=== PATIENT | female | born 1955 | race Caucasian/White ===

== ENCOUNTER 2017-07-30 15:37 | Emergency (ER) | payer MEDICARE, OTHER, SELFPAY ==
[2017-07-30 16:01] VITALS: BP 134/84; PULSE 84; RESP 14; TEMP 36.1; O2SAT 98
--- NOTE | 2017-07-30 16:26 | DI.RAD.S_ITS ---
PROCEDURE: XR CHEST 2V INDICATIONS: cough for last 2 weeks TECHNIQUE: 2 views of the chest were acquired. COMPARISON: [facility], , CHEST 2 VIEW, 04/17/2016, 13:00. FINDINGS: Surgical changes and devices: None. Lungs and pleura: No pleural effusions or pneumothorax. Lungs are clear. Mediastinum: Mediastinal contours are normal. Heart size is normal. Bones and chest wall: No suspicious bony abnormalities. Soft tissues appear unremarkable. IMPRESSION: No acute process. Dictated by: Margarita Jacobo M.D. on 07/30/2017 at 17:19 Approved by: Margarita Jacobo M.D. on 07/30/2017 at 17:19
[2017-07-30] MEDS: ALBUTEROL/IPRATROPIUM 3 ML AMPUL INH (16:32)
[2017-07-30 16:51] VITALS: O2SAT 97
--- NOTE | 2017-07-30 17:20 | ED_ITS ---
HPI - URI/Sore Throat <LORENZA Pacheco - Last Filed: 07/30/17 22:13> General Chief Complaint: Upper Respiratory Symptoms Stated Complaint: BAD COUGH,BREATHING ISSUES Time Seen by Provider: 07/30/17 17:00 History of Present Illness HPI Narrative: 62-year-old female here for complaint of having cough over the past 2 weeks. She reports that she has had productive cough along with nasal congestion over this timeframe. She has been using her asthma medications to help with her cough which has been helping somewhat however has relieved her symptoms. She denies any fevers. Positive p.o. intake. No nausea or vomiting. She is able to speak full sentences. No acute distress. She also reports that she has had some wheezing MD Complaint: cough and nasal congestion Related Data Home Medications Medication Instructions Recorded Confirmed Fluticasone Propionate (FLONASE) 1 spray INTRANASAL QDAY #0 02/24/12 amitriptyline 25 mg PO QDAY #0 02/24/12 bupropion HCl [Wellbutrin SR] 450 mg PO QDAY #0 02/24/12 cetirizine 10 mg PO Q DAY #0 02/24/12 conjugated estrogens [Premarin] 1.25 mg PO QDAY #0 02/24/12 esomeprazole magnesium [Nexium] 40 mg PO QDAY #0 02/24/12 montelukast [Singulair] 10 mg PO QDAY PRN #0 02/24/12 acetaminophen 650 mg PO Q8HP PRN #0 04/17/16 lorazepam [Ativan] 1 mg PO BIDP PRN #0 04/17/16 telmisartan-hydrochlorothiazid 1 tab PO QDAY #0 04/17/16 [Micardis HCT] Previous Rx's Medication Instructions Recorded dextromethorphan polistirex 30 mg PO Q12H 10 Days #0 ml 04/17/16 [Delsym 12 hour] Allergies Allergy/AdvReac Type Severity Reaction Status Date / Time iodine [IODINE] Allergy Mild Unverified 06/22/17 13:11 Sulfa (Sulfonamide Allergy Mild Unverified 06/22/17 13:11 Antibiotics) [SULFA (SULFONAMIDE ANTIBIOTICS)] Iodinated Contrast- Oral and Allergy Unknown Unverified 06/22/17 13:11 IV Dye [IODINATED CONTRAST MEDIA - IV DYE] lisinopril [LISINOPRIL] Allergy Unknown Unverified 06/22/17 13:11 Review of Systems <LORENZA Pacheco - Last Filed: 07/30/17 22:13> Constitutional Denies chills, Denies fever(s), Denies lethargy and Denies weakness Eyes Denies change in vision, Denies eye discharge, Denies irritation and Denies loss of vision ENT Ears, Nose, Mouth, and Throat: Reports nasal congestion Cardiovascular Denies chest pain, Denies irregular heart rhythm, Denies lightheadedness, Denies palpitations and Denies orthopnea Respiratory Reports cough and Reports wheezing Gastrointestinal Gastrointestinal: Denies abdominal pain, Denies change in bowel habits, Denies diarrhea, Denies nausea and Denies vomiting Integumentary/Breasts Denies pruritus, Denies erythema, Denies rash and Denies wounds Neurologic Denies loss of vision and Denies weakness Endocrine Denies palpitations Allergic/Immunologic Reports wheezing Exam <LORENZA Pacheco - Last Filed: 07/30/17 22:13> Initial Vital Signs Initial Vital Signs: Vital Signs Temperature 96.9 F L 07/30/17 16:01 Pulse Rate 84 07/30/17 16:01 Respiratory Rate 14 07/30/17 16:01 Blood Pressure 134/84 H 07/30/17 16:01 Pulse Oximetry 98 07/30/17 16:01 Const General: cooperative and well developed Nutritional Appearance: well nourished Orientation: alert, awake, oriented x3 and not confused [facility] Mouth: oral mucosae normal, oropharynx normal and moist mucous membranes Eyes General: appearance normal, both eyes and all related structures Eyelids: eyelids normal Conjunctivae: conjunctivae normal Sclera: sclerae normal Pupils: PERRL EOM: EOM intact bilaterally Neck Neck: normal visual inspection, trachea midline, No lymphadenopathy, No midline deformity and No JVD Lymphatic: No lymphedema Resp Effort & Inspection: normal respiratory effort, able to speak in complete sentences, no respiratory distress and no use of accessory muscles Auscultation: no rales, no rhonchi and wheezes Cardio Rate: regular rate Rhythm: regular rhythm Heart Sounds: no click, no gallops, no murmurs and no rubs Skin General: no rashes or lesions noted, No jaundice and No petechiae <Eric Venegas DO - Last Filed: 08/18/17 07:41> Initial Vital Signs Initial Vital Signs: Vital Signs Temperature 96.9 F L 07/30/17 16:01 Pulse Rate 84 07/30/17 16:01 Respiratory Rate 14 07/30/17 16:01 Blood Pressure 134/84 H 07/30/17 16:01 Pulse Oximetry 98 07/30/17 16:01 Course <LORENZA Pacheco - Last Filed: 07/30/17 22:13> Orders Ordered: Discontinued Medications Albuterol/Ipratropium (Duoneb) 3 ml INH NOW ONE Stop: 07/30/17 16:25 Last Admin: 07/30/17 16:32 Dose: 3 ml Prednisone (Deltasone) 40 mg PO NOW ONE Stop: 07/30/17 17:58 Last Admin: 07/30/17 18:01 Dose: 40 mg Vital Signs - 8 hr 07/30/17 16:01 07/30/17 16:51 Temperature 96.9 F L Pulse Rate 84 Respiratory Rate 14 Blood Pressure 134/84 H Pulse Oximetry 98 97 <Eric Venegas DO - Last Filed: 08/18/17 07:41> Orders Ordered: Discontinued Medications Albuterol/Ipratropium (Duoneb) 3 ml INH NOW ONE Stop: 07/30/17 16:25 Last Admin: 07/30/17 16:32 Dose: 3 ml Prednisone (Deltasone) 40 mg PO NOW ONE Stop: 07/30/17 17:58 Last Admin: 07/30/17 18:01 Dose: 40 mg Vital Signs - 8 hr 07/30/17 16:01 07/30/17 16:51 Temperature 96.9 F L Pulse Rate 84 Respiratory Rate 14 Blood Pressure 134/84 H Pulse Oximetry 98 97 MDM - URI/Sore Throat <LORENZA Pacheco - Last Filed: 07/30/17 22:13> Imaging Data Chest x-ray: Radiologist's impression: PROCEDURE: XR CHEST 2V INDICATIONS: cough for last 2 weeks TECHNIQUE: 2 views of the chest were acquired. COMPARISON: [facility], , CHEST 2 VIEW, 04/17/2016, 13:00. FINDINGS: Surgical changes and devices: None. Lungs and pleura: No pleural effusions or pneumothorax. Lungs are clear. Mediastinum: Mediastinal contours are normal. Heart size is normal. Bones and chest wall: No suspicious bony abnormalities. Soft tissues appear unremarkable. IMPRESSION: No acute process. MDM Narrative Medical decision making narrative: Patient was given a DuoNeb treatment emergency room which helped her symptoms. Chest x-ray was obtained and was negative for any acute findings. Signs and symptoms presents as asthma exacerbation a either from a viral trigger or from a seasonal allergies. She is placed on a short course of prednisone. Continue taking prescribed allergy medications and asthma medications as prescribed. Follow up with primary care provider in the next couple of days. For any worsening symptoms return to the emergency room. Discharge Plan Departure Patient Disposition: Home, Self-Care Clinical Impression: Asthma exacerbation Discharge Date/Time: 07/30/17 18:07 Interventions: ED Discharge Assessment Last Done: 07/30/17 18:07 Instructions: Asthma -- Adult Activity Restrictions/Additional Instructions: Chest x-ray was obtained was negative for any acute findings. Signs and symptoms presents as asthma exacerbation other caused by a viral illness or due to allergies. You have been placed on a short course of prednisone to help with inflammation use as directed. Continue using see no allergy and asthma medication as prescribed. Follow up with her primary care provider in the next few days for re-evaluation. For any worsening symptoms return to the emergency room. Prescriptions: No Action esomeprazole magnesium [Nexium] 40 MG capsule,delayed release(DR/EC) 40 mg PO QDAY Qty: 0 RF: 0 conjugated estrogens [Premarin] 1.25 MG tablet 1.25 mg PO QDAY Qty: 0 RF: 0 amitriptyline 25 MG tablet 25 mg PO QDAY Qty: 0 RF: 0 cetirizine 10 MG tablet 10 mg PO Q DAY Qty: 0 RF: 0 Fluticasone Propionate (FLONASE) 1 spray Intranasal QDAY Qty: 0 RF: 0 montelukast [Singulair] 10 MG tablet 10 mg PO QDAY PRNQty: 0 RF: 0 bupropion HCl [Wellbutrin SR] 150 MG tablet extended release 12 hr 450 mg PO QDAY Qty: 0 RF: 0 lorazepam [Ativan] 1 MG tablet 1 mg PO BIDP PRNQty: 0 RF: 0 telmisartan-hydrochlorothiazid [Micardis HCT] 40 MG/12.5 MG tablet 1 tab PO QDAY Qty: 0 RF: 0 acetaminophen 650 MG tablet extended release 650 mg PO Q8HP PRNQty: 0 RF: 0 dextromethorphan polistirex [Delsym 12 hour] 30 MG/5 ML suspension,extended rel 12 hr 30 mg PO Q12H 10 Days Qty: 0 RF: 0 Referrals: [facility] [Provider Group]
[2017-07-30] MEDS: predniSONE 20 MG TABLET 40 MG PO (18:01)
== END 2017-07-30 18:07 | disposition home or self-care (01) ==
PROVIDERS: Emergency Provider Nurse Practitioner Family
DX: J45.901 Unspecified asthma with (acute) exacerbation (principal)
CPT/HCPCS: 71046; 94640; 99282; 99283

== ENCOUNTER 2018-01-02 11:45 | Outpatient (RCR) | payer MEDICARE, OTHER, SELFPAY ==
--- NOTE | 2017-08-24 15:27 | PT.OIE ---
Current Diagnoses Pain in unspecified hip (08/24/17) Stiffness of right hip, not elsewhere classified (08/24/17) Stiffness of left hip, not elsewhere classified (08/24/17) Stiffness of right knee, not elsewhere classified (08/24/17) Stiffness of left knee, not elsewhere classified (08/24/17) Unspecified abnormalities of gait and mobility (08/24/17) Weakness (08/24/17) Provider Visit Care Team Role Provider Type Aydee Mitchell Attending Provider Non-Staff Specialty: Medical Address: [address] [place] [address], [id number] Fax: Email: Physical Therapy Initial Evaluation PT-OP-A Visit Information Start: 08/24/17 14:54 Freq: Status: Active Protocol: Document 08/24/17 11:15 DCW (Rec: 08/24/17 15:24 DCW [id number]) Out-Patient Physical Therapy Visit Information Visit Information Visit Type Initial Evaluation Visit Note Initial evaluation for aquatic therapy Visit Start Time 11:15 Visit Stop Time 11:50 Total Visit Minutes 35 Visit Number 1 Number of R DEVELOPER Visits 0 Evaluation Information Evaluation Date 08/24/17 PT-OP-B Current Condition Start: 08/24/17 14:54 Freq: Status: Active Protocol: Document 08/24/17 11:15 DCW (Rec: 08/24/17 15:24 DCW [id number]) Current Condition History of Current Condition Onset Date Multi-year history Current Complaints Severe hip/knee pain History of Current Condition Pt is a 62 year old female presenting to her physical therapy evaluation with a long -standing history of bilateral hip and knee pain. Pt reports her pain is normally an 8/10, and has been worsening for the past six months. Pt reports that approximately one year ago, she participated in aquatic therapy, and it helped some, but I didn't improve enough at the time to keep going. Pt reports she is motivated to try again, and is hopeful that exercising will be easier in the pool. Pt has difficulty with ambulating, using bilateral SPC for stability, and reports fairly constant pain with all of her ADLs. Prior Treatments and Tests Previous aquatic therapy Treatment Goals Patient/Caregiver Goals Participate in aquatic therapy to decrease LE pain. Prior Functional Status Baseline Function- ADL's Modified Independent Baseline Function- Mobility Modified Independent Baseline Function- Gait Ambulation /c bilateral canes Current Functional Impairments (Reported) Functional Limitations- ADL's Pain with ambulation, unable to roll onto her left side with bed mobility secondary to pain, knee and hip pain with sit->stand Personal Factors Other Personal Factors That May Effect HTN, Acute renal impairment, Therapy/Recovery Anxiety disorder, Asthma, CKD III, Depression, Sleep disorder, Obesity, Peripheral nerve disease PT-OP-C Subjective Start: 08/24/17 14:54 Freq: Status: Active Protocol: Document 08/24/17 11:15 DCW (Rec: 08/24/17 15:24 DCW [id number]) Patient Questionnaires Lower Extremity Functional Scale LEFS Score 80 = 13.75% LEFS Impairment 80 to 99% Impaired (Score 1-16 ) OP-PT Pain Assessment Pain Assessment Grid Paper Pain Assessment Grid Completed Yes Location Bilateral Hip Intensity 8 Scale Used Numeric (1 - 10) Description Aching Chronic Sharp Frequency Constant Home Pain Medication Use Pain Medications Used Yes Pain Behaviors Pain Behaviors Crying Facial Grimacing Guarding [place] PT-OP-E Functional Tests Start: 08/24/17 14:54 Freq: Status: Active Protocol: Document 08/24/17 11:15 DCW (Rec: 08/24/17 15:24 DCW [id number]) Functional Tests 2 Minute Walk Test Comments Asked pt to perform, pt in too much pain Five Times Sit to Stand Test Score 31 seconds PT-OP-F Manual Assessment Start: 08/24/17 14:54 Freq: Status: Active Protocol: Document 08/24/17 11:15 DCW (Rec: 08/24/17 15:24 DCW [id number]) Manual Assessments Joint Mobility Assessment Joint Mobility Assessment In supine position, PROM of hip was performed. L hip unable to tolerate >86? flexion, 16? abduction. Pt began to tear up with and further movement. R hip WNL. PT-OP-G Mobility & Gait Start: 08/24/17 14:54 Freq: Status: Active Protocol: Document 08/24/17 11:15 DCW (Rec: 08/24/17 15:24 DCW [id number]) OP Mobility Evaluation Bed Mobility Rolling Unable to roll into left side due to severe pain. OP Gait Assessment Gait Gait Assistance Required: Contact Guard Assist Distance (Feet) (feet) 50 Able to Maintain Weight Bearing Status Yes During Gait Assistive Devices Assistive Device Straight Cane Gait Deviations General Gait Pattern Antalgic Decreased Stride Length Decreased Feet Clearance Flexed Trunk Step-to Gait Factors Limiting Gait Function Factors Limiting Gait Function Decreased Strength Limited Range of Motion Pain PT-OP-M Strength Start: 08/24/17 14:54 Freq: Status: Active Protocol: Document 08/24/17 11:15 DCW (Rec: 08/24/17 15:24 DCW [id number]) Hip Strength Hip Manual Muscle Testing Right Flexion (L2) 4- Good- Abduction 3 Fair Adduction 3- Fair- External Rotation 4 Good Internal Rotation 4 Good Left Flexion (L2) 3- Fair- Abduction 3 Fair Adduction 3- Fair- External Rotation 2+ Poor+ Internal Rotation 4 Good Knee Strength Knee Manual Muscle Testing Right Flexion (S2) 4 Good Extension (L3) 4+ Good+ Left Flexion (S2) 3 Fair Extension (L3) 3- Fair- PT-OP-T Assessment and Plan Start: 08/24/17 14:54 Freq: Status: Active Protocol: Document 08/24/17 11:15 DCW (Rec: 08/24/17 15:24 DCW [id number]) Physical Therapy Assessment Rehab Potential Rehabilitation Potential Fair Evaluation Complexity Number of Personal Factors/Comorbidities 3 or More Number of Body Systems Impaired 4 or More Clinical Presentation at Evaluation Unstable Impairments Impairments Activity Tolerance Balance Functional Activities Functional Mobility Gait Pain Posture ROM Soft Tissue Mobility Strength Goals Six Impairment Strength [place] Lab[employer] Goal (LTG) Pt Left LE MMT to 3+/5 Pt Right LE MMT to 4/5 Five Impairment ROM [place] [employer] Goal (LTG) Passive hip ROM to 100? flexion and 30? abduction LTG Duration 10/05/17 Four Impairment 2 Minute Walk Test Short Term Goal (STG) Pt to complete 2 MWT STG Duration 09/14/17 [place] Laborer Goal (LTG) Pt to ambulate 150' during 2 MWT LTG Duration 10/05/17 Three Impairment Five Time [place] Laborer Goal (LTG) Pt to perform FTSTS in 23 seconds LTG Duration 10/05/17 Two Impairment Activity Participation Short Term Goal (STG) Pt to participate in aquatic therapy for full session with no reports of increased pain STG Duration 09/14/17 One Impairment Pain Short Term Goal (STG) Pt to report pain at worst 6/ 10 STG Duration 09/14/17 Snf Goal (LTG) Pt to report pain at worst 4/ 10 LTG Duration 10/05/17 Assessment Summary Assessment Pt severely debilitated by bilateral hip and knee pain, unable to tolerate much testing during her eval before reporting 10/10 pain and beginning to tear up. Hip ROM limited L>R, and left hip is also significantly weaker at this time. Pt will likely benefit most from aquatic therapy in order to strengthening and improve flexibility while decreasing pain in joints from weight bearing Physical Therapy Plan Frequency and Duration Frequency of Treatment 2x/Week Duration of Treatment 12 weeks Plan of Care Start Date 08/24/17 Plan of Care End Date 11/16/17 Therapeutic Interventions Therapeutic Interventions Aquatic Therapy Balance Training Gait Training Home Exercise Program Manual Therapy Patient/Caregiver Education Self-Care/Home Management Soft Tissue Mobilization Therapeutic Activities Therapeutic Exercises Modalities Cold Pack/Ice Massage Electric Stimulation Hot Packs Ultrasound Next Visit Focus/Plan Next Note Type Treatment Note Next Visit Plan Begin aquatic therapy program Please Sign and Return: I have reviewed this Plan of Care and certify that the skilled therapy services above are required to meet the patient?s needs. Physician Signature Date Printed Name and Credentials Clinical Instructor Signature Printed Name and Credentials
--- NOTE | 2017-09-16 15:43 | PT.OTN ---
Current Diagnoses Pain in unspecified hip (09/16/17) Physical Therapy Treatment Note PT-OP-A Visit Information Start: 08/24/17 14:54 Freq: Status: Active Protocol: Document 09/16/17 15:29 TMS (Rec: 09/16/17 15:40 TMS [id number]) Out-Patient Physical Therapy Visit Information Visit Information Visit Type Treatment Note Visit Start Time 11:00 Visit Stop Time 11:45 Total Visit Minutes 45 Visit Number 2 Number of VAULT KEEPER Visits 1 PT-OP-B Current Condition Start: 08/24/17 14:54 Freq: Status: Active Protocol: Document 08/24/17 11:15 DCW (Rec: 08/24/17 15:24 DCW [id number]) Current Condition History of Current Condition Onset Date Multi-year history Current Complaints Severe hip/knee pain History of Current Condition Pt is a 62 year old female presenting to her physical therapy evaluation with a long -standing history of bilateral hip and knee pain. Pt reports her pain is normally an 8/10, and has been worsening for the past six months. Pt reports that approximately one year ago, she participated in aquatic therapy, and it helped some, but I didn't improve enough at the time to keep going. Pt reports she is motivated to try again, and is hopeful that exercising will be easier in the pool. Pt has difficulty with ambulating, using bilateral SPC for stability, and reports fairly constant pain with all of her ADLs. Prior Treatments and Tests Previous aquatic therapy Treatment Goals Patient/Caregiver Goals Participate in aquatic therapy to decrease LE pain. Prior Functional Status Baseline Function- ADL's Modified Independent Baseline Function- Mobility Modified Independent Baseline Function- Gait Ambulation /c bilateral canes Current Functional Impairments (Reported) Functional Limitations- ADL's Pain with ambulation, unable to roll onto her left side with bed mobility secondary to pain, knee and hip pain with sit->stand Personal Factors Other Personal Factors That May Effect HTN, Acute renal impairment, Therapy/Recovery Anxiety disorder, Asthma, CKD III, Depression, Sleep disorder, Obesity, Peripheral nerve disease PT-OP-C Subjective Start: 08/24/17 14:54 Freq: Status: Active Protocol: Document 09/16/17 15:29 TMS (Rec: 09/16/17 15:40 TMS [id number]) OP-PT Subjective Patient Comments Patient Comments Pt. happy to be in water, I have to give it another try. Pt. reports pain at 8/10, left hip greather then right. PT-OP-E Functional Tests Start: 08/24/17 14:54 Freq: Status: Active Protocol: Document 08/24/17 11:15 DCW (Rec: 08/24/17 15:24 DCW [id number]) Functional Tests 2 Minute Walk Test Comments Asked pt to perform, pt in too much pain Five Times Sit to Stand Test Score 31 seconds PT-OP-F Manual Assessment Start: 08/24/17 14:54 Freq: Status: Active Protocol: Document 08/24/17 11:15 DCW (Rec: 08/24/17 15:24 DCW [id number]) Manual Assessments Joint Mobility Assessment Joint Mobility Assessment In supine position, PROM of hip was performed. L hip unable to tolerate >86? flexion, 16? abduction. Pt began to tear up with and further movement. R hip WNL. PT-OP-G Mobility & Gait Start: 08/24/17 14:54 Freq: Status: Active Protocol: Document 08/24/17 11:15 DCW (Rec: 08/24/17 15:24 DCW [id number]) OP Mobility Evaluation Bed Mobility Rolling Unable to roll into left side due to severe pain. OP Gait Assessment Gait Gait Assistance Required: Contact Guard Assist Distance (Feet) (feet) 50 Able to Maintain Weight Bearing Status Yes During Gait Assistive Devices Assistive Device Straight Cane Gait Deviations General Gait Pattern Antalgic Decreased Stride Length Decreased Feet Clearance Flexed Trunk Step-to Gait Factors Limiting Gait Function Factors Limiting Gait Function Decreased Strength Limited Range of Motion Pain PT-OP-M Strength Start: 08/24/17 14:54 Freq: Status: Active Protocol: Document 08/24/17 11:15 DCW (Rec: 08/24/17 15:24 DCW [id number]) Hip Strength Hip Manual Muscle Testing Right Flexion (L2) 4- Good- Abduction 3 Fair Adduction 3- Fair- External Rotation 4 Good Internal Rotation 4 Good Left Flexion (L2) 3- Fair- Abduction 3 Fair Adduction 3- Fair- External Rotation 2+ Poor+ Internal Rotation 4 Good Knee Strength Knee Manual Muscle Testing Right Flexion (S2) 4 Good Extension (L3) 4+ Good+ Left Flexion (S2) 3 Fair Extension (L3) 3- Fair- PT-OP-S Aquatic Treatment Start: 08/24/17 14:54 Freq: Status: Active Protocol: Document 09/16/17 15:29 TMS (Rec: 09/16/17 15:40 TMS [id number]) Aquatics Treatment Pool Entry/Exit Pool Entry/Exit Method Lift Water Walking Backwards Water Level Chest Level Sideways Water Level Chest Level Forwards Water Level Chest Level Lower Extremity Exercises 3 Details Knee flexion/extension Body Position Standing Water Level Chest Level Equipment x10 reps. 2 Details Hip AB/AD Body Position Standing Water Level Chest Level Reps/Duration x 10 reps. Comments Small motions 1 Details Hip flexion/extension Body Position Standing Water Level Chest Level Reps/Duration x 10 reps. [place] Activities [place] Activities Bicycle [place] Equipment White noodle Duration 10 minutes Comments Occasional min-A for balance PT-OP-T Assessment and Plan Start: 08/24/17 14:54 Freq: Status: Active Protocol: Document 09/16/17 15:29 TMS (Rec: 09/16/17 15:40 TMS [email or web address]) Physical Therapy Assessment Assessment Summary Assessment Pt. tolerated aquatic therapy better then land therapy. Encouraged to keep ROM within tolerable range with exercises and deep water walking. Was more comfortable walking backwards then forwards in chest level water. Physical Therapy Plan Frequency and Duration Frequency of Treatment 2x/Week Duration of Treatment 12 weeks Plan of Care Start Date 08/24/17 Plan of Care End Date 11/16/17 Next Visit Focus/Plan Next Visit Plan Continue to progress aquatics as tolerable.
--- NOTE | 2017-09-23 11:45 | PT.OTN ---
Current Diagnoses Pain in unspecified hip (09/23/17) Physical Therapy Treatment Note PT-OP-A Visit Information Start: 08/24/17 14:54 Freq: Status: Active Protocol: Document 09/23/17 11:45 TMS (Rec: 09/23/17 16:00 TMS [email or web address]) Out-Patient Physical Therapy Visit Information Visit Information Visit Type Treatment Note Visit Start Time 11:05 Visit Stop Time 11:45 Total Visit Minutes 40 Visit Number 3 Number of COMMUNITY NUTRITION EDUCATOR Visits 2 PT-OP-B Current Condition Start: 08/24/17 14:54 Freq: Status: Active Protocol: Document 08/24/17 11:15 DCW (Rec: 08/24/17 15:24 DCW [id number]) Current Condition History of Current Condition Onset Date Multi-year history Current Complaints Severe hip/knee pain History of Current Condition Pt is a 62 year old female presenting to her physical therapy evaluation with a long -standing history of bilateral hip and knee pain. Pt reports her pain is normally an 8/10, and has been worsening for the past six months. Pt reports that approximately one year ago, she participated in aquatic therapy, and it helped some, but I didn't improve enough at the time to keep going. Pt reports she is motivated to try again, and is hopeful that exercising will be easier in the pool. Pt has difficulty with ambulating, using bilateral SPC for stability, and reports fairly constant pain with all of her ADLs. Prior Treatments and Tests Previous aquatic therapy Treatment Goals Patient/Caregiver Goals Participate in aquatic therapy to decrease LE pain. Prior Functional Status Baseline Function- ADL's Modified Independent Baseline Function- Mobility Modified Independent Baseline Function- Gait Ambulation /c bilateral canes Current Functional Impairments (Reported) Functional Limitations- ADL's Pain with ambulation, unable to roll onto her left side with bed mobility secondary to pain, knee and hip pain with sit->stand Personal Factors Other Personal Factors That May Effect HTN, Acute renal impairment, Therapy/Recovery Anxiety disorder, Asthma, CKD III, Depression, Sleep disorder, Obesity, Peripheral nerve disease PT-OP-C Subjective Start: 08/24/17 14:54 Freq: Status: Active Protocol: Document 09/23/17 11:45 TMS (Rec: 09/23/17 16:00 TMS [email or web address]) OP-PT Subjective Patient Comments Patient Comments Pt. states there might have been slightly less pain after last aquatic treatment. States left hip has been bad today, pain is 8/10. PT-OP-E Functional Tests Start: 08/24/17 14:54 Freq: Status: Active Protocol: Document 08/24/17 11:15 DCW (Rec: 08/24/17 15:24 DCW [id number]) Functional Tests 2 Minute Walk Test Comments Asked pt to perform, pt in too much pain Five Times Sit to Stand Test Score 31 seconds PT-OP-F Manual Assessment Start: 08/24/17 14:54 Freq: Status: Active Protocol: Document 08/24/17 11:15 DCW (Rec: 08/24/17 15:24 DCW [id number]) Manual Assessments Joint Mobility Assessment Joint Mobility Assessment In supine position, PROM of hip was performed. L hip unable to tolerate >86? flexion, 16? abduction. Pt began to tear up with and further movement. R hip WNL. PT-OP-G Mobility & Gait Start: 08/24/17 14:54 Freq: Status: Active Protocol: Document 08/24/17 11:15 DCW (Rec: 08/24/17 15:24 DCW [id number]) OP Mobility Evaluation Bed Mobility Rolling Unable to roll into left side due to severe pain. OP Gait Assessment Gait Gait Assistance Required: Contact Guard Assist Distance (Feet) (feet) 50 Able to Maintain Weight Bearing Status Yes During Gait Assistive Devices Assistive Device Straight Cane Gait Deviations General Gait Pattern Antalgic Decreased Stride Length Decreased Feet Clearance Flexed Trunk Step-to Gait Factors Limiting Gait Function Factors Limiting Gait Function Decreased Strength Limited Range of Motion Pain PT-OP-M Strength Start: 08/24/17 14:54 Freq: Status: Active Protocol: Document 08/24/17 11:15 DCW (Rec: 08/24/17 15:24 DCW [id number]) Hip Strength Hip Manual Muscle Testing Right Flexion (L2) 4- Good- Abduction 3 Fair Adduction 3- Fair- External Rotation 4 Good Internal Rotation 4 Good Left Flexion (L2) 3- Fair- Abduction 3 Fair Adduction 3- Fair- External Rotation 2+ Poor+ Internal Rotation 4 Good Knee Strength Knee Manual Muscle Testing Right Flexion (S2) 4 Good Extension (L3) 4+ Good+ Left Flexion (S2) 3 Fair Extension (L3) 3- Fair- PT-OP-S Aquatic Treatment Start: 08/24/17 14:54 Freq: Status: Active Protocol: Document 09/23/17 11:45 TMS (Rec: 09/23/17 16:00 TMS [email or web address]) Aquatics Treatment Water Walking [place] Water Level Chest Level Level of Assistance Standby Assistance Sideways Water Level Chest Level Level of Assistance Standby Assistance Comments Pt. able to side step to right , not to left. Forwards Water Level Chest Level Level of Assistance Standby Assistance Lower Extremity Exercises 3 Details Knee flexion/extension Body Position Standing Water Level Chest Level Equipment x10 reps. 2 Details Hip AB/AD Body Position Standing Water Level Chest Level Reps/Duration x 10 reps. Comments Small motions, right L.E. only 1 Details Hip flexion/extension Body Position Standing Water Level Chest Level Reps/Duration x 10 reps. Comments Right L.E. only [place] Activities [place] Activities Bicycle [place] Equipment White noodle Duration 10 minutes Comments Occasional min-A for balance PT-OP-T Assessment and Plan Start: 08/24/17 14:54 Freq: Status: Active Protocol: Document 09/23/17 11:45 TMS (Rec: 09/23/17 16:00 TMS [email or web address]) Physical Therapy Assessment Assessment Summary Assessment Pt. unable to tolerate left hip exercises today, even with very little ROM. Physical Therapy Plan Next Visit Focus/Plan Next Note Type Treatment Note Next Visit Plan Continue to progress aquatics as tolerable.
--- NOTE | 2017-10-05 13:00 | PT.OTN ---
Current Diagnoses Pain in unspecified hip (10/05/17) Physical Therapy Treatment Note PT-OP-A Visit Information Start: 08/24/17 14:54 Freq: Status: Active Protocol: Document 10/05/17 13:00 TMS (Rec: 10/05/17 15:17 TMS [email or web address]) Out-Patient Physical Therapy Visit Information Visit Information Visit Type Treatment Note Visit Start Time 12:15 Visit Stop Time 13:00 Total Visit Minutes 45 Visit Number 4 Number of FORGER HELPER Visits 3 PT-OP-B Current Condition Start: 08/24/17 14:54 Freq: Status: Active Protocol: Document 08/24/17 11:15 DCW (Rec: 08/24/17 15:24 DCW [id number]) Current Condition History of Current Condition Onset Date Multi-year history Current Complaints Severe hip/knee pain History of Current Condition Pt is a 62 year old female presenting to her physical therapy evaluation with a long -standing history of bilateral hip and knee pain. Pt reports her pain is normally an 8/10, and has been worsening for the past six months. Pt reports that approximately one year ago, she participated in aquatic therapy, and it helped some, but I didn't improve enough at the time to keep going. Pt reports she is motivated to try again, and is hopeful that exercising will be easier in the pool. Pt has difficulty with ambulating, using bilateral SPC for stability, and reports fairly constant pain with all of her ADLs. Prior Treatments and Tests Previous aquatic therapy Treatment Goals Patient/Caregiver Goals Participate in aquatic therapy to decrease LE pain. Prior Functional Status Baseline Function- ADL's Modified Independent Baseline Function- Mobility Modified Independent Baseline Function- Gait Ambulation /c bilateral canes Current Functional Impairments (Reported) Functional Limitations- ADL's Pain with ambulation, unable to roll onto her left side with bed mobility secondary to pain, knee and hip pain with sit->stand Personal Factors Other Personal Factors That May Effect HTN, Acute renal impairment, Therapy/Recovery Anxiety disorder, Asthma, CKD III, Depression, Sleep disorder, Obesity, Peripheral nerve disease PT-OP-C Subjective Start: 08/24/17 14:54 Freq: Status: Active Protocol: Document 10/05/17 13:00 TMS (Rec: 10/05/17 15:17 TMS [email or web address]) OP-PT Subjective Patient Comments Patient Comments Pt. reports her usual pain is 5-6/10, rated 5/10 before getting in pool. PT-OP-E Functional Tests Start: 08/24/17 14:54 Freq: Status: Active Protocol: Document 08/24/17 11:15 DCW (Rec: 08/24/17 15:24 DCW [id number]) Functional Tests 2 Minute Walk Test Comments Asked pt to perform, pt in too much pain Five Times Sit to Stand Test Score 31 seconds PT-OP-F Manual Assessment Start: 08/24/17 14:54 Freq: Status: Active Protocol: Document 08/24/17 11:15 DCW (Rec: 08/24/17 15:24 DCW [id number]) Manual Assessments Joint Mobility Assessment Joint Mobility Assessment In supine position, PROM of hip was performed. L hip unable to tolerate >86? flexion, 16? abduction. Pt began to tear up with and further movement. R hip WNL. PT-OP-G Mobility & Gait Start: 08/24/17 14:54 Freq: Status: Active Protocol: Document 08/24/17 11:15 DCW (Rec: 08/24/17 15:24 DCW [id number]) OP Mobility Evaluation Bed Mobility Rolling Unable to roll into left side due to severe pain. OP Gait Assessment Gait Gait Assistance Required: Contact Guard Assist Distance (Feet) (feet) 50 Able to Maintain Weight Bearing Status Yes During Gait Assistive Devices Assistive Device Straight Cane Gait Deviations General Gait Pattern Antalgic Decreased Stride Length Decreased Feet Clearance Flexed Trunk Step-to Gait Factors Limiting Gait Function Factors Limiting Gait Function Decreased Strength Limited Range of Motion Pain PT-OP-M Strength Start: 08/24/17 14:54 Freq: Status: Active Protocol: Document 08/24/17 11:15 DCW (Rec: 08/24/17 15:24 DCW [id number]) Hip Strength Hip Manual Muscle Testing Right Flexion (L2) 4- Good- Abduction 3 Fair Adduction 3- Fair- External Rotation 4 Good Internal Rotation 4 Good Left Flexion (L2) 3- Fair- Abduction 3 Fair Adduction 3- Fair- External Rotation 2+ Poor+ Internal Rotation 4 Good Knee Strength Knee Manual Muscle Testing Right Flexion (S2) 4 Good Extension (L3) 4+ Good+ Left Flexion (S2) 3 Fair Extension (L3) 3- Fair- PT-OP-S Aquatic Treatment Start: 08/24/17 14:54 Freq: Status: Active Protocol: Document 10/05/17 13:00 TMS (Rec: 10/05/17 15:17 TMS [email or web address]) Aquatics Treatment Pool Entry/Exit Pool Entry/Exit Method Lift Water Walking Backwards Water Level Chest Level Level of Assistance Standby Assistance Sideways Water Level Chest Level Level of Assistance Standby Assistance Comments To right only, had increased pain to left. Forwards Water Level Chest Level Level of Assistance Standby Assistance Lower Extremity Exercises 3 Details Knee flexion/extension Body Position Standing Water Level Chest Level Equipment x12 reps 2 Details Hip AB/AD Body Position Standing Water Level Chest Level Reps/Duration x 12 reps Comments small motions 1 Details Hip flexion/extension Body Position Standing Water Level Chest Level Reps/Duration x 10 reps. [place] Activities [place] Activities Bicycle Cross [place] Equipment White noodle Duration 15 minutes PT-OP-T Assessment and Plan Start: 08/24/17 14:54 Freq: Status: Active Protocol: Document 10/05/17 13:00 TMS (Rec: 10/05/17 15:17 TMS [email or web address]) Physical Therapy Assessment Assessment Summary Assessment Pt. tolerated ROM with left L. E. better today, needs cues to stay within tolerance. Didn't tolerate left side stepping so omitted. Physical Therapy Plan Frequency and Duration Frequency of Treatment 2x/Week Duration of Treatment 12 weeks Plan of Care Start Date 08/24/17 Plan of Care End Date 11/16/17 Next Visit Focus/Plan Next Visit Plan Continue to progress aquatics as tolerable.
--- NOTE | 2017-10-17 16:41 | PT.OTN ---
Current Diagnoses Pain in unspecified hip (10/14/17) Physical Therapy Treatment Note PT-OP-A Visit Information Start: 08/24/17 14:54 Freq: Status: Active Protocol: Document 10/14/17 12:30 SAK (Rec: 10/17/17 16:41 [facility] [id number]) Out-Patient Physical Therapy Visit Information Visit Information Visit Type Treatment Note Visit Start Time 12:30 Visit Stop Time 13:15 Total Visit Minutes 45 Visit Number 5 Number of WHEEL TUNER Visits 0 PT-OP-B Current Condition Start: 08/24/17 14:54 Freq: Status: Active Protocol: Document 08/24/17 11:15 DCW (Rec: 08/24/17 15:24 DCW [id number]) Current Condition History of Current Condition Onset Date Multi-year history Current Complaints Severe hip/knee pain History of Current Condition Pt is a 62 year old female presenting to her physical therapy evaluation with a long -standing history of bilateral hip and knee pain. Pt reports her pain is normally an 8/10, and has been worsening for the past six months. Pt reports that approximately one year ago, she participated in aquatic therapy, and it helped some, but I didn't improve enough at the time to keep going. Pt reports she is motivated to try again, and is hopeful that exercising will be easier in the pool. Pt has difficulty with ambulating, using bilateral SPC for stability, and reports fairly constant pain with all of her ADLs. Prior Treatments and Tests Previous aquatic therapy Treatment Goals Patient/Caregiver Goals Participate in aquatic therapy to decrease LE pain. Prior Functional Status Baseline Function- ADL's Modified Independent Baseline Function- Mobility Modified Independent Baseline Function- Gait Ambulation /c bilateral canes Current Functional Impairments (Reported) Functional Limitations- ADL's Pain with ambulation, unable to roll onto her left side with bed mobility secondary to pain, knee and hip pain with sit->stand Personal Factors Other Personal Factors That May Effect HTN, Acute renal impairment, Therapy/Recovery Anxiety disorder, Asthma, CKD III, Depression, Sleep disorder, Obesity, Peripheral nerve disease PT-OP-C Subjective Start: 08/24/17 14:54 Freq: Status: Active Protocol: Document 10/14/17 12:30 SAK (Rec: 10/17/17 16:41 SAK [id number]) OP-PT Subjective Patient Comments Patient Comments No new c/o. PT-OP-E Functional Tests Start: 08/24/17 14:54 Freq: Status: Active Protocol: Document 08/24/17 11:15 DCW (Rec: 08/24/17 15:24 DCW [id number]) Functional Tests 2 Minute Walk Test Comments Asked pt to perform, pt in too much pain Five Times Sit to Stand Test Score 31 seconds PT-OP-F Manual Assessment Start: 08/24/17 14:54 Freq: Status: Active Protocol: Document 08/24/17 11:15 DCW (Rec: 08/24/17 15:24 DCW [id number]) Manual Assessments Joint Mobility Assessment Joint Mobility Assessment In supine position, PROM of hip was performed. L hip unable to tolerate >86? flexion, 16? abduction. Pt began to tear up with and further movement. R hip WNL. PT-OP-G Mobility & Gait Start: 08/24/17 14:54 Freq: Status: Active Protocol: Document 08/24/17 11:15 DCW (Rec: 08/24/17 15:24 DCW [id number]) OP Mobility Evaluation Bed Mobility Rolling Unable to roll into left side due to severe pain. OP Gait Assessment Gait Gait Assistance Required: Contact Guard Assist Distance (Feet) (feet) 50 Able to Maintain Weight Bearing Status Yes During Gait Assistive Devices Assistive Device Straight Cane Gait Deviations General Gait Pattern Antalgic Decreased Stride Length Decreased Feet Clearance Flexed Trunk Step-to Gait Factors Limiting Gait Function Factors Limiting Gait Function Decreased Strength Limited Range of Motion Pain PT-OP-M Strength Start: 08/24/17 14:54 Freq: Status: Active Protocol: Document 08/24/17 11:15 DCW (Rec: 08/24/17 15:24 DCW [id number]) Hip Strength Hip Manual Muscle Testing Right Flexion (L2) 4- Good- Abduction 3 Fair Adduction 3- Fair- External Rotation 4 Good Internal Rotation 4 Good Left Flexion (L2) 3- Fair- Abduction 3 Fair Adduction 3- Fair- External Rotation 2+ Poor+ Internal Rotation 4 Good Knee Strength Knee Manual Muscle Testing Right Flexion (S2) 4 Good Extension (L3) 4+ Good+ Left Flexion (S2) 3 Fair Extension (L3) 3- Fair- PT-OP-S Aquatic Treatment Start: 08/24/17 14:54 Freq: Status: Active Protocol: Document 10/14/17 12:30 [facility] (Rec: 10/17/17 16:41 [facility] [id number]) Aquatics Treatment Pool Entry/Exit Pool Entry/Exit Method Lift Water Walking [place] Water Level Chest Level Walking Equipment Resistance Fins Level of Assistance Standby Assistance Backwards Water Level Chest Level Walking Equipment Resistance Fins Level of Assistance Standby Assistance Sideways Water Level Chest Level Walking Equipment Resistance Fins Level of Assistance Standby Assistance Comments To right only, had increased pain to left. Forwards Water Level Chest Level Walking Equipment Resistance Fins Level of Assistance Standby Assistance Lower Extremity Exercises 4 Details squats Body Position Standing Reps/Duration 10x 3 Details Knee flexion/extension Body Position Standing Water Level Chest Level Equipment x12 reps Comments small resistance fins 2 Details Hip AB/AD Body Position Standing Water Level Chest Level Equipment small resistance fins Reps/Duration x 12 reps Comments small motions 1 Details Hip flexion/extension Body Position Standing Water Level Chest Level Equipment small resistance fins Reps/Duration x 10 reps. Lower Extremity Stretches 3 Details hamstring, quad Comments start next session 1 Details SKTC, DKTC Body Position Standing Reps/Duration 2x 2 Details wall hip sway Water Level [place] Reps/Duration 3x [place] Activities [place] Activities Bicycle Cross [place] Equipment White noodle, small resistance fins Duration 15 minutes PT-OP-T Assessment and Plan Start: 08/24/17 14:54 Freq: Status: Active Protocol: Document 10/14/17 12:30 [facility] (Rec: 10/17/17 16:41 [facility] [id number]) Physical Therapy Assessment Rehab Potential Rehabilitation Potential Fair Evaluation Complexity Number of Personal Factors/Comorbidities 3 or More Number of Body Systems Impaired 4 or More Clinical Presentation at Evaluation Unstable Impairments Impairments Activity Tolerance Balance Functional Activities Functional Mobility Gait Pain Posture ROM Soft Tissue Mobility Strength Goals Six Impairment Strength Electroencephalograph Technologist Goal (LTG) Pt Left LE MMT to 3+/5 Pt Right LE MMT to 4/5 Five Impairment ROM Mcfp Goal (LTG) Passive hip ROM to 100? flexion and 30? abduction LTG Duration 10/05/17 Four Impairment 2 Minute Walk Test Short Term Goal (STG) Pt to complete 2 MWT STG Duration 09/14/17 Electroencephalograph Technologist Goal (LTG) Pt to ambulate 150' during 2 MWT LTG Duration 10/05/17 Three Impairment Five Time [id number] Mcfp Goal (LTG) Pt to perform FTSTS in 23 seconds LTG Duration 10/05/17 Two Impairment Activity Participation Short Term Goal (STG) Pt to participate in aquatic therapy for full session with no reports of increased pain STG Duration 09/14/17 One Impairment Pain Short Term Goal (STG) Pt to report pain at worst 6/ 10 STG Duration 09/14/17 Electroencephalograph Technologist Goal (LTG) Pt to report pain at worst 4/ 10 LTG Duration 10/05/17 Assessment Summary Assessment Good tolerance for progression of LE exercises in aquatic therapy Physical Therapy Plan Frequency and Duration Frequency of Treatment 2x/Week Duration of Treatment 12 weeks Plan of Care Start Date 08/24/17 Plan of Care End Date 11/16/17 Therapeutic Interventions Therapeutic Interventions Aquatic Therapy Balance Training Gait Training Home Exercise Program Manual Therapy Patient/Caregiver Education Self-Care/Home Management Soft Tissue Mobilization Therapeutic Activities Therapeutic Exercises Modalities Cold Pack/Ice Massage Electric Stimulation Hot Packs Ultrasound Next Visit Focus/Plan Next Note Type Treatment Note Next Visit Plan Progression of aquatic therapy as tolerated, add hamstring and quadricep stretching, try intervals in deep water
--- NOTE | 2017-11-18 14:58 | PT.OTN ---
Current Diagnoses Pain in unspecified hip (11/18/17) Physical Therapy Treatment Note PT-OP-A Visit Information Start: 08/24/17 14:54 Freq: Status: Active Protocol: Document 11/18/17 11:45 LJ (Rec: 11/18/17 14:58 LJ [email or web address]) Out-Patient Physical Therapy Visit Information Visit Information Visit Type Treatment Note Visit Start Time 11:45 Visit Stop Time 12:33 Total Visit Minutes 48 Visit Number 6 Number of SECURITY SITE SUPERVISOR Visits 1 PT-OP-B Current Condition Start: 08/24/17 14:54 Freq: Status: Active Protocol: Document 08/24/17 11:15 DCW (Rec: 08/24/17 15:24 DCW [id number]) Current Condition History of Current Condition Onset Date Multi-year history Current Complaints Severe hip/knee pain History of Current Condition Pt is a 62 year old female presenting to her physical therapy evaluation with a long -standing history of bilateral hip and knee pain. Pt reports her pain is normally an 8/10, and has been worsening for the past six months. Pt reports that approximately one year ago, she participated in aquatic therapy, and it helped some, but I didn't improve enough at the time to keep going. Pt reports she is motivated to try again, and is hopeful that exercising will be easier in the pool. Pt has difficulty with ambulating, using bilateral SPC for stability, and reports fairly constant pain with all of her ADLs. Prior Treatments and Tests Previous aquatic therapy Treatment Goals Patient/Caregiver Goals Participate in aquatic therapy to decrease LE pain. Prior Functional Status Baseline Function- ADL's Modified Independent Baseline Function- Mobility Modified Independent Baseline Function- Gait Ambulation /c bilateral canes Current Functional Impairments (Reported) Functional Limitations- ADL's Pain with ambulation, unable to roll onto her left side with bed mobility secondary to pain, knee and hip pain with sit->stand Personal Factors Other Personal Factors That May Effect HTN, Acute renal impairment, Therapy/Recovery Anxiety disorder, Asthma, CKD III, Depression, Sleep disorder, Obesity, Peripheral nerve disease PT-OP-C Subjective Start: 08/24/17 14:54 Freq: Status: Active Protocol: Document 11/18/17 11:45 LJ (Rec: 11/18/17 14:58 LJ [email or web address]) OP-PT Subjective Patient Comments Patient Comments Pt reported being gone for a month and unable to do any aquatic exercise PT-OP-E Functional Tests Start: 08/24/17 14:54 Freq: Status: Active Protocol: Document 08/24/17 11:15 DCW (Rec: 08/24/17 15:24 DCW [id number]) Functional Tests 2 Minute Walk Test Comments Asked pt to perform, pt in too much pain Five Times Sit to Stand Test Score 31 seconds PT-OP-F Manual Assessment Start: 08/24/17 14:54 Freq: Status: Active Protocol: Document 08/24/17 11:15 DCW (Rec: 08/24/17 15:24 DCW [id number]) Manual Assessments Joint Mobility Assessment Joint Mobility Assessment In supine position, PROM of hip was performed. L hip unable to tolerate >86? flexion, 16? abduction. Pt began to tear up with and further movement. R hip WNL. PT-OP-G Mobility & Gait Start: 08/24/17 14:54 Freq: Status: Active Protocol: Document 08/24/17 11:15 DCW (Rec: 08/24/17 15:24 DCW [id number]) OP Mobility Evaluation Bed Mobility Rolling Unable to roll into left side due to severe pain. OP Gait Assessment Gait Gait Assistance Required: Contact Guard Assist Distance (Feet) (feet) 50 Able to Maintain Weight Bearing Status Yes During Gait Assistive Devices Assistive Device Straight Cane Gait Deviations General Gait Pattern Antalgic Decreased Stride Length Decreased Feet Clearance Flexed Trunk Step-to Gait Factors Limiting Gait Function Factors Limiting Gait Function Decreased Strength Limited Range of Motion Pain PT-OP-M Strength Start: 08/24/17 14:54 Freq: Status: Active Protocol: Document 08/24/17 11:15 DCW (Rec: 08/24/17 15:24 DCW [id number]) Hip Strength Hip Manual Muscle Testing Right Flexion (L2) 4- Good- Abduction 3 Fair Adduction 3- Fair- External Rotation 4 Good Internal Rotation 4 Good Left Flexion (L2) 3- Fair- Abduction 3 Fair Adduction 3- Fair- External Rotation 2+ Poor+ Internal Rotation 4 Good Knee Strength Knee Manual Muscle Testing Right Flexion (S2) 4 Good Extension (L3) 4+ Good+ Left Flexion (S2) 3 Fair Extension (L3) 3- Fair- PT-OP-S Aquatic Treatment Start: 08/24/17 14:54 Freq: Status: Active Protocol: Document 11/18/17 11:45 ZENAIDA (Rec: 11/18/17 14:58 LJ [email or web address]) Aquatics Treatment Water Walking Marching Water Level Chest Level Walking Equipment Resistance Fins Level of Assistance Standby Assistance Backwards Water Level Chest Level Walking Equipment Resistance Fins Level of Assistance Standby Assistance Sideways Water Level Chest Level Walking Equipment Resistance Fins Level of Assistance Standby Assistance Comments To right only, had increased pain to left. Forwards Water Level Chest Level Walking Equipment Resistance Fins Level of Assistance Standby Assistance Lower Extremity Exercises 4 Details squats Body Position Standing Reps/Duration 10x 2 Details Hip AB/AD Body Position Standing Water Level Chest Level Equipment small resistance fins Reps/Duration x 12 reps Comments small motions 1 Details Hip flexion/extension Body Position Standing Water Level Chest Level Equipment small resistance fins Reps/Duration x 10 reps. Lower Extremity Stretches 3 Details hamstring, quad Comments caused increase in pain 1 Details SKTC, DKTC Body Position Standing Reps/Duration 2x [place] Activities [place] Activities Bicycle Cross Country Equipment White noodle, small resistance fins Duration 25 min Comments spent increased time in deep water to reintroduce exercise PT-OP-T Assessment and Plan Start: 08/24/17 14:54 Freq: Status: Active Protocol: Document 11/18/17 11:45 ZENAIDA (Rec: 11/18/17 14:58 [email or web address]) Physical Therapy Assessment Rehab Potential Rehabilitation Potential Fair Evaluation Complexity Number of Personal Factors/Comorbidities 3 or More Number of Body Systems Impaired 4 or More Clinical Presentation at Evaluation Unstable Impairments Impairments Activity Tolerance Balance Functional Activities Functional Mobility Gait Pain Posture ROM Soft Tissue Mobility Strength Goals Six Impairment Strength Long-Term Goal (LTG) Pt Left LE MMT to 3+/5 Pt Right LE MMT to 4/5 Five Impairment ROM Long-Term Goal (LTG) Passive hip ROM to 100? flexion and 30? abduction LTG Duration 10/05/17 Four Impairment 2 Minute Walk Test Short Term Goal (STG) Pt to complete 2 MWT STG Duration 09/14/17 Pipe Maker Goal (LTG) Pt to ambulate 150' during 2 MWT LTG Duration 10/05/17 Three Impairment Five Time [id number] Pipe Maker Goal (LTG) Pt to perform FTSTS in 23 seconds LTG Duration 10/05/17 Two Impairment Activity Participation Short Term Goal (STG) Pt to participate in aquatic therapy for full session with no reports of increased pain STG Duration 09/14/17 One Impairment Pain Short Term Goal (STG) Pt to report pain at worst 6/ 10 STG Duration 09/14/17 Long-Term Goal (LTG) Pt to report pain at worst 4/ 10 LTG Duration 10/05/17 Assessment Summary Assessment Pt demonstrated good tolerance for fins. C/O pain increase in ROM with exercises but self limited well. Physical Therapy Plan Frequency and Duration Frequency of Treatment 2x/Week Duration of Treatment 12 weeks Plan of Care Start Date 08/24/17 Plan of Care End Date 11/16/17 Therapeutic Interventions Therapeutic Interventions Aquatic Therapy Balance Training Gait Training Home Exercise Program Manual Therapy Patient/Caregiver Education Self-Care/Home Management Soft Tissue Mobilization Therapeutic Activities Therapeutic Exercises Modalities Cold Pack/Ice Massage Electric Stimulation Hot Packs Ultrasound Next Visit Focus/Plan Next Note Type Treatment Note Next Visit Plan Progression of aquatic therapy as tolerated, add hamstring and quadricep stretching, try intervals in deep water
--- NOTE | 2017-11-25 15:14 | PT.OTN ---
Current Diagnoses Pain in unspecified hip (11/25/17) Physical Therapy Treatment Note PT-OP-A Visit Information Start: 08/24/17 14:54 Freq: Status: Active Protocol: Document 11/25/17 11:45 LJ (Rec: 11/25/17 15:13 LJ [email or web address]) Out-Patient Physical Therapy Visit Information Visit Information Visit Start Time 11:45 Visit Stop Time 12:35 Total Visit Minutes 50 Visit Number 7 Number of PLANER OFFBEARER Visits 2 PT-OP-B Current Condition Start: 08/24/17 14:54 Freq: Status: Active Protocol: Document 08/24/17 11:15 DCW (Rec: 08/24/17 15:24 DCW [id number]) Current Condition History of Current Condition Onset Date Multi-year history Current Complaints Severe hip/knee pain History of Current Condition Pt is a 62 year old female presenting to her physical therapy evaluation with a long -standing history of bilateral hip and knee pain. Pt reports her pain is normally an 8/10, and has been worsening for the past six months. Pt reports that approximately one year ago, she participated in aquatic therapy, and it helped some, but I didn't improve enough at the time to keep going. Pt reports she is motivated to try again, and is hopeful that exercising will be easier in the pool. Pt has difficulty with ambulating, using bilateral SPC for stability, and reports fairly constant pain with all of her ADLs. Prior Treatments and Tests Previous aquatic therapy Treatment Goals Patient/Caregiver Goals Participate in aquatic therapy to decrease LE pain. Prior Functional Status Baseline Function- ADL's Modified Independent Baseline Function- Mobility Modified Independent Baseline Function- Gait Ambulation /c bilateral canes Current Functional Impairments (Reported) Functional Limitations- ADL's Pain with ambulation, unable to roll onto her left side with bed mobility secondary to pain, knee and hip pain with sit->stand Personal Factors Other Personal Factors That May Effect HTN, Acute renal impairment, Therapy/Recovery Anxiety disorder, Asthma, CKD III, Depression, Sleep disorder, Obesity, Peripheral nerve disease PT-OP-C Subjective Start: 08/24/17 14:54 Freq: Status: Active Protocol: Document 11/25/17 15:13 LJ (Rec: 11/25/17 15:14 LJ [email or web address]) OP-PT Subjective Patient Comments Patient Comments Pt reported being sore for a while last treatment but wants to get better so is willing to do what it takes PT-OP-E Functional Tests Start: 08/24/17 14:54 Freq: Status: Active Protocol: Document 08/24/17 11:15 DCW (Rec: 08/24/17 15:24 DCW [id number]) Functional Tests 2 Minute Walk Test Comments Asked pt to perform, pt in too much pain Five Times Sit to Stand Test Score 31 seconds PT-OP-F Manual Assessment Start: 08/24/17 14:54 Freq: Status: Active Protocol: Document 08/24/17 11:15 DCW (Rec: 08/24/17 15:24 DCW [id number]) Manual Assessments Joint Mobility Assessment Joint Mobility Assessment In supine position, PROM of hip was performed. L hip unable to tolerate >86? flexion, 16? abduction. Pt began to tear up with and further movement. R hip WNL. PT-OP-G Mobility & Gait Start: 08/24/17 14:54 Freq: Status: Active Protocol: Document 08/24/17 11:15 DCW (Rec: 08/24/17 15:24 DCW [id number]) OP Mobility Evaluation Bed Mobility Rolling Unable to roll into left side due to severe pain. OP Gait Assessment Gait Gait Assistance Required: Contact Guard Assist Distance (Feet) 50 Able to Maintain Weight Bearing Status Yes During Gait Assistive Devices Assistive Device Straight Cane Gait Deviations General Gait Pattern Antalgic Decreased Stride Length Decreased Feet Clearance Flexed Trunk Step-to Gait Factors Limiting Gait Function Factors Limiting Gait Function Decreased Strength Limited Range of Motion Pain PT-OP-M Strength Start: 08/24/17 14:54 Freq: Status: Active Protocol: Document 08/24/17 11:15 DCW (Rec: 08/24/17 15:24 DCW [id number]) Hip Strength Hip Manual Muscle Testing Right Flexion (L2) 4- Good- Abduction 3 Fair Adduction 3- Fair- External Rotation 4 Good Internal Rotation 4 Good Left Flexion (L2) 3- Fair- Abduction 3 Fair Adduction 3- Fair- External Rotation 2+ Poor+ Internal Rotation 4 Good Knee Strength Knee Manual Muscle Testing Right Flexion (S2) 4 Good Extension (L3) 4+ Good+ Left Flexion (S2) 3 Fair Extension (L3) 3- Fair- PT-OP-S Aquatic Treatment Start: 08/24/17 14:54 Freq: Status: Active Protocol: Document 11/25/17 11:45 LJ (Rec: 11/25/17 15:13 LJ [email or web address]) Aquatics Treatment Pool Entry/Exit Pool Entry/Exit Method Lift Water Walking Monster Walk Water Level Chest Level Walking Equipment Resistance Fins Level of Assistance Standby Assistance Marching Water Level Chest Level Walking Equipment Resistance Fins Level of Assistance Standby Assistance Comments blue fins Backwards Water Level Chest Level Walking Equipment Resistance Fins Level of Assistance Standby Assistance Comments blue fins Sideways Water Level Chest Level Walking Equipment Resistance Fins Level of Assistance Standby Assistance Comments tolerated both directions Forwards Water Level Chest Level Walking Equipment Resistance Fins Level of Assistance Standby Assistance Lower Extremity Exercises 3 Details Knee flexion/extension Body Position Standing Water Level Chest Level Equipment x12 reps Comments med resistance fins 2 Details Hip AB/AD Body Position Standing Water Level Chest Level Equipment med resistance fins Reps/Duration x 12 reps Comments small motions 1 Details Hip flexion/extension Body Position Standing Water Level Chest Level Equipment small resistance fins Reps/Duration x 10 reps. Lower Extremity Stretches 4 Details figure 4 bilat Body Position Standing 3 Details hamstring, quad Comments caused increase in pain 1 Details SKTC, DKTC Body Position Standing Reps/Duration 2x Spinal Exercises 1 Details pendulum Comments deep, barbells [place] Activities [place] Activities Bicycle Cross Country Equipment White noodle Duration 15 min PT-OP-T Assessment and Plan Start: 08/24/17 14:54 Freq: Status: Active Protocol: Document 11/25/17 11:45 [email or web address] (Rec: 11/25/17 15:13 [email or web address]) Physical Therapy Assessment Rehab Potential Rehabilitation Potential Fair Goals Six Impairment Strength [facility] Goal (LTG) Pt Left LE MMT to 3+/5 Pt Right LE MMT to 4/5 Five Impairment ROM Bellhop Captain Goal (LTG) Passive hip ROM to 100? flexion and 30? abduction LTG Duration 10/05/17 Four Impairment 2 Minute Walk Test Short Term Goal (STG) Pt to complete 2 MWT STG Duration 09/14/17 Fci Goal (LTG) Pt to ambulate 150' during 2 MWT LTG Duration 10/05/17 Three Impairment Five Time [id number] Bellhop Captain Goal (LTG) Pt to perform FTSTS in 23 seconds LTG Duration 10/05/17 Two Impairment Activity Participation Short Term Goal (STG) Pt to participate in aquatic therapy for full session with no reports of increased pain STG Duration 09/14/17 One Impairment Pain Short Term Goal (STG) Pt to report pain at worst 6/ 10 STG Duration 09/14/17 Bellhop Captain Goal (LTG) Pt to report pain at worst 4/ 10 LTG Duration 10/05/17 Assessment Summary Assessment Shows good tolerance for exercise progression with increase in fin size Physical Therapy Plan Frequency and Duration Frequency of Treatment 2x/Week Duration of Treatment 12 weeks Plan of Care Start Date 08/24/17 Plan of Care End Date 11/16/17 Therapeutic Interventions Therapeutic Interventions Aquatic Therapy Balance Training Gait Training Home Exercise Program Manual Therapy Patient/Caregiver Education Self-Care/Home Management Soft Tissue Mobilization Therapeutic Activities Therapeutic Exercises Modalities Cold Pack/Ice Massage Electric Stimulation Hot Packs Ultrasound Next Visit Focus/Plan Next Note Type Treatment Note Next Visit Plan Progression of aquatic therapy as tolerated, add hamstring and quadricep stretching, try intervals in deep water
--- NOTE | 2017-12-01 13:22 | PT.OPPOC ---
Current Diagnoses Pain in unspecified hip (11/25/17) Provider Visit Care Team Role Provider Type Aydee Mitchell Attending Provider Non-Staff Specialty: Medical Address: [address] [place] [address], [phone] Fax: Email: Plan Of Care PT-OP-T Assessment and Plan Start: 08/24/17 14:54 Freq: Status: Active Protocol: Document 11/25/17 11:45 SAK (Rec: 12/01/17 10:30 SAK [id number]) Physical Therapy Assessment Impairments Impairments Activity Tolerance Balance Functional Activities Functional Mobility Gait Pain Posture ROM Soft Tissue Mobility Strength Goals Six Impairment Strength Jail Goal (LTG) Pt Left LE MMT to 3+/5 Pt Right LE MMT to 4/5 (goal progress) LTG Duration 2 months Five Impairment ROM Bad Work Gatherer Goal (LTG) Passive hip ROM to 100? flexion and 30? abduction ( goal progress) LTG Duration 2 months Four Impairment 2 Minute Walk Test Short Term Goal (STG) Pt to complete 2 MWT Bad Work Gatherer Goal (LTG) Pt to ambulate 150' during 2 MWT (good goal progress) LTG Duration 2 months Three Impairment Five Time [id number] Bad Work Gatherer Goal (LTG) Pt to perform FTSTS in 23 seconds (goal progress) LTG Duration 2 months Two Impairment Activity Participation Short Term Goal (STG) Pt to participate in aquatic therapy for full session with no reports of increased pain ( goal progress LTG Duration 2 months One Impairment Pain Bad Work Gatherer Goal (LTG) Pt to report pain at worst 4/ 10 (min goal progress) LTG Duration 2 months Assessment Summary Assessment Would benefit from further PT to address all goal areas; best benefit from aquatic PT. Physical Therapy Plan Frequency and Duration Frequency of Treatment 2x/Week Duration of Treatment 8 wks Plan of Care Start Date 08/25/17 Plan of Care End Date 01/25/18 Therapeutic Interventions Therapeutic Interventions Aquatic Therapy Balance Training Gait Training Home Exercise Program Manual Therapy Patient/Caregiver Education Self-Care/Home Management Soft Tissue Mobilization Therapeutic Activities Therapeutic Exercises Modalities Cold Pack/Ice Massage Electric Stimulation Hot Packs Ultrasound Next Visit Focus/Plan Next Note Type Treatment Note Next Visit Plan Continue aquatic PT for pain management, strengthening, ROM , functional mobility. Plan of Care Dates Plan of Care Start Date 08/25/17 Plan of Care End Date 01/25/18 Please Sign and Return: I have reviewed this Plan of Care and certify that the skilled therapy services above are required to meet the patient?s needs. Physician Signature Date Printed Name and Credentials Clinical Instructor Signature Printed Name and Credentials
--- NOTE | 2017-12-09 14:48 | PT.OTN ---
Current Diagnoses Pain in unspecified hip (12/09/17) Physical Therapy Treatment Note PT-OP-A Visit Information Start: 08/24/17 14:54 Freq: Status: Active Protocol: Document 12/09/17 11:45 LJ (Rec: 12/09/17 14:48 LJ [id number]) Out-Patient Physical Therapy Visit Information Visit Information Visit Start Time 11:45 Visit Stop Time 12:30 Total Visit Minutes 45 Visit Number 8 Number of APPARATUS OPERATOR Visits 3 PT-OP-B Current Condition Start: 08/24/17 14:54 Freq: Status: Active Protocol: Document 11/25/17 11:45 SAK (Rec: 12/01/17 10:30 SAK [id number]) Current Condition History of Current Condition Onset Date Multi-year history Current Complaints Severe hip/knee pain History of Current Condition Pt is a 62 year old female presenting to her physical therapy evaluation with a long -standing history of bilateral hip and knee pain. Pt reports her pain is normally an 8/10, and has been worsening for the past six months. Pt reports that approximately one year ago, she participated in aquatic therapy, and it helped some, but I didn't improve enough at the time to keep going. Pt reports she is motivated to try again, and is hopeful that exercising will be easier in the pool. Pt has difficulty with ambulating, using bilateral SPC for stability, and reports fairly constant pain with all of her ADLs. Prior Treatments and Tests Previous aquatic therapy PT-OP-C Subjective Start: 08/24/17 14:54 Freq: Status: Active Protocol: Document 12/09/17 11:45 ZENAIDA (Rec: 12/09/17 14:48 [email or web address]) OP-PT Subjective Patient Comments Patient Comments Pt reported being sore after last treatment but wants to get better so is willing to do what it takes PT-OP-E Functional Tests Start: 08/24/17 14:54 Freq: Status: Active Protocol: Document 08/24/17 11:15 DCW (Rec: 08/24/17 15:24 DCW [id number]) Functional Tests 2 Minute Walk Test Comments Asked pt to perform, pt in too much pain Five Times Sit to Stand Test Score 31 seconds PT-OP-F Manual Assessment Start: 08/24/17 14:54 Freq: Status: Active Protocol: Document 08/24/17 11:15 DCW (Rec: 08/24/17 15:24 DCW [id number]) Manual Assessments Joint Mobility Assessment Joint Mobility Assessment In supine position, PROM of hip was performed. L hip unable to tolerate >86? flexion, 16? abduction. Pt began to tear up with and further movement. R hip WNL. PT-OP-G Mobility & Gait Start: 08/24/17 14:54 Freq: Status: Active Protocol: Document 08/24/17 11:15 DCW (Rec: 08/24/17 15:24 DCW [id number]) OP Mobility Evaluation Bed Mobility Rolling Unable to roll into left side due to severe pain. OP Gait Assessment Gait Gait Assistance Required: Contact Guard Assist Distance (Feet) 50 Able to Maintain Weight Bearing Status Yes During Gait Assistive Devices Assistive Device Straight Cane Gait Deviations General Gait Pattern Antalgic Decreased Stride Length Decreased Feet Clearance Flexed Trunk Step-to Gait Factors Limiting Gait Function Factors Limiting Gait Function Decreased Strength Limited Range of Motion Pain PT-OP-M Strength Start: 08/24/17 14:54 Freq: Status: Active Protocol: Document 11/25/17 11:45 SAK (Rec: 12/01/17 10:30 SAK [id number]) Hip Strength Hip Manual Muscle Testing Right Flexion (L2) 4 Good Abduction 3+ Fair+ Adduction 3- Fair- External Rotation 4 Good Internal Rotation 4+ Good+ Left Flexion (L2) 3+ Fair+ Abduction 3+ Fair+ Adduction 3+ Fair+ External Rotation 3 Fair Internal Rotation 4 Good PT-OP-S Aquatic Treatment Start: 08/24/17 14:54 Freq: Status: Active Protocol: Document 12/09/17 11:45 ZENAIDA (Rec: 12/09/17 14:48 LJ [email or web address]) Aquatics Treatment Pool Entry/Exit Pool Entry/Exit Method Lift Water Walking [place] Water Level Chest Level Walking Equipment Resistance Fins Level of Assistance Standby Assistance Monster Walk Water Level Chest Level Walking Equipment Resistance Fins Level of Assistance Standby Assistance Marching Water Level Chest Level Walking Equipment Resistance Fins Level of Assistance Standby Assistance Comments tino scott [place] March Water Level Chest Level Walking Equipment Resistance Fins Level of Assistance Standby Assistance Backwards Water Level Chest Level Walking Equipment Resistance Fins Level of Assistance Standby Assistance Comments tino scott Sideways Water Level Chest Level Walking Equipment Resistance Fins Level of Assistance Standby Assistance Comments tolerated both directions Forwards Water Level Chest Level Walking Equipment Resistance Fins Level of Assistance Standby Assistance Lower Extremity Exercises 4 Details squats Body Position Standing Reps/Duration 10x 3 Details Knee flexion/extension Body Position Sitting Water Level Neck Level Equipment x12 reps 2 Details Hip AB/AD Body Position Standing Water Level Chest Level Equipment med resistance fins Reps/Duration x 12 reps Comments small motions 1 Details Hip flexion/extension Body Position Standing Water Level Chest Level Equipment small resistance fins Reps/Duration x 10 reps. Lower Extremity Stretches 4 Details figure 4 bilat Body Position Standing 3 Details hamstring, quad 1 Details SKTC, DKTC Body Position Standing Reps/Duration 2x Comments assist w/noodle [place] Activities [place] Activities Bicycle [place] Other Activities crunches w/ noodle behind back x 15, corner bilat leg raises x 10 Equipment White noodle Duration 15 min PT-OP-T Assessment and Plan Start: 08/24/17 14:54 Freq: Status: Active Protocol: Document 12/09/17 11:45 ZENAIDA (Rec: 12/09/17 14:48 ZENAIDA [email or web address]) Physical Therapy Assessment Rehab Potential Rehabilitation Potential Fair Evaluation Complexity Number of Personal Factors/Comorbidities 3 or More Number of Body Systems Impaired 4 or More Clinical Presentation at Evaluation Unstable Impairments Impairments Activity Tolerance Balance Functional Activities Functional Mobility Gait Pain Posture ROM Soft Tissue Mobility Strength Goals Six Impairment Strength Food Truck Caterer Goal (LTG) Pt Left LE MMT to 3+/5 Pt Right LE MMT to 4/5 (goal progress) LTG Duration 2 months Five Impairment ROM Food Truck Caterer Goal (LTG) Passive hip ROM to 100? flexion and 30? abduction ( goal progress) LTG Duration 2 months Four Impairment 2 Minute Walk Test Short Term Goal (STG) Pt to complete 2 MWT Food Truck Caterer Goal (LTG) Pt to ambulate 150' during 2 MWT (good goal progress) LTG Duration 2 months Three Impairment Five Time Mty-[facility] Goal (LTG) Pt to perform FTSTS in 23 seconds (goal progress) LTG Duration 2 months Two Short Term Goal (STG) Pt to participate in aquatic therapy for full session with no reports of increased pain ( goal progress LTG Duration 2 months One Impairment Pain Jail Goal (LTG) Pt to report pain at worst 4/ 10 (min goal progress) LTG Duration 2 months Assessment Summary Assessment Pt demonstrated good tolerance for progression of exercises and new core strengthening exercises. Physical Therapy Plan Frequency and Duration Frequency of Treatment 2x/Week Duration of Treatment 8 wks Plan of Care Start Date 08/25/17 Plan of Care End Date 01/25/18 Therapeutic Interventions Therapeutic Interventions Aquatic Therapy Balance Training Gait Training Home Exercise Program Manual Therapy Patient/Caregiver Education Self-Care/Home Management Soft Tissue Mobilization Therapeutic Activities Therapeutic Exercises Modalities Cold Pack/Ice Massage Electric Stimulation Hot Packs Ultrasound Next Visit Focus/Plan Next Note Type Treatment Note Next Visit Plan continue progression of core strengthening. Begin light cardio in deep
--- NOTE | 2018-01-02 15:05 | PT.OTN ---
Current Diagnoses Pain in unspecified hip (01/02/18) Physical Therapy Treatment Note PT-OP-A Visit Information Start: 08/24/17 14:54 Freq: Status: Active Protocol: Document 01/02/18 11:45 CLB (Rec: 01/02/18 15:05 CLB [email or web address]) Out-Patient Physical Therapy Visit Information Visit Information Visit Start Time 11:45 Visit Stop Time 12:30 Total Visit Minutes 45 Visit Number 9 Number of MANUFACTURER'S SERVICE REPRESENTATIVE Visits 4 PT-OP-B Current Condition Start: 08/24/17 14:54 Freq: Status: Active Protocol: Document 11/25/17 11:45 SAK (Rec: 12/01/17 10:30 SAK [id number]) Current Condition History of Current Condition Onset Date Multi-year history Current Complaints Severe hip/knee pain History of Current Condition Pt is a 62 year old female presenting to her physical therapy evaluation with a long -standing history of bilateral hip and knee pain. Pt reports her pain is normally an 8/10, and has been worsening for the past six months. Pt reports that approximately one year ago, she participated in aquatic therapy, and it helped some, but I didn't improve enough at the time to keep going. Pt reports she is motivated to try again, and is hopeful that exercising will be easier in the pool. Pt has difficulty with ambulating, using bilateral SPC for stability, and reports fairly constant pain with all of her ADLs. Prior Treatments and Tests Previous aquatic therapy PT-OP-C Subjective Start: 08/24/17 14:54 Freq: Status: Active Protocol: Document 01/02/18 11:45 CLB (Rec: 01/02/18 15:05 CLB [email or web address]) OP-PT Subjective Patient Comments Patient Comments Pt reports back pain that started the day before, pt thought maybe she slept wrong on it. PT-OP-E Functional Tests Start: 08/24/17 14:54 Freq: Status: Active Protocol: Document 08/24/17 11:15 DCW (Rec: 08/24/17 15:24 DCW [id number]) Functional Tests 2 Minute Walk Test Comments Asked pt to perform, pt in too much pain Five Times Sit to Stand Test Score 31 seconds PT-OP-F Manual Assessment Start: 08/24/17 14:54 Freq: Status: Active Protocol: Document 08/24/17 11:15 DCW (Rec: 08/24/17 15:24 DCW [id number]) Manual Assessments Joint Mobility Assessment Joint Mobility Assessment In supine position, PROM of hip was performed. L hip unable to tolerate >86? flexion, 16? abduction. Pt began to tear up with and further movement. R hip WNL. PT-OP-G Mobility & Gait Start: 08/24/17 14:54 Freq: Status: Active Protocol: Document 08/24/17 11:15 DCW (Rec: 08/24/17 15:24 DCW [id number]) OP Mobility Evaluation Bed Mobility Rolling Unable to roll into left side due to severe pain. OP Gait Assessment Gait Gait Assistance Required: Contact Guard Assist Distance (Feet) 50 Able to Maintain Weight Bearing Status Yes During Gait Assistive Devices Assistive Device Straight Cane Gait Deviations General Gait Pattern Antalgic Decreased Stride Length Decreased Feet Clearance Flexed Trunk Step-to Gait Factors Limiting Gait Function Factors Limiting Gait Function Decreased Strength Limited Range of Motion Pain PT-OP-M Strength Start: 08/24/17 14:54 Freq: Status: Active Protocol: Document 11/25/17 11:45 SAK (Rec: 12/01/17 10:30 SAK [id number]) Hip Strength Hip Manual Muscle Testing Right Flexion (L2) 4 Good Abduction 3+ Fair+ Adduction 3- Fair- External Rotation 4 Good Internal Rotation 4+ Good+ Left Flexion (L2) 3+ Fair+ Abduction 3+ Fair+ Adduction 3+ Fair+ External Rotation 3 Fair Internal Rotation 4 Good PT-OP-S Aquatic Treatment Start: 08/24/17 14:54 Freq: Status: Active Protocol: Document 01/02/18 11:45 CLB (Rec: 01/02/18 15:05 CLB [email or web address]) Aquatics Treatment Pool Entry/Exit Pool Entry/Exit Method Lift Water Walking [place] Water Level Chest Level Walking Equipment Resistance Fins Level of Assistance Standby Assistance Monster Walk Water Level Chest Level Walking Equipment Resistance Fins Level of Assistance Standby Assistance Marching Water Level Chest Level Walking Equipment Resistance Fins Level of Assistance Standby Assistance Comments blue [place] March Water Level Chest Level Walking Equipment Resistance Fins Level of Assistance Standby Assistance Backwards Water Level Chest Level Walking Equipment Resistance Fins Level of Assistance Standby Assistance Comments blue dianas Sideways Water Level Chest Level Walking Equipment Resistance Fins Level of Assistance Standby Assistance Comments tolerated both directions Forwards Water Level Chest Level Walking Equipment Resistance Fins Level of Assistance Standby Assistance Lower Extremity Exercises 4 Details squats Body Position Standing Reps/Duration 10x 3 Details Knee flexion/extension Body Position Sitting Water Level Neck Level Equipment x12 reps 2 Details Hip AB/AD Body Position Standing Water Level Chest Level Equipment med resistance fins Reps/Duration x 12 reps Comments small motions 1 Details Hip flexion/extension Body Position Standing Water Level Chest Level Equipment small resistance fins Reps/Duration x 10 reps. Lower Extremity Stretches 1 Details SKTC, DKTC Body Position Standing Reps/Duration 2x Comments assist w/noodle [place] Activities [place] Activities Bicycle [place] Other Activities crunches w/ noodle behind back x 15, corner bilat leg raises x 10 Equipment White noodle, 1.5# wt Duration 20 minutes PT-OP-T Assessment and Plan Start: 08/24/17 14:54 Freq: Status: Active Protocol: Document 01/02/18 11:45 CLB (Rec: 01/02/18 15:05 CLB [email or web address]) Physical Therapy Assessment Goals Six Impairment Strength Online Content Coordinator Goal (LTG) Pt Left LE MMT to 3+/5 Pt Right LE MMT to 4/5 (goal progress) LTG Duration 2 months Five Impairment ROM Senior Living Goal (LTG) Passive hip ROM to 100? flexion and 30? abduction ( goal progress) LTG Duration 2 months Four Impairment 2 Minute Walk Test Short Term Goal (STG) Pt to complete 2 MWT Online Content Coordinator Goal (LTG) Pt to ambulate 150' during 2 MWT (good goal progress) LTG Duration 2 months Three Impairment Five Time Hpy-bn-Cbx[facility] Senior Living Goal (LTG) Pt to perform FTSTS in 23 seconds (goal progress) LTG Duration 2 months Two Short Term Goal (STG) Pt to participate in aquatic therapy for full session with no reports of increased pain ( goal progress LTG Duration 2 months One Impairment Pain [facility] Living Goal (LTG) Pt to report pain at worst 4/ 10 (min goal progress) LTG Duration 2 months Assessment Summary Assessment Pt tolerated aquatic tx well today. Pt would benefit from consistant therapy sessions. Physical Therapy Plan Frequency and Duration Frequency of Treatment 2x/Week Duration of Treatment 8 wks Plan of Care Start Date 08/25/17 Plan of Care End Date 01/25/18 Next Visit Focus/Plan Next Visit Plan continue progression of core strengthening. Begin light cardio in deep
--- NOTE | 2018-02-24 09:52 | PT.OPDS ---
Current Diagnoses Pain in unspecified hip (01/02/18) Provider Visit Care Team Role Provider Type Aydee Mitchell Attending Provider Non-Staff Specialty: Medical Address: [address] [place] [address], [id number] Fax: Email: Visit Number Visit Number 9 Discharge Summary PT-OP-B Current Condition Start: 08/24/17 14:54 Freq: Status: Active Protocol: Document 11/25/17 11:45 SAK (Rec: 12/01/17 10:30 SAK [id number]) Current Condition History of Current Condition Onset Date Multi-year history Current Complaints Severe hip/knee pain History of Current Condition Pt is a 62 year old female presenting to her physical therapy evaluation with a long -standing history of bilateral hip and knee pain. Pt reports her pain is normally an 8/10, and has been worsening for the past six months. Pt reports that approximately one year ago, she participated in aquatic therapy, and it helped some, but I didn't improve enough at the time to keep going. Pt reports she is motivated to try again, and is hopeful that exercising will be easier in the pool. Pt has difficulty with ambulating, using bilateral SPC for stability, and reports fairly constant pain with all of her ADLs. Prior Treatments and Tests Previous aquatic therapy PT-OP-C Subjective Start: 08/24/17 14:54 Freq: Status: Active Protocol: Document 01/02/18 11:45 CLB (Rec: 01/02/18 15:05 CLB [email or web address]) OP-PT Subjective Patient Comments Patient Comments Pt reports back pain that started the day before, pt thought maybe she slept wrong on it. PT-OP-E Functional Tests Start: 08/24/17 14:54 Freq: Status: Active Protocol: Document 08/24/17 11:15 DCW (Rec: 08/24/17 15:24 DCW [id number]) Functional Tests 2 Minute Walk Test Comments Asked pt to perform, pt in too much pain Five Times Sit to Stand Test Score 31 seconds PT-OP-F Manual Assessment Start: 08/24/17 14:54 Freq: Status: Active Protocol: Document 08/24/17 11:15 DCW (Rec: 08/24/17 15:24 DCW [id number]) Manual Assessments Joint Mobility Assessment Joint Mobility Assessment In supine position, PROM of hip was performed. L hip unable to tolerate >86? flexion, 16? abduction. Pt began to tear up with and further movement. R hip WNL. PT-OP-G Mobility & Gait Start: 08/24/17 14:54 Freq: Status: Active Protocol: Document 08/24/17 11:15 DCW (Rec: 08/24/17 15:24 DCW [id number]) OP Mobility Evaluation Bed Mobility Rolling Unable to roll into left side due to severe pain. OP Gait Assessment Gait Gait Assistance Required: Contact Guard Assist Distance (Feet) 50 Able to Maintain Weight Bearing Status Yes During Gait Assistive Devices Assistive Device Straight Cane Gait Deviations General Gait Pattern Antalgic Decreased Stride Length Decreased Feet Clearance Flexed Trunk Step-to Gait Factors Limiting Gait Function Factors Limiting Gait Function Decreased Strength Limited Range of Motion Pain PT-OP-M Strength Start: 08/24/17 14:54 Freq: Status: Active Protocol: Document 11/25/17 11:45 SAK (Rec: 12/01/17 10:30 [facility] [id number]) Hip Strength Hip Manual Muscle Testing Right Flexion (L2) 4 Good Abduction 3+ Fair+ Adduction 3- Fair- External Rotation 4 Good Internal Rotation 4+ Good+ Left Flexion (L2) 3+ Fair+ Abduction 3+ Fair+ Adduction 3+ Fair+ External Rotation 3 Fair Internal Rotation 4 Good PT-OP-T Assessment and Plan Start: 08/24/17 14:54 Freq: Status: Active Protocol: Document 02/24/18 09:50 SAK (Rec: 02/24/18 09:52 SAK [id number]) Physical Therapy Plan Discharge Physical Therapy Discharge Reasons No Longer Attending PT Discharge Comments Unable to perform discharge assessment due to lack of response from patient. May benefit from further PT in the future.
== END 2018-05-31 08:46 ==
LOC: PHYS 11:45
PROVIDERS: Visit Provider Physician Assistant Medical
DX: M25.559 Pain in unspecified hip (principal)
CPT/HCPCS: 97113; 97163

== ENCOUNTER 2018-05-28 12:57 | Emergency (ER) | payer MEDICARE, OTHER, SELFPAY ==
[2018-05-28 13:04] VITALS: BP 126/77; PULSE 90; RESP 22; TEMP 36.3; O2SAT 100; BMI 39.1
--- NOTE | 2018-05-28 13:09 | DI.RAD.S_ITS ---
PROCEDURE: XR CHEST 2V INDICATIONS: cough/sob TECHNIQUE: 2 views of the chest were acquired. COMPARISON: None. FINDINGS: Surgical changes and devices: None. Lungs and pleura: Lungs are clear. No pleural effusions or pneumothorax. Mediastinum: Mediastinal contours are normal. Heart size is normal. Bones and chest wall: No suspicious bony abnormalities. Soft tissues appear unremarkable. IMPRESSION: No acute process. Dictated by: Margarita Jacobo M.D. on 05/28/2018 at 13:42 Approved by: Margarita Jacobo M.D. on 05/28/2018 at 13:43
--- NOTE | 2018-05-28 15:06 | PC.NURSE ---
patient checked in lobby. 98% on RA HR 89. Updated patient on wait. Working on a room for patient.
[2018-05-28 15:07] VITALS: PULSE 89; RESP 18; O2SAT 98
--- NOTE | 2018-05-28 15:36 | ED.FEVER ---
HPI - Fever <Braeden LORENZA Vidales - Last Filed: 05/28/18 22:46> General Chief Complaint: Fever Stated Complaint: difficulty breathing, high HR, low oxygen Time Seen by Provider: 05/28/18 14:34 Source: patient Mode of arrival: ambulatory Limitations: no limitations History of Present Illness HPI Narrative: 63-year-old female with history asthma is a former smoker here for complaint of having cough nasal congestion for the past 4 days. She has had some chills. No known fever. She also reports having headache and generalized malaise. she reports that her garden daughter has had similar symptoms. She is tolerating p.o. intake well. No nausea or vomiting. She denies any stressors relievers of her symptoms. MD complaint: fever Related Data Home Medications Medication Instructions Recorded Confirmed Fluticasone Propionate (FLONASE) 1 spray INTRANASAL QDAY #0 02/24/12 05/10/18 amitriptyline 25 mg PO QDAY #0 02/24/12 05/10/18 bupropion HCl [Wellbutrin SR] 450 mg PO QDAY #0 02/24/12 05/10/18 cetirizine 10 mg PO Q DAY #0 02/24/12 05/10/18 conjugated estrogens [Premarin] 1.25 mg PO QDAY #0 02/24/12 05/10/18 esomeprazole magnesium [Nexium] 40 mg PO QDAY #0 02/24/12 05/10/18 montelukast [Singulair] 10 mg PO QDAY PRN #0 02/24/12 05/10/18 acetaminophen 650 mg PO Q8HP PRN #0 04/17/16 05/10/18 lorazepam [Ativan] 1 mg PO BIDP PRN #0 04/17/16 05/10/18 telmisartan-hydrochlorothiazid 1 tab PO QDAY #0 04/17/16 05/10/18 [Micardis HCT] conjugated estrogens 0.625 mg/gram 1 applictn VAG DAILY gram 12/12/17 05/10/18 vaginal cream duloxetine 60 mg capsule,delayed 60 mg PO DAILY 12/12/17 05/10/18 release fluticasone 500 mcg-salmeterol 50 1 inhalation INHALATION BID 12/12/17 05/10/18 mcg/dose blistr powdr for inhalation simvastatin 20 mg tablet 20 mg PO BEDTIME 12/12/17 05/10/18 ResMed AirSense 10 CPAP #1 ea 05/10/18 05/10/18 Previous Rx's Medication Instructions Recorded dextromethorphan polistirex 30 mg PO Q12H 10 Days #0 ml 04/17/16 [Delsym 12 hour] Allergies Allergy/AdvReac Type Severity Reaction Status Date / Time iodine [IODINE] Allergy Mild Unverified 05/28/18 13:07 Sulfa (Sulfonamide Allergy Mild Unverified 05/28/18 13:07 Antibiotics) [SULFA (SULFONAMIDE ANTIBIOTICS)] Iodinated Contrast- Oral and Allergy Unknown Unverified 05/28/18 13:07 IV Dye [IODINATED CONTRAST MEDIA - IV DYE] lisinopril [LISINOPRIL] Allergy Unknown Unverified 05/28/18 13:07 Review of Systems <LORENZA Pacheco - Last Filed: 05/28/18 22:46> Constitutional Reports chills and Reports malaise Eyes Denies change in vision, Denies eye discharge, Denies irritation and Denies loss of vision ENT Ears, Nose, Mouth, and Throat: Reports sore throat and Denies throat swelling Cardiovascular Denies chest pain, Denies irregular heart rhythm, Denies lightheadedness, Denies palpitations and Denies orthopnea Respiratory Reports cough and Denies wheezing Gastrointestinal Gastrointestinal: Denies abdominal pain, Denies change in bowel habits, Denies diarrhea, Denies nausea and Denies vomiting Genitourinary Denies hematuria, Denies flank pain, Denies urinary incontinence and Denies urinary urgency Musculoskeletal Denies back pain, Denies muscle weakness, Denies numbness and Denies tingling Integumentary/Breasts Denies pruritus, Denies erythema, Denies rash and Denies wounds Neurologic Denies confusion, Denies loss of vision, Denies numbness and Denies tingling Psychiatric Denies anxiety, Denies confusion, Denies depression, Denies homicidal ideation and Denies suicidal ideation Endocrine Denies palpitations Allergic/Immunologic Denies urticaria, Denies throat swelling and Denies wheezing PFSH <LORENZA Pacheco - Last Filed: 05/28/18 22:46> Medical History Obstructive sleep apnea of adult (Chronic) Morbid obesity with BMI of 40.0-44.9, adult (Chronic) Obstructive sleep apnea syndrome (Chronic) Obesity (BMI 30-39.9) (Acute) Anxiety (Chronic) 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 Social History marital status: details: bobby Maria, lives in [place] household members: spouse lives independently: Yes caregiver/support person: No housing: house occupational status: disabled Smoking Status: Former smoker quit status: quit date established alcohol intake: former substance use type: does not use Social History marital status: details: bobby Maria lives in [place] household members: spouse lives independently: Yes caregiver/support person: No housing: house occupational status: disabled Smoking Status: Former smoker quit status: quit date established alcohol intake: former substance use type: does not use Exam <LORENZA Pacheco - Last Filed: 05/28/18 22:46> Initial Vital Signs Initial Vital Signs: Vital Signs Temperature 97.3 F L 05/28/18 13:04 Pulse Rate 90 05/28/18 13:04 Respiratory Rate 22 05/28/18 13:04 Blood Pressure 126/77 05/28/18 13:04 Pulse Oximetry 100 05/28/18 13:04 Const General: cooperative and well developed Nutritional Appearance: well nourished Orientation: alert, awake, oriented x3 and not confused [facility] Mouth: oral mucosae normal and moist mucous membranes Throat: posterior oropharynx normal Eyes Conjunctivae: conjunctivae normal Sclera: sclerae normal Pupils: PERRL EOM: EOM intact bilaterally Resp Effort & Inspection: normal respiratory effort, able to speak in complete sentences, no respiratory distress and no use of accessory muscles Auscultation: clear to auscultation bilaterally, no rales, rhonchi and no wheezes Cardio Rate: regular rate Rhythm: regular rhythm Heart Sounds: no click, no gallops, no murmurs and no rubs Pulses: normal peripheral pulses Skin General: no rashes or lesions noted, No jaundice and No petechiae Neuro General: alert, oriented x3, gait normal and no focal motor deficits Speech: speech normal <Marilu Cisneros MD - Last Filed: 06/01/18 18:11> Initial Vital Signs Initial Vital Signs: Vital Signs Temperature 97.3 F L 05/28/18 13:04 Pulse Rate 90 05/28/18 13:04 Respiratory Rate 22 05/28/18 13:04 Blood Pressure 126/77 05/28/18 13:04 Pulse Oximetry 100 05/28/18 13:04 Course <LORENZA Pacheco - Last Filed: 05/28/18 22:46> Orders Ordered: ED Orders 05/28/18 13:00 Influenza A and B by PCR Rapid Stat 05/28/18 13:08 EKG-12 Lead Stat 05/28/18 13:09 Chest [XR chest 2V] Stat Vital Signs - 8 hr 05/28/18 15:07 05/28/18 15:58 Pulse Rate 89 94 H Respiratory Rate 18 16 Blood Pressure [Left Arm] 147/64 H Pulse Oximetry 98 97 <Marilu Cisneros MD - Last Filed: 06/01/18 18:11> Orders Ordered: ED Orders 05/28/18 13:00 Influenza A and B by PCR Rapid Stat 05/28/18 13:08 EKG-12 Lead Stat 05/28/18 13:09 Chest [XR chest 2V] Stat Vital Signs - 8 hr 05/28/18 15:07 05/28/18 15:58 Pulse Rate 89 94 H Respiratory Rate 18 16 Blood Pressure [Left Arm] 147/64 H Pulse Oximetry 98 97 MDM - Fever <LORENZA Pacheco - Last Filed: 05/28/18 22:46> Lab Data Lab Results 05/28/18 Range/Units 13:00 Influenza A & B (PCR) Positive, type a A (Negative) Imaging Data Chest x-ray: Radiologist's impression: [address] [address] XRay Report Signed Patient: Michelle Dick [facility]#: [id number] : [id number]:[id number] Age/Sex: 63 / FDate of Service: 05/28/18 Loc: ED Accession Number: [id number] Procedure: XR chest 2V Ordering Provider: Marilu Cisneros MD PROCEDURE: XR CHEST 2V INDICATIONS: cough/sob TECHNIQUE: 2 views of the chest were acquired. COMPARISON: None. FINDINGS: Surgical changes and devices: None. Lungs and pleura: Lungs are clear. No pleural effusions or pneumothorax. Mediastinum: Mediastinal contours are normal. Heart size is normal. Bones and chest wall: No suspicious bony abnormalities. Soft tissues appear unremarkable. IMPRESSION: No acute process. Dictated by: Margarita Jacobo M.D. on 05/28/2018 at 13:42 Approved by: Margarita Jacobo M.D. on 05/28/2018 at 13:43 MDM Narrative Medical decision making narrative: Chest x-ray was obtained was unremarkable. Influenza swab was obtained and was positive. Plenty of fluids and rest. Follow up with primary care provider next week. [id number] Tylenol or Motrin as needed for any discomfort Or fever. Hot showers to help with any congestion. Use currently prescribed asthma medications as needed. return emergency room for any worsening symptoms <Marilu Cisneros MD - Last Filed: 06/01/18 18:11> Lab Data Lab Results 05/28/18 Range/Units 13:00 Influenza A & B (PCR) Positive, type a A (Negative) Discharge Plan Departure Patient Disposition: Home Clinical Impression: Influenza A Discharge Date/Time: 05/28/18 16:04 Interventions: ED Discharge Assessment Last Done: 05/28/18 16:03 Instructions: DI for Influenza -- Adult Activity Restrictions/Additional Instructions: Chest x-ray was obtained was unremarkable. Influenza swab was obtained and was positive. Plenty of fluids and rest. Follow up with primary care provider next week. Wveu-[id number] Tylenol or Motrin as needed for any discomfort Or fever. Hot showers to help with any congestion. Use currently prescribed asthma medications as needed. return emergency room for any worsening symptoms Prescriptions: No Action esomeprazole magnesium [Nexium] 40 MG capsule,delayed release(DR/EC) 40 mg PO QDAY Qty: 0 RF: 0 conjugated estrogens [Premarin] 1.25 MG tablet 1.25 mg PO QDAY Qty: 0 RF: 0 amitriptyline 25 MG tablet 25 mg PO QDAY Qty: 0 RF: 0 cetirizine 10 MG tablet 10 mg PO Q DAY Qty: 0 RF: 0 Fluticasone Propionate (FLONASE) 1 spray Intranasal QDAY Qty: 0 RF: 0 montelukast [Singulair] 10 MG tablet 10 mg PO QDAY PRNQty: 0 RF: 0 bupropion HCl [Wellbutrin SR] 150 MG tablet extended release 12 hr 450 mg PO QDAY Qty: 0 RF: 0 lorazepam [Ativan] 1 MG tablet 1 mg PO BIDP PRNQty: 0 RF: 0 telmisartan-hydrochlorothiazid [Micardis HCT] 40 MG/12.5 MG tablet 1 tab PO QDAY Qty: 0 RF: 0 acetaminophen 650 MG tablet extended release 650 mg PO Q8HP PRNQty: 0 RF: 0 dextromethorphan polistirex [Delsym 12 hour] 30 MG/5 ML suspension,extended rel 12 hr 30 mg PO Q12H 10 Days Qty: 0 RF: 0 simvastatin 20 mg tablet 20 mg PO BEDTIME RF: 0 duloxetine [Cymbalta] 60 mg capsule,delayed release(DR/EC) 60 mg PO DAILY RF: 0 conjugated estrogens [Premarin] 0.625 mg/gram cream 1 applictn VAG DAILY RF: 0 fluticasone propion-salmeterol [Advair Diskus] 500-50 mcg/dose blister with device 1 inhalation INHALATION BID RF: 0 ResMed AirSense 10 CPAP Qty: 1 RF: 0 Referrals: [facility] [Provider Group]
--- NOTE | 2018-05-28 15:39 | RT ---
\EVALUATION FOR FLU A. PT. USED NEBULIZER/ALBUTEROL AT HOME THIS MORNING WITHOUT IMPROVEMENT. RR 14 B/MIN. HR 95. SPO2 98% ROOM AIR. PT. STATES SHE HAS MILD ASTHMA. CXR CLEAR. NO WOB. COUGHING INTERMITTENLY COARSE AND NON-PRODUCTIVE. C/O NASAL DRIP. TYPICAL FLU A SYMPTOMS. BS COARSE AND LOW PITCHED ON EXHALATION WITH GOOD AIR ENTRY ON INSPIRATION. OFFERED NEBULIZER TX. PT. STATES SHE HAS THAT AT HOME. ENCOURAGED WARM FLUIDS FOR GOOD HYDRATION, REST AND BID AND PRN NEBS AT HOME IF HELPFUL. REPORTED TO LORENZA FISHER.
--- NOTE | 2018-05-28 15:43 | ED_ITS ---
HPI - Fever <Braeden LORENZA Vidales - Last Filed: 05/28/18 22:46> General Chief Complaint: Fever Stated Complaint: difficulty breathing, high HR, low oxygen Time Seen by Provider: 05/28/18 14:34 Source: patient Mode of arrival: ambulatory Limitations: no limitations History of Present Illness HPI Narrative: 63-year-old female with history asthma is a former smoker here for complaint of having cough nasal congestion for the past 4 days. She has had some chills. No known fever. She also reports having headache and generalized malaise. she reports that her garden daughter has had similar symptoms. She is tolerating p.o. intake well. No nausea or vomiting. She denies any stressors relievers of her symptoms. MD complaint: fever Related Data Home Medications Medication Instructions Recorded Confirmed Fluticasone Propionate (FLONASE) 1 spray INTRANASAL QDAY #0 02/24/12 05/10/18 amitriptyline 25 mg PO QDAY #0 02/24/12 05/10/18 bupropion HCl [Wellbutrin SR] 450 mg PO QDAY #0 02/24/12 05/10/18 cetirizine 10 mg PO Q DAY #0 02/24/12 05/10/18 conjugated estrogens [Premarin] 1.25 mg PO QDAY #0 02/24/12 05/10/18 esomeprazole magnesium [Nexium] 40 mg PO QDAY #0 02/24/12 05/10/18 montelukast [Singulair] 10 mg PO QDAY PRN #0 02/24/12 05/10/18 acetaminophen 650 mg PO Q8HP PRN #0 04/17/16 05/10/18 lorazepam [Ativan] 1 mg PO BIDP PRN #0 04/17/16 05/10/18 telmisartan-hydrochlorothiazid 1 tab PO QDAY #0 04/17/16 05/10/18 [Micardis HCT] conjugated estrogens 0.625 mg/gram 1 applictn VAG DAILY gram 12/12/17 05/10/18 vaginal cream duloxetine 60 mg capsule,delayed 60 mg PO DAILY 12/12/17 05/10/18 release fluticasone 500 mcg-salmeterol 50 1 inhalation INHALATION BID 12/12/17 05/10/18 mcg/dose blistr powdr for inhalation simvastatin 20 mg tablet 20 mg PO BEDTIME 12/12/17 05/10/18 ResMed AirSense 10 CPAP #1 ea 05/10/18 05/10/18 Previous Rx's Medication Instructions Recorded dextromethorphan polistirex 30 mg PO Q12H 10 Days #0 ml 04/17/16 [Delsym 12 hour] Allergies Allergy/AdvReac Type Severity Reaction Status Date / Time iodine [IODINE] Allergy Mild Unverified 05/28/18 13:07 Sulfa (Sulfonamide Allergy Mild Unverified 05/28/18 13:07 Antibiotics) [SULFA (SULFONAMIDE ANTIBIOTICS)] Iodinated Contrast- Oral and Allergy Unknown Unverified 05/28/18 13:07 IV Dye [IODINATED CONTRAST MEDIA - IV DYE] lisinopril [LISINOPRIL] Allergy Unknown Unverified 05/28/18 13:07 Review of Systems <LORENZA Pacheco - Last Filed: 05/28/18 22:46> Constitutional Reports chills and Reports malaise Eyes Denies change in vision, Denies eye discharge, Denies irritation and Denies loss of vision ENT Ears, Nose, Mouth, and Throat: Reports sore throat and Denies throat swelling Cardiovascular Denies chest pain, Denies irregular heart rhythm, Denies lightheadedness, Denies palpitations and Denies orthopnea Respiratory Reports cough and Denies wheezing Gastrointestinal Gastrointestinal: Denies abdominal pain, Denies change in bowel habits, Denies diarrhea, Denies nausea and Denies vomiting Genitourinary Denies hematuria, Denies flank pain, Denies urinary incontinence and Denies urin [place] urgency Musculoskeletal Denies back pain, Denies muscle weakness, Denies numbness and Denies tingling Integumentary/Breasts Denies pruritus, Denies erythema, Denies rash and Denies wounds Neurologic Denies confusion, Denies loss of vision, Denies numbness and Denies tingling Psychiatric Denies anxiety, Denies confusion, Denies depression, Denies homicidal ideation and Denies suicidal ideation Endocrine Denies palpitations Allergic/Immunologic Denies urticaria, Denies throat swelling and Denies wheezing PFSH <LORENZA Pacheco - Last Filed: 05/28/18 22:46> Medical History Obstructive sleep apnea of adult (Chronic) Morbid obesity with BMI of 40.0-44.9, adult (Chronic) Obstructive sleep apnea syndrome (Chronic) Obesity (BMI 30-39.9) (Acute) Anxiety (Chronic) 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 Social History marital status: details: bobby Maria lives in [place] household members: spouse lives independently: Yes caregiver/support person: No housing: house occupational status: disabled Smoking Status: Former smoker quit status: quit date established alcohol intake: former substance use type: does not use Social History marital status: details: bobby Maria lives in [place] household members: spouse lives independently: Yes caregiver/support person: No housing: house occupational status: disabled Smoking Status: Former smoker quit status: quit date established alcohol intake: former substance use type: does not use Exam <LORENZA Pacheco - Last Filed: 05/28/18 22:46> Initial Vital Signs Initial Vital Signs: Vital Signs Temperature 97.3 F L 05/28/18 13:04 Pulse Rate 90 05/28/18 13:04 Respiratory Rate 22 05/28/18 13:04 Blood Pressure 126/77 05/28/18 13:04 Pulse Oximetry 100 05/28/18 13:04 Const General: cooperative and well developed Nutritional Appearance: well nourished Orientation: alert, awake, oriented x3 and not confused [facility] Mouth: oral mucosae normal and moist mucous membranes Throat: posterior oropharynx normal Eyes Conjunctivae: conjunctivae normal Sclera: sclerae normal Pupils: PERRL EOM: EOM intact bilaterally Resp Effort & Inspection: normal respiratory effort, able to speak in complete sentences, no respiratory distress and no use of accessory muscles Auscultation: clear to auscultation bilaterally, no rales, rhonchi and no wheezes Cardio Rate: regular rate Rhythm: regular rhythm Heart Sounds: no click, no gallops, no murmurs and no rubs Pulses: normal peripheral pulses Skin General: no rashes or lesions noted, No jaundice and No petechiae Neuro General: alert, oriented x3, gait normal and no focal motor deficits Speech: speech normal <Marilu Cisneros MD - Last Filed: 06/01/18 18:11> Initial Vital Signs Initial Vital Signs: Vital Signs Temperature 97.3 F L 05/28/18 13:04 Pulse Rate 90 05/28/18 13:04 Respiratory Rate 22 05/28/18 13:04 Blood Pressure 126/77 05/28/18 13:04 Pulse Oximetry 100 05/28/18 13:04 Course <LORENZA Pacheco - Last Filed: 05/28/18 22:46> Orders Ordered: ED Orders 05/28/18 13:00 Influenza A and B by PCR Rapid Stat 05/28/18 13:08 EKG-12 Lead Stat 05/28/18 13:09 Chest [XR chest 2V] Stat Vital Signs - 8 hr 05/28/18 15:07 05/28/18 15:58 Pulse Rate 89 94 H Respiratory Rate 18 16 Blood Pressure [Left Arm] 147/64 H Pulse Oximetry 98 97 <Marilu Cisneros MD - Last Filed: 06/01/18 18:11> Orders Ordered: ED Orders 05/28/18 13:00 Influenza A and B by PCR Rapid Stat 05/28/18 13:08 EKG-12 Lead Stat 05/28/18 13:09 Chest [XR chest 2V] Stat Vital Signs - 8 hr 05/28/18 15:07 05/28/18 15:58 Pulse Rate 89 94 H Respiratory Rate 18 16 Blood Pressure [Left Arm] 147/64 H Pulse Oximetry 98 97 MDM - Fever <LORENZA Pacheco - Last Filed: 05/28/18 22:46> Lab Data Lab Results 05/28/18 Range/Units 13:00 Influenza A & B (PCR) Positive, type a A (Negative) Imaging Data Chest x-ray: Radiologist's impression: [address] [address] XRay Report Signed Patient: Michelle Dick [facility]#: [id number] : 1955cct:[id number] Age/Sex: 63 / FDate of Service: 05/28/18 Loc: ED Accession Number: [id number] Procedure: XR chest 2V Ordering Provider: Marilu Cisneros MD PROCEDURE: XR CHEST 2V INDICATIONS: cough/sob TECHNIQUE: 2 views of the chest were acquired. COMPARISON: None. FINDINGS: Surgical changes and devices: None. Lungs and pleura: Lungs are clear. No pleural effusions or pneumothorax. Mediastinum: Mediastinal contours are normal. Heart size is normal. Bones and chest wall: No suspicious bony abnormalities. Soft tissues appear unremarkable. IMPRESSION: No acute process. Dictated by: Margarita Jacobo M.D. on 05/28/2018 at 13:42 Approved by: Margarita Jacobo M.D. on 05/28/2018 at 13:43 MDM Narrative Medical decision making narrative: Chest x-ray was obtained was unremarkable. Influenza swab was obtained and was positive. Plenty of fluids and rest. Follo w up with primary care provider next week. Mzuv-icn-vyjdsnm Tylenol or Motrin as needed for any discomfort Or fever. Hot showers to help with any congestion. Use currently prescribed asthma medications as needed. return emergency room for any worsening symptoms <Marilu Cisneros MD - Last Filed: 06/01/18 18:11> Lab Data Lab Results 05/28/18 Range/Units 13:00 Influenza A & B (PCR) Positive, type a A (Negative) Discharge Plan Departure Patient Disposition: Home Clinical Impression: Influenza A Discharge Date/Time: 05/28/18 16:04 Interventions: ED Discharge Assessment Last Done: 05/28/18 16:03 Instructions: DI for Influenza -- Adult Activity Restrictions/Additional Instructions: Chest x-ray was obtained was unremarkable. Influenza swab was obtained and was positive. Plenty of fluids and rest. Follow up with primary care provider next week. Srya-blz-muozjpm Tylenol or Motrin as needed for any discomfort Or fever. Hot showers to help with any congestion. Use currently prescribed asthma medications as needed. return emergency room for any worsening symptoms Prescriptions: No Action esomeprazole magnesium [Nexium] 40 MG capsule,delayed release(DR/EC) 40 mg PO QDAY Qty: 0 RF: 0 conjugated estrogens [Premarin] 1.25 MG tablet 1.25 mg PO QDAY Qty: 0 RF: 0 amitriptyline 25 MG tablet 25 mg PO QDAY Qty: 0 RF: 0 cetirizine 10 MG tablet 10 mg PO Q DAY Qty: 0 RF: 0 Fluticasone Propionate (FLONASE) 1 spray Intranasal QDAY Qty: 0 RF: 0 montelukast [Singulair] 10 MG tablet 10 mg PO QDAY PRNQty: 0 RF: 0 bupropion HCl [Wellbutrin SR] 150 MG tablet extended release 12 hr 450 mg PO QDAY Qty: 0 RF: 0 lorazepam [Ativan] 1 MG tablet 1 mg PO BIDP PRNQty: 0 RF: 0 telmisartan-hydrochlorothiazid [Micardis HCT] 40 MG/12.5 MG tablet 1 tab PO QDAY Qty: 0 RF: 0 acetaminophen 650 MG tablet extended release 650 mg PO Q8HP PRNQty: 0 RF: 0 dextromethorphan polistirex [Delsym 12 hour] 30 MG/5 ML suspension,extended rel 12 hr 30 mg PO Q12H 10 Days Qty: 0 RF: 0 simvastatin 20 mg tablet 20 mg PO BEDTIME RF: 0 duloxetine [Cymbalta] 60 mg capsule,delayed release(DR/EC) 60 mg PO DAILY RF: 0 conjugated estrogens [Premarin] 0.625 mg/gram cream 1 applictn VAG DAILY RF: 0 fluticasone propion-salmeterol [Advair Diskus] 500-50 mcg/dose blister with device 1 inhalation INHALATION BID RF: 0 ResMed AirSense 10 CPAP Qty: 1 RF: 0 Referrals: [facility] [Provider Group]
[2018-05-28 15:58] VITALS: BP 147/64; PULSE 94; RESP 16; O2SAT 97
== END 2018-05-28 16:04 | disposition home or self-care (01) ==
PROVIDERS: Emergency Medicine; Emergency Provider Nurse Practitioner Family
DX: J10.1 Influenza due to other identified influenza virus with other respiratory manifestations (principal)
CPT/HCPCS: 71046; 87400; 93005; 99282; 99284

== ENCOUNTER 2018-06-04 11:58 | Emergency (ER) | payer MEDICARE, OTHER, SELFPAY ==
[2018-06-04] VITALS (7 sets, daily range): BP systolic 132–139; BP diastolic 62–74; PULSE 81–103; RESP 19–28; O2SAT 94–98; BMI 38.0
--- NOTE | 2018-06-04 12:08 | DI.RAD.S_ITS ---
PROCEDURE: XR CHEST 2V INDICATIONS: sob/cough TECHNIQUE: 2 views of the chest were acquired. COMPARISON: [facility], CR, XR CHEST 2 VIEWS, 02/15/2018, 14:33. [facility], CR, XR CHEST 2V, 05/28/2018, 13:19. FINDINGS: Surgical changes and devices: None. Lungs and pleura: Possible slight increase in hazy retrocardiac opacity seen only on the lateral view.. No pleural effusions or pneumothorax. Mediastinum: Mediastinal contours are normal. Heart size is normal. Bones and chest wall: No suspicious bony abnormalities. Soft tissues appear unremarkable. IMPRESSION: Subtle increase in alveolar opacity in the lower lung seen on the lateral view only, correlate with auscultated findings. No pleural effusion. Dictated by: Rubi Denson M.D. on 06/04/2018 at 13:59 Approved by: Rubi Denson M.D. on 06/04/2018 at 14:01
--- NOTE | 2018-06-04 12:54 | ED.SOB ---
HPI - SOB/Dyspnea General Chief Complaint: Shortness of Breath/Dyspnea Stated Complaint: PERSISTENT COUGH/TROUBLE BREATHING Time Seen by Provider: 06/04/18 12:45 Source: patient Mode of arrival: ambulatory Limitations: no limitations History of Present Illness Patient is a 63-year-old female with history of asthma presenting with cough ongoing for last 2 weeks. She has been using her nebulizer and albuterol inhaler multiple times it is not helping. She thinks that she has had fever off and on. She has lost her voice. She really just cannot stop coughing. She has not had any abdominal issues nausea or vomiting. It sometimes hurts her chest. MD Complaint: cough Severity: moderate Consistency/Duration: constant Related Data Home Medications Medication Instructions Recorded Confirmed Fluticasone Propionate (FLONASE) 1 spray INTRANASAL QDAY #0 02/24/12 05/10/18 amitriptyline 25 mg PO QDAY #0 02/24/12 05/10/18 bupropion HCl [Wellbutrin SR] 450 mg PO QDAY #0 02/24/12 05/10/18 cetirizine 10 mg PO Q DAY #0 02/24/12 05/10/18 conjugated estrogens [Premarin] 1.25 mg PO QDAY #0 02/24/12 05/10/18 esomeprazole magnesium [Nexium] 40 mg PO QDAY #0 02/24/12 05/10/18 montelukast [Singulair] 10 mg PO QDAY PRN #0 02/24/12 05/10/18 acetaminophen 650 mg PO Q8HP PRN #0 04/17/16 05/10/18 lorazepam [Ativan] 1 mg PO BIDP PRN #0 04/17/16 05/10/18 telmisartan-hydrochlorothiazid 1 tab PO QDAY #0 04/17/16 05/10/18 [Micardis HCT] conjugated estrogens 0.625 mg/gram 1 applictn VAG DAILY gram 12/12/17 05/10/18 vaginal cream duloxetine 60 mg capsule,delayed 60 mg PO DAILY 12/12/17 05/10/18 release fluticasone 500 mcg-salmeterol 50 1 inhalation INHALATION BID 12/12/17 05/10/18 mcg/dose blistr powdr for inhalation simvastatin 20 mg tablet 20 mg PO BEDTIME 12/12/17 05/10/18 ResMed AirSense 10 CPAP #1 ea 05/10/18 05/10/18 Previous Rx's Medication Instructions Recorded dextromethorphan polistirex 30 mg PO Q12H 10 Days #0 ml 04/17/16 [Delsym 12 hour] codeine-guaifenesin [Guaifenesin 5 ml PO Q6H PRN #120 ml 06/04/18 AC] prednisone 10 mg PO DAILY #30 tab 06/04/18 Allergies Allergy/AdvReac Type Severity Reaction Status Date / Time iodine [IODINE] Allergy Mild Verified 06/04/18 12:09 Sulfa (Sulfonamide Allergy Mild Verified 06/04/18 12:09 Antibiotics) [SULFA (SULFONAMIDE ANTIBIOTICS)] Iodinated Contrast- Oral and Allergy Unknown Verified 06/04/18 12:09 IV Dye [IODINATED CONTRAST MEDIA - IV DYE] lisinopril [LISINOPRIL] Allergy Unknown Verified 06/04/18 12:09 Review of Systems Review of Systems GENERAL: Denies chills, fatigue, malaise, fever, sweats, travel HEENT: Denies sinus pain, ear pain, sore throat, difficulty swallowing, neck pain RESPIRATORY: See HPI CARDIOVASCULAR: Denies chest pain, palpitations, orthopnea, edema GASTROINTESTINAL: Denies nausea, vomiting, abdominal pain, diarrhea, constipation, melena. : Denies dysuria, frequency, incontinence, hematuria, urinary retention, flank pain. MUSCULOSKELETAL: Denies weakness, joint pain, or bony pain SKIN: No rash, no erythema, no pruritus NEUROLOGIC: Denies weakness, dizziness, headache, numbness, change in speech, confusion PSYCHIATRIC: No concerning psychosocial issues. 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 Social History marital status: details: to [place], lives in [place] household members: spouse lives independently: Yes caregiver/support person: No housing: house occupational status: disabled Smoking Status: Former smoker quit status: quit date established alcohol intake: former substance use type: does not use Family History Brother Fragile X syndrome in male Mother No problems noted. Social History marital status: details: to [place], lives in [place] household members: spouse lives independently: Yes caregiver/support person: No housing: house occupational status: disabled Smoking Status: Former smoker quit status: quit date established alcohol intake: former substance use type: does not use Exam Initial Vital Signs Initial Vital Signs: Vital Signs Pulse Rate 103 H 06/04/18 12:09 Respiratory Rate 22 06/04/18 12:09 Pulse Oximetry 98 06/04/18 12:09 GENERAL: Awake alert elderly female appears to not feel well but in no acute distress HEENT: Head atraumatic,EOMI, pupils reactive, face symmetric hoarse voice neck is supple CARDIOVASCULAR: Regular rate and rhythm without murmurs, rubs or gallops. RESPIRATORY: Dry nonproductive cough with out respiratory distress slight decreased breath sounds bilaterally no wheeze ABDOMEN: Soft, nontender. Normoactive bowel sounds all 4 quadrants. No guarding or rebound. EXTREMITIES: Normal range of motion, no clubbing or edema. Neurovascularly intact NEUROLOGICAL: Alert and oriented x4.Normal gait and speech. Cranial nerves II through XII grossly intact. SKIN: Warm, dry, no laceration, no petechiae, no rashes or lesions. Scores HEART Score Heart Score history: Slightly Suspicious Heart Score EKG: Normal Heart Score Age: 45-64 years old Heart Score risk factors: 1-2 risk factors Heart Score troponin: < or = to normal limit Heart Score Total: 2 Course Orders Ordered: ED Orders 06/04/18 12:08 Consult to Respiratory Therapy Evaluate & Treat XR chest 2V Stat EKG-12 Lead Stat 06/04/18 12:13 EKG-12 Lead Routine 06/04/18 12:45 B Type Natriuretic Peptide Stat Basic Metabolic Panel Stat Complete Blood Count AUTO DIFF Stat Lactate (Lactic Acid) Stat Magnesium Stat Procalcitonin Stat Troponin & CK Cardiac Panel Stat 06/04/18 15:50 Troponin I Stat Discontinued Medications Albuterol/Ipratropium (Duoneb) 3 ml INH NOW ONE Stop: 06/04/18 12:54 Last Admin: 06/04/18 13:04 Dose: 3 ml Albuterol/Ipratropium (Duoneb) 3 ml INH NOW ONE Stop: 06/04/18 16:52 Last Admin: 06/04/18 16:54 Dose: 3 ml Methylprednisolone (Solu-Medrol 125 Mg Vial) 125 mg IV NOW ONE Stop: 06/04/18 12:54 Last Admin: 06/04/18 13:04 Dose: 125 mg Vital Signs - 8 hr 06/04/18 12:09 06/04/18 13:10 06/04/18 13:26 Pulse Rate 103 H 88 86 Respiratory Rate 22 20 19 Blood Pressure [Left Arm] 132/73 Pulse Oximetry 98 98 97 06/04/18 16:00 06/04/18 16:48 06/04/18 16:54 Pulse Rate 81 83 102 H Respiratory Rate 28 H 21 22 Blood Pressure [Left Arm] 139/74 138/62 Pulse Oximetry 96 94 98 06/04/18 17:08 Pulse Rate Respiratory Rate Blood Pressure [Left Arm] Pulse Oximetry 98 MDM - SOB/Dyspnea Lab Data Attestation: I reviewed the patient's lab results. Result diagrams: 06/04/18 12:45 06/04/18 12:45 Lab Results 06/04/18 06/04/18 06/04/18 Range/Units 12:45 12:45 12:45 WBC 10.1 (4.5-11.0) X10^3/uL RBC 4.52 (4.0-5.2) X10^6/uL Hgb 12.6 (12.0-16.0) g/dL Hct 38.4 (36-46) % MCV 85.0 (80-100) fL MCH 27.9 (26-34) PG MCHC 32.8 (30-36) % RDW 15.3 H (11.6-14.8) % Plt Count 350 (150-400) X10^3/uL Neut % (Auto) 70.8 (50-75) % Lymph % (Auto) 21.2 L (25-40) % Bradley % (Auto) 5.7 (3-14) % Eos % (Auto) 1.3 L (2-4) % Baso % (Auto) 1.0 (0-2) % Neut # (Auto) 7100 H (3991-4581) /uL Lymph # (Auto) 2100 (2861-7508) /uL Bradley # (Auto) 600 (0-900) /uL Eos # (Auto) 100 (0-450) /uL Baso # (Auto) 100 (0-100) /uL Sodium 138 (137-145) mmol/L Potassium 4.0 (3.4-5.1) mmol/L Chloride 104 (98-107) mmol/L Carbon Dioxide 23 (22-32) mmol/L BUN 15 (7-17) mg/dL Creatinine 1.20 H (0.52-1.04) mg/dL Estimated GFR 45.2 L (>60) mL/min BUN/Creatinine Ratio 12.5 (6-22) Glucose 97 (80-110) mg/dL Lactate (0.7-2.1) mmol/L Calcium 9.4 (8.4-10.2) mg/dL Magnesium 1.9 (1.6-2.3) mg/dL Total Creatine Kinase 42 (30-135) U/L CK-MB (CK-2) TNP CK-MB (CK-2) Rel Index TNP Troponin I 0.082 H (0.01-0.034) ng/mL B-Natriuretic Peptide < 100 (<100) Procalcitonin < 0.05 (<0.5) ng/mL 06/04/18 06/04/18 Range/Units 12:45 15:50 WBC (4.5-11.0) X10^3/uL RBC (4.0-5.2) X10^6/uL Hgb (12.0-16.0) g/dL Hct (36-46) % MCV (80-100) fL MCH (26-34) PG MCHC (30-36) % RDW (11.6-14.8) % Plt Count (150-400) X10^3/uL Neut % (Auto) (50-75) % Lymph % (Auto) (25-40) % Bradley % (Auto) (3-14) % Eos % (Auto) (2-4) % Baso % (Auto) (0-2) % Neut # (Auto) (9739-5746) /uL Lymph # (Auto) (0919-4299) /uL Bradley # (Auto) (0-900) /uL Eos # (Auto) (0-450) /uL Baso # (Auto) (0-100) /uL Sodium (137-145) mmol/L Potassium (3.4-5.1) mmol/L Chloride (98-107) mmol/L Carbon Dioxide (22-32) mmol/L BUN (7-17) mg/dL Creatinine (0.52-1.04) mg/dL Estimated GFR (>60) mL/min BUN/Creatinine Ratio (6-22) Glucose (80-110) mg/dL Lactate 1.3 (0.7-2.1) mmol/L Calcium (8.4-10.2) mg/dL Magnesium (1.6-2.3) mg/dL Total Creatine Kinase (30-135) U/L CK-MB (CK-2) CK-MB (CK-2) Rel Index Troponin I 0.065 H (0.01-0.034) ng/mL B-Natriuretic Peptide (<100) Procalcitonin (<0.5) ng/mL Imaging Data Chest x-ray: Radiologist's impression: PROCEDURE: XR CHEST 2V INDICATIONS: sob/cough TECHNIQUE: 2 views of the chest were acquired. COMPARISON: [facility], CR, XR CHEST 2 VIEWS, 02/15/2018, 14:33. [facility], CR, XR CHEST 2V, 05/28/2018, 13:19. FINDINGS: Surgical changes and devices: None. Lungs and pleura: Possible slight increase in hazy retrocardiac opacity seen only on the lateral view.. No pleural effusions or pneumothorax. Mediastinum: Mediastinal contours are normal. Heart size is normal. Bones and chest wall: No suspicious bony abnormalities. Soft tissues appear unremarkable. IMPRESSION: Subtle increase in alveolar opacity in the lower lung seen on the lateral view only, correlate with auscultated findings. No pleural effusion. Dictated by: Rubi Denson M.D. on 06/04/2018 at 13:59 ECG Data Attestation: I personally reviewed and interpreted this ECG as follows: Prior ECG tracings: available for review Interpretation: Normal sinus rhythm with PVC rate [address] changes or T-wave inversions MDM Narrative Medical decision making narrative: Patient has indeterminate troponin which are actually trending down. I think they were slightly elevated due to her significant work of breathing. She improved his with Solu-Medrol and bronchodilators. Overall feeling much better. She will get a long taper of prednisone and cough syrup. No sign of pneumonia. She really has no chest pain. This seems to be more respiratory issue rather than cardiac. Nonetheless I discussed with her that she may still require further cardiac evaluation but this can be done with her primary care physician Discharge Plan Departure Patient Disposition: Home Clinical Impression: Asthma with exacerbation Qualifiers: Asthma severity: moderate Asthma persistence: unspecified Qualified Code(s): J45.901 - Unspecified asthma with (acute) exacerbation Discharge Date/Time: 06/04/18 17:13 Interventions: ED Discharge Assessment Last Done: 06/04/18 17:13 Instructions: DI for Asthma -- Adult Activity Restrictions/Additional Instructions: *You have been diagnosed with asthma exacerbation *What to do: Increase fluid intake. You're troponin which is a measure of your heart with mildly elevated however at decreasing. If you are having any worsening chest pain please return to the ED. You may also require outpatient cardiac stress test. *Continue to take medications as directed Albuterol every 4 hr if needed for coughing spell Prednisone taper follow directions *Follow up with your primary care provider in 2-3 days *Return to ER if you should have increasing shortness of breath, fever not controlled any new, worsening or concerning symptoms Prescriptions: New prednisone 10 mg tablet 10 mg PO DAILY Qty: 30 RF: 0 codeine-guaifenesin [Guaifenesin AC] 10-100 mg/5 mL liquid 5 ml PO Q6H PRN (Reason: cough) Qty: 120 RF: 0 No Action esomeprazole magnesium [Nexium] 40 MG capsule,delayed release(DR/EC) 40 mg PO QDAY Qty: 0 RF: 0 conjugated estrogens [Premarin] 1.25 MG tablet 1.25 mg PO QDAY Qty: 0 RF: 0 amitriptyline 25 MG tablet 25 mg PO QDAY Qty: 0 RF: 0 cetirizine 10 MG tablet 10 mg PO Q DAY Qty: 0 RF: 0 Fluticasone Propionate (FLONASE) 1 spray Intranasal QDAY Qty: 0 RF: 0 montelukast [Singulair] 10 MG tablet 10 mg PO QDAY PRNQty: 0 RF: 0 bupropion HCl [Wellbutrin SR] 150 MG tablet extended release 12 hr 450 mg PO QDAY Qty: 0 RF: 0 lorazepam [Ativan] 1 MG tablet 1 mg PO BIDP PRNQty: 0 RF: 0 telmisartan-hydrochlorothiazid [Micardis HCT] 40 MG/12.5 MG tablet 1 tab PO QDAY Qty: 0 RF: 0 acetaminophen 650 MG tablet extended release 650 mg PO Q8HP PRNQty: 0 RF: 0 dextromethorphan polistirex [Delsym 12 hour] 30 MG/5 ML suspension,extended rel 12 hr 30 mg PO Q12H 10 Days Qty: 0 RF: 0 simvastatin 20 mg tablet 20 mg PO BEDTIME RF: 0 duloxetine [Cymbalta] 60 mg capsule,delayed release(DR/EC) 60 mg PO DAILY RF: 0 conjugated estrogens [Premarin] 0.625 mg/gram cream 1 applictn VAG DAILY RF: 0 fluticasone propion-salmeterol [Advair Diskus] 500-50 mcg/dose blister with device 1 inhalation INHALATION BID RF: 0 ResMed AirSense 10 CPAP Qty: 1 RF: 0
[2018-06-04 12:57] LABS: Add Manual Diff / Slide Review NO; B Type Natriuretic Peptide < 100 (<100); Basophils Absolute Auto 100 /uL (0-100); Eosinophils Absolute Auto 100 /uL (0-450); Eosinophils Percent Auto 1.3 % (2-4); Hematocrit 38.4 % (36-46); Hemoglobin 12.6 g/dL (12.0-16.0); Lymphocytes Absolute Auto 2100 /uL (1100-4500); Lymphocytes Percent Auto 21.2 % (25-40); Mean Corpuscular HGB Conc 32.8 % (30-36); Mean Corpuscular Hemoglobin 27.9 PG (26-34); Monocytes Absolute Auto 600 /uL (0-900); Monocytes Percent Auto 5.7 % (3-14); Neutrophils Absolute Auto 7100 /uL (1500-7000); Neutrophils Percent Auto 70.8 % (50-75); Platelet Count 350 X10^3/uL (150-400); Red Blood Cell Count 4.52 X10^6/uL (4.0-5.2); Red Cell Distribution Width 15.3 % (11.6-14.8); White Blood Cell Count 10.1 X10^3/uL (4.5-11.0)
--- NOTE | 2018-06-04 12:57 | ED_ITS ---
HPI - SOB/Dyspnea General Chief Complaint: Shortness of Breath/Dyspnea Stated Complaint: PERSISTENT COUGH/TROUBLE BREATHING Time Seen by Provider: 06/04/18 12:45 Source: patient Mode of arrival: ambulatory Limitations: no limitations History of Present Illness Patient is a 63-year-old female with history of asthma presenting with cough yousuf oing for last 2 weeks. She has been using her nebulizer and albuterol inhaler multiple times it is not helping. She thinks that she has had fever off and on. She has lost her voice. She really just cannot stop coughing. She has not had any abdominal issues nausea or vomiting. It sometimes hurts her chest. MD Complaint: cough Severity: moderate Consistency/Duration: constant Related Data Home Medications Medication Instructions Recorded Confirmed Fluticasone Propionate (FLONASE) 1 spray INTRANASAL QDAY #0 02/24/12 05/10/18 amitriptyline 25 mg PO QDAY #0 02/24/12 05/10/18 bupropion HCl [Wellbutrin SR] 450 mg PO QDAY #0 02/24/12 05/10/18 cetirizine 10 mg PO Q DAY #0 02/24/12 05/10/18 conjugated estrogens [Premarin] 1.25 mg PO QDAY #0 02/24/12 05/10/18 esomeprazole magnesium [Nexium] 40 mg PO QDAY #0 02/24/12 05/10/18 montelukast [Singulair] 10 mg PO QDAY PRN #0 02/24/12 05/10/18 acetaminophen 650 mg PO Q8HP PRN #0 04/17/16 05/10/18 lorazepam [Ativan] 1 mg PO BIDP PRN #0 04/17/16 05/10/18 telmisartan-hydrochlorothiazid 1 tab PO QDAY #0 04/17/16 05/10/18 [Micardis HCT] conjugated estrogens 0.625 mg/gram 1 applictn VAG DAILY gram 12/12/17 05/10/18 vaginal cream duloxetine 60 mg capsule,delayed 60 mg PO DAILY 12/12/17 05/10/18 release fluticasone 500 mcg-salmeterol 50 1 inhalation INHALATION BID 12/12/17 05/10/18 mcg/dose blistr powdr for inhalation simvastatin 20 mg tablet 20 mg PO BEDTIME 12/12/17 05/10/18 ResMed AirSense 10 CPAP #1 ea 05/10/18 05/10/18 Previous Rx's Medication Instructions Recorded dextromethorphan polistirex 30 mg PO Q12H 10 Days #0 ml 04/17/16 [Delsym 12 hour] codeine-guaifenesin [Guaifenesin 5 ml PO Q6H PRN #120 ml 06/04/18 AC] prednisone 10 mg PO DAILY #30 tab 06/04/18 Allergies Allergy/AdvReac Type Severity Reaction Status Date / Time iodine [IODINE] Allergy Mild Verified 06/04/18 12:09 Sulfa (Sulfonamide Allergy Mild Verified 06/04/18 12:09 Antibiotics) [SULFA (SULFONAMIDE ANTIBIOTICS)] Iodinated Contrast- Oral and Allergy Unknown Verified 06/04/18 12:09 IV Dye [IODINATED CONTRAST MEDIA - IV DYE] lisinopril [LISINOPRIL] Allergy Unknown Verified 06/04/18 12:09 Review of Systems Review of Systems GENERAL: Denies chills, fatigue, malaise, fever, sweats, travel HEENT: Denies sinus pain, ear pain, sore throat, difficulty swallowing, neck pain RESPIRATORY: See HPI CARDIOVASCULAR: Denies chest pain, palpitations, orthopnea, edema GASTROINTESTINAL: Denies nausea, vomiting, abdominal pain, diarrhea, constipation, melena. : Denies dysuria, frequency, incontinence, hematuria, urinary retention, flank pain. MUSCULOSKELETAL: Denies weakness, joint pain, or bony pain SKIN: No rash, no erythema, no pruritus NEUROLOGIC: Denies weakness, dizziness, headache, numbness, change in speech, confusion PSYCHIATRIC: No concerning psychosocial issues. 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 Social History marital status: details: bobby Maria, lives in [place] household members: spouse lives independently: Yes caregiver/support person: No housing: house occupational status: disabled Smoking Status: Former smoker quit status: quit date established alcohol intake: former substance use type: does not use Family History Brother Fragile X syndrome in male Mother No problems noted. Social History marital status: details: bobby Maria, lives in [place] household members: spouse lives independently: Yes caregiver/support person: No housing: house occupational status: disabled Smoking Status: Former smoker quit status: quit date established alcohol intake: former substance use type: does not use Exam Initial Vital Signs Initial Vital Signs: Vital Signs Pulse Rate 103 H 06/04/18 12:09 Respiratory Rate 22 06/04/18 12:09 Pulse Oximetry 98 06/04/18 12:09 GENERAL: Awake alert elderly female appears to not feel well but in no acute distress HEENT: Head atraumatic,EOMI, pupils reactive, face symmetric hoarse voice neck is supple CARDIOVASCULAR: Regular rate and rhythm without murmurs, rubs or gallops. RESPIRATORY: Dry nonproductive cough with out respiratory distress slight decreased breath sounds bilaterally no wheeze ABDOMEN: Soft, nontender. Normoactive bowel sounds all 4 quadrants. No guarding or rebound. EXTREMITIES: Normal range of motion, no clubbing or edema. Neurovascularly intact NEUROLOGICAL: Alert and oriented x4.Normal gait and speech. Cranial nerves II through XII grossly intact. SKIN: Warm, dry, no laceration, no petechiae, no rashes or lesions. Scores HEART Score Heart Score history: Slightly Suspicious Heart Score EKG: Normal Heart Score Age: 45-64 years old Heart Score risk factors: 1-2 risk factors Heart Score troponin: < or = to normal limit Heart Score Total: 2 Course Orders Ordered: ED Orders 06/04/18 12:08 Consult to Respiratory Therapy Evaluate & Treat XR chest 2V Stat EKG-12 Lead Stat 06/04/18 12:13 EKG-12 Lead Routine 06/04/18 12:45 B Type Natriuretic Peptide Stat Basic Metabolic Panel Stat Complete Blood Count AUTO DIFF Stat Lactate (Lactic Acid) Stat Magnesium Stat Procalcitonin Stat Troponin & CK Cardiac Panel Stat 06/04/18 15:50 Troponin I Stat Discontinued Medications Albuterol/Ipratropium (Duoneb) 3 ml INH NOW ONE Stop: 06/04/18 12:54 Last Admin: 06/04/18 13:04 Dose: 3 ml Albuterol/Ipratropium (Duoneb) 3 ml INH NOW ONE Stop: 06/04/18 16:52 Last Admin: 06/04/18 16:54 Dose: 3 ml Methylprednisolone (Solu-Medrol 125 Mg Vial) 125 mg IV NOW ONE Stop: 06/04/18 12:54 Last Admin: 06/04/18 13:04 Dose: 125 mg Vital Signs - 8 hr 06/04/18 12:09 06/04/18 13:10 06/04/18 13:26 Pulse Rate 103 H 88 86 Respiratory Rate 22 20 19 Blood Pressure [Left Arm] 132/73 Pulse Oximetry 98 98 97 06/04/18 16:00 06/04/18 16:48 06/04/18 16:54 Pulse Rate 81 83 102 H Respiratory Rate 28 H 21 22 Blood Pressure [Left Arm] 139/74 138/62 Pulse Oximetry 96 94 98 06/04/18 17:08 Pulse Rate Respiratory Rate Blood Pressure [Left Arm] Pulse Oximetry 98 MDM - SOB/Dyspnea Lab Data Attestation: I reviewed the patient's lab results. Result diagrams: 06/04/18 12:45 06/04/18 12:45 Lab Results 06/04/18 06/04/18 06/04/18 Range/Units 12:45 12:45 12:45 WBC 10.1 (4.5-11.0) X10^3/uL RBC 4.52 (4.0-5.2) X10^6/uL Hgb 12.6 (12.0-16.0) g/dL Hct 38.4 (36-46) % MCV 85.0 (80-100) fL MCH 27.9 (26-34) PG MCHC 32.8 (30-36) % RDW 15.3 H (11.6-14.8) % Plt Count 350 (150-400) X10^3/uL Neut % (Auto) 70.8 (50-75) % Lymph % (Auto) 21.2 L (25-40) % [place] % (Auto) 5.7 (3-14) % Eos % (Auto) 1.3 L (2-4) % Baso % (Auto) 1.0 (0-2) % Neut # (Auto) 7100 H (1086-8269) /uL Lymph # (Auto) 2100 (8853-6792) /uL [place] # (Auto) 600 (0-900) /uL Eos # (Auto) 100 (0-450) /uL Baso # (Auto) 100 (0-100) /uL Sodium 138 (137-145) mmol/L Potassium 4.0 (3.4-5.1) mmol/L Chloride 104 (98-107) mmol/L Carbon Dioxide 23 (22-32) mmol/L BUN 15 (7-17) mg/dL Creatinine 1.20 H (0.52-1.04) mg/dL Estimated GFR 45.2 L (>60) mL/min BUN/Creatinine Ratio 12.5 (6-22) Glucose 97 (80-110) mg/dL Lactate (0.7-2.1) mmol/L Calcium 9.4 (8.4-10.2) mg/dL Magnesium 1.9 (1.6-2.3) mg/dL Total Creatine Kinase 42 (30-135) U/L CK-MB (CK-2) TNP CK-MB (CK-2) Rel Index TNP Troponin I 0.082 H (0.01-0.034) ng/mL B-Natriuretic Peptide < 100 (<100) Procalcitonin < 0.05 (<0.5) ng/mL 06/04/18 06/04/18 Range/Units 12:45 15:50 WBC (4.5-11.0) X10^3/uL RBC (4.0-5.2) X10^6/uL Hgb (12.0-16.0) g/dL Hct (36-46) % MCV (80-100) fL MCH (26-34) PG MCHC (30-36) % RDW (11.6-14.8) % Plt Count (150-400) X10^3/uL Neut % (Auto) (50-75) % Lymph % (Auto) (25-40) % [place] % (Auto) (3-14) % Eos % (Auto) (2-4) % Baso % (Auto) (0-2) % Neut # (Auto) (5747-7338) /uL Lymph # (Auto) (2765-2280) /uL [place] # (Auto) (0-900) /uL Eos # (Auto) (0-450) /uL Baso # (Auto) (0-100) /uL Sodium (137-145) mmol/L Potassium (3.4-5.1) mmol/L Chloride (98-107) mmol/L Carbon Dioxide (22-32) mmol/L BUN (7-17) mg/dL Creatinine (0.52-1.04) mg/dL Estimated GFR (>60) mL/min BUN/Creatinine Ratio (6-22) Glucose (80-110) mg/dL Lactate 1.3 (0.7-2.1) mmol/L Calcium (8.4-10.2) mg/dL Magnesium (1.6-2.3) mg/dL Total Creatine Kinase (30-135) U/L CK-MB (CK-2) CK-MB (CK-2) Rel Index Troponin I 0.065 H (0.01-0.034) ng/mL B-Natriuretic Peptide (<100) Procalcitonin (<0.5) ng/mL Imaging Data Chest x-ray: Radiologist's impression: PROCEDURE: XR CHEST 2V INDICATIONS: sob/cough TECHNIQUE: 2 views of the chest were acquired. COMPARISON: [facility], CR, XR CHEST 2 VIEWS, 02/15/2018, 14:33. [facility], CR, XR CHEST 2V, 05/28/2018, 13:19. FINDINGS: Surgical changes and devices: None. Lungs and pleura: Possible slight increase in hazy retrocardiac opacity seen only on the lateral view.. No pleural effusions or pneumothorax. Mediastinum: Mediastinal contours are normal. Heart size is normal. Bones and chest wall: No suspicious bony abnormalities. Soft tissues appear unremarkable. IMPRESSION: Subtle increase in alveolar opacity in the lower lung seen on the lateral view only, correlate with auscultated findings. No pleural effusion. Dictated by: Rubi Denson M.D. on 06/04/2018 at 13:59 ECG Data Attestation: I personally reviewed and interpreted this ECG as follows: Prior ECG tracings: available for review Interpretation: Normal sinus rhythm with PVC rate [address] changes or T-wave inversions MDM Narrative Medical decision making narrative: Patient has indeterminate troponin which are actually trending down. I think they were slightly elevated due to her significant work of breathing. She improved his with Solu-Medrol and bronchodilators. Overall feeling much better. She will get a long taper of prednisone and cough syrup. No sign of pneumonia. She really has no chest pain. This seems to be more respiratory issue rather than cardiac. Nonetheless I discussed with her that she may still require further cardiac evaluation but this can be done with her primary care physician Discharge Plan Departure Patient Disposition: Home Clinical Impression: Asthma with exacerbation Qualifiers: Asthma severity: moderate Asthma persistence: unspecified Qualified Code(s): J45.901 - Unspecified asthma with (acute) exacerbation Discharge Date/Time: 06/04/18 17:13 Interventions: ED Discharge Assessment Last Done: 06/04/18 17:13 Instructions: DI for Asthma -- Adult Activity Restrictions/Additional Instructions: *You have been diagnosed with asthma exacerbation *What to do: Increase fluid intake. You're troponin which is a measure of your heart with mildly elevated however at decreasing. If you are having any worsening chest pain please return to the ED. You may also require outpatient cardiac stress test. *Continue to take medications as directed Albuterol every 4 hr if needed for coughing spell Prednisone taper follow directions *Follow up with your primary care provider in 2-3 days *Return to ER if you should have increasing shortness of breath, fever not controlled any new, worsening or concerning symptoms Prescriptions: New prednisone 10 mg tablet 10 mg PO DAILY Qty: 30 RF: 0 codeine-guaifenesin [Guaifenesin AC] 10-100 mg/5 mL liquid 5 ml PO Q6H PRN (Reason: cough) Qty: 120 RF: 0 No Action esomeprazole magnesium [Nexium] 40 MG capsule,delayed release(DR/EC) 40 mg PO QDAY Qty: 0 RF: 0 conjugated estrogens [Premarin] 1.25 MG tablet 1.25 mg PO QDAY Qty: 0 RF: 0 amitriptyline 25 MG tablet 25 mg PO QDAY Qty: 0 RF: 0 cetirizine 10 MG tablet 10 mg PO Q DAY Qty: 0 RF: 0 Fluticasone Propionate (FLONASE) 1 spray Intranasal QDAY Qty: 0 RF: 0 montelukast [Singulair] 10 MG tablet 10 mg PO QDAY PRNQty: 0 RF: 0 bupropion HCl [Wellbutrin SR] 150 MG tablet extended release 12 hr 450 mg PO QDAY Qty: 0 RF: 0 lorazepam [Ativan] 1 MG tablet 1 mg PO BIDP PRNQty: 0 RF: 0 telmisartan-hydrochlorothiazid [Micardis HCT] 40 MG/12.5 MG tablet 1 tab PO QDAY Qty: 0 RF: 0 acetaminophen 650 MG tablet extended release 650 mg PO Q8HP PRNQty: 0 RF: 0 dextromethorphan polistirex [Delsym 12 hour] 30 MG/5 ML suspension,extended rel 12 hr 30 mg PO Q12H 10 Days Qty: 0 RF: 0 simvastatin 20 mg tablet 20 mg PO BEDTIME RF: 0 duloxetine [Cymbalta] 60 mg capsule,delayed release(DR/EC) 60 mg PO DAILY RF: 0 conjugated estrogens [Premarin] 0.625 mg/gram cream 1 applictn VAG DAILY RF: 0 fluticasone propion-salmeterol [Advair Diskus] 500-50 mcg/dose blister with device 1 inhalation INHALATION BID RF: 0 ResMed AirSense 10 CPAP Qty: 1 RF: 0
[2018-06-04] MEDS: ALBUTEROL/IPRATROPIUM 3 ML AMPUL INH ×2 (13:04→16:54)
[2018-06-04] MEDS: methylPREDNISolone 125 MG/2 ML VIAL IV (13:04)
[2018-06-04 13:08] LABS: BUN Creatinine Ratio 12.5 (6-22); Blood Urea Nitrogen 15 mg/dL (7-17); Calcium 9.4 mg/dL (8.4-10.2); Carbon Dioxide 23 mmol/L (22-32); Chloride 104 mmol/L (98-107); Creatine Kinase 42 U/L (30-135); Estimated Glomerular Filt Rate 45.2 mL/min (>60); Glucose 97 mg/dL (80-110); HEMOLYSIS < 15 (0-50); Magnesium 1.9 mg/dL (1.6-2.3); Sodium 138 mmol/L (137-145)
[2018-06-04 13:09] LABS: Lactate (Lactic Acid) 1.3 mmol/L (0.7-2.1)
[2018-06-04 13:15] LABS: Procalcitonin < 0.05 ng/mL (<0.5)
[2018-06-04 13:20] LABS: Troponin I 0.082 ng/mL (0.01-0.034)
[2018-06-04 16:27] LABS: Troponin I 0.065 ng/mL (0.01-0.034)
== END 2018-06-04 17:13 | disposition home or self-care (01) ==
PROVIDERS: Emergency Provider Emergency Medicine
DX: J45.901 Unspecified asthma with (acute) exacerbation (principal)
CPT/HCPCS: 36415; 36591; 71046; 80048; 82550; 83605; 83735; 83880; 84145; 84484; 85025; 93005; 94150; 94640; 94667; 96374; 99283; 99285; J2930

== ENCOUNTER 2018-07-08 13:40 | Emergency (ER) | payer MEDICARE, OTHER, SELFPAY ==
[2018-07-08] VITALS (13 sets, daily range): BP systolic 143–162; BP diastolic 66–91; PULSE 52–78; RESP 16–24; TEMP 36.5; O2SAT 97–100; BMI 39.1
--- NOTE | 2018-07-08 13:51 | DI.RAD.S_ITS ---
PROCEDURE: XR CHEST 1V INDICATIONS: chest pain TECHNIQUE: One view of the chest was acquired. COMPARISON: [facility], CR, XR CHEST 2V, 06/04/2018, 12:32. FINDINGS: Surgical changes and devices: None. Lungs and pleura: Lungs are clear. No pleural effusions or pneumothorax. Mediastinum: Mediastinal contours appear normal. Heart size is normal. Bones and chest wall: No suspicious bony lesions. Overlying soft tissues appear unremarkable. IMPRESSION: 1. No acute cardiopulmonary disease. Dictated by: Daniel Kirk M.D. on 07/08/2018 at 14:31 Approved by: Daniel Kirk M.D. on 07/08/2018 at 14:31
--- NOTE | 2018-07-08 14:05 | ED.CHESTPAIN ---
HPI - Chest Pain General Chief Complaint: Chest Pain Stated Complaint: Pain in the middle of chest Time Seen by Provider: 07/08/18 13:54 Source: patient Mode of arrival: ambulatory Limitations: no limitations History of Present Illness HPI narrative: Patient is a 63-year-old female who presents with chest pressure and pain ongoing for about a week and a. It comes and goes multiple times a day can't say that it is with exertion or at rest. It does radiate to her left shoulder she feels short of breath when she walks. She was actually seen evaluated here by myself 06/04/2018 for an asthma exacerbation, however she had 2 indeterminate troponins which were trending down words at a time. She says she never really got better after words, in fact she says this week it has gotten worse and today it is much worse. The cough and asthma symptoms however improved and got better. Related Data Home Medications Medication Instructions Recorded Confirmed Fluticasone Propionate (FLONASE) 1 spray INTRANASAL QDAY #0 02/24/12 05/10/18 amitriptyline 25 mg PO QDAY #0 02/24/12 05/10/18 bupropion HCl [Wellbutrin SR] 450 mg PO QDAY #0 02/24/12 05/10/18 cetirizine 10 mg PO Q DAY #0 02/24/12 05/10/18 conjugated estrogens [Premarin] 1.25 mg PO QDAY #0 02/24/12 05/10/18 esomeprazole magnesium [Nexium] 40 mg PO QDAY #0 02/24/12 05/10/18 montelukast [Singulair] 10 mg PO QDAY PRN #0 02/24/12 05/10/18 acetaminophen 650 mg PO Q8HP PRN #0 04/17/16 05/10/18 lorazepam [Ativan] 1 mg PO BIDP PRN #0 04/17/16 05/10/18 telmisartan-hydrochlorothiazid 1 tab PO QDAY #0 04/17/16 05/10/18 [Micardis HCT] conjugated estrogens 0.625 mg/gram 1 applictn VAG DAILY gram 12/12/17 05/10/18 vaginal cream duloxetine 60 mg capsule,delayed 60 mg PO DAILY 12/12/17 05/10/18 release fluticasone 500 mcg-salmeterol 50 1 inhalation INHALATION BID 12/12/17 05/10/18 mcg/dose blistr powdr for inhalation simvastatin 20 mg tablet 20 mg PO BEDTIME 12/12/17 05/10/18 ResMed AirSense 10 CPAP #1 ea 05/10/18 05/10/18 Previous Rx's Medication Instructions Recorded dextromethorphan polistirex 30 mg PO Q12H 10 Days #0 ml 04/17/16 [Delsym 12 hour] codeine-guaifenesin [Guaifenesin 5 ml PO Q6H PRN #120 ml 06/04/18 AC] prednisone 10 mg PO DAILY #30 tab 06/04/18 Allergies Allergy/AdvReac Type Severity Reaction Status Date / Time iodine [IODINE] Allergy Mild Verified 06/04/18 12:09 Sulfa (Sulfonamide Allergy Mild Verified 06/04/18 12:09 Antibiotics) [SULFA (SULFONAMIDE ANTIBIOTICS)] Iodinated Contrast- Oral and Allergy Unknown Verified 06/04/18 12:09 IV Dye [IODINATED CONTRAST MEDIA - IV DYE] lisinopril [LISINOPRIL] Allergy Unknown Verified 06/04/18 12:09 Review of Systems Review of Systems ROS Unobtainable: All systems reviewed & are unremarkable except as noted in HPI and below Cardiovascular Reports as per HPI, Reports chest pain, Denies dyspnea and Reports dyspnea on exertion Respiratory Denies cough, Denies dyspnea, Reports dyspnea on exertion and Denies wheezing Gastrointestinal Gastrointestinal: Denies abdominal pain, Denies change in bowel habits, Denies diarrhea, Denies nausea and Denies vomiting Genitourinary Denies hematuria, Denies flank pain, Denies urinary incontinence and Denies urinary urgency Musculoskeletal Denies back pain, Denies muscle weakness, Denies numbness and Denies tingling Integumentary/Breasts Denies pruritus, Denies erythema, Denies rash and Denies wounds Neurologic Denies numbness and Denies tingling Allergic/Immunologic Denies wheezing [facility] Social History marital status: details: bobby Maria, lives in [place] household members: spouse lives independently: Yes caregiver/support person: No housing: house occupational status: disabled Smoking Status: Former smoker quit status: quit date established alcohol intake: former substance use type: does not use Exam Initial Vital Signs Initial Vital Signs: Vital Signs Temperature 97.7 F 07/08/18 13:46 Pulse Rate 68 07/08/18 13:46 Respiratory Rate 18 07/08/18 13:46 Blood Pressure 157/82 H 07/08/18 13:46 Pulse Oximetry 100 07/08/18 13:46 GENERAL: Alert well-appearing middle-aged female appears in some pain HEENT: Head atraumatic,EOMI, pupils reactive, face symmetric, CARDIOVASCULAR: Regular rate and rhythm without murmurs, rubs or gallops. RESPIRATORY: Breath sounds equal bilaterally, no wheezes rales or rhonchi. ABDOMEN: Soft, nontender. Normoactive bowel sounds all 4 quadrants. No guarding or rebound. EXTREMITIES: Normal range of motion, no clubbing or edema. Neurovascularly intact NEUROLOGICAL: Alert and oriented x4.Normal gait and speech. Cranial nerves II through XII grossly intact. SKIN: Warm, dry, no laceration, no petechiae, no rashes or lesions. Course Orders Ordered: ED Orders 07/08/18 13:51 XR chest 1V Stat EKG-12 Lead Stat 07/08/18 14:35 Complete Blood Count AUTO DIFF Stat Comprehensive Metabolic Panel Stat Lipase Stat Partial Thromboplastin Time Stat Prothrombin Time INR Stat Troponin & CK Cardiac Panel Stat 07/08/18 15:41 EKG-12 Lead Stat 07/08/18 15:50 D Dimer Stat Troponin I Stat 07/08/18 16:58 CT angio chest PE protocol Stat Discontinued Medications Aspirin (Aspirin) 325 mg PO NOW ONE Stop: 07/08/18 14:13 Last Admin: 07/08/18 14:41 Dose: 325 mg Diphenhydramine HCl (Benadryl) 25 mg IV NOW ONE Stop: 07/08/18 17:05 Last Admin: 07/08/18 17:20 Dose: 25 mg Methylprednisolone (Solu-Medrol 125 Mg Vial) 125 mg IV NOW ONE Stop: 07/08/18 17:05 Last Admin: 07/08/18 17:20 Dose: 125 mg Nitroglycerin (Nitrostat) 0.4 mg SL NOW ONE Stop: 07/08/18 14:13 Last Admin: 07/08/18 14:40 Dose: 0.4 mg Nitroglycerin (Nitrostat) 0.4 mg SL NOW ONE Stop: 07/08/18 15:01 Last Admin: 07/08/18 15:01 Dose: 0.4 mg Nitroglycerin (Nitrostat) 0.4 mg SL NOW ONE Stop: 07/08/18 15:16 Last Admin: 07/08/18 15:17 Dose: 0.4 mg Pantoprazole Sodium (Protonix) 40 mg IV NOW ONE Stop: 07/08/18 15:15 Last Admin: 07/08/18 15:24 Dose: 40 mg Consultations Consultation #1: Dr. Briseno- no stress test available on weekend. Time: 13:15 Consultation #2: Eros, agrees with need for stress test and transfer to [facility]. Get echo in am, will do stress in am. Time: 16:08 Vital Signs - 8 hr 07/08/18 13:46 07/08/18 14:10 07/08/18 14:37 Temperature 97.7 F Pulse Rate 68 76 72 Respiratory Rate 18 24 18 Blood Pressure 157/82 H Blood Pressure [Right Arm] 152/66 H 145/67 H Pulse Oximetry 100 99 97 07/08/18 14:40 07/08/18 14:57 07/08/18 15:01 Temperature Pulse Rate 67 68 67 Respiratory Rate 16 Blood Pressure 145/67 H 145/69 H 146/67 H Blood Pressure [Right Arm] 145/69 H Pulse Oximetry 98 07/08/18 15:11 07/08/18 15:12 07/08/18 15:17 Temperature Pulse Rate 74 74 74 Respiratory Rate 16 Blood Pressure 162/91 H 162/91 H Blood Pressure [Right Arm] 162/91 H Pulse Oximetry 97 07/08/18 15:27 07/08/18 15:28 07/08/18 16:10 Temperature Pulse Rate 78 78 52 L Respiratory Rate 16 21 Blood Pressure 149/66 H Blood Pressure [Right Arm] 149/66 H 143/66 H Pulse Oximetry 98 98 07/08/18 17:43 Temperature Pulse Rate 68 Respiratory Rate 18 Blood Pressure Blood Pressure [Right Arm] 159/82 H Pulse Oximetry 100 MDM - Chest Pain Lab Data Attestation: I reviewed the patient's lab results. Result diagrams: 07/08/18 14:35 07/08/18 14:35 Lab Results 07/08/18 07/08/18 07/08/18 Range/Units 14:35 14:35 14:35 WBC 6.7 (4.5-11.0) X10^3/uL RBC 4.46 (4.0-5.2) X10^6/uL Hgb 12.8 (12.0-16.0) g/dL Hct 38.4 (36-46) % MCV 86.3 (80-100) fL MCH 28.7 (26-34) PG MCHC 33.3 (30-36) % RDW 15.4 H (11.6-14.8) % Plt Count 337 (150-400) X10^3/uL Neut % (Auto) 64.7 (50-75) % Lymph % (Auto) 26.8 (25-40) % [place] % (Auto) 7.1 (3-14) % Eos % (Auto) 1.2 L (2-4) % Baso % (Auto) 0.2 (0-2) % Neut # (Auto) 4300 (1155-1211) /uL Lymph # (Auto) 1800 (5470-3822) /uL [place] # (Auto) 500 (0-900) /uL Eos # (Auto) 100 (0-450) /uL Baso # (Auto) 0 (0-100) /uL PT 10.9 (10.1-12.7) SECONDS INR 1.0 (0.9-1.3) APTT 22 L (26.4-36.2) SECONDS D-Dimer (<230) ng/mL Sodium 136 L (137-145) mmol/L Potassium 4.1 (3.4-5.1) mmol/L Chloride 102 (98-107) mmol/L Carbon Dioxide 27 (22-32) mmol/L BUN 20 H (7-17) mg/dL Creatinine 1.30 H (0.52-1.04) mg/dL Estimated GFR 41.2 L (>60) mL/min BUN/Creatinine Ratio 15.4 (6-22) Glucose 94 (80-110) mg/dL Calcium 9.5 (8.4-10.2) mg/dL Total Bilirubin 0.4 (0.2-1.3) mg/dL AST 13 L (14-36) IU/L ALT 11 (9-52) IU/L Alkaline Phosphatase 118 (38-126) U/L Total Creatine Kinase 31 (30-135) U/L CK-MB (CK-2) TNP CK-MB (CK-2) Rel Index TNP Troponin I < 0.012 (0.01-0.034) ng/mL Total Protein 7.0 (6.3-8.2) g/dL Albumin 3.9 (3.5-5.0) g/dL Globulin 3.1 (1.7-4.1) g/dL Albumin/Globulin Ratio 1.3 (1.0-2.8) Lipase 77 (23-300) U/L 07/08/18 07/08/18 Range/Units 15:50 15:50 WBC (4.5-11.0) X10^3/uL RBC (4.0-5.2) X10^6/uL Hgb (12.0-16.0) g/dL Hct (36-46) % MCV (80-100) fL MCH (26-34) PG MCHC (30-36) % RDW (11.6-14.8) % Plt Count (150-400) X10^3/uL Neut % (Auto) (50-75) % Lymph % (Auto) (25-40) % [place] % (Auto) (3-14) % Eos % (Auto) (2-4) % Baso % (Auto) (0-2) % Neut # (Auto) (0298-2705) /uL Lymph # (Auto) (9706-2199) /uL [place] # (Auto) (0-900) /uL Eos # (Auto) (0-450) /uL Baso # (Auto) (0-100) /uL PT (10.1-12.7) SECONDS INR (0.9-1.3) APTT (26.4-36.2) SECONDS D-Dimer 522 H (<230) ng/mL Sodium (137-145) mmol/L Potassium (3.4-5.1) mmol/L Chloride (98-107) mmol/L Carbon Dioxide (22-32) mmol/L BUN (7-17) mg/dL Creatinine (0.52-1.04) mg/dL Estimated GFR (>60) mL/min BUN/Creatinine Ratio (6-22) Glucose (80-110) mg/dL Calcium (8.4-10.2) mg/dL Total Bilirubin (0.2-1.3) mg/dL AST (14-36) IU/L ALT (9-52) IU/L Alkaline Phosphatase (38-126) U/L Total Creatine Kinase (30-135) U/L CK-MB (CK-2) CK-MB (CK-2) Rel Index Troponin I < 0.012 (0.01-0.034) ng/mL Total Protein (6.3-8.2) g/dL Albumin (3.5-5.0) g/dL Globulin (1.7-4.1) g/dL Albumin/Globulin Ratio (1.0-2.8) Lipase (23-300) U/L Imaging Data Chest x-ray: Radiologist's impression: PROCEDURE: XR CHEST 1V INDICATIONS: chest pain TECHNIQUE: One view of the chest was acquired. COMPARISON: [facility], , XR CHEST 2V, 06/04/2018, 12:32. FINDINGS: Surgical changes and devices: None. Lungs and pleura: Lungs are clear. No pleural effusions or pneumothorax. Mediastinum: Mediastinal contours appear normal. Heart size is normal. Bones and chest wall: No suspicious bony lesions. Overlying soft tissues appear unremarkable. IMPRESSION: 1. No acute cardiopulmonary disease. Dictated by: Daniel Kirk M.D. on 07/08/2018 at 14:31 Approved by: Daniel Kirk M.D. on 07/08/2018 at 14:31 CT scan - chest: Radiologist's impression: Dr. Kirk called me with personal report: No PE possible cholecystitis PROCEDURE: CT ANGIO CHEST PE PROTOCOL INDICATIONS: short of breath with exertion TECHNIQUE: After the administration of intravenous contrast, 2 mm thick sections acquired from the pulmonary apices to the posterior costophrenic angles. 3-dimensional maximum intensity projection (MIP) coronal and sagittal reformats were then acquired through the thorax. For radiation dose reduction, the following was used: automated exposure control, adjustment of mA and/or kV according to patient size. COMPARISON: None. FINDINGS: Image quality: Excellent. Pulmonary arteries: Pulmonary arteries demonstrate no intraluminal filling defects to suggest central pulmonary embolism. There is enlargement of the pulmonary arteries suggestive of pulmonary arterial hypertension. Lungs and pleura: There is mild dependent atelectasis bilaterally. No pleural effusions or pneumothorax. Central and peripheral airways are patent. Mediastinum: Heart size is normal, without pericardial effusion. No mediastinal or hilar adenopathy. Thoracic aorta is normal in caliber and enhancement. Esophagus is normal in caliber, without hiatal hernia. Bones and chest wall: No suspicious bony lesions. Ribs and thoracic spine appear intact throughout. Thyroid gland demonstrates no discrete nodules. No axillary or supraclavicular adenopathy. Abdomen: Visualized upper abdomen demonstrates mild gallbladder wall thickening with pericholecystic fat stranding the within the visualized gallbladder. No calcified gallstones identified. IMPRESSION: 1. No evidence of pulmonary embolism. There is enlargement of the pulmonary arteries suggestive of pulmonary arterial hypertension. 2. Mild gallbladder wall thickening and pericholecystic fat stranding within the visualized upper abdomen. Recommend clinical correlation for possible cholecystitis and further evaluation with ultrasound if indicated. Findings discussed with Dr. Berman on 07/08/97 at 5:55 PM. Dictated by: Daniel Kirk M.D. on 07/08/2018 at 17:52 ECG Data Attestation: I personally reviewed and interpreted this ECG as follows: Prior ECG tracings: available for review Interpretation: Normal sinus rhythm ER entrance rate [address] changes no T-wave inversions PVCs noted EKG 2. Sinus rhythm rate [address] changes MDM Narrative Medical decision making narrative: The patient has been having ongoing symptoms worsening over last month. Relieved with 3 nitroglycerin. Initially spoke with hospitalist here at [facility] who states that we do not have capability for stress test over the weekend and unlikely to have an on as well. recommend outpatient follow-up. Patient actually has no PCP I feel the patient's symptoms are concerning and have been ongoing and did have an episode of indeterminate troponins a month ago. She would benefit at least from a stress test. I discussed with cardiology who agrees for stress test recommends transferring to [facility] Dr. Irving, hospitalist at [facility] happily accepts patient. Patient states that her mother had clotting disorder. Will get CT, her D-dimer is more than 500. I spoke with Radiology transfer team actually here now radiology Dr. Kirk called and said no PE possible cholecystitis. Patient re-examined by myself very minimal right upper quadrant pain normal bilirubin and normal liver enzymes. This time will continue with transferring to [facility] Discharge Plan Departure Patient Disposition: [facility] Clinical Impression: Chest pain Qualifiers: Chest pain type: unspecified Qualified Code(s): R07.9 - Chest pain, unspecified Discharge Date/Time: 07/08/18 17:58 Interventions: ED Discharge Assessment Last Done: 07/08/18 17:58 Prescriptions: No Action esomeprazole magnesium [Nexium] 40 MG capsule,delayed release(DR/EC) 40 mg PO QDAY Qty: 0 RF: 0 conjugated estrogens [Premarin] 1.25 MG tablet 1.25 mg PO QDAY Qty: 0 RF: 0 amitriptyline 25 MG tablet 25 mg PO QDAY Qty: 0 RF: 0 cetirizine 10 MG tablet 10 mg PO Q DAY Qty: 0 RF: 0 Fluticasone Propionate (FLONASE) 1 spray Intranasal QDAY Qty: 0 RF: 0 montelukast [Singulair] 10 MG tablet 10 mg PO QDAY PRNQty: 0 RF: 0 bupropion HCl [Wellbutrin SR] 150 MG tablet extended release 12 hr 450 mg PO QDAY Qty: 0 RF: 0 lorazepam [Ativan] 1 MG tablet 1 mg PO BIDP PRNQty: 0 RF: 0 telmisartan-hydrochlorothiazid [Micardis HCT] 40 MG/12.5 MG tablet 1 tab PO QDAY Qty: 0 RF: 0 acetaminophen 650 MG tablet extended release 650 mg PO Q8HP PRNQty: 0 RF: 0 dextromethorphan polistirex [Delsym 12 hour] 30 MG/5 ML suspension,extended rel 12 hr 30 mg PO Q12H 10 Days Qty: 0 RF: 0 prednisone 10 mg tablet 10 mg PO DAILY Qty: 30 RF: 0 codeine-guaifenesin [Guaifenesin AC] 10-100 mg/5 mL liquid 5 ml PO Q6H PRN (Reason: cough) Qty: 120 RF: 0 simvastatin 20 mg tablet 20 mg PO BEDTIME RF: 0 duloxetine [Cymbalta] 60 mg capsule,delayed release(DR/EC) 60 mg PO DAILY RF: 0 conjugated estrogens [Premarin] 0.625 mg/gram cream 1 applictn VAG DAILY RF: 0 fluticasone propion-salmeterol [Advair Diskus] 500-50 mcg/dose blister with device 1 inhalation INHALATION BID RF: 0 ResMed AirSense 10 CPAP Qty: 1 RF: 0
[2018-07-08] MEDS: NITROGLYCERIN 0.4 MG SL TAB SL ×3 (14:40→15:17)
[2018-07-08] MEDS: ASPIRIN 325 MG TABLET PO (14:41)
[2018-07-08 14:43] LABS: Add Manual Diff / Slide Review NO; Basophils Absolute Auto 0 /uL (0-100); Basophils Percent Auto 0.2 % (0-2); Eosinophils Absolute Auto 100 /uL (0-450); Eosinophils Percent Auto 1.2 % (2-4); Hematocrit 38.4 % (36-46); Hemoglobin 12.8 g/dL (12.0-16.0); Lymphocytes Absolute Auto 1800 /uL (1100-4500); Lymphocytes Percent Auto 26.8 % (25-40); Mean Corpuscular HGB Conc 33.3 % (30-36); Mean Corpuscular Hemoglobin 28.7 PG (26-34); Mean Corpuscular Volume 86.3 fL (80-100); Monocytes Absolute Auto 500 /uL (0-900); Monocytes Percent Auto 7.1 % (3-14); Neutrophils Absolute Auto 4300 /uL (1500-7000); Neutrophils Percent Auto 64.7 % (50-75); Platelet Count 337 X10^3/uL (150-400); Red Blood Cell Count 4.46 X10^6/uL (4.0-5.2); Red Cell Distribution Width 15.4 % (11.6-14.8); White Blood Cell Count 6.7 X10^3/uL (4.5-11.0)
[2018-07-08 14:51] LABS: Prothrombin Time 10.9 SECONDS (10.1-12.7)
[2018-07-08 14:54] LABS: PTT Partial Thromboplastin Tim 22 SECONDS (26.4-36.2)
[2018-07-08 14:56] LABS: Alanine Aminotransferase 11 IU/L (9-52); Albumin 3.9 g/dL (3.5-5.0); Albumin Globulin Ratio 1.3 (1.0-2.8); Alkaline Phosphatase 118 U/L (38-126); Aspartate Aminotransferase 13 IU/L (14-36); BUN Creatinine Ratio 15.4 (6-22); Bilirubin Total 0.4 mg/dL (0.2-1.3); Blood Urea Nitrogen 20 mg/dL (7-17); Calcium 9.5 mg/dL (8.4-10.2); Carbon Dioxide 27 mmol/L (22-32); Chloride 102 mmol/L (98-107); Creatine Kinase 31 U/L (30-135); Estimated Glomerular Filt Rate 41.2 mL/min (>60); Globulin 3.1 g/dL (1.7-4.1); Glucose 94 mg/dL (80-110); HEMOLYSIS < 15 (0-50); Lipase 77 U/L (23-300); Potassium 4.1 mmol/L (3.4-5.1); Sodium 136 mmol/L (137-145)
[2018-07-08 15:08] LABS: Troponin I < 0.012 ng/mL (0.01-0.034)
[2018-07-08] MEDS: PANTOPRAZOLE 40 MG VIAL IV (15:24)
[2018-07-08 16:48] LABS: D Dimer 522 ng/mL (<230)
--- NOTE | 2018-07-08 16:58 | DI.CT.S_ITS ---
PROCEDURE: CT ANGIO CHEST PE PROTOCOL INDICATIONS: short of breath with exertion TECHNIQUE: After the administration of intravenous contrast, 2 mm thick sections acquired from the pulmonary apices to the posterior costophrenic angles. 3-dimensional maximum intensity projection (MIP) coronal and sagittal reformats were then acquired through the thorax. For radiation dose reduction, the following was used: automated exposure control, adjustment of mA and/or kV according to patient size. COMPARISON: None. FINDINGS: Image quality: Excellent. Pulmonary arteries: Pulmonary arteries demonstrate no intraluminal filling defects to suggest central pulmonary embolism. There is enlargement of the pulmonary arteries suggestive of pulmonary arterial hypertension. Lungs and pleura: There is mild dependent atelectasis bilaterally. No pleural effusions or pneumothorax. Central and peripheral airways are patent. Mediastinum: Heart size is normal, without pericardial effusion. No mediastinal or hilar adenopathy. Thoracic aorta is normal in caliber and enhancement. Esophagus is normal in caliber, without hiatal hernia. Bones and chest wall: No suspicious bony lesions. Ribs and thoracic spine appear intact throughout. Thyroid gland demonstrates no discrete nodules. No axillary or supraclavicular adenopathy. Abdomen: Visualized upper abdomen demonstrates mild gallbladder wall thickening with pericholecystic fat stranding the within the visualized gallbladder. No calcified gallstones identified. IMPRESSION: 1. No evidence of pulmonary embolism. There is enlargement of the pulmonary arteries suggestive of pulmonary arterial hypertension. 2. Mild gallbladder wall thickening and pericholecystic fat stranding within the visualized upper abdomen. Recommend clinical correlation for possible cholecystitis and further evaluation with ultrasound if indicated. Findings discussed with Dr. Berman on 07/08/97 at 5:55 PM. Dictated by: Daniel Kirk M.D. on 07/08/2018 at 17:52 Approved by: Daniel Kirk M.D. on 07/08/2018 at 17:56
[2018-07-08 17:00] LABS: Troponin I < 0.012 ng/mL (0.01-0.034)
[2018-07-08] MEDS: diphenhydrAMINE 50 MG/ML VIAL 25 MG IV (17:20)
[2018-07-08] MEDS: methylPREDNISolone 125 MG/2 ML VIAL IV (17:20)
--- NOTE | 2018-07-08 17:57 | PC.NURSE ---
Phone report called to CE Veliz at [facility] and [facility] transfer RN for continuation of care and all questions answered. Pt in NAD at this time and pt reports as 1-04/23 at this time.
== END 2018-07-08 17:58 | disposition short-term general hospital (02) ==
PROVIDERS: Emergency Provider Emergency Medicine
DX: R07.9 Chest pain, unspecified (principal); M79.602 Pain in left arm; R06.02 Shortness of breath
CPT/HCPCS: 36415; 36591; 71045; 71275; 80053; 82550; 83690; 84484; 85025; 85379; 85610; 85730; 93005; 96374; 96375; 99283; 99285; C9113; J1200; J2930; Q9967

== ENCOUNTER → 2018-08-31 14:30 | Outpatient (CLI) | payer MEDICARE, OTHER, SELFPAY ==
[2018-08-31 16:18] LABS: Ferritin 6.9 ng/mL (11.1-264)
== END ==
PROVIDERS: Visit Provider Nurse Practitioner Family
DX: G25.81 Restless legs syndrome (principal); G47.33 Obstructive sleep apnea (adult) (pediatric); G47.34 Idiopathic sleep related nonobstructive alveolar hypoventilation
CPT/HCPCS: 36415; 82728

== ENCOUNTER 2019-04-17 14:01 | Emergency (ER) | payer MEDICARE, OTHER, SELFPAY ==
[2019-04-17 14:20] VITALS: BP 147/76; PULSE 67; RESP 16; TEMP 36.5; O2SAT 96
[2019-04-17 15:05] LABS: Influenza A - CEPHEID Flu A NEGATIVE (NEGATIVE); Influenza B - CEPHEID Flu B NEGATIVE (NEGATIVE)
--- NOTE | 2019-04-17 22:05 | ED.URI ---
HPI - URI/Sore Throat <THELMA LeachP - Last Filed: 04/17/19 22:30> General Chief Complaint: Upper Respiratory Symptoms Stated Complaint: grandkids diagnosed with strep woke up 'horrible' Time Seen by Provider: 04/17/19 15:20 Source: patient Mode of arrival: Ambulatory Limitations: no limitations History of Present Illness HPI Narrative: This is a 64-year-old female, former smoker, who presents to ED with significant other with chief complain of coughing, headache, mild sore throat, body aches since when she woke up this morning. Patient and spouse a concerned for strep throat since patient has several grand kids were diagnosed with strep throat last few days. Patient denies swelling to her throat, dysphagia, fever, dyspnea, chest pain. Patient reports when she woke up this morning she had yellowish brown mucus with cough which has cleared throughout the day. Patient has history of asthma and takes several inhalers including inhaled steroids and albuterol. Patient denies prior history of intubation or hospitalization from asthma. Related Data Home Medications Medication Instructions Recorded Confirmed amitriptyline 25 mg PO QDAY #0 02/24/12 08/31/18 bupropion HCl [Wellbutrin SR] 450 mg PO QDAY #0 02/24/12 08/31/18 cetirizine 10 mg PO Q DAY #0 02/24/12 08/31/18 conjugated estrogens [Premarin] 1.25 mg PO QDAY #0 02/24/12 08/31/18 esomeprazole magnesium [Nexium] 40 mg PO QDAY #0 02/24/12 08/31/18 fluticasone propionate 1 spray INTRANASAL BID #0 02/24/12 04/17/19 montelukast [Singulair] 10 mg PO DAILY #0 02/24/12 04/17/19 acetaminophen 650 mg PO Q8HP PRN #0 04/17/16 08/31/18 lorazepam [Ativan] 1 mg PO BIDP PRN #0 04/17/16 08/31/18 telmisartan-hydrochlorothiazid 1 tab PO QDAY #0 04/17/16 08/31/18 [Micardis HCT] conjugated estrogens 0.625 mg/gram 1 applictn VAG DAILY gram 12/12/17 08/31/18 vaginal cream duloxetine 60 mg capsule,delayed 60 mg PO DAILY 12/12/17 04/17/19 release fluticasone 500 mcg-salmeterol 50 1 inhalation INHALATION BID 12/12/17 08/31/18 mcg/dose blistr powdr for inhalation simvastatin 20 mg tablet 20 mg PO BEDTIME 12/12/17 04/17/19 ResMed AirSense 10 CPAP #1 ea 05/10/18 08/31/18 metoprolol succinate [Toprol XL] 75 mg PO DAILY 04/17/19 04/17/19 omeprazole 40 mg PO BID 04/17/19 04/17/19 quetiapine 200 mg PO DAILY 04/17/19 04/17/19 Previous Rx's Medication Instructions Recorded dextromethorphan polistirex 30 mg PO Q12H 10 Days #0 ml 04/17/16 [Delsym 12 hour] codeine-guaifenesin [Guaifenesin 5 ml PO Q6H PRN #120 ml 06/04/18 AC] prednisone 10 mg PO DAILY #30 tab 06/04/18 prednisone 20 mg PO BID 5 Days #10 tab 04/17/19 Allergies Allergy/AdvReac Type Severity Reaction Status Date / Time iodine [IODINE] Allergy Mild Verified 04/17/19 14:24 Sulfa (Sulfonamide Allergy Mild Verified 04/17/19 14:24 Antibiotics) [SULFA (SULFONAMIDE ANTIBIOTICS)] Iodinated Contrast Media Allergy Unknown Verified 04/17/19 14:24 [IODINATED CONTRAST MEDIA - IV DYE] lisinopril [LISINOPRIL] Allergy Unknown Verified 04/17/19 14:24 Review of Systems <LORENZA Leach - Last Filed: 04/17/19 22:30> Review of Systems Narrative: General: Denies fever, chills, fatigue, malaise, sweats. HEENT: Denies sinus pain, ear pain, (+) sore throat, difficulty swallowing, dizziness. Respiratory: Denies dyspnea, (+) cough, wheezing, hemoptysis, sputum. Cardiovascular: Denies chest pain, palpitations, orthopnea, edema. Gastrointestinal: Denies nausea, vomiting, abdominal pain, diarrhea, constipation, melena. : Denies dysuria, frequency, incontinence, hematuria, urinary retention. Musculoskeletal: Denies weakness, joint pain or bony pain, (+) bodyaches Skin: Denies rash, skin lesions, or other. Neurologic: Denies weakness, (+) headache, numbness, change in speech, confusion, seizures, incoordination. Psychiatric: No concerning psychosocial issues. 12-point review of systems is negative except for those stated above. 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 Social History marital status: details: bobby Maria, lives in [place] household members: spouse lives independently: Yes caregiver/support person: No housing: house occupational status: disabled Smoking Status: Former smoker quit status: quit date established alcohol intake: former substance use type: does not use Smoking Status: Former smoker alcohol intake frequency: 0-2 drinks per day Substance Use Type: does not use Exam <LORENZA Leach - Last Filed: 04/17/19 22:30> Narrative Exam Narrative: GEN: Alert, oriented x 3, well appearing and nourished, and in no acute distress. Head: Normal cephalic, atraumatic. No scalp or temporal tenderness, palpable mass or rash. EYES: Pupils are equal, round, and reactive to light and accommodation. Extraocular muscles are intact bilaterally. There is no subconjunctival hemorrhage, exudate and sclera non-icteric. ENT: Bilateral auditory canals and tympanic membranes clear. Hearing grossly intact. Nose without bleeding, purulent discharge or deviation. Facial sinuses nontender to palpate. Mucous membrane moist, no mucosal lesion. Throat without erythema, tonsillar hypertrophy or exudate. Uvula in midline, airway patent. Neck: Trachea in midline. No JVD, non-tender without lymphadenopathy. No masses or thyroid megaly. Supple, non-tender and no meningeal signs. CARDIAC: Normal regular rate and rhythm without murmurs, gallops, or rubs. No chest wall tenderness. No peripheral edema, cyanosis or pallor. Capillary refill is less than 2 seconds. RESPIRATORY: Lungs are clear to auscultate bilaterally. No cough, wheezes, rales, or rhonchi. No stridor, respiratory distress, increase work of breathing, or accessary muscle used. ABD: Abdomen soft, nontender and non-distended. No guarding or rebound tenderness to palpate. Bowel sounds are normal in all 4 quadrants. There is no palpable masses or organomegaly. EXT: Full ROM of all extremities with no loss of sensation, strength, effusion or edema. SKIN: Warm, dry, normal color for patient. No erythema, lesions or rash over visible areas. BACK: Nontender without deformity or crepitance. No flank tenderness. NEUROLOGICAL: Alert and oriented to place, time and person. Sensation and motor function intact bilaterally. No facial droops, dysphasia. PSYCHIATRIC: Good judgement and reason, without hallucinations, abnormal affect or abnormal behaviors during the examination. Initial Vital Signs Initial Vital Signs: Vital Signs Temperature 97.7 F 04/17/19 14:20 Pulse Rate 67 04/17/19 14:20 Respiratory Rate 16 04/17/19 14:20 Blood Pressure 147/76 H 04/17/19 14:20 Pulse Oximetry 96 04/17/19 14:20 <Kenna Berman DO - Last Filed: 04/19/19 07:32> Initial Vital Signs Initial Vital Signs: Vital Signs Temperature 97.7 F 04/17/19 14:20 Pulse Rate 67 04/17/19 14:20 Respiratory Rate 16 04/17/19 14:20 Blood Pressure 147/76 H 04/17/19 14:20 Pulse Oximetry 96 04/17/19 14:20 Scores <[facility] - Last Filed: 04/17/19 22:30> GCS [place] coma scale eye opening: Spontaneous Phuc coma scale verbal response: Orientated [place] coma scale motor response: Obey commands [place] coma scale total score: 15 Course <Faisal KempLORENZA - Last Filed: 04/17/19 22:30> Orders Ordered: ED Orders 04/17/19 14:29 Flu test [Influenza A & B (PCR)] Stat Vital Signs Vital signs: Vital Signs - 8 hr 04/17/19 14:20 Temperature 97.7 F Pulse Rate 67 Respiratory Rate 16 Blood Pressure 147/76 H Pulse Oximetry 96 <Kenna Berman DO - Last Filed: 04/19/19 07:32> Orders Ordered: ED Orders 04/17/19 14:29 Flu test [Influenza A & B (PCR)] Stat Vital Signs Vital signs: Vital Signs - 8 hr 04/17/19 14:20 Temperature 97.7 F Pulse Rate 67 Respiratory Rate 16 Blood Pressure 147/76 H Pulse Oximetry 96 MDM - URI/Sore Throat <Faisal KempTHELMAP - Last Filed: 04/17/19 22:30> Differential Diagnosis Differential diagnosis: Likely upper respiratory infection, viral infection, bronchitis, pharyngitis and other (Pneumonia) Medical Records Attestation: I reviewed the patient's medical records. Lab Data Attestation: I reviewed the patient's lab results. Labs: Lab Results 04/17/19 Range/Units 14:29 Influenza A (RT-PCR) Flu a negative (NEGATIVE) Influenza B (RT-PCR) Flu b negative (NEGATIVE) Point of Care Testing Rapid Strep A Negative [facility] Narrative Medical decision making narrative: Flu and strep tests were NEGative. Lung sounds are clear to auscultate without increased work of breathing or wheezing. Patient is afebrile with stable vital signs with O2 sat of 96% in room air. Given patient's history of asthma and currently using albuterol and inhaled steroids and singular, will treat patient with short course of oral prednisone. No physical evidence of pneumonia at this time. Patient advised to use supportive care with rest and push fluids. Advised to take [id number] Tylenol for discomfort and possible fever and returned precautions were discussed with the patient. Patient advised to follow up with PCP in next 2-3 days for re-evaluation. Patient and spouse verbalized understanding and agrees with the treatment plan. <Kenna Breman DO - Last Filed: 04/19/19 07:32> Lab Data Labs: Lab Results 04/17/19 Range/Units 14:29 Influenza A (RT-PCR) Flu a negative (NEGATIVE) Influenza B (RT-PCR) Flu b negative (NEGATIVE) Point of Care Testing Rapid Strep A Negative Discharge Plan Departure Patient Disposition: Home Clinical Impression: Viral URI with cough Discharge Date/Time: 04/17/19 17:07 Instructions: DI for Viral Upper Respiratory Infection -- Adult Activity Restrictions/Additional Instructions: You have been diagnosed with [upper respiratory infection. Today's test for flu and strep throat were negative. Due to your history of asthma, will treat with low-dose of prednisone for your cough. Your lung sounds are clear and physical exam was benign for pneumonia]. What to do: *Take your medications as directed. Please take prednisone daily for next 5 days. This has been transmitted to [facility] in [place] Please continue to use your inhaler and Tylenol for pain and fever if you have. *Follow up with your primary care provider in 2-3 days, call for an appointment. Let them know you were seen in the ED and that we asked you to be seen in follow up. *Return to ED if you have any new, worsening, or concerning symptoms, such as [chest pain, breathing difficulty, unable to tolerate fluids, high fever, or any acute concerns]. Prescriptions: New prednisone 20 mg tablet 20 mg PO BID 5 Days Qty: 10 RF: 0 No Action esomeprazole magnesium [Nexium] 40 MG capsule,delayed release(DR/EC) 40 mg PO QDAY Qty: 0 RF: 0 conjugated estrogens [Premarin] 1.25 MG tablet 1.25 mg PO QDAY Qty: 0 RF: 0 amitriptyline 25 MG tablet 25 mg PO QDAY Qty: 0 RF: 0 cetirizine 10 MG tablet 10 mg PO Q DAY Qty: 0 RF: 0 fluticasone propionate 50 mcg/actuation [place],Suspension 1 spray INTRANASAL BID Qty: 0 RF: 0 montelukast [Singulair] 10 MG tablet 10 mg PO DAILY Qty: 0 RF: 0 bupropion HCl [Wellbutrin SR] 150 MG tablet extended release 12 hr 450 mg PO QDAY Qty: 0 RF: 0 lorazepam [Ativan] 1 MG tablet 1 mg PO BIDP PRNQty: 0 RF: 0 telmisartan-hydrochlorothiazid [Micardis HCT] 40 MG/12.5 MG tablet 1 tab PO QDAY Qty: 0 RF: 0 acetaminophen 650 MG tablet extended release 650 mg PO Q8HP PRNQty: 0 RF: 0 dextromethorphan polistirex [Delsym 12 hour] 30 MG/5 ML suspension,extended rel 12 hr 30 mg PO Q12H 10 Days Qty: 0 RF: 0 prednisone 10 mg tablet 10 mg PO DAILY Qty: 30 RF: 0 codeine-guaifenesin [Guaifenesin AC] 10-100 mg/5 mL liquid 5 ml PO Q6H PRN (Reason: cough) Qty: 120 RF: 0 quetiapine 200 mg tablet 200 mg PO DAILY RF: 0 omeprazole 20 mg capsule,delayed release(DR/EC) 40 mg PO BID RF: 0 metoprolol succinate [Toprol XL] 25 mg tablet extended release 24 hr 75 mg PO DAILY RF: 0 simvastatin 20 mg tablet 20 mg PO BEDTIME RF: 0 duloxetine [Cymbalta] 60 mg capsule,delayed release(DR/EC) 60 mg PO DAILY RF: 0 conjugated estrogens [Premarin] 0.625 mg/gram cream 1 applictn VAG DAILY RF: 0 fluticasone propion-salmeterol [Advair Diskus] 500-50 mcg/dose blister with device 1 inhalation INHALATION BID RF: 0 (DME) ResMed AirSense 10 CPAP Qty: 1 RF: 0 Referrals: Dennis Melgar [Primary Care Provider] -
== END 2019-04-17 17:07 | disposition home or self-care (01) ==
PROVIDERS: Emergency Medicine; Emergency Provider Nurse Practitioner Family; PCP Student in an Organized Health Care Education/Training Program
DX: J06.9 Acute upper respiratory infection, unspecified (principal); Z87.891 Personal history of nicotine dependence
CPT/HCPCS: 87502; 87880; 99281; 99282

== ENCOUNTER 2019-04-30 11:00 | Outpatient (RCR) | payer MEDICARE, OTHER, SELFPAY ==
--- NOTE | 2019-02-22 14:35 | PT.OIE ---
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) Depression (Chronic) GERD (gastroesophageal reflux disease) (Chronic) Hyperlipidemia (Chronic) Hypertension (Chronic) Morbid obesity with BMI of 40.0-44.9, adult (Resolved) Nocturnal hypoxemia (Acute) Obesity (BMI 30-39.9) (Chronic) Obstructive sleep apnea of adult (Chronic) Obstructive sleep apnea syndrome (Chronic) Visit Care Team Role Provider Type Abby Obrien PA-C Attending Provider Non-Staff Specialty: Medical Address: [address] [place] [address], [phone] Email: Physical Therapy Initial Evaluation PT-OP-A Visit Information Start: 02/22/19 12:25 Freq: Status: Active Protocol: Document 02/22/19 14:35 SAK (Rec: 02/22/19 15:19 SAK [id number]) Out-Patient Physical Therapy Visit Information Visit Information Visit Type Initial Evaluation Visit Start Time 14:30 Visit Stop Time 15:25 Total Visit Minutes 55 Visit Number 1 Evaluation Information Evaluation Date 02/22/19 PT-OP-B Current Condition Start: 02/22/19 12:25 Freq: Status: Active Protocol: Document 02/22/19 14:35 SAK (Rec: 02/22/19 15:19 SAK [id number]) Current Condition History of Current Condition Onset Date 1 year Current Complaints worsening function-limiting hip and back pain History of Current Condition Now using FWW, having difficulty with dizziness. Has had cortisone shots john paul knees, left knee better, right knee not. Bilateral injections in hips as well with decrease in pain. Right knee tends to collapse, has fallen, last on day before Thanksgiving with bruises to right LE, swelling since fell. Reports dizziness causing her head to go fuzzy, falls. Low activity level, primarily sitting in chair. Previously benefited from aquatic therapy for LBP. Uses heat and ice, no brace. Being seen for depression, no current counselor, is looking for one. Has been increaseing anti- depressant Future Testing and Treatments Planned Sees Dr. Talbot next week. Treatment Goals Patient/Caregiver Goals Decrease pain to allow her to get on floor and play with kids, take grandaughter for walk in stroller. alternating pattern on stairs Prior Functional Status Baseline Function- ADL's Independent Baseline Function- Mobility Independent PT-OP-C Subjective Start: 02/22/19 12:25 Freq: Status: Active Protocol: Document 02/22/19 14:35 [facility] (Rec: 02/26/19 18:07 [facility] [id number]) Patient Questionnaires Lower Extremity Functional Scale LEFS Score 16% LEFS Impairment 1 to 19% Impaired (Score 63-79 ) OP-PT Pain Assessment Pain Assessment Grid Paper Pain Assessment Grid Completed Yes Location bilateral knees Pain Location Details 3/10 sitting, up to 10 with activity Intensity 9 Pain Behaviors Pain Behaviors Facial Grimacing,Guarding, Wincing PT-OP-D Balance Start: 02/22/19 12:25 Freq: Status: Active Protocol: Document 02/22/19 14:35 [facility] (Rec: 02/26/19 18:07 [facility] [id number]) OP-PT Balance Assessment Sitting Balance Static Sitting Balance Ability Normal Dynamic Sitting Balance Ability Normal Tinetti Balance Assessment Sitting Balance Sitting Balance Steady, safe Arising from Chair Ability to Arise Able, uses arms to help Attempts to Arise Able, requires >1 attempt Standing Balance Immediate Standing Balance Steady with support Standing Balance Steady, wide stance Nudged Response Begins to fall Standing with Eyes Closed Unsteady Turning Step Pattern Turning 360 Degrees Discontinuous steps Stability Turning 360 Degrees Unsteady, grabs/staggers Sitting Down Sitting Down Uses arms or unsteady Gait and Step Initiation of Gait Hesitancy, mult. attempts Right Foot Step Length Does not pass stance ft. Right Foot Step Height Does not clear floor Left Foot Step Length Does not pass stance foot Left Foot Step Height Does not clear floor Step Description Step Symmetry Step length appears equal Step Continuity Steps appear continuous Gait Description Path Description Mild/moderate deviation Trunk Description Marked sway or uses aide Walking Stance Heels apart Scoring and Interpretation Tinetti Composite Score (points) 9 Cordon Fall Scale Copyright Permission PT-OP-G Mobility & Gait Start: 02/22/19 12:25 Freq: Status: Active Protocol: Document 02/22/19 14:35 [facility] (Rec: 02/26/19 18:07 [facility] [id number]) OP Mobility Evaluation Bed Mobility Supine to and from Sit independent but labored Transfers Sit to Stand requires use of hands Bed to Chair Transfers uses hands and FWW OP Gait Assessment Gait Gait Assistance Required: Independent Assistive Devices Assistive Device 4 Wheeled Walker Gait Deviations General Gait Pattern Decreased Stride Length, Decreased Feet Clearance, Flexed Trunk Factors Limiting Gait Function Factors Limiting Gait Function Decreased Strength,Pain Stair Climbing Evaluation Comments Stair Climbing Comments deferred due to patient c/o pain with stair amabulation PT-OP-J Posture/Palpation/Skin Start: 02/22/19 12:25 Freq: Status: Active Protocol: Document 02/22/19 14:35 [facility] (Rec: 02/26/19 18:07 [facility] [id number]) Palpation Assessment Location bilateral knees; joint line Palpation Findings Tenderness greater trochanters Palpation Findings Tenderness PT-OP-K Range of Motion Start: 02/22/19 12:25 Freq: Status: Active Protocol: Document 02/22/19 14:35 [facility] (Rec: 02/26/19 18:07 [facility] [id number]) Hip Goniometric Range of Motion Hip right Hip ROM WFL Yes left Hip ROM WFL Yes Knee Goniometric Range of Motion Knee john paul Knee ROM WFL Yes Patient Position Sitting Knee ROM Limitations Comments painful john paul especially at end- range Ankle and Foot Goniometric Range of Motion Ankle and Foot john paul Ankle/Foot ROM WFL No Dorsiflexion with Knee Flexed 5 Dorsiflexion with Knee Extended 0 Ankle and Foot ROM Limitations ROM Limitations Soft Tissue Tightness PT-OP-L Special Tests Start: 02/22/19 12:25 Freq: Status: Active Protocol: Document 02/22/19 14:35 [facility] (Rec: 02/26/19 18:07 [facility] [id number]) Special Tests Hip Special Tests Trendelenberg Test Results positive for weakness john paul Scour Test Test Results positive john paul; pain PT-OP-M Strength Start: 02/22/19 12:25 Freq: Status: Active Protocol: Document 02/22/19 14:35 [facility] (Rec: 02/26/19 18:07 [facility] [id number]) Hip Strength Hip Manual Muscle Testing john paul Flexion (L2) 2+ Poor+ Extension (S1) 2+ Poor+ Abduction 3- Fair- External Rotation 3- Fair- Internal Rotation 3 Fair Comments painful all motions Knee Strength Knee Manual Muscle Testing john paul Flexion (S2) 4 Good Extension (L3) 4 Good Comments painful with resistance Ankle/Foot Strength Ankle and Foot Manual Muscle Testing john paul Dorsiflexion (L4) 4- Good- Plantarflexion (S1) 4- Good- PT-OP-Q Treatments Start: 02/22/19 12:25 Freq: Status: Active Protocol: Document 02/22/19 14:35 [facility] (Rec: 02/26/19 18:07 [facility] [id number]) Self-Care/Home Management Treatment Education Patient Education Home Exercise Program Other Education written instructions provided. PT-OP-R Modalities Start: 02/22/19 12:25 Freq: Status: Active Protocol: Document 02/22/19 14:35 [facility] (Rec: 02/26/19 18:10 [facility] [id number]) Hot Pack/Cold Pack Treatment Cold Pack Location bilateral knees Patient Position Hooklying PT-OP-T Assessment and Plan Start: 02/22/19 12:25 Freq: Status: Active Protocol: Document 02/22/19 14:35 [facility] (Rec: 02/26/19 18:07 [facility] [id number]) Physical Therapy Assessment Rehab Potential Rehabilitation Potential Fair Evaluation Complexity Number of Personal Factors/Comorbidities 1-2 Number of Body Systems Impaired 3 Clinical Presentation at Evaluation Evolving Impairments Impairments Balance,Functional Activities, Gait,Strength Goals Three Impairment weakness john paul LE's Short Term Goal (STG) Instruct in HEP and initiate aquatic therapy for LE strengthening STG Duration 2 wks Fdc Goal (LTG) Patient to demonstrate hip strength of at least 3+/5, knees 4+/5, ankles 4+/5 to improve functional mobility LTG Duration 3 months Two Impairment Gait and balance dysfunction: Tinetti gait and balance score 9/28 Short Term Goal (STG) Improve Tinetti gait and balance score to at least 15/ 28 STG Duration 6 wks Fdc Goal (LTG) Improve Tinetti gait and balance score to at least 20/ 28 to improve functional mobility and safety LTG Duration 3 months One Impairment Pain Short Term Goal (STG) Pt to report pain at worst 6/ 10 STG Duration [address] Light Cleaner Goal (LTG) Pt to report pain at worst 4/ 10 LTG Duration 3 months Assessment Summary Assessment Patient presents with function -limiting pain bilateral knees , 9/10 at worst. She has had recent hip pain but this has been helped by injections, though patient states she is starting to feel like the injections are wearing off. Signs and symptoms consistent with arthritic changes. Patient presents with signficiant weakness throughout LE's and core and a very low tolerance for activity. Complicating this is depression which patient is being treated for. 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 Physical Therapy Plan Frequency and Duration Frequency of Treatment 2x/Week Duration of Treatment 3 months Plan of Care Start Date 02/22/19 Plan of Care End Date 05/24/19 Therapeutic Interventions Therapeutic Interventions Aquatic Therapy,Balance Training,Gait Training,Home Exercise Program,Neuromuscular Re-education,Self-Care/Home Management,Therapeutic Activities,Therapeutic Exercises Modalities Cold Pack/Ice Massage,Electric Stimulation,Ultrasound Next Visit Focus/Plan Next Note Type Treatment Note Next Visit Plan Initiate aquatic therapy
--- NOTE | 2019-02-26 11:45 | PT.OTN ---
Current Diagnoses Bilateral primary osteoarthritis of hip (02/26/19) Bilateral primary osteoarthritis of knee (02/26/19) Weakness (02/26/19) Strain of muscle, fascia and tendon of unspecified hip, initial encounter (02/26/19) Physical Therapy Treatment Note PT-OP-A Visit Information Start: 02/22/19 12:25 Freq: Status: Active Protocol: Document 02/27/19 16:32 [facility]AK (Rec: 02/27/19 16:40 SAK [id number]) Out-Patient Physical Therapy Visit Information Visit Information Visit Type Initial Evaluation Visit Start Time 11:45 Visit Stop Time 12:30 Total Visit Minutes 45 Visit Number 2 Number of ENTRY LEVEL RECEPTIONIST Visits 0 Evaluation Information Evaluation Date 02/22/19 Precautions Precautions depression PT-OP-B Current Condition Start: 02/22/19 12:25 Freq: Status: Active Protocol: Document 02/22/19 14:35 [facility]AK (Rec: 02/22/19 15:19 SAK [id number]) Current Condition History of Current Condition Onset Date 1 year Current Complaints worsening function-limiting hip and back pain History of Current Condition Now using FWW, having difficulty with dizziness. Has had cortisone shots john paul knees, left knee better, right knee not. Bilateral injections in hips as well with decrease in pain. Right knee tends to collapse, has fallen, last on day before Thanksgiving with bruises to right LE, swelling since fell. Reports dizziness causing her head to go fuzzy, falls. Low activity level, primarily sitting in chair. Previously benefited from aquatic therapy for LBP. Uses heat and ice, no brace. Being seen for depression, no current counselor, is looking for one. Has been increaseing anti- depressant Future Testing and Treatments Planned Sees Dr. Talbot next week. Treatment Goals Patient/Caregiver Goals Decrease pain to allow her to get on floor and play with kids, take grandaughter for walk in stroller. alternating pattern on stairs Prior Functional Status Baseline Function- ADL's Independent Baseline Function- Mobility Independent PT-OP-C Subjective Start: 02/22/19 12:25 Freq: Status: Active Protocol: Document 02/22/19 14:35 [facility]AK (Rec: 02/26/19 18:07 SAK [id number]) Patient Questionnaires Lower Extremity Functional Scale LEFS Score 16% LEFS Impairment 1 to 19% Impaired (Score 63-79 ) OP-PT Pain Assessment Pain Assessment Grid Paper Pain Assessment Grid Completed Yes Location bilateral knees Pain Location Details / sitting, up to 11/21 with activity Intensity 9 Pain Behaviors Pain Behaviors Facial Grimacing,Guarding, Wincing PT-OP-D Balance Start: 02/22/19 12:25 Freq: Status: Active Protocol: Document 02/22/19 14:35 [facility] (Rec: 02/26/19 18:07 [facility] [id number]) OP-PT Balance Assessment Sitting Balance Static Sitting Balance Ability Normal Dynamic Sitting Balance Ability Normal Tinetti Balance Assessment Sitting Balance Sitting Balance Steady, safe Arising from Chair Ability to Arise Able, uses arms to help Attempts to Arise Able, requires >1 attempt Standing Balance Immediate Standing Balance Steady with support Standing Balance Steady, wide stance Nudged Response Begins to fall Standing with Eyes Closed Unsteady Turning Step Pattern Turning 360 Degrees Discontinuous steps Stability Turning 360 Degrees Unsteady, grabs/staggers Sitting Down Sitting Down Uses arms or unsteady Gait and Step Initiation of Gait Hesitancy, mult. attempts Right Foot Step Length Does not pass stance ft. Right Foot Step Height Does not clear floor Left Foot Step Length Does not pass stance foot Left Foot Step Height Does not clear floor Step Description Step Symmetry Step length appears equal Step Continuity Steps appear continuous Gait Description Path Description Mild/moderate deviation Trunk Description Marked sway or uses aide Walking Stance Heels apart Scoring and Interpretation Tinetti Composite Score (points) 9 Cordon Fall Scale Copyright Permission PT-OP-G Mobility & Gait Start: 02/22/19 12:25 Freq: Status: Active Protocol: Document 02/22/19 14:35 [facility] (Rec: 02/26/19 18:07 [facility] [id number]) OP Mobility Evaluation Bed Mobility Supine to and from Sit independent but labored Transfers Sit to Stand requires use of hands Bed to Chair Transfers uses hands and FWW OP Gait Assessment Gait Gait Assistance Required: Independent Assistive Devices Assistive Device 4 Wheeled Walker Gait Deviations General Gait Pattern Decreased Stride Length, Decreased Feet Clearance, Flexed Trunk Factors Limiting Gait Function Factors Limiting Gait Function Decreased Strength,Pain Stair Climbing Evaluation Comments Stair Climbing Comments deferred due to patient c/o pain with stair amabulation PT-OP-J Posture/Palpation/Skin Start: 02/22/19 12:25 Freq: Status: Active Protocol: Document 02/22/19 14:35 [facility] (Rec: 02/26/19 18:07 [facility] [id number]) Palpation Assessment Location bilateral knees; joint line Palpation Findings Tenderness greater trochanters Palpation Findings Tenderness PT-OP-K Range of Motion Start: 02/22/19 12:25 Freq: Status: Active Protocol: Document 02/22/19 14:35 [facility] (Rec: 02/26/19 18:07 [facility] [id number]) Hip Goniometric Range of Motion Hip right Hip ROM WFL Yes left Hip ROM WFL Yes Knee Goniometric Range of Motion Knee john paul Knee ROM WFL Yes Patient Position Sitting Knee ROM Limitations Comments painful john paul especially at end- range Ankle and Foot Goniometric Range of Motion Ankle and Foot john paul Ankle/Foot ROM WFL No Dorsiflexion with Knee Flexed 5 Dorsiflexion with Knee Extended 0 Ankle and Foot ROM Limitations ROM Limitations Soft Tissue Tightness PT-OP-L Special Tests Start: 02/22/19 12:25 Freq: Status: Active Protocol: Document 02/22/19 14:35 [facility] (Rec: 02/26/19 18:07 [facility] [id number]) Special Tests Hip Special Tests Trendelenberg Test Results positive for weakness john paul Scour Test Test Results positive john paul; pain PT-OP-M Strength Start: 02/22/19 12:25 Freq: Status: Active Protocol: Document 02/22/19 14:35 [facility] (Rec: 02/26/19 18:07 [facility] [id number]) Hip Strength Hip Manual Muscle Testing john paul Flexion (L2) 2+ Poor+ Extension (S1) 2+ Poor+ Abduction 3- Fair- External Rotation 3- Fair- Internal Rotation 3 Fair Comments painful all motions Knee Strength Knee Manual Muscle Testing john paul Flexion (S2) 4 Good Extension (L3) 4 Good Comments painful with resistance Ankle/Foot Strength Ankle and Foot Manual Muscle Testing john paul Dorsiflexion (L4) 4- Good- Plantarflexion (S1) 4- Good- PT-OP-Q Treatments Start: 02/22/19 12:25 Freq: Status: Active Protocol: Document 02/22/19 14:35 [facility] (Rec: 02/26/19 18:07 [facility] [id number]) Self-Care/Home Management Treatment Education Patient Education Home Exercise Program Other Education written instructions provided. PT-OP-R Modalities Start: 02/22/19 12:25 Freq: Status: Active Protocol: Document 02/22/19 14:35 [facility] (Rec: 02/26/19 18:10 [facility] [id number]) Hot Pack/Cold Pack Treatment Cold Pack Location bilateral knees Patient Position Hooklying PT-OP-S Aquatic Treatment Start: 02/22/19 12:25 Freq: Status: Active Protocol: Document 02/27/19 16:32 [facility] (Rec: 02/27/19 16:40 [facility] [id number]) Aquatics Treatment Pool Entry/Exit Pool Entry/Exit Method Lift Assistance Standby Assistance Water Walking Marching Water Level Chest Level Level of Assistance Standby Assistance Comments blue fins Backwards Water Level Chest Level Level of Assistance Standby Assistance Comments blue fins Sideways Water Level Chest Level Level of Assistance Standby Assistance Comments tolerated both directions Forwards Water Level Chest Level Level of Assistance Standby Assistance Lower Extremity Exercises toe raises Body Position Standing Water Level Chest Level Reps/Duration 10x heel raises Body Position Standing Water Level Chest Level Reps/Duration 10x 4 Body Position Standing 3 Details Knee flexion/extension Body Position Sitting Water Level Neck Level Reps/Duration x 10 reps 2 Details Hip AB/AD Body Position Standing Water Level Chest Level Equipment med resistance fins Reps/Duration x 10 reps Comments small motions 1 Details Hip flexion/extension Body Position Standing Water Level Chest Level Equipment small resistance fins Reps/Duration x 10 reps. Lower Extremity Stretches 4 Water Level Chest Level Equipment Small Noodle 1 Details hamstrings Body Position Standing Water Level Chest Level Equipment Small Noodle PT-OP-T Assessment and Plan Start: 02/22/19 12:25 Freq: Status: Active Protocol: Document 02/27/19 16:32 [facility] (Rec: 02/27/19 16:40 [facility] [id number]) Physical Therapy Assessment Rehab Potential Rehabilitation Potential Fair Evaluation Complexity Number of Personal Factors/Comorbidities 1-2 Number of Body Systems Impaired 3 Clinical Presentation at Evaluation Evolving Impairments Impairments Balance,Functional Activities, Gait,Strength Goals Three Impairment weakness john paul LE's Short Term Goal (STG) Instruct in HEP and initiate aquatic therapy for LE strengthening STG Duration 2 wks Education Manager Goal (LTG) Patient to demonstrate hip strength of at least 3+/5, knees 4+/5, ankles 4+/5 to improve functional mobility LTG Duration 3 months Two Impairment Gait and balance dysfunction: Tinetti gait and balance score 9/28 Short Term Goal (STG) Improve Tinetti gait and balance score to at least 15/ 28 STG Duration 6 wks Senior Care Goal (LTG) Improve Tinetti gait and balance score to at least 20/ 28 to improve functional mobility and safety LTG Duration 3 months One Impairment Pain Short Term Goal (STG) Pt to report pain at worst 6/ 10 STG Duration 6 wks Education Manager Goal (LTG) Pt to report pain at worst 4/ 10 LTG Duration 3 months Assessment Summary Assessment Patient tolerated aquatic therapy session of low intensity well today, denied increase in pain. Physical Therapy Plan Frequency and Duration Frequency of Treatment 2x/Week Duration of Treatment 3 months Plan of Care Start Date 02/22/19 Plan of Care End Date 05/24/19 Therapeutic Interventions Therapeutic Interventions Aquatic Therapy,Balance Training,Gait Training,Home Exercise Program,Neuromuscular Re-education,Self-Care/Home Management,Therapeutic Activities,Therapeutic Exercises Modalities Cold Pack/Ice Massage,Electric Stimulation,Ultrasound Next Visit Focus/Plan Next Note Type Treatment Note Next Visit Plan Assess response to aquatic PT first session. Continue gentle progression of aquatic exercise program.
--- NOTE | 2019-02-28 11:00 | PT.OTN ---
Current Diagnoses Bilateral primary osteoarthritis of hip (02/28/19) Bilateral primary osteoarthritis of knee (02/28/19) Weakness (02/28/19) Strain of muscle, fascia and tendon of unspecified hip, initial encounter (02/28/19) Physical Therapy Treatment Note PT-OP-A Visit Information Start: 02/22/19 12:25 Freq: Status: Active Protocol: Document 02/28/19 11:00 SAK (Rec: 03/01/19 11:18 SAK [id number]) Out-Patient Physical Therapy Visit Information Visit Information Visit Type Treatment Note Visit Start Time 11:00 Visit Stop Time 11:45 Total Visit Minutes 45 Visit Number 3 Number of IT RISK ANALYST Visits 0 Evaluation Information Evaluation Date 02/22/19 Precautions Precautions depression PT-OP-B Current Condition Start: 02/22/19 12:25 Freq: Status: Active Protocol: Document 02/22/19 14:35 SAK (Rec: 02/22/19 15:19 SAK [id number]) Current Condition History of Current Condition Onset Date 1 year Current Complaints worsening function-limiting hip and back pain History of Current Condition Now using FWW, having difficulty with dizziness. Has had cortisone shots john paul knees, left knee better, right knee not. Bilateral injections in hips as well with decrease in pain. Right knee tends to collapse, has fallen, last on day before Thanksgiving with bruises to right LE, swelling since fell. Reports dizziness causing her head to go fuzzy, falls. Low activity level, primarily sitting in chair. Previously benefited from aquatic therapy for LBP. Uses heat and ice, no brace. Being seen for depression, no current counselor, is looking for one. Has been increaseing anti- depressant Future Testing and Treatments Planned Sees Dr. Talbot next week. Treatment Goals Patient/Caregiver Goals Decrease pain to allow her to get on floor and play with kids, take grandaughter for walk in stroller. alternating pattern on stairs Prior Functional Status Baseline Function- ADL's Independent Baseline Function- Mobility Independent PT-OP-C Subjective Start: 02/22/19 12:25 Freq: Status: Active Protocol: Document 02/28/19 11:00 SAK (Rec: 03/01/19 11:19 SAK [id number]) OP-PT Subjective Patient Comments Patient Comments Reports increase in right shoulder pain after first aquatic PT session; feels she used her UE's too much. PT-OP-D Balance Start: 02/22/19 12:25 Freq: Status: Active Protocol: Document 02/22/19 14:35 [facility] (Rec: 02/26/19 18:07 [facility] [id number]) OP-PT Balance Assessment Sitting Balance Static Sitting Balance Ability Normal Dynamic Sitting Balance Ability Normal Tinetti Balance Assessment Sitting Balance Sitting Balance Steady, safe Arising from Chair Ability to Arise Able, uses arms to help Attempts to Arise Able, requires >1 attempt Standing Balance Immediate Standing Balance Steady with support Standing Balance Steady, wide stance Nudged Response Begins to fall Standing with Eyes Closed Unsteady Turning Step Pattern Turning 360 Degrees Discontinuous steps Stability Turning 360 Degrees Unsteady, grabs/staggers Sitting Down Sitting Down Uses arms or unsteady Gait and Step Initiation of Gait Hesitancy, mult. attempts Right Foot Step Length Does not pass stance ft. Right Foot Step Height Does not clear floor Left Foot Step Length Does not pass stance foot Left Foot Step Height Does not clear floor Step Description Step Symmetry Step length appears equal Step Continuity Steps appear continuous Gait Description Path Description Mild/moderate deviation Trunk Description Marked sway or uses aide Walking Stance Heels apart Scoring and Interpretation Tinetti Composite Score (points) 9 Cordon Fall Scale Copyright Permission PT-OP-G Mobility & Gait Start: 02/22/19 12:25 Freq: Status: Active Protocol: Document 02/22/19 14:35 [facility] (Rec: 02/26/19 18:07 [facility] [id number]) OP Mobility Evaluation Bed Mobility Supine to and from Sit independent but labored Transfers Sit to Stand requires use of hands Bed to Chair Transfers uses hands and FWW OP Gait Assessment Gait Gait Assistance Required: Independent Assistive Devices Assistive Device 4 Wheeled Walker Gait Deviations General Gait Pattern Decreased Stride Length, Decreased Feet Clearance, Flexed Trunk Factors Limiting Gait Function Factors Limiting Gait Function Decreased Strength,Pain Stair Climbing Evaluation Comments Stair Climbing Comments deferred due to patient c/o pain with stair amabulation PT-OP-J Posture/Palpation/Skin Start: 02/22/19 12:25 Freq: Status: Active Protocol: Document 02/22/19 14:35 [facility] (Rec: 02/26/19 18:07 [facility] [id number]) Palpation Assessment Location bilateral knees; joint line Palpation Findings Tenderness greater trochanters Palpation Findings Tenderness PT-OP-K Range of Motion Start: 02/22/19 12:25 Freq: Status: Active Protocol: Document 02/22/19 14:35 [facility]AK (Rec: 02/26/19 18:07 [facility] [id number]) Hip Goniometric Range of Motion Hip right Hip ROM WFL Yes left Hip ROM WFL Yes Knee Goniometric Range of Motion Knee john paul Knee ROM WFL Yes Patient Position Sitting Knee ROM Limitations Comments painful john paul especially at end- range Ankle and Foot Goniometric Range of Motion Ankle and Foot john paul Ankle/Foot ROM WFL No Dorsiflexion with Knee Flexed 5 Dorsiflexion with Knee Extended 0 Ankle and Foot ROM Limitations ROM Limitations Soft Tissue Tightness PT-OP-L Special Tests Start: 02/22/19 12:25 Freq: Status: Active Protocol: Document 02/22/19 14:35 [facility] (Rec: 02/26/19 18:07 [facility] [id number]) Special Tests Hip Special Tests Trendelenberg Test Results positive for weakness jhon paul Scour Test Test Results positive john paul; pain PT-OP-M Strength Start: 02/22/19 12:25 Freq: Status: Active Protocol: Document 02/22/19 14:35 [facility] (Rec: 02/26/19 18:07 [facility] [id number]) Hip Strength Hip Manual Muscle Testing john paul Flexion (L2) 2+ Poor+ Extension (S1) 2+ Poor+ Abduction 3- Fair- External Rotation 3- Fair- Internal Rotation 3 Fair Comments painful all motions Knee Strength Knee Manual Muscle Testing john paul Flexion (S2) 4 Good Extension (L3) 4 Good Comments painful with resistance Ankle/Foot Strength Ankle and Foot Manual Muscle Testing john paul Dorsiflexion (L4) 4- Good- Plantarflexion (S1) 4- Good- PT-OP-Q Treatments Start: 02/22/19 12:25 Freq: Status: Active Protocol: Document 02/22/19 14:35 [facility] (Rec: 02/26/19 18:07 [facility] [id number]) Self-Care/Home Management Treatment Education Patient Education Home Exercise Program Other Education written instructions provided. PT-OP-R Modalities Start: 02/22/19 12:25 Freq: Status: Active Protocol: Document 02/22/19 14:35 [facility]AK (Rec: 02/26/19 18:10 [facility] [id number]) Hot Pack/Cold Pack Treatment Cold Pack Location bilateral knees Patient Position Hooklying PT-OP-S Aquatic Treatment Start: 02/22/19 12:25 Freq: Status: Active Protocol: Document 02/28/19 11:00 [facility] (Rec: 03/01/19 11:18 [facility] [id number]) Aquatics Treatment Pool Entry/Exit Pool Entry/Exit Method Lift Assistance Standby Assistance Water Walking Marching Water Level Chest Level Level of Assistance Standby Assistance,Verbal Cues Backwards Water Level Chest Level Level of Assistance Standby Assistance,Verbal Cues Sideways Water Level Chest Level Level of Assistance Standby Assistance Forwards Water Level Chest Level Level of Assistance Standby Assistance,Verbal Cues Lower Extremity Exercises toe raises Body Position Standing Water Level Chest Level Reps/Duration 10x heel raises Body Position Standing Water Level Chest Level Reps/Duration 10x 4 Details squats Body Position Standing Reps/Duration 10x 3 Details Knee flexion/extension Body Position Standing Water Level Chest Level Reps/Duration x 10 reps 2 Details Hip AB/AD Body Position Standing Water Level Chest Level Equipment med resistance fins Reps/Duration x 10 reps Comments small motions 1 Details Hip flexion/extension Body Position Standing Water Level Chest Level Reps/Duration x 10 reps. Lower Extremity Stretches 1 Details hamstrings Body Position Standing Water Level Chest Level Equipment Small Noodle Balance tandem stand Body Position Standing Water Level Chest Level Reps/Duration 2x30 SLS Details EO and EC Body Position Standing Water Level Chest Level Reps/Duration 2x30 [place] Activities [place] Activities Bicycle Equipment little traverse float Duration 5 min Comments patient fatigued rapidly PT-OP-T Assessment and Plan Start: 02/22/19 12:25 Freq: Status: Active Protocol: Document 02/28/19 11:00 [facility] (Rec: 03/01/19 11:18 [facility] [id number]) Physical Therapy Assessment Rehab Potential Rehabilitation Potential Fair Evaluation Complexity Number of Personal Factors/Comorbidities 1-2 Number of Body Systems Impaired 3 Clinical Presentation at Evaluation Evolving Impairments Impairments Balance,Functional Activities, Gait,Strength Goals Three Impairment weakness john paul LE's Short Term Goal (STG) Instruct in HEP and initiate aquatic therapy for LE strengthening STG Duration 2 wks Machine Repairer Maintenance Goal (LTG) Patient to demonstrate hip strength of at least 3+/5, knees 4+/5, ankles 4+/5 to improve functional mobility LTG Duration 3 months Two Impairment Gait and balance dysfunction: Tinetti gait and balance score 9/28 Short Term Goal (STG) Improve Tinetti gait and balance score to at least 15/ 28 STG Duration 6 wks Machine Repairer Maintenance Goal (LTG) Improve Tinetti gait and balance score to at least 20/ 28 to improve functional mobility and safety LTG Duration 3 months One Impairment Pain Short Term Goal (STG) Pt to report pain at worst 6/ 10 STG Duration 6 wks Machine Repairer Maintenance Goal (LTG) Pt to report pain at worst 4/ 10 LTG Duration 3 months Assessment Summary Assessment Patient c/o shoulder pain from first aquatic PT session, was cued to decrease use of UE's and had good tolerance today. Added deep water walk, patient would like to increase deep water component. Physical Therapy Plan Frequency and Duration Frequency of Treatment 2x/Week Duration of Treatment 3 months Plan of Care Start Date 02/22/19 Plan of Care End Date 05/24/19 Therapeutic Interventions Therapeutic Interventions Aquatic Therapy,Balance Training,Gait Training,Home Exercise Program,Neuromuscular Re-education,Self-Care/Home Management,Therapeutic Activities,Therapeutic Exercises Modalities Cold Pack/Ice Massage,Electric Stimulation,Ultrasound Next Visit Focus/Plan Next Note Type Treatment Note Next Visit Plan Start with deep water bicycle, run. Add quad stretch and hoe down ex as tolerated. Progress balance and gait exercises.
--- NOTE | 2019-03-05 13:42 | PT.OTN ---
Current Diagnoses Bilateral primary osteoarthritis of hip (02/28/19) Bilateral primary osteoarthritis of knee (02/28/19) Weakness (02/28/19) Strain of muscle, fascia and tendon of unspecified hip, initial encounter (02/28/19) Physical Therapy Treatment Note PT-OP-A Visit Information Start: 02/22/19 12:25 Freq: Status: Active Protocol: Document 03/05/19 13:36 [facility]AK (Rec: 03/05/19 13:42 SAK [id number]) Out-Patient Physical Therapy Visit Information Visit Information Visit Type Treatment Note Visit Start Time 10:20 Visit Stop Time 11:05 Total Visit Minutes 45 Visit Number 4 Number of VISUAL LEAD Visits 0 Evaluation Information Evaluation Date 02/22/19 Precautions Precautions depression PT-OP-B Current Condition Start: 02/22/19 12:25 Freq: Status: Active Protocol: Document 02/22/19 14:35 [facility]AK (Rec: 02/22/19 15:19 SAK [id number]) Current Condition History of Current Condition Onset Date 1 year Current Complaints worsening function-limiting hip and back pain History of Current Condition Now using FWW, having difficulty with dizziness. Has had cortisone shots john paul knees, left knee better, right knee not. Bilateral injections in hips as well with decrease in pain. Right knee tends to collapse, has fallen, last on day before Thanksgiving with bruises to right LE, swelling since fell. Reports dizziness causing her head to go fuzzy, falls. Low activity level, primarily sitting in chair. Previously benefited from aquatic therapy for LBP. Uses heat and ice, no brace. Being seen for depression, no current counselor, is looking for one. Has been increaseing anti- depressant Future Testing and Treatments Planned Sees Dr. Talbot next week. Treatment Goals Patient/Caregiver Goals Decrease pain to allow her to get on floor and play with kids, take grandaughter for walk in stroller. alternating pattern on stairs Prior Functional Status Baseline Function- ADL's Independent Baseline Function- Mobility Independent PT-OP-C Subjective Start: 02/22/19 12:25 Freq: Status: Active Protocol: Document 03/05/19 13:36 [facility]AK (Rec: 03/05/19 13:42 SAK [id number]) OP-PT Subjective Patient Comments Patient Comments No new c/o. Eager to start session in the deep water today. PT-OP-D Balance Start: 02/22/19 12:25 Freq: Status: Active Protocol: Document 02/22/19 14:35 [facility] (Rec: 02/26/19 18:07 [facility] [id number]) OP-PT Balance Assessment Sitting Balance Static Sitting Balance Ability Normal Dynamic Sitting Balance Ability Normal Tinetti Balance Assessment Sitting Balance Sitting Balance Steady, safe Arising from Chair Ability to Arise Able, uses arms to help Attempts to Arise Able, requires >1 attempt Standing Balance Immediate Standing Balance Steady with support Standing Balance Steady, wide stance Nudged Response Begins to fall Standing with Eyes Closed Unsteady Turning Step Pattern Turning 360 Degrees Discontinuous steps Stability Turning 360 Degrees Unsteady, grabs/staggers Sitting Down Sitting Down Uses arms or unsteady Gait and Step Initiation of Gait Hesitancy, mult. attempts Right Foot Step Length Does not pass stance ft. Right Foot Step Height Does not clear floor Left Foot Step Length Does not pass stance foot Left Foot Step Height Does not clear floor Step Description Step Symmetry Step length appears equal Step Continuity Steps appear continuous Gait Description Path Description Mild/moderate deviation Trunk Description Marked sway or uses aide Walking Stance Heels apart Scoring and Interpretation Tinetti Composite Score (points) 9 Cordon Fall Scale Copyright Permission PT-OP-G Mobility & Gait Start: 02/22/19 12:25 Freq: Status: Active Protocol: Document 02/22/19 14:35 [facility] (Rec: 02/26/19 18:07 [facility] [id number]) OP Mobility Evaluation Bed Mobility Supine to and from Sit independent but labored Transfers Sit to Stand requires use of hands Bed to Chair Transfers uses hands and FWW OP Gait Assessment Gait Gait Assistance Required: Independent Assistive Devices Assistive Device 4 Wheeled Walker Gait Deviations General Gait Pattern Decreased Stride Length, Decreased Feet Clearance, Flexed Trunk Factors Limiting Gait Function Factors Limiting Gait Function Decreased Strength,Pain Stair Climbing Evaluation Comments Stair Climbing Comments deferred due to patient c/o pain with stair amabulation PT-OP-J Posture/Palpation/Skin Start: 02/22/19 12:25 Freq: Status: Active Protocol: Document 02/22/19 14:35 [facility] (Rec: 02/26/19 18:07 [facility] [id number]) Palpation Assessment Location bilateral knees; joint line Palpation Findings Tenderness greater trochanters Palpation Findings Tenderness PT-OP-K Range of Motion Start: 02/22/19 12:25 Freq: Status: Active Protocol: Document 02/22/19 14:35 [facility] (Rec: 02/26/19 18:07 [facility] [id number]) Hip Goniometric Range of Motion Hip right Hip ROM WFL Yes left Hip ROM WFL Yes Knee Goniometric Range of Motion Knee john paul Knee ROM WFL Yes Patient Position Sitting Knee ROM Limitations Comments painful john paul especially at end- range Ankle and Foot Goniometric Range of Motion Ankle and Foot john paul Ankle/Foot ROM WFL No Dorsiflexion with Knee Flexed 5 Dorsiflexion with Knee Extended 0 Ankle and Foot ROM Limitations ROM Limitations Soft Tissue Tightness PT-OP-L Special Tests Start: 02/22/19 12:25 Freq: Status: Active Protocol: Document 02/22/19 14:35 [facility] (Rec: 02/26/19 18:07 [facility] [id number]) Special Tests Hip Special Tests Trendelenberg Test Results positive for weakness john paul Scour Test Test Results positive john paul; pain PT-OP-M Strength Start: 02/22/19 12:25 Freq: Status: Active Protocol: Document 02/22/19 14:35 [facility] (Rec: 02/26/19 18:07 [facility] [id number]) Hip Strength Hip Manual Muscle Testing john paul Flexion (L2) 2+ Poor+ Extension (S1) 2+ Poor+ Abduction 3- Fair- External Rotation 3- Fair- Internal Rotation 3 Fair Comments painful all motions Knee Strength Knee Manual Muscle Testing john paul Flexion (S2) 4 Good Extension (L3) 4 Good Comments painful with resistance Ankle/Foot Strength Ankle and Foot Manual Muscle Testing john paul Dorsiflexion (L4) 4- Good- Plantarflexion (S1) 4- Good- PT-OP-Q Treatments Start: 02/22/19 12:25 Freq: Status: Active Protocol: Document 02/22/19 14:35 [facility] (Rec: 02/26/19 18:07 [facility] [id number]) Self-Care/Home Management Treatment Education Patient Education Home Exercise Program Other Education written instructions provided. PT-OP-R Modalities Start: 02/22/19 12:25 Freq: Status: Active Protocol: Document 02/22/19 14:35 [facility] (Rec: 02/26/19 18:10 [facility]AK [id number]) Hot Pack/Cold Pack Treatment Cold Pack Location bilateral knees Patient Position Hooklying PT-OP-S Aquatic Treatment Start: 02/22/19 12:25 Freq: Status: Active Protocol: Document 03/05/19 13:36 [facility] (Rec: 03/05/19 13:42 [facility] [id number]) Aquatics Treatment Pool Entry/Exit Pool Entry/Exit Method Lift Assistance Standby Assistance Water Walking Monster Walk Water Level Chest Level Walking Equipment Resistance Fins Level of Assistance Standby Assistance Marching Water Level Chest Level Level of Assistance Standby Assistance,Verbal Cues Backwards Water Level Chest Level Level of Assistance Standby Assistance,Verbal Cues Sideways Water Level Chest Level Level of Assistance Standby Assistance Forwards Water Level Chest Level Level of Assistance Standby Assistance,Verbal Cues Lower Extremity Exercises 4 Details squats Body Position Standing Reps/Duration 10x Comments cues for gluteal activation 3 Details Knee flexion/extension Body Position Standing Water Level Chest Level Reps/Duration x 15 reps 2 Details Hip AB/AD Body Position Standing Water Level Chest Level Reps/Duration x 10 reps Comments small motions 1 Details Hip flexion/extension Body Position Standing Water Level Chest Level Reps/Duration x 15 reps. Lower Extremity Stretches 3 Details quads Body Position Standing Equipment Ankle Floats 1 Details hamstrings Body Position Standing Water Level Chest Level Equipment Ankle Floats [place] Activities [place] Activities Bicycle,Bicycle Backwards, Cross [place],Running Equipment [place] float Duration 20 min Comments patient fatigued rapidly PT-OP-T Assessment and Plan Start: 02/22/19 12:25 Freq: Status: Active Protocol: Document 03/05/19 13:36 [facility] (Rec: 03/05/19 13:42 [facility] [id number]) Physical Therapy Assessment Rehab Potential Rehabilitation Potential Fair Evaluation Complexity Number of Personal Factors/Comorbidities 1-2 Number of Body Systems Impaired 3 Clinical Presentation at Evaluation Evolving Impairments Impairments Balance,Functional Activities, Gait,Strength Goals Three Impairment weakness john paul LE's Short Term Goal (STG) Instruct in HEP and initiate aquatic therapy for LE strengthening STG Duration 2 wks Custodial Goal (LTG) Patient to demonstrate hip strength of at least 3+/5, knees 4+/5, ankles 4+/5 to improve functional mobility LTG Duration 3 months Two Impairment Gait and balance dysfunction: Tinetti gait and balance score 9/28 Short Term Goal (STG) Improve Tinetti gait and balance score to at least 15/ 28 STG Duration 6 wks Custodial Goal (LTG) Improve Tinetti gait and balance score to at least 20/ 28 to improve functional mobility and safety LTG Duration 3 months One Impairment Pain Short Term Goal (STG) Pt to report pain at worst 6/ 10 STG Duration 6 wks Custodial Goal (LTG) Pt to report pain at worst 4/ 10 LTG Duration 3 months Assessment Summary Assessment Patient tolerated increased aquatic exercise today, tolerated starting in the deep water well today. Physical Therapy Plan Frequency and Duration Frequency of Treatment 2x/Week Duration of Treatment 3 months Plan of Care Start Date 02/22/19 Plan of Care End Date 05/24/19 Therapeutic Interventions Therapeutic Interventions Aquatic Therapy,Balance Training,Gait Training,Home Exercise Program,Neuromuscular Re-education,Self-Care/Home Management,Therapeutic Activities,Therapeutic Exercises Modalities Cold Pack/Ice Massage,Electric Stimulation,Ultrasound Next Visit Focus/Plan Next Note Type Treatment Note Next Visit Plan Continue to progress aquatic exercises as tolerated. Add hoe down.
--- NOTE | 2019-03-09 17:21 | PT.OTN ---
Current Diagnoses Bilateral primary osteoarthritis of hip (03/09/19) Bilateral primary osteoarthritis of knee (03/09/19) Weakness (03/09/19) Strain of muscle, fascia and tendon of unspecified hip, initial encounter (03/09/19) Physical Therapy Treatment Note PT-OP-A Visit Information Start: 02/22/19 12:25 Freq: Status: Active Protocol: Document 03/09/19 11:00 LJ (Rec: 03/09/19 17:21 LJ [id number]) Out-Patient Physical Therapy Visit Information Visit Information Visit Type Aquatic Treatment Note Visit Start Time 11:00 Visit Stop Time 11:45 Total Visit Minutes 45 Visit Number 5 Number of ELECTRICAL MACHINIST Visits 1 Evaluation Information Evaluation Date 02/22/19 Precautions Precautions depression PT-OP-B Current Condition Start: 02/22/19 12:25 Freq: Status: Active Protocol: Document 02/22/19 14:35 SAK (Rec: 02/22/19 15:19 SAK [id number]) Current Condition History of Current Condition Onset Date 1 year Current Complaints worsening function-limiting hip and back pain History of Current Condition Now using FWW, having difficulty with dizziness. Has had cortisone shots john paul knees, left knee better, right knee not. Bilateral injections in hips as well with decrease in pain. Right knee tends to collapse, has fallen, last on day before Thanksgiving with bruises to right LE, swelling since fell. Reports dizziness causing her head to go fuzzy, falls. Low activity level, primarily sitting in chair. Previously benefited from aquatic therapy for LBP. Uses heat and ice, no brace. Being seen for depression, no current counselor, is looking for one. Has been increaseing anti- depressant Future Testing and Treatments Planned Sees Dr. Talbot next week. Treatment Goals Patient/Caregiver Goals Decrease pain to allow her to get on floor and play with kids, take grandaughter for walk in stroller. alternating pattern on stairs Prior Functional Status Baseline Function- ADL's Independent Baseline Function- Mobility Independent PT-OP-C Subjective Start: 02/22/19 12:25 Freq: Status: Active Protocol: Document 03/09/19 11:00 LJ (Rec: 03/09/19 17:21 LJ [id number]) OP-PT Subjective Patient Comments Patient Comments States she is tired from [place] activities PT-OP-D Balance Start: 12/12/19 12:25 Freq: Status: Active Protocol: Document 02/22/19 14:35 [facility] (Rec: 02/26/19 18:07 [facility] [id number]) OP-PT Balance Assessment Sitting Balance Static Sitting Balance Ability Normal Dynamic Sitting Balance Ability Normal Tinetti Balance Assessment Sitting Balance Sitting Balance Steady, safe Arising from Chair Ability to Arise Able, uses arms to help Attempts to Arise Able, requires >1 attempt Standing Balance Immediate Standing Balance Steady with support Standing Balance Steady, wide stance Nudged Response Begins to fall Standing with Eyes Closed Unsteady Turning Step Pattern Turning 360 Degrees Discontinuous steps Stability Turning 360 Degrees Unsteady, grabs/staggers Sitting Down Sitting Down Uses arms or unsteady Gait and Step Initiation of Gait Hesitancy, mult. attempts Right Foot Step Length Does not pass stance ft. Right Foot Step Height Does not clear floor Left Foot Step Length Does not pass stance foot Left Foot Step Height Does not clear floor Step Description Step Symmetry Step length appears equal Step Continuity Steps appear continuous Gait Description Path Description Mild/moderate deviation Trunk Description Marked sway or uses aide Walking Stance Heels apart Scoring and Interpretation Tinetti Composite Score (points) 9 Cordon Fall Scale Copyright Permission PT-OP-G Mobility & Gait Start: 02/22/19 12:25 Freq: Status: Active Protocol: Document 02/22/19 14:35 [facility] (Rec: 02/26/19 18:07 [facility] [id number]) OP Mobility Evaluation Bed Mobility Supine to and from Sit independent but labored Transfers Sit to Stand requires use of hands Bed to Chair Transfers uses hands and FWW OP Gait Assessment Gait Gait Assistance Required: Independent Assistive Devices Assistive Device 4 Wheeled Walker Gait Deviations General Gait Pattern Decreased Stride Length, Decreased Feet Clearance, Flexed Trunk Factors Limiting Gait Function Factors Limiting Gait Function Decreased Strength,Pain Stair Climbing Evaluation Comments Stair Climbing Comments deferred due to patient c/o pain with stair amabulation PT-OP-J Posture/Palpation/Skin Start: 02/22/19 12:25 Freq: Status: Active Protocol: Document 02/22/19 14:35 [facility] (Rec: 02/26/19 18:07 [facility] [id number]) Palpation Assessment Location bilateral knees; joint line Palpation Findings Tenderness greater trochanters Palpation Findings Tenderness PT-OP-K Range of Motion Start: 02/22/19 12:25 Freq: Status: Active Protocol: Document 02/22/19 14:35 [facility] (Rec: 02/26/19 18:07 [facility] [id number]) Hip Goniometric Range of Motion Hip right Hip ROM WFL Yes left Hip ROM WFL Yes Knee Goniometric Range of Motion Knee john paul Knee ROM WFL Yes Patient Position Sitting Knee ROM Limitations Comments painful john paul especially at end- range Ankle and Foot Goniometric Range of Motion Ankle and Foot john paul Ankle/Foot ROM WFL No Dorsiflexion with Knee Flexed 5 Dorsiflexion with Knee Extended 0 Ankle and Foot ROM Limitations ROM Limitations Soft Tissue Tightness PT-OP-L Special Tests Start: 02/22/19 12:25 Freq: Status: Active Protocol: Document 02/22/19 14:35 SAK (Rec: 02/26/19 18:07 [facility] [id number]) Special Tests Hip Special Tests Trendelenberg Test Results positive for weakness john paul Scour Test Test Results positive john paul; pain PT-OP-M Strength Start: 02/22/19 12:25 Freq: Status: Active Protocol: Document 02/22/19 14:35 [facility] (Rec: 02/26/19 18:07 [facility] [id number]) Hip Strength Hip Manual Muscle Testing john paul Flexion (L2) 2+ Poor+ Extension (S1) 2+ Poor+ Abduction 3- Fair- External Rotation 3- Fair- Internal Rotation 3 Fair Comments painful all motions Knee Strength Knee Manual Muscle Testing john paul Flexion (S2) 4 Good Extension (L3) 4 Good Comments painful with resistance Ankle/Foot Strength Ankle and Foot Manual Muscle Testing john paul Dorsiflexion (L4) 4- Good- Plantarflexion (S1) 4- Good- PT-OP-Q Treatments Start: 02/22/19 12:25 Freq: Status: Active Protocol: Document 02/22/19 14:35 [facility] (Rec: 02/26/19 18:07 [facility] [id number]) Self-Care/Home Management Treatment Education Patient Education Home Exercise Program Other Education written instructions provided. PT-OP-R Modalities Start: 02/22/19 12:25 Freq: Status: Active Protocol: Document 02/22/19 14:35 SAK (Rec: 02/26/19 18:10 SAK [id number]) Hot Pack/Cold Pack Treatment Cold Pack Location bilateral knees Patient Position Hooklying PT-OP-S Aquatic Treatment Start: 02/22/19 12:25 Freq: Status: Active Protocol: Document 03/09/19 11:00 ZENAIDA (Rec: 03/09/19 17:21 [id number]) Aquatics Treatment Pool Entry/Exit Pool Entry/Exit Method Lift Assistance Standby Assistance Water Walking Monster Walk Water Level Chest Level Walking Equipment Ankle Weight- 2.5# Level of Assistance Standby Assistance Marching Water Level Chest Level Walking Equipment Ankle Weight- 2.5# Level of Assistance Standby Assistance,Verbal Cues Sideways Water Level Chest Level Walking Equipment Ankle Weight- 2.5# Level of Assistance Standby Assistance Forwards Water Level Chest Level Walking Equipment Ankle Weight- 2.5# Level of Assistance Standby Assistance,Verbal Cues Lower Extremity Exercises 4 Details squats Body Position Standing Reps/Duration 10x Comments cues for gluteal activation 3 Details Knee flexion/extension Body Position Standing Water Level Chest Level Reps/Duration x 15 reps 2 Details Hip AB/AD Body Position Standing Water Level Chest Level Reps/Duration x 10 reps Comments small motions 1 Details Hip flexion/extension Body Position Standing Water Level Chest Level Reps/Duration x 15 reps. Lower Extremity Stretches 3 Details quads Body Position Standing Equipment Ankle Floats 1 Details hamstrings Body Position Standing Water Level Chest Level Equipment Ankle Floats [place] Activities [place] Activities Bicycle,Bicycle Backwards, Cross Country,Running Other Activities Pendulum x8 corner ab crunches x10 vertical flutter kick Equipment lg noodle Duration 25 min PT-OP-T Assessment and Plan Start: 02/22/19 12:25 Freq: Status: Active Protocol: Document 03/09/19 11:00 (Rec: 03/09/19 17:21 [id number]) Physical Therapy Assessment Rehab Potential Rehabilitation Potential Fair Impairments Impairments Balance,Functional Activities, Gait,Strength Goals Three Impairment weakness john paul LE's Short Term Goal (STG) Instruct in HEP and initiate aquatic therapy for LE strengthening STG Duration 2 wks Donkey Doctor Goal (LTG) Patient to demonstrate hip strength of at least 3+/5, knees 4+/5, ankles 4+/5 to improve functional mobility LTG Duration 3 months Two Impairment Gait and balance dysfunction: Tinetti gait and balance score 9/28 Short Term Goal (STG) Improve Tinetti gait and balance score to at least 15/ 28 STG Duration 6 wks Penitentiary Goal (LTG) Improve Tinetti gait and balance score to at least 20/ 28 to improve functional mobility and safety LTG Duration 3 months One Impairment Pain Short Term Goal (STG) Pt to report pain at worst 6/ 10 STG Duration 6 wks Penitentiary Goal (LTG) Pt to report pain at worst 4/ 10 LTG Duration 3 months Assessment Summary Assessment Pt did not fatigue today. Able to perforn new deep water exercises with cueing for proper form and execution Physical Therapy Plan Frequency and Duration Frequency of Treatment 2x/Week Duration of Treatment 3 months Plan of Care Start Date 02/22/19 Plan of Care End Date 05/24/19 Therapeutic Interventions Therapeutic Interventions Aquatic Therapy,Balance Training,Gait Training,Home Exercise Program,Neuromuscular Re-education,Self-Care/Home Management,Therapeutic Activities,Therapeutic Exercises Modalities Cold Pack/Ice Massage,Electric Stimulation,Ultrasound Next Visit Focus/Plan Next Note Type Treatment Note Next Visit Plan Continue to progress aquatic exercises as tolerated. Add hoe down. Refine squats on box and add core strengthening qwith stretchcordbrenda
--- NOTE | 2019-03-12 17:14 | PT.OTN ---
Current Diagnoses Bilateral primary osteoarthritis of hip (03/12/19) Bilateral primary osteoarthritis of knee (03/12/19) Weakness (03/12/19) Strain of muscle, fascia and tendon of unspecified hip, initial encounter (03/12/19) Physical Therapy Treatment Note PT-OP-A Visit Information Start: 02/22/19 12:25 Freq: Status: Active Protocol: Document 03/12/19 17:11 SAK (Rec: 03/12/19 17:14 SAK [id number]) Out-Patient Physical Therapy Visit Information Visit Information Visit Type Aquatic Treatment Note Visit Start Time 11:00 Visit Stop Time 11:45 Total Visit Minutes 45 Visit Number 6 Number of CONTRACT TECHNICAL WRITER Visits 1 Evaluation Information Evaluation Date 02/22/19 Precautions Precautions depression PT-OP-B Current Condition Start: 02/22/19 12:25 Freq: Status: Active Protocol: Document 02/22/19 14:35 SAK (Rec: 02/22/19 15:19 SAK [id number]) Current Condition History of Current Condition Onset Date 1 year Current Complaints worsening function-limiting hip and back pain History of Current Condition Now using FWW, having difficulty with dizziness. Has had cortisone shots john paul knees, left knee better, right knee not. Bilateral injections in hips as well with decrease in pain. Right knee tends to collapse, has fallen, last on day before Thanksgiving with bruises to right LE, swelling since fell. Reports dizziness causing her head to go fuzzy, falls. Low activity level, primarily sitting in chair. Previously benefited from aquatic therapy for LBP. Uses heat and ice, no brace. Being seen for depression, no current counselor, is looking for one. Has been increaseing anti- depressant Future Testing and Treatments Planned Sees Dr. Talbot next week. Treatment Goals Patient/Caregiver Goals Decrease pain to allow her to get on floor and play with kids, take grandaughter for walk in stroller. alternating pattern on stairs Prior Functional Status Baseline Function- ADL's Independent Baseline Function- Mobility Independent PT-OP-C Subjective Start: 02/22/19 12:25 Freq: Status: Active Protocol: Document 03/12/19 17:11 SAK (Rec: 03/12/19 17:14 SAK [id number]) OP-PT Subjective Patient Comments Patient Comments No new c/o. Feeling a little stronger after doing aquatic therapy for a couple weeks PT-OP-D Balance Start: 02/22/19 12:25 Freq: Status: Active Protocol: Document 02/22/19 14:35 [facility] (Rec: 02/26/19 18:07 [facility] [id number]) OP-PT Balance Assessment Sitting Balance Static Sitting Balance Ability Normal Dynamic Sitting Balance Ability Normal Tinetti Balance Assessment Sitting Balance Sitting Balance Steady, safe Arising from Chair Ability to Arise Able, uses arms to help Attempts to Arise Able, requires >1 attempt Standing Balance Immediate Standing Balance Steady with support Standing Balance Steady, wide stance Nudged Response Begins to fall Standing with Eyes Closed Unsteady Turning Step Pattern Turning 360 Degrees Discontinuous steps Stability Turning 360 Degrees Unsteady, grabs/staggers Sitting Down Sitting Down Uses arms or unsteady Gait and Step Initiation of Gait Hesitancy, mult. attempts Right Foot Step Length Does not pass stance ft. Right Foot Step Height Does not clear floor Left Foot Step Length Does not pass stance foot Left Foot Step Height Does not clear floor Step Description Step Symmetry Step length appears equal Step Continuity Steps appear continuous Gait Description Path Description Mild/moderate deviation Trunk Description Marked sway or uses aide Walking Stance Heels apart Scoring and Interpretation Tinetti Composite Score (points) 9 Cordon Fall Scale Copyright Permission PT-OP-G Mobility & Gait Start: 02/22/19 12:25 Freq: Status: Active Protocol: Document 02/22/19 14:35 [facility] (Rec: 02/26/19 18:07 [facility] [id number]) OP Mobility Evaluation Bed Mobility Supine to and from Sit independent but labored Transfers Sit to Stand requires use of hands Bed to Chair Transfers uses hands and FWW OP Gait Assessment Gait Gait Assistance Required: Independent Assistive Devices Assistive Device 4 Wheeled Walker Gait Deviations General Gait Pattern Decreased Stride Length, Decreased Feet Clearance, Flexed Trunk Factors Limiting Gait Function Factors Limiting Gait Function Decreased Strength,Pain Stair Climbing Evaluation Comments Stair Climbing Comments deferred due to patient c/o pain with stair amabulation PT-OP-J Posture/Palpation/Skin Start: 02/22/19 12:25 Freq: Status: Active Protocol: Document 02/22/19 14:35 [facility] (Rec: 02/26/19 18:07 [facility] [id number]) Palpation Assessment Location bilateral knees; joint line Palpation Findings Tenderness greater trochanters Palpation Findings Tenderness PT-OP-K Range of Motion Start: 02/22/19 12:25 Freq: Status: Active Protocol: Document 02/22/19 14:35 SAK (Rec: 02/26/19 18:07 [facility] [id number]) Hip Goniometric Range of Motion Hip right Hip ROM WFL Yes left Hip ROM WFL Yes Knee Goniometric Range of Motion Knee john paul Knee ROM WFL Yes Patient Position Sitting Knee ROM Limitations Comments painful john paul especially at end- range Ankle and Foot Goniometric Range of Motion Ankle and Foot john paul Ankle/Foot ROM WFL No Dorsiflexion with Knee Flexed 5 Dorsiflexion with Knee Extended 0 Ankle and Foot ROM Limitations ROM Limitations Soft Tissue Tightness PT-OP-L Special Tests Start: 02/22/19 12:25 Freq: Status: Active Protocol: Document 02/22/19 14:35 SAK (Rec: 02/26/19 18:07 [facility] [id number]) Special Tests Hip Special Tests Trendelenberg Test Results positive for weakness john paul Scour Test Test Results positive john paul; pain PT-OP-M Strength Start: 02/22/19 12:25 Freq: Status: Active Protocol: Document 02/22/19 14:35 SAK (Rec: 02/26/19 18:07 [facility] [id number]) Hip Strength Hip Manual Muscle Testing john paul Flexion (L2) 2+ Poor+ Extension (S1) 2+ Poor+ Abduction 3- Fair- External Rotation 3- Fair- Internal Rotation 3 Fair Comments painful all motions Knee Strength Knee Manual Muscle Testing john paul Flexion (S2) 4 Good Extension (L3) 4 Good Comments painful with resistance Ankle/Foot Strength Ankle and Foot Manual Muscle Testing john paul Dorsiflexion (L4) 4- Good- Plantarflexion (S1) 4- Good- PT-OP-Q Treatments Start: 02/22/19 12:25 Freq: Status: Active Protocol: Document 02/22/19 14:35 SAK (Rec: 02/26/19 18:07 [facility] [id number]) Self-Care/Home Management Treatment Education Patient Education Home Exercise Program Other Education written instructions provided. PT-OP-R Modalities Start: 02/22/19 12:25 Freq: Status: Active Protocol: Document 02/22/19 14:35 SAK (Rec: 02/26/19 18:10 SAK [id number]) Hot Pack/Cold Pack Treatment Cold Pack Location bilateral knees Patient Position Hooklying PT-OP-S Aquatic Treatment Start: 02/22/19 12:25 Freq: Status: Active Protocol: Document 03/12/19 17:11 [facility] (Rec: 03/12/19 17:14 [facility] [id number]) Aquatics Treatment Pool Entry/Exit Pool Entry/Exit Method Lift Assistance Standby Assistance Water Walking Monster Walk Water Level Chest Level Walking Equipment Resistance Fins Level of Assistance Standby Assistance Marching Water Level Chest Level Walking Equipment Resistance Fins Level of Assistance Standby Assistance,Verbal Cues Sideways Water Level Chest Level Walking Equipment Resistance Fins Level of Assistance Standby Assistance Forwards Water Level Chest Level Walking Equipment Resistance Fins Level of Assistance Standby Assistance,Verbal Cues Lower Extremity Exercises 4 Details squats Body Position Standing Reps/Duration 10x Comments cues for gluteal activation 3 Details Knee flexion/extension Body Position Standing Water Level Chest Level Reps/Duration x 15 reps 2 Details Hip AB/AD Body Position Standing Water Level Chest Level Reps/Duration x 10 reps Comments small motions 1 Details Hip flexion/extension Body Position Standing Water Level Chest Level Reps/Duration x 15 reps. Lower Extremity Stretches 3 Details quads Body Position Standing Equipment Ankle Floats 1 Details hamstrings Body Position Standing Water Level Chest Level Equipment Ankle Floats [place] Activities [place] Activities Bicycle,Cross Country,Running, Sit Kicks Other Activities Pendulum x8 corner ab crunches x10 vertical flutter kick Equipment lg noodle Duration 25 min PT-OP-T Assessment and Plan Start: 02/22/19 12:25 Freq: Status: Active Protocol: Document 03/12/19 17:11 [facility] (Rec: 03/12/19 17:14 [facility] [id number]) Physical Therapy Assessment Rehab Potential Rehabilitation Potential Fair Goals Three Impairment weakness john paul LE's Short Term Goal (STG) Instruct in HEP and initiate aquatic therapy for LE strengthening STG Duration 2 wks Assisted Goal (LTG) Patient to demonstrate hip strength of at least 3+/5, knees 4+/5, ankles 4+/5 to improve functional mobility LTG Duration 3 months Two Impairment Gait and balance dysfunction: Tinetti gait and balance score 9/28 Short Term Goal (STG) Improve Tinetti gait and balance score to at least 15/ 28 STG Duration 6 wks Pipe Bowls Paint Trimmer Goal (LTG) Improve Tinetti gait and balance score to at least 20/ 28 to improve functional mobility and safety LTG Duration 3 months One Impairment Pain Short Term Goal (STG) Pt to report pain at worst 6/ 10 STG Duration 6 wks Pipe Bowls Paint Trimmer Goal (LTG) Pt to report pain at worst 4/ 10 LTG Duration 3 months Assessment Summary Assessment Improving aquatic exercise tolerance, no SOB or c/o fatigue. Physical Therapy Plan Frequency and Duration Frequency of Treatment 2x/Week Duration of Treatment 3 months Plan of Care Start Date 02/22/19 Plan of Care End Date 05/24/19 Therapeutic Interventions Therapeutic Interventions Aquatic Therapy,Balance Training,Gait Training,Home Exercise Program,Neuromuscular Re-education,Self-Care/Home Management,Therapeutic Activities,Therapeutic Exercises Modalities Cold Pack/Ice Massage,Electric Stimulation,Ultrasound Next Visit Focus/Plan Next Note Type Treatment Note Next Visit Plan Continue to progress aquatic exercises as tolerated. Add hoe down. Refine squats on box and add core strengthening qwith stretchcordz
--- NOTE | 2019-03-19 14:36 | PT.OTN ---
Current Diagnoses Bilateral primary osteoarthritis of hip (03/12/19) Bilateral primary osteoarthritis of knee (03/12/19) Weakness (03/12/19) Strain of muscle, fascia and tendon of unspecified hip, initial encounter (03/12/19) Physical Therapy Treatment Note PT-OP-A Visit Information Start: 02/22/19 12:25 Freq: Status: Active Protocol: Document 03/19/19 10:15 ZENAIDA (Rec: 03/19/19 14:36 LJ [id number]) Out-Patient Physical Therapy Visit Information Visit Information Visit Type Aquatic Treatment Note Visit Start Time 10:15 Visit Stop Time 11:00 Total Visit Minutes 45 Visit Number 7 Number of DIRECTOR PHYSICAL THERAPY Visits 1 Evaluation Information Evaluation Date 02/22/19 Precautions Precautions depression PT-OP-B Current Condition Start: 02/22/19 12:25 Freq: Status: Active Protocol: Document 02/22/19 14:35 SAK (Rec: 02/22/19 15:19 SAK [id number]) Current Condition History of Current Condition Onset Date 1 year Current Complaints worsening function-limiting hip and back pain History of Current Condition Now using FWW, having difficulty with dizziness. Has had cortisone shots john paul knees, left knee better, right knee not. Bilateral injections in hips as well with decrease in pain. Right knee tends to collapse, has fallen, last on day before Thanksgiving with bruises to right LE, swelling since fell. Reports dizziness causing her head to go fuzzy, falls. Low activity level, primarily sitting in chair. Previously benefited from aquatic therapy for LBP. Uses heat and ice, no brace. Being seen for depression, no current counselor, is looking for one. Has been increaseing anti- depressant Future Testing and Treatments Planned Sees Dr. Talbot next week. Treatment Goals Patient/Caregiver Goals Decrease pain to allow her to get on floor and play with kids, take grandaughter for walk in stroller. alternating pattern on stairs Prior Functional Status Baseline Function- ADL's Independent Baseline Function- Mobility Independent PT-OP-C Subjective Start: 02/22/19 12:25 Freq: Status: Active Protocol: Document 03/19/19 10:15 ZENAIDA (Rec: 03/19/19 14:36 LJ [id number]) OP-PT Subjective Patient Comments Patient Comments Pt states she felt a little achy after last session PT-OP-D Balance Start: 02/22/19 12:25 Freq: Status: Active Protocol: Document 02/22/19 14:35 [facility] (Rec: 02/26/19 18:07 [facility] [id number]) OP-PT Balance Assessment Sitting Balance Static Sitting Balance Ability Normal Dynamic Sitting Balance Ability Normal Tinetti Balance Assessment Sitting Balance Sitting Balance Steady, safe Arising from Chair Ability to Arise Able, uses arms to help Attempts to Arise Able, requires >1 attempt Standing Balance Immediate Standing Balance Steady with support Standing Balance Steady, wide stance Nudged Response Begins to fall Standing with Eyes Closed Unsteady Turning Step Pattern Turning 360 Degrees Discontinuous steps Stability Turning 360 Degrees Unsteady, grabs/staggers Sitting Down Sitting Down Uses arms or unsteady Gait and Step Initiation of Gait Hesitancy, mult. attempts Right Foot Step Length Does not pass stance ft. Right Foot Step Height Does not clear floor Left Foot Step Length Does not pass stance foot Left Foot Step Height Does not clear floor Step Description Step Symmetry Step length appears equal Step Continuity Steps appear continuous Gait Description Path Description Mild/moderate deviation Trunk Description Marked sway or uses aide Walking Stance Heels apart Scoring and Interpretation Tinetti Composite Score (points) 9 Cordon Fall Scale Copyright Permission PT-OP-G Mobility & Gait Start: 02/22/19 12:25 Freq: Status: Active Protocol: Document 02/22/19 14:35 [facility] (Rec: 02/26/19 18:07 [facility] [id number]) OP Mobility Evaluation Bed Mobility Supine to and from Sit independent but labored Transfers Sit to Stand requires use of hands Bed to Chair Transfers uses hands and FWW OP Gait Assessment Gait Gait Assistance Required: Independent Assistive Devices Assistive Device 4 Wheeled Walker Gait Deviations General Gait Pattern Decreased Stride Length, Decreased Feet Clearance, Flexed Trunk Factors Limiting Gait Function Factors Limiting Gait Function Decreased Strength,Pain Stair Climbing Evaluation Comments Stair Climbing Comments deferred due to patient c/o pain with stair amabulation PT-OP-J Posture/Palpation/Skin Start: 02/22/19 12:25 Freq: Status: Active Protocol: Document 02/22/19 14:35 [facility] (Rec: 02/26/19 18:07 [facility] [id number]) Palpation Assessment Location bilateral knees; joint line Palpation Findings Tenderness greater trochanters Palpation Findings Tenderness PT-OP-K Range of Motion Start: 02/22/19 12:25 Freq: Status: Active Protocol: Document 02/22/19 14:35 [facility] (Rec: 02/26/19 18:07 [facility] [id number]) Hip Goniometric Range of Motion Hip right Hip ROM WFL Yes left Hip ROM WFL Yes Knee Goniometric Range of Motion Knee john paul Knee ROM WFL Yes Patient Position Sitting Knee ROM Limitations Comments painful john paul especially at end- range Ankle and Foot Goniometric Range of Motion Ankle and Foot john paul Ankle/Foot ROM WFL No Dorsiflexion with Knee Flexed 5 Dorsiflexion with Knee Extended 0 Ankle and Foot ROM Limitations ROM Limitations Soft Tissue Tightness PT-OP-L Special Tests Start: 02/22/19 12:25 Freq: Status: Active Protocol: Document 02/22/19 14:35 [facility] (Rec: 02/26/19 18:07 [facility] [id number]) Special Tests Hip Special Tests Trendelenberg Test Results positive for weakness john paul Scour Test Test Results positive john paul; pain PT-OP-M Strength Start: 02/22/19 12:25 Freq: Status: Active Protocol: Document 02/22/19 14:35 [facility] (Rec: 02/26/19 18:07 [facility] [id number]) Hip Strength Hip Manual Muscle Testing john paul Flexion (L2) 2+ Poor+ Extension (S1) 2+ Poor+ Abduction 3- Fair- External Rotation 3- Fair- Internal Rotation 3 Fair Comments painful all motions Knee Strength Knee Manual Muscle Testing john paul Flexion (S2) 4 Good Extension (L3) 4 Good Comments painful with resistance Ankle/Foot Strength Ankle and Foot Manual Muscle Testing john paul Dorsiflexion (L4) 4- Good- Plantarflexion (S1) 4- Good- PT-OP-Q Treatments Start: 02/22/19 12:25 Freq: Status: Active Protocol: Document 02/22/19 14:35 [facility] (Rec: 02/26/19 18:07 [facility] [id number]) Self-Care/Home Management Treatment Education Patient Education Home Exercise Program Other Education written instructions provided. PT-OP-R Modalities Start: 02/22/19 12:25 Freq: Status: Active Protocol: Document 02/22/19 14:35 SAK (Rec: 02/26/19 18:10 [facility] [id number]) Hot Pack/Cold Pack Treatment Cold Pack Location bilateral knees Patient Position Hooklying PT-OP-S Aquatic Treatment Start: 12/12/19 12:25 Freq: Status: Active Protocol: Document 03/19/19 10:15 ZENAIDA (Rec: 03/19/19 14:36 ZENAIDA [id number]) Aquatics Treatment Pool Entry/Exit Pool Entry/Exit Method Lift Assistance Standby Assistance Water Walking stop start direction change Water Level Chest Level Walking Equipment Resistance Fins Level of Assistance Standby Assistance,Verbal Cues Monster Walk Water Level Chest Level Walking Equipment Resistance Fins Level of Assistance Standby Assistance Marching Water Level Chest Level Walking Equipment Resistance Fins Level of Assistance Standby Assistance,Verbal Cues [place] March Water Level Chest Level Walking Equipment Resistance Fins Level of Assistance Standby Assistance Backwards Water Level Chest Level Walking Equipment Resistance Fins Level of Assistance Standby Assistance,Verbal Cues Sideways Water Level Chest Level Walking Equipment Resistance Fins Level of Assistance Standby Assistance Forwards Water Level Chest Level Walking Equipment Resistance Fins Level of Assistance Standby Assistance,Verbal Cues Lower Extremity Exercises Hip ER,IR (figure 8) Body Position Standing Water Level Chest Level Equipment Resistance Fins Reps/Duration 15x Comments HH on wall Hip CCW, Body Position Standing Water Level Chest Level Equipment Resistance Fins Reps/Duration 15x Comments HH on wall 4 Details squats Body Position Standing Water Level Waist Level Equipment tall box Reps/Duration 10x Comments muscle sequence activation 3 Details Knee flexion/extension Body Position Standing Water Level Chest Level Reps/Duration x 15 reps 2 Details Hip AB/AD Body Position Standing Water Level Chest Level Reps/Duration x 10 reps Comments small motions 1 Details Hip flexion/extension Body Position Standing Water Level Chest Level Reps/Duration x 15 reps. Lower Extremity Stretches Hip flexor Body Position Standing Water Level Chest Level Reps/Duration 45 sec B 4 Details figure 4 bilat Body Position Standing 3 Details quads Body Position Standing Equipment Ankle Floats 1 Details hamstrings Body Position Standing Water Level Chest Level Equipment Ankle Floats Spinal Exercises rotary ski-gentle Water Level [place] 1 Details pendulum Comments deep, barbells [place] Activities [place] Activities Bicycle,Cross Country,Running, Sit Kicks Other Activities Pendulum x8 corner ab crunches x10 Equipment lg noodle Duration 10 min PT-OP-T Assessment and Plan Start: 02/22/19 12:25 Freq: Status: Active Protocol: Document 03/19/19 10:15 ZENAIDA (Rec: 03/19/19 14:36 ZENAIDA [id number]) Physical Therapy Assessment Rehab Potential Rehabilitation Potential Fair Impairments Impairments Balance,Functional Activities, Gait,Strength Goals Three Impairment weakness john paul LE's Short Term Goal (STG) Instruct in HEP and initiate aquatic therapy for LE strengthening STG Duration 2 wks Contract Design Agent Goal (LTG) Patient to demonstrate hip strength of at least 3+/5, knees 4+/5, ankles 4+/5 to improve functional mobility LTG Duration 3 months Assessment Summary Assessment Pt did well with the directional changes and stop start walking exercises. No loss of balance or over compensation with UEs. Tolerated shallow water exercises and increased deep water intensity during bicycling. She reported it felt good to be able to squat in the water and continued with the exercise showing good form and tall posture at standing portion of squat Physical Therapy Plan Frequency and Duration Frequency of Treatment 2x/Week Duration of Treatment 3 months Plan of Care Start Date 02/22/19 Plan of Care End Date 05/24/19 Therapeutic Interventions Therapeutic Interventions Aquatic Therapy,Balance Training,Gait Training,Home Exercise Program,Neuromuscular Re-education,Self-Care/Home Management,Therapeutic Activities,Therapeutic Exercises Modalities Cold Pack/Ice Massage,Electric Stimulation,Ultrasound Next Visit Focus/Plan Next Note Type Treatment Note Next Visit Plan Continue to progress aquatic exercises as tolerated. Continue squats on box and add core strengthening with stretchcosarah
--- NOTE | 2019-03-21 16:07 | PT.OTN ---
Current Diagnoses Bilateral primary osteoarthritis of hip (03/21/19) Bilateral primary osteoarthritis of knee (03/21/19) Weakness (03/21/19) Strain of muscle, fascia and tendon of unspecified hip, initial encounter (03/21/19) Physical Therapy Treatment Note PT-OP-A Visit Information Start: 02/22/19 12:25 Freq: Status: Active Protocol: Document 03/21/19 12:30 LJ (Rec: 03/21/19 16:07 LJ [id number]) Out-Patient Physical Therapy Visit Information Visit Information Visit Type Aquatic Treatment Note Visit Start Time 12:30 Visit Stop Time 13:15 Total Visit Minutes 45 Visit Number 8 Number of OVEN ROASTER Visits 2 Evaluation Information Evaluation Date 02/22/19 Precautions Precautions depression PT-OP-B Current Condition Start: 02/22/19 12:25 Freq: Status: Active Protocol: Document 02/22/19 14:35 SAK (Rec: 02/22/19 15:19 SAK [id number]) Current Condition History of Current Condition Onset Date 1 year Current Complaints worsening function-limiting hip and back pain History of Current Condition Now using FWW, having difficulty with dizziness. Has had cortisone shots john paul knees, left knee better, right knee not. Bilateral injections in hips as well with decrease in pain. Right knee tends to collapse, has fallen, last on day before Thanksgiving with bruises to right LE, swelling since fell. Reports dizziness causing her head to go fuzzy, falls. Low activity level, primarily sitting in chair. Previously benefited from aquatic therapy for LBP. Uses heat and ice, no brace. Being seen for depression, no current counselor, is looking for one. Has been increaseing anti- depressant Future Testing and Treatments Planned Sees Dr. Talbot next week. Treatment Goals Patient/Caregiver Goals Decrease pain to allow her to get on floor and play with kids, take grandaughter for walk in stroller. alternating pattern on stairs Prior Functional Status Baseline Function- ADL's Independent Baseline Function- Mobility Independent PT-OP-C Subjective Start: 02/22/19 12:25 Freq: Status: Active Protocol: Document 03/21/19 12:30 LJ (Rec: 03/21/19 16:07 LJ [id number]) OP-PT Subjective Patient Comments Patient Comments Pt reports her R knee is sore and she wasn't able to sleep last night PT-OP-D Balance Start: 02/22/19 12:25 Freq: Status: Active Protocol: Document 02/22/19 14:35 [facility] (Rec: 02/26/19 18:07 [facility] [id number]) OP-PT Balance Assessment Sitting Balance Static Sitting Balance Ability Normal Dynamic Sitting Balance Ability Normal Tinetti Balance Assessment Sitting Balance Sitting Balance Steady, safe Arising from Chair Ability to Arise Able, uses arms to help Attempts to Arise Able, requires >1 attempt Standing Balance Immediate Standing Balance Steady with support Standing Balance Steady, wide stance Nudged Response Begins to fall Standing with Eyes Closed Unsteady Turning Step Pattern Turning 360 Degrees Discontinuous steps Stability Turning 360 Degrees Unsteady, grabs/staggers Sitting Down Sitting Down Uses arms or unsteady Gait and Step Initiation of Gait Hesitancy, mult. attempts Right Foot Step Length Does not pass stance ft. Right Foot Step Height Does not clear floor Left Foot Step Length Does not pass stance foot Left Foot Step Height Does not clear floor Step Description Step Symmetry Step length appears equal Step Continuity Steps appear continuous Gait Description Path Description Mild/moderate deviation Trunk Description Marked sway or uses aide Walking Stance Heels apart Scoring and Interpretation Tinetti Composite Score (points) 9 Cordon Fall Scale Copyright Permission PT-OP-G Mobility & Gait Start: 02/22/19 12:25 Freq: Status: Active Protocol: Document 02/22/19 14:35 [facility] (Rec: 02/26/19 18:07 [facility] [id number]) OP Mobility Evaluation Bed Mobility Supine to and from Sit independent but labored Transfers Sit to Stand requires use of hands Bed to Chair Transfers uses hands and FWW OP Gait Assessment Gait Gait Assistance Required: Independent Assistive Devices Assistive Device 4 Wheeled Walker Gait Deviations General Gait Pattern Decreased Stride Length, Decreased Feet Clearance, Flexed Trunk Factors Limiting Gait Function Factors Limiting Gait Function Decreased Strength,Pain Stair Climbing Evaluation Comments Stair Climbing Comments deferred due to patient c/o pain with stair amabulation PT-OP-J Posture/Palpation/Skin Start: 02/22/19 12:25 Freq: Status: Active Protocol: Document 02/22/19 14:35 SAK (Rec: 02/26/19 18:07 [facility] [id number]) Palpation Assessment Location bilateral knees; joint line Palpation Findings Tenderness greater trochanters Palpation Findings Tenderness PT-OP-K Range of Motion Start: 02/22/19 12:25 Freq: Status: Active Protocol: Document 02/22/19 14:35 SAK (Rec: 02/26/19 18:07 [facility] [id number]) Hip Goniometric Range of Motion Hip right Hip ROM WFL Yes left Hip ROM WFL Yes Knee Goniometric Range of Motion Knee john paul Knee ROM WFL Yes Patient Position Sitting Knee ROM Limitations Comments painful john paul especially at end- range Ankle and Foot Goniometric Range of Motion Ankle and Foot john paul Ankle/Foot ROM WFL No Dorsiflexion with Knee Flexed 5 Dorsiflexion with Knee Extended 0 Ankle and Foot ROM Limitations ROM Limitations Soft Tissue Tightness PT-OP-L Special Tests Start: 02/22/19 12:25 Freq: Status: Active Protocol: Document 02/22/19 14:35 SAK (Rec: 02/26/19 18:07 [facility] [id number]) Special Tests Hip Special Tests Trendelenberg Test Results positive for weakness john paul Scour Test Test Results positive john paul; pain PT-OP-M Strength Start: 02/22/19 12:25 Freq: Status: Active Protocol: Document 02/22/19 14:35 SAK (Rec: 02/26/19 18:07 [facility] [id number]) Hip Strength Hip Manual Muscle Testing john paul Flexion (L2) 2+ Poor+ Extension (S1) 2+ Poor+ Abduction 3- Fair- External Rotation 3- Fair- Internal Rotation 3 Fair Comments painful all motions Knee Strength Knee Manual Muscle Testing john paul Flexion (S2) 4 Good Extension (L3) 4 Good Comments painful with resistance Ankle/Foot Strength Ankle and Foot Manual Muscle Testing john paul Dorsiflexion (L4) 4- Good- Plantarflexion (S1) 4- Good- PT-OP-Q Treatments Start: 02/22/19 12:25 Freq: Status: Active Protocol: Document 02/22/19 14:35 SAK (Rec: 02/26/19 18:07 [facility] [id number]) Self-Care/Home Management Treatment Education Patient Education Home Exercise Program Other Education written instructions provided. PT-OP-R Modalities Start: 02/22/19 12:25 Freq: Status: Active Protocol: Document 02/22/19 14:35 SAK (Rec: 02/26/19 18:10 [facility] [id number]) Hot Pack/Cold Pack Treatment Cold Pack Location bilateral knees Patient Position Hooklying PT-OP-S Aquatic Treatment Start: 02/22/19 12:25 Freq: Status: Active Protocol: Document 03/21/19 12:30 ZENAIDA (Rec: 03/21/19 16:07 ZENAIDA [id number]) Aquatics Treatment Pool Entry/Exit Pool Entry/Exit Method Lift Assistance Standby Assistance Water Walking obstacle course with boxes Water Level Waist Level Walking Equipment Ankle Weight- 5.0# Level of Assistance Standby Assistance,Verbal Cues Comments up, over, squats on top of boxes, weaving between stop start direction change Water Level Chest Level Walking Equipment Resistance Fins Level of Assistance Standby Assistance,Verbal Cues Monster Walk Water Level Chest Level Walking Equipment Ankle Weight- 5.0# Level of Assistance Standby Assistance Marching Water Level Waist Level Walking Equipment Ankle Weight- 5.0# Level of Assistance Standby Assistance Blanding March Water Level Waist Level Walking Equipment Ankle Weight- 5.0# Level of Assistance Standby Assistance Backwards Water Level Chest Level Walking Equipment Ankle Weight- 5.0# Level of Assistance Standby Assistance Sideways Water Level Chest Level Walking Equipment Ankle Weight- 5.0# Level of Assistance Standby Assistance Forwards Water Level Chest Level Walking Equipment Resistance Fins Level of Assistance Standby Assistance Lower Extremity Exercises Hip ER,IR (figure 8) Body Position Standing Water Level Chest Level Equipment Ankle Weight- 5.0# Reps/Duration 15x Comments HH on wall Hip CCW, Body Position Standing Water Level Chest Level Equipment Ankle Weight- 5.0# Reps/Duration 15x Comments HH on wall toe raises Body Position Standing Water Level Chest Level Reps/Duration 10x heel raises Body Position Standing Water Level Chest Level Reps/Duration 10x 3 Details Knee flexion/extension Body Position Standing Water Level Chest Level Equipment Ankle Weight- 5.0# Reps/Duration x 15 reps Comments discontinued d/t pain 2 Details Hip AB/AD Body Position Standing Water Level Chest Level Equipment Ankle Weight- 5.0# Reps/Duration x 10 reps 1 Details Hip flexion/extension Body Position Standing Water Level Chest Level Equipment Ankle Weight- 5.0# Reps/Duration x 15 reps. Lower Extremity Stretches hip IR/ER Details figure 8 Body Position Standing Water Level Waist Level Reps/Duration 8 B Hip flexor Body Position Standing Water Level Chest Level Reps/Duration 45 sec B 4 Details figure 4 bilat Body Position Standing 3 Details quads Body Position Standing Equipment Ankle Floats Comments manual assit 1 Details hamstrings Body Position Standing Water Level Chest Level Equipment Large Noodle Spinal Exercises rotary ski-gentle Water Level [place] Balance SLS Body Position Standing Water Level Waist Level Reps/Duration multiple attempts Comments L better than R [place] Activities [place] Activities Bicycle,Bicycle Backwards, Cross Country Equipment lg noodle Duration 18 min PT-OP-T Assessment and Plan Start: 02/22/19 12:25 Freq: Status: Active Protocol: Document 03/21/19 12:30 ZENAIDA (Rec: 03/21/19 16:07 ZENAIDA [id number]) Physical Therapy Assessment Rehab Potential Rehabilitation Potential Fair Evaluation Complexity Number of Personal Factors/Comorbidities 1-2 Number of Body Systems Impaired 3 Clinical Presentation at Evaluation Evolving Impairments Impairments Balance,Functional Activities, Gait,Strength Goals Six Impairment Strength Roving Technician Goal (LTG) Pt Left LE MMT to 3+/5 Pt Right LE MMT to 4/5 (goal progress) LTG Duration 2 months Five Impairment ROM Usp Goal (LTG) Passive hip ROM to 100? flexion and 30? abduction ( goal progress) LTG Duration 2 months Three Impairment weakness john paul LE's Short Term Goal (STG) Instruct in HEP and initiate aquatic therapy for LE strengthening STG Duration 2 wks Roving Technician Goal (LTG) Patient to demonstrate hip strength of at least 3+/5, knees 4+/5, ankles 4+/5 to improve functional mobility LTG Duration 3 months Two Impairment Gait and balance dysfunction: Tinetti gait and balance score 9/28 Short Term Goal (STG) Improve Tinetti gait and balance score to at least 15/ 28 STG Duration 6 wks Usp Goal (LTG) Improve Tinetti gait and balance score to at least 20/ 28 to improve functional mobility and safety LTG Duration 3 months One Impairment Pain Short Term Goal (STG) Pt to report pain at worst 6/ 10 STG Duration 6 wks Usp Goal (LTG) Pt to report pain at worst 4/ 10 LTG Duration 3 months Assessment Summary Assessment Pt continues to improve with balance and gait exercises. Able to perform squats on top of boxes and navigate obstacle course w/o LOB. SLS on top of boxes challenging in hip deep water but in 3.6' pt was able to stabiliza with assist from UEs L>R. She is tolerating more time doing shallow water exercises Physical Therapy Plan Frequency and Duration Frequency of Treatment 2x/Week Duration of Treatment 3 months Plan of Care Start Date 02/22/19 Plan of Care End Date 05/24/19 Therapeutic Interventions Therapeutic Interventions Aquatic Therapy,Balance Training,Gait Training,Home Exercise Program,Neuromuscular Re-education,Self-Care/Home Management,Therapeutic Activities,Therapeutic Exercises Modalities Cold Pack/Ice Massage,Electric Stimulation,Ultrasound Next Visit Focus/Plan Next Note Type Treatment Note Next Visit Plan Continue to progress aquatic exercises as tolerated. Continue squats on box and add core strengthening with stretchcordz
--- NOTE | 2019-03-26 17:27 | PT.OTN ---
Current Diagnoses Bilateral primary osteoarthritis of hip (03/26/19) Bilateral primary osteoarthritis of knee (03/26/19) Weakness (03/26/19) Strain of muscle, fascia and tendon of unspecified hip, initial encounter (03/26/19) Physical Therapy Treatment Note PT-OP-A Visit Information Start: 02/22/19 12:25 Freq: Status: Active Protocol: Document 03/26/19 12:30 LJ (Rec: 03/26/19 17:27 LJ [id number]) Out-Patient Physical Therapy Visit Information Visit Information Visit Type Aquatic Treatment Note Visit Start Time 12:30 Visit Stop Time 13:15 Total Visit Minutes 45 Visit Number 9 Number of [employer] ATTENDANT Visits 3 Evaluation Information Evaluation Date 02/22/19 Precautions Precautions depression PT-OP-B Current Condition Start: 02/22/19 12:25 Freq: Status: Active Protocol: Document 02/22/19 14:35 SAK (Rec: 02/22/19 15:19 SAK [id number]) Current Condition History of Current Condition Onset Date 1 year Current Complaints worsening function-limiting hip and back pain History of Current Condition Now using FWW, having difficulty with dizziness. Has had cortisone shots john paul knees, left knee better, right knee not. Bilateral injections in hips as well with decrease in pain. Right knee tends to collapse, has fallen, last on day before Thanksgiving with bruises to right LE, swelling since fell. Reports dizziness causing her head to go fuzzy, falls. Low activity level, primarily sitting in chair. Previously benefited from aquatic therapy for LBP. Uses heat and ice, no brace. Being seen for depression, no current counselor, is looking for one. Has been increaseing anti- depressant Future Testing and Treatments Planned Sees Dr. Talbot next week. Treatment Goals Patient/Caregiver Goals Decrease pain to allow her to get on floor and play with kids, take grandaughter for walk in stroller. alternating pattern on stairs Prior Functional Status Baseline Function- ADL's Independent Baseline Function- Mobility Independent PT-OP-C Subjective Start: 02/22/19 12:25 Freq: Status: Active Protocol: Document 03/26/19 12:30 LJ (Rec: 03/26/19 17:27 LJ [id number]) OP-PT Subjective Patient Comments Patient Comments Pt reports she was sore 2 days after last session last week. States her RLE was at a 9 on the pain scale. PT-OP-D Balance Start: 02/22/19 12:25 Freq: Status: Active Protocol: Document 02/22/19 14:35 [facility] (Rec: 02/26/19 18:07 [facility] [id number]) OP-PT Balance Assessment Sitting Balance Static Sitting Balance Ability Normal Dynamic Sitting Balance Ability Normal Tinetti Balance Assessment Sitting Balance Sitting Balance Steady, safe Arising from Chair Ability to Arise Able, uses arms to help Attempts to Arise Able, requires >1 attempt Standing Balance Immediate Standing Balance Steady with support Standing Balance Steady, wide stance Nudged Response Begins to fall Standing with Eyes Closed Unsteady Turning Step Pattern Turning 360 Degrees Discontinuous steps Stability Turning 360 Degrees Unsteady, grabs/staggers Sitting Down Sitting Down Uses arms or unsteady Gait and Step Initiation of Gait Hesitancy, mult. attempts Right Foot Step Length Does not pass stance ft. Right Foot Step Height Does not clear floor Left Foot Step Length Does not pass stance foot Left Foot Step Height Does not clear floor Step Description Step Symmetry Step length appears equal Step Continuity Steps appear continuous Gait Description Path Description Mild/moderate deviation Trunk Description Marked sway or uses aide Walking Stance Heels apart Scoring and Interpretation Tinetti Composite Score (points) 9 Cordon Fall Scale Copyright Permission PT-OP-G Mobility & Gait Start: 02/22/19 12:25 Freq: Status: Active Protocol: Document 02/22/19 14:35 [facility] (Rec: 02/26/19 18:07 [facility] [id number]) OP Mobility Evaluation Bed Mobility Supine to and from Sit independent but labored Transfers Sit to Stand requires use of hands Bed to Chair Transfers uses hands and FWW OP Gait Assessment Gait Gait Assistance Required: Independent Assistive Devices Assistive Device 4 Wheeled Walker Gait Deviations General Gait Pattern Decreased Stride Length, Decreased Feet Clearance, Flexed Trunk Factors Limiting Gait Function Factors Limiting Gait Function Decreased Strength,Pain Stair Climbing Evaluation Comments Stair Climbing Comments deferred due to patient c/o pain with stair amabulation PT-OP-J Posture/Palpation/Skin Start: 02/22/19 12:25 Freq: Status: Active Protocol: Document 02/22/19 14:35 [facility] (Rec: 02/26/19 18:07 [facility] [id number]) Palpation Assessment Location bilateral knees; joint line Palpation Findings Tenderness greater trochanters Palpation Findings Tenderness PT-OP-K Range of Motion Start: 02/22/19 12:25 Freq: Status: Active Protocol: Document 02/22/19 14:35 SAK (Rec: 02/26/19 18:07 SAK [id number]) Hip Goniometric Range of Motion Hip right Hip ROM WFL Yes left Hip ROM WFL Yes Knee Goniometric Range of Motion Knee john paul Knee ROM WFL Yes Patient Position Sitting Knee ROM Limitations Comments painful john paul especially at end- range Ankle and Foot Goniometric Range of Motion Ankle and Foot john paul Ankle/Foot ROM WFL No Dorsiflexion with Knee Flexed 5 Dorsiflexion with Knee Extended 0 Ankle and Foot ROM Limitations ROM Limitations Soft Tissue Tightness PT-OP-L Special Tests Start: 02/22/19 12:25 Freq: Status: Active Protocol: Document 02/22/19 14:35 SAK (Rec: 02/26/19 18:07 [facility] [id number]) Special Tests Hip Special Tests Trendelenberg Test Results positive for weakness john paul Scour Test Test Results positive john paul; pain PT-OP-M Strength Start: 02/22/19 12:25 Freq: Status: Active Protocol: Document 02/22/19 14:35 SAK (Rec: 02/26/19 18:07 [facility] [id number]) Hip Strength Hip Manual Muscle Testing john paul Flexion (L2) 2+ Poor+ Extension (S1) 2+ Poor+ Abduction 3- Fair- External Rotation 3- Fair- Internal Rotation 3 Fair Comments painful all motions Knee Strength Knee Manual Muscle Testing john paul Flexion (S2) 4 Good Extension (L3) 4 Good Comments painful with resistance Ankle/Foot Strength Ankle and Foot Manual Muscle Testing john paul Dorsiflexion (L4) 4- Good- Plantarflexion (S1) 4- Good- PT-OP-Q Treatments Start: 02/22/19 12:25 Freq: Status: Active Protocol: Document 02/22/19 14:35 SAK (Rec: 02/26/19 18:07 [facility] [id number]) Self-Care/Home Management Treatment Education Patient Education Home Exercise Program Other Education written instructions provided. PT-OP-R Modalities Start: 02/22/19 12:25 Freq: Status: Active Protocol: Document 02/22/19 14:35 SAK (Rec: 02/26/19 18:10 SAK [id number]) Hot Pack/Cold Pack Treatment Cold Pack Location bilateral knees Patient Position Hooklying PT-OP-S Aquatic Treatment Start: 02/22/19 12:25 Freq: Status: Active Protocol: Document 03/26/19 12:30 (Rec: 03/26/19 17:27 [id number]) Aquatics Treatment Pool Entry/Exit Pool Entry/Exit Method Lift Assistance Standby Assistance Water Walking [place] Water Level Chest Level Walking Equipment Resistance Fins Level of Assistance Standby Assistance Monster Walk Water Level Chest Level Level of Assistance Standby Assistance Marching Water Level Waist Level Level of Assistance Standby Assistance Backwards Water Level Chest Level Level of Assistance Standby Assistance Sideways Water Level Chest Level Level of Assistance Standby Assistance Forwards Water Level Chest Level Level of Assistance Standby Assistance Lower Extremity Exercises Hip ER,IR (figure 8) Body Position Standing Water Level Chest Level Reps/Duration 10 Comments HH on wall Hip CCW, Body Position Standing Water Level Chest Level Reps/Duration 10x gentle and reduced ROM Comments HH on wall toe raises Body Position Standing Water Level Chest Level Reps/Duration 10x heel raises Body Position Standing Water Level Chest Level Reps/Duration 10x Lower Extremity Stretches hip IR/ER Details figure 8 Body Position Standing Water Level Waist Level Reps/Duration 8 B Hip flexor Body Position Standing Water Level Chest Level Reps/Duration 45 sec B Comments contract/relax R hip 3 Details quads Body Position Standing Comments manual assit 1 Details hamstrings Body Position Standing Water Level Chest Level Equipment Small Noodle Balance SLS Body Position Standing Water Level Waist Level Reps/Duration multiple attempts Comments L better than R Grover Activities Grover Activities Bicycle,Bicycle Backwards, Cross Country Equipment lg noodle Duration 25 min PT-OP-T Assessment and Plan Start: 02/22/19 12:25 Freq: Status: Active Protocol: Document 03/26/19 12:30 (Rec: 03/26/19 17:27 [id number]) Physical Therapy Assessment Rehab Potential Rehabilitation Potential Fair Evaluation Complexity Number of Personal Factors/Comorbidities 1-2 Number of Body Systems Impaired 3 Clinical Presentation at Evaluation Evolving Impairments Impairments Balance,Functional Activities, Gait,Strength Goals Six Impairment Strength Undercollar Baster Goal (LTG) Pt Left LE MMT to 3+/5 Pt Right LE MMT to 4/5 (goal progress) LTG Duration 2 months Five Impairment ROM Long-Term Goal (LTG) Passive hip ROM to 100? flexion and 30? abduction ( goal progress) LTG Duration 2 months Three Impairment weakness john paul LE's Short Term Goal (STG) Instruct in HEP and initiate aquatic therapy for LE strengthening STG Duration 2 wks Undercollar Baster Goal (LTG) Patient to demonstrate hip strength of at least 3+/5, knees 4+/5, ankles 4+/5 to improve functional mobility LTG Duration 3 months Two Impairment Gait and balance dysfunction: Tinetti gait and balance score 9/28 Short Term Goal (STG) Improve Tinetti gait and balance score to at least 15/ 28 STG Duration 6 wks Undercollar Baster Goal (LTG) Improve Tinetti gait and balance score to at least 20/ 28 to improve functional mobility and safety LTG Duration 3 months One Impairment Pain Short Term Goal (STG) Pt to report pain at worst 6/ 10 STG Duration 6 wks Long-Term Goal (LTG) Pt to report pain at worst 4/ 10 LTG Duration 3 months Assessment Summary Assessment Pt intensity and ROM decreased this session. R hip flexor increased ROM without pain with contract/relax technique. Pt did complain of slight pain this session and therapy was adjusted accordingly. Physical Therapy Plan Frequency and Duration Frequency of Treatment 2x/Week Duration of Treatment 3 months Plan of Care Start Date 02/22/19 Plan of Care End Date 05/24/19 Therapeutic Interventions Therapeutic Interventions Aquatic Therapy,Balance Training,Gait Training,Home Exercise Program,Neuromuscular Re-education,Self-Care/Home Management,Therapeutic Activities,Therapeutic Exercises Modalities Cold Pack/Ice Massage,Electric Stimulation,Ultrasound Next Visit Focus/Plan Next Note Type Treatment Note Next Visit Plan Continue to progress aquatic exercises as tolerated. Continue core strengthening and focus on posterior chain muscle balance.
--- NOTE | 2019-04-30 14:12 | PT.OTN ---
Current Diagnoses Bilateral primary osteoarthritis of hip (04/30/19) Bilateral primary osteoarthritis of knee (04/30/19) Weakness (04/30/19) Strain of muscle, fascia and tendon of unspecified hip, initial encounter (04/30/19) Physical Therapy Treatment Note PT-OP-A Visit Information Start: 02/22/19 12:25 Freq: Status: Active Protocol: Document 04/30/19 11:00 [facility] (Rec: 04/30/19 14:12 [facility]AK [id number]) Out-Patient Physical Therapy Visit Information Visit Information Visit Type Aquatic Treatment Note Visit Start Time 11:00 Visit Stop Time 11:45 Total Visit Minutes 45 Visit Number 10 Number of PARKING ENFORCEMENT MANAGER Visits 0 Evaluation Information Evaluation Date 02/22/19 Precautions Precautions depression PT-OP-B Current Condition Start: 02/22/19 12:25 Freq: Status: Active Protocol: Document 02/22/19 14:35 SAK (Rec: 02/22/19 15:19 [facility]AK [id number]) Current Condition History of Current Condition Onset Date 1 year Current Complaints worsening function-limiting hip and back pain History of Current Condition Now using FWW, having difficulty with dizziness. Has had cortisone shots john paul knees, left knee better, right knee not. Bilateral injections in hips as well with decrease in pain. Right knee tends to collapse, has fallen, last on day before Thanksgiving with bruises to right LE, swelling since fell. Reports dizziness causing her head to go fuzzy, falls. Low activity level, primarily sitting in chair. Previously benefited from aquatic therapy for LBP. Uses heat and ice, no brace. Being seen for depression, no current counselor, is looking for one. Has been increaseing anti- depressant Future Testing and Treatments Planned Sees Dr. Talbot next week. Treatment Goals Patient/Caregiver Goals Decrease pain to allow her to get on floor and play with kids, take grandaughter for walk in stroller. alternating pattern on stairs Prior Functional Status Baseline Function- ADL's Independent Baseline Function- Mobility Independent PT-OP-C Subjective Start: 02/22/19 12:25 Freq: Status: Active Protocol: Document 04/30/19 11:00 SAK (Rec: 04/30/19 14:12 SAK [id number]) OP-PT Subjective Patient Comments Patient Comments still hurting. hasn't tried to go to the pool to exercise on her own; just not able to get motivated I guess. PT-OP-D Balance Start: 02/22/19 12:25 Freq: Status: Active Protocol: Document 02/22/19 14:35 [facility] (Rec: 02/26/19 18:07 [facility] [id number]) OP-PT Balance Assessment Sitting Balance Static Sitting Balance Ability Normal Dynamic Sitting Balance Ability Normal Tinetti Balance Assessment Sitting Balance Sitting Balance Steady, safe Arising from Chair Ability to Arise Able, uses arms to help Attempts to Arise Able, requires >1 attempt Standing Balance Immediate Standing Balance Steady with support Standing Balance Steady, wide stance Nudged Response Begins to fall Standing with Eyes Closed Unsteady Turning Step Pattern Turning 360 Degrees Discontinuous steps Stability Turning 360 Degrees Unsteady, grabs/staggers Sitting Down Sitting Down Uses arms or unsteady Gait and Step Initiation of Gait Hesitancy, mult. attempts Right Foot Step Length Does not pass stance ft. Right Foot Step Height Does not clear floor Left Foot Step Length Does not pass stance foot Left Foot Step Height Does not clear floor Step Description Step Symmetry Step length appears equal Step Continuity Steps appear continuous Gait Description Path Description Mild/moderate deviation Trunk Description Marked sway or uses aide Walking Stance Heels apart Scoring and Interpretation Tinetti Composite Score (points) 9 Cordon Fall Scale Copyright Permission PT-OP-G Mobility & Gait Start: 02/22/19 12:25 Freq: Status: Active Protocol: Document 02/22/19 14:35 [facility] (Rec: 02/26/19 18:07 [facility] [id number]) OP Mobility Evaluation Bed Mobility Supine to and from Sit independent but labored Transfers Sit to Stand requires use of hands Bed to Chair Transfers uses hands and FWW OP Gait Assessment Gait Gait Assistance Required: Independent Assistive Devices Assistive Device 4 Wheeled Walker Gait Deviations General Gait Pattern Decreased Stride Length, Decreased Feet Clearance, Flexed Trunk Factors Limiting Gait Function Factors Limiting Gait Function Decreased Strength,Pain Stair Climbing Evaluation Comments Stair Climbing Comments deferred due to patient c/o pain with stair amabulation PT-OP-J Posture/Palpation/Skin Start: 02/22/19 12:25 Freq: Status: Active Protocol: Document 02/22/19 14:35 [facility] (Rec: 02/26/19 18:07 [facility] [id number]) Palpation Assessment Location bilateral knees; joint line Palpation Findings Tenderness greater trochanters Palpation Findings Tenderness PT-OP-K Range of Motion Start: 02/22/19 12:25 Freq: Status: Active Protocol: Document 02/22/19 14:35 [facility] (Rec: 02/26/19 18:07 [facility] [id number]) Hip Goniometric Range of Motion Hip right Hip ROM WFL Yes left Hip ROM WFL Yes Knee Goniometric Range of Motion Knee john paul Knee ROM WFL Yes Patient Position Sitting Knee ROM Limitations Comments painful john paul especially at end- range Ankle and Foot Goniometric Range of Motion Ankle and Foot john paul Ankle/Foot ROM WFL No Dorsiflexion with Knee Flexed 5 Dorsiflexion with Knee Extended 0 Ankle and Foot ROM Limitations ROM Limitations Soft Tissue Tightness PT-OP-L Special Tests Start: 02/22/19 12:25 Freq: Status: Active Protocol: Document 02/22/19 14:35 [facility] (Rec: 02/26/19 18:07 [facility] [id number]) Special Tests Hip Special Tests Trendelenberg Test Results positive for weakness john paul Scour Test Test Results positive john paul; pain PT-OP-M Strength Start: 02/22/19 12:25 Freq: Status: Active Protocol: Document 02/22/19 14:35 [facility] (Rec: 02/26/19 18:07 [facility] [id number]) Hip Strength Hip Manual Muscle Testing john paul Flexion (L2) 2+ Poor+ Extension (S1) 2+ Poor+ Abduction 3- Fair- External Rotation 3- Fair- Internal Rotation 3 Fair Comments painful all motions Knee Strength Knee Manual Muscle Testing john paul Flexion (S2) 4 Good Extension (L3) 4 Good Comments painful with resistance Ankle/Foot Strength Ankle and Foot Manual Muscle Testing john paul Dorsiflexion (L4) 4- Good- Plantarflexion (S1) 4- Good- PT-OP-Q Treatments Start: 02/22/19 12:25 Freq: Status: Active Protocol: Document 02/22/19 14:35 [facility] (Rec: 02/26/19 18:07 [facility] [id number]) Self-Care/Home Management Treatment Education Patient Education Home Exercise Program Other Education written instructions provided. PT-OP-R Modalities Start: 02/22/19 12:25 Freq: Status: Active Protocol: Document 02/22/19 14:35 [facility] (Rec: 02/26/19 18:10 [facility] [id number]) Hot Pack/Cold Pack Treatment Cold Pack Location bilateral knees Patient Position Hooklying PT-OP-S Aquatic Treatment Start: 02/22/19 12:25 Freq: Status: Active Protocol: Document 04/30/19 11:00 [facility] (Rec: 04/30/19 14:12 [facility] [id number]) Aquatics Treatment Pool Entry/Exit Pool Entry/Exit Method Lift Assistance Standby Assistance Water Walking Monster Walk Water Level Chest Level Level of Assistance Standby Assistance Marching Water Level Waist Level Level of Assistance Standby Assistance Blue [place] March Water Level Waist Level Walking Equipment Ankle Weight- 5.0# Level of Assistance Standby Assistance Sideways Water Level Chest Level Level of Assistance Standby Assistance Forwards Water Level Chest Level Level of Assistance Standby Assistance Lower Extremity Exercises Hip CCW, Body Position Standing Water Level Chest Level Reps/Duration 10x gentle and reduced ROM Comments HH on wall toe raises Body Position Standing Water Level Chest Level Reps/Duration 10x heel raises Body Position Standing Water Level Chest Level Reps/Duration 10x 2 Details Hip AB/AD Body Position Standing Water Level Chest Level Reps/Duration 10x 1 Details Hip flexion/extension Body Position Standing Water Level Chest Level Reps/Duration x 15 reps. Lower Extremity Stretches 1 Details hamstrings Body Position Standing Water Level Chest Level Equipment Small Noodle Balance SLS Body Position Standing Water Level Waist Level Reps/Duration multiple attempts Comments L better than R [place] Activities [place] Activities Bicycle,Bicycle Backwards, Cross Country,Running Equipment lg noodle Duration 25 min PT-OP-T Assessment and Plan Start: 02/22/19 12:25 Freq: Status: Active Protocol: Document 04/30/19 11:00 [facility] (Rec: 04/30/19 14:12 [facility] [id number]) Physical Therapy Assessment Goals Six Impairment Strength Ice Skating Coach Goal (LTG) Pt Left LE MMT to 3+/5 Pt Right LE MMT to 4/5 (goal progress) LTG Duration 4 wks Five Impairment ROM Ice Skating Coach Goal (LTG) Passive hip ROM to 100? flexion and 30? abduction ( goal progress) LTG Duration 4 wks Four Impairment 2 Minute Walk Test Short Term Goal (STG) Pt to complete 2 MWT Ice Skating Coach Goal (LTG) Pt to ambulate 150' during 2 MWT (good goal progress) LTG Duration goal abandoned, seeing in pool only Three Impairment weakness john paul LE's Short Term Goal (STG) Instruct in HEP and initiate aquatic therapy for LE strengthening STG Duration MET Ice Skating Coach Goal (LTG) Patient to demonstrate hip strength of at least 3+/5, knees 4+/5, ankles 4+/5 to improve functional mobility 04/30/19: some goal progress LTG Duration 4 wks Two Impairment Gait and balance dysfunction: Tinetti gait and balance score 9/28 Short Term Goal (STG) Improve Tinetti gait and balance score to at least 15/ 28 04/30/19: goal progress STG Duration 6 wks Ice Skating Coach Goal (LTG) Improve Tinetti gait and balance score to at least 20/ 28 to improve functional mobility and safety LTG Duration 4 wks One Impairment Pain Short Term Goal (STG) Pt to report pain at worst 6/ 10 04/30/19: pain variable, poor compliance to independent aquatic ex. STG Duration 6 wks Ice Skating Coach Goal (LTG) Pt to report pain at worst 4/ 10 LTG Duration 4 wks Assessment Summary Assessment Patient not seen for 1 month due to scheduling issues, illness of patient. Decrease in activity tolerance today noted. Patient did not attempt aqutic exercise independently while not being seen in PT. She is agreeable that she needs to get to the pool on her own to do exercise as it's what helps her the most. Physical Therapy Plan Frequency and Duration Frequency of Treatment 2 visits Duration of Treatment 4 wks Plan of Care Start Date 04/30/19 Plan of Care End Date 05/29/19 Therapeutic Interventions Therapeutic Interventions Aquatic Therapy,Balance Training,Gait Training,Home Exercise Program,Neuromuscular Re-education,Self-Care/Home Management,Therapeutic Activities,Therapeutic Exercises Modalities Cold Pack/Ice Massage,Electric Stimulation,Ultrasound Next Visit Focus/Plan Next Note Type Treatment Note Next Visit Plan Transition toward independent aquatic exercise program in 2 PT visits. Issue written aquatic exercise program.
--- NOTE | 2019-09-18 08:45 | PT.OPDS ---
Current Diagnoses Bilateral primary osteoarthritis of hip (04/30/19) Bilateral primary osteoarthritis of knee (04/30/19) Weakness (04/30/19) Strain of muscle, fascia and tendon of unspecified hip, initial encounter (04/30/19) Visit Care Team Role Provider Type Abby Obrien PA-C Attending Provider Non-Staff Specialty: Medical Address: [address] [place] [address], [phone] Email: Visit Number Visit Number 10 Discharge Summary PT-OP-B Current Condition Start: 02/22/19 12:25 Freq: Status: Active Protocol: Document 02/22/19 14:35 [facility] (Rec: 02/22/19 15:19 [facility] [id number]) Current Condition History of Current Condition Onset Date 1 year Current Complaints worsening function-limiting hip and back pain History of Current Condition Now using FWW, having difficulty with dizziness. Has had cortisone shots john paul knees, left knee better, right knee not. Bilateral injections in hips as well with decrease in pain. Right knee tends to collapse, has fallen, last on day before Thanksgiving with bruises to right LE, swelling since fell. Reports dizziness causing her head to go fuzzy, falls. Low activity level, primarily sitting in chair. Previously benefited from aquatic therapy for LBP. Uses heat and ice, no brace. Being seen for depression, no current counselor, is looking for one. Has been increaseing anti- depressant Future Testing and Treatments Planned Sees Dr. Talbot next week. Treatment Goals Patient/Caregiver Goals Decrease pain to allow her to get on floor and play with kids, take grandaughter for walk in stroller. alternating pattern on stairs Prior Functional Status Baseline Function- ADL's Independent Baseline Function- Mobility Independent PT-OP-C Subjective Start: 02/22/19 12:25 Freq: Status: Active Protocol: Document 04/30/19 11:00 [facility] (Rec: 04/30/19 14:12 [facility] [id number]) OP-PT Subjective Patient Comments Patient Comments still hurting. hasn't tried to go to the pool to exercise on her own; just not able to get motivated I guess. PT-OP-D Balance Start: 02/22/19 12:25 Freq: Status: Active Protocol: Document 02/22/19 14:35 [facility] (Rec: 02/26/19 18:07 [facility] [id number]) OP-PT Balance Assessment Sitting Balance Static Sitting Balance Ability Normal Dynamic Sitting Balance Ability Normal Tinetti Balance Assessment Sitting Balance Sitting Balance Steady, safe Arising from Chair Ability to Arise Able, uses arms to help Attempts to Arise Able, requires >1 attempt Standing Balance Immediate Standing Balance Steady with support Standing Balance Steady, wide stance Nudged Response Begins to fall Standing with Eyes Closed Unsteady Turning Step Pattern Turning 360 Degrees Discontinuous steps Stability Turning 360 Degrees Unsteady, grabs/staggers Sitting Down Sitting Down Uses arms or unsteady Gait and Step Initiation of Gait Hesitancy, mult. attempts Right Foot Step Length Does not pass stance ft. Right Foot Step Height Does not clear floor Left Foot Step Length Does not pass stance foot Left Foot Step Height Does not clear floor Step Description Step Symmetry Step length appears equal Step Continuity Steps appear continuous Gait Description Path Description Mild/moderate deviation Trunk Description Marked sway or uses aide Walking Stance Heels apart Scoring and Interpretation Tinetti Composite Score (points) 9 Cordon Fall Scale Copyright Permission PT-OP-G Mobility & Gait Start: 02/22/19 12:25 Freq: Status: Active Protocol: Document 02/22/19 14:35 [facility] (Rec: 02/26/19 18:07 [facility] [id number]) OP Mobility Evaluation Bed Mobility Supine to and from Sit independent but labored Transfers Sit to Stand requires use of hands Bed to Chair Transfers uses hands and FWW OP Gait Assessment Gait Gait Assistance Required: Independent Assistive Devices Assistive Device 4 Wheeled Walker Gait Deviations General Gait Pattern Decreased Stride Length, Decreased Feet Clearance, Flexed Trunk Factors Limiting Gait Function Factors Limiting Gait Function Decreased Strength,Pain Stair Climbing Evaluation Comments Stair Climbing Comments deferred due to patient c/o pain with stair amabulation PT-OP-J Posture/Palpation/Skin Start: 02/22/19 12:25 Freq: Status: Active Protocol: Document 02/22/19 14:35 [facility] (Rec: 02/26/19 18:07 [facility] [id number]) Palpation Assessment Location bilateral knees; joint line Palpation Findings Tenderness greater trochanters Palpation Findings Tenderness PT-OP-K Range of Motion Start: 02/22/19 12:25 Freq: Status: Active Protocol: Document 02/22/19 14:35 [facility] (Rec: 02/26/19 18:07 [facility] [id number]) Hip Goniometric Range of Motion Hip right Hip ROM WFL Yes left Hip ROM WFL Yes Knee Goniometric Range of Motion Knee john paul Knee ROM WFL Yes Patient Position Sitting Knee ROM Limitations Comments painful john paul especially at end- range Ankle and Foot Goniometric Range of Motion Ankle and Foot john paul Ankle/Foot ROM WFL No Dorsiflexion with Knee Flexed 5 Dorsiflexion with Knee Extended 0 Ankle and Foot ROM Limitations ROM Limitations Soft Tissue Tightness PT-OP-L Special Tests Start: 02/22/19 12:25 Freq: Status: Active Protocol: Document 02/22/19 14:35 [facility] (Rec: 02/26/19 18:07 [facility] [id number]) Special Tests Hip Special Tests Trendelenberg Test Results positive for weakness john paul Scour Test Test Results positive john paul; pain PT-OP-M Strength Start: 02/22/19 12:25 Freq: Status: Active Protocol: Document 02/22/19 14:35 [facility] (Rec: 02/26/19 18:07 [facility] [id number]) Hip Strength Hip Manual Muscle Testing john paul Flexion (L2) 2+ Poor+ Extension (S1) 2+ Poor+ Abduction 3- Fair- External Rotation 3- Fair- Internal Rotation 3 Fair Comments painful all motions Knee Strength Knee Manual Muscle Testing john paul Flexion (S2) 4 Good Extension (L3) 4 Good Comments painful with resistance Ankle/Foot Strength Ankle and Foot Manual Muscle Testing john paul Dorsiflexion (L4) 4- Good- Plantarflexion (S1) 4- Good- PT-OP-T Assessment and Plan Start: 02/22/19 12:25 Freq: Status: Active Protocol: Document 04/30/19 11:00 [facility] (Rec: 04/30/19 14:12 [facility] [id number]) Physical Therapy Assessment Goals Six Impairment Strength Shelter Goal (LTG) Pt Left LE MMT to 3+/5 Pt Right LE MMT to 4/5 (goal progress) LTG Duration 4 wks Five Impairment ROM Thread Laster Goal (LTG) Passive hip ROM to 100? flexion and 30? abduction ( goal progress) LTG Duration 4 wks Four Impairment 2 Minute Walk Test Short Term Goal (STG) Pt to complete 2 MWT Thread Laster Goal (LTG) Pt to ambulate 150' during 2 MWT (good goal progress) LTG Duration goal abandoned, seeing in pool only Three Impairment weakness john paul LE's Short Term Goal (STG) Instruct in HEP and initiate aquatic therapy for LE strengthening STG Duration MET Shelter Goal (LTG) Patient to demonstrate hip strength of at least 3+/5, knees 4+/5, ankles 4+/5 to improve functional mobility 04/30/19: some goal progress LTG Duration 4 wks Two Impairment Gait and balance dysfunction: Tinetti gait and balance score 12/09 Short Term Goal (STG) Improve Tinetti gait and balance score to at least 15/ 28 04/30/19: goal progress STG Duration 6 wks Thread Laster Goal (LTG) Improve Tinetti gait and balance score to at least 20/ 28 to improve functional mobility and safety LTG Duration 4 wks One Impairment Pain Short Term Goal (STG) Pt to report pain at worst 6/ 10 04/30/19: pain variable, poor compliance to independent aquatic ex. STG Duration 6 wks Thread Laster Goal (LTG) Pt to report pain at worst 4/ 10 LTG Duration 4 wks Assessment Summary Assessment Patient not seen for 1 month due to scheduling issues, illness of patient. Decrease in activity tolerance today noted. Patient did not attempt aqutic exercise independently while not being seen in PT. She is agreeable that she needs to get to the pool on her own to do exercise as it's what helps her the most. Physical Therapy Plan Frequency and Duration Frequency of Treatment 2 visits Duration of Treatment 4 wks Plan of Care Start Date 04/30/19 Plan of Care End Date 05/29/19 Therapeutic Interventions Therapeutic Interventions Aquatic Therapy,Balance Training,Gait Training,Home Exercise Program,Neuromuscular Re-education,Self-Care/Home Management,Therapeutic Activities,Therapeutic Exercises Modalities Cold Pack/Ice Massage,Electric Stimulation,Ultrasound Next Visit Focus/Plan Next Note Type Treatment Note Next Visit Plan Transition toward independent aquatic exercise program in 2 PT visits. Issue written aquatic exercise program.
== END 2019-09-18 09:04 ==
LOC: PHYS 11:00
PROVIDERS: Visit Provider Physician Assistant
DX: M16.0 Bilateral primary osteoarthritis of hip (principal); S76.019A Strain of muscle, fascia and tendon of unspecified hip, initial encounter; M17.0 Bilateral primary osteoarthritis of knee; R53.1 Weakness
CPT/HCPCS: 97010; 97113; 97162; 97535

== ENCOUNTER → 2019-07-13 13:52 | Outpatient (CLI) | payer MEDICARE, OTHER, SELFPAY ==
--- NOTE | 2019-07-13 | DI.MRI.S_ITS ---
PROCEDURE: MR CERVICAL SPINE WO CON INDICATIONS: Other shoulder lesions, right shoulder TECHNIQUE: Noncontrast sagittal T1 spin echo and T2 fast spin echo, sagittal STIR, foraminal oblique sagittal T2 fast spin echo, and axial gradient echo or T2 fast spin echo through the cervical spine. COMPARISON: [facility], , C-SPINE WITHOUT CONTRAST, 05/20/2011, 19:18. FINDINGS: Image quality: Excellent. Alignment and Curvature: Straightening of the normal lordotic curvature. Grade 1 anterolisthesis of C3 on C4 and C4 on C5 Bone Marrow: Multilevel degenerative endplate sclerosis and spurring. Diffuse facet arthropathy. No fracture Spinal Cord: Visualized spinal cord has normal size and signal. No cerebellar tonsillar herniation. Paraspinous Soft Tissues: No paravertebral masses. Prevertebral soft tissues are normal in thickness. C2-C3: Normal appearance. C3-C4: No canal stenosis. No right foraminal narrowing. Severe left foraminal stenosis with nerve root compression. This appears progressed although suboptimal comparison given differences in exam protocol C4-C5: Mild canal narrowing. No right foraminal stenosis. Severe left foraminal stenosis with nerve root compression. This appears progressed C5-C6: Minimal canal narrowing. Severe bilateral foraminal stenoses with nerve root compression. This may be slightly progressed although suboptimal comparison C6-C7: Mild canal narrowing. Moderate-severe right foraminal stenosis with nerve root compression. Severe left foraminal stenosis with nerve root compression. This may be slightly progressed on the right C7-T1: Normal appearance. IMPRESSION: Multilevel cervical spondylosis and facet arthropathy. Diffuse bilateral foraminal stenoses, grossly stable to slight interval progression although suboptimal comparison related to differences in exam protocol (no oblique sagittal pulse sequences on the prior study) Dictated by: Cosmo Gray M.D. on 07/13/2019 at 15:04 Approved by: Cosmo Gray M.D. on 07/13/2019 at 15:15
== END ==
PROVIDERS: PCP Student in an Organized Health Care Education/Training Program; Referring Provider Orthopaedic Surgery; Visit Provider Orthopaedic Surgery
DX: M47.22 Other spondylosis with radiculopathy, cervical region (principal); M75.81 Other shoulder lesions, right shoulder; M48.02 Spinal stenosis, cervical region
CPT/HCPCS: 72141

== ENCOUNTER → 2019-11-08 15:42 | Outpatient (CLI) | payer MEDICARE, OTHER, SELFPAY ==
--- NOTE | 2019-11-08 | DI.MRI.S_ITS ---
PROCEDURE: MR SHOULDER RT WO CON INDICATIONS: UNSPECIFIED INJURY TO RIGHT SHOULDER AND UPPER ARM TECHNIQUE: Noncontrast oblique coronal T2 fast spin echo with fat saturation, oblique sagittal T1 spin echo and T2 fast spin echo with fat saturation, axial T1 spin echo and T2 fast spin echo with fat saturation through the shoulder. COMPARISON: None. FINDINGS: Image quality: Excellent. Rotator cuff: There is mild T2 signal elevation within the anterior, mid, and posterior supraspinatus tendon at the humeral surgeon site. Superimposed moderate grade intrasubstance tear of the mid supraspinatus tendon at the humeral insertion site, measuring roughly 5 mm anteroposterior. The supraspinatus, infraspinatus, and subscapularis tendons otherwise appear intact throughout. Sagittal images demonstrate no muscle atrophy. Bones and bursae: No bone marrow contusions or fractures. Moderate acromioclavicular joint degeneration. The acromion demonstrates conventional anatomy, without an os acromiale. Small amount of subacromial-subdeltoid or subcoracoid bursal fluid is present. Capsule and soft tissues: In the absence of intra-articular contrast, the labrum and glenohumeral ligaments appear intact. There is partial thickness tearing of the biceps tendon. The rotator interval appears normal, without fibrosis. The coracohumeral ligament is normal in thickness. IMPRESSION: 1. Acromioclavicular joint osteoarthritis. 2. Supraspinatus tendinopathy with superimposed moderate grade partial-thickness intrasubstance tear. No full-thickness rotator cuff tear. 3. Partial thickness biceps tendon tear. 4. Mild subacromial bursitis. Dictated by: Margarita Jacobo M.D. on 11/08/2019 at 16:52 Approved by: Margarita Jacobo M.D. on 11/08/2019 at 16:54
== END ==
PROVIDERS: PCP Student in an Organized Health Care Education/Training Program; Referring Provider Physical Medicine & Rehabilitation; Visit Provider Physical Medicine & Rehabilitation
DX: S49.91XA Unspecified injury of right shoulder and upper arm, initial encounter (principal); M75.111 Incomplete rotator cuff tear or rupture of right shoulder, not specified as traumatic; S46.211A Strain of muscle, fascia and tendon of other parts of biceps, right arm, initial encounter; M75.51 Bursitis of right shoulder; M19.011 Primary osteoarthritis, right shoulder; X58.XXXA Exposure to other specified factors, initial encounter
CPT/HCPCS: 73221

== ENCOUNTER 2020-01-18 21:50 | Emergency (ER) | payer MEDICARE, OTHER, SELFPAY ==
--- NOTE | 2020-01-18 21:57 | ED_ITS ---
HPI - Head Injury General Chief complaint: Extremity Injury, Lower Stated complaint: GLF HEAD FOGGY KNEE AND LEG PAIN Time Seen by Provider: 01/18/20 21:51 Source: patient Mode of arrival: Ambulatory Limitations: no limitations History of Present Illness HPI Narrative: 65-year-old female nonsmoker presents with family in the chief complaint of a ground level fall with head injury and a bit foggy feeling in the interim. She states that she felt in her normal state of health prior to her fall and got her feet caught up in the cable for her cellphone and then she fell forward onto her knees and then hit her head. She denies loss of consciousness nor nausea or vomiting. She does state that she has felt a bit foggy and groggy since the event. She denies nausea or vomiting. She denies focal neurologic findings such as numbness, tingling or weakness. She does suffer a gait disturbance and chronic joint pain. She ambulates with a walker all the time and states she has had a few falls over the past 6 weeks when she could not reach her walker. Her family has already pledge to evaluate her living situat ion and and sugar she is in the most safe environment possible. She has pain in her right shoulder, knee and hip which is worse with motion and improves with rest. She also complains of left calf pain, unsure of how long it's been present. Complaint: head injury Onset (ago): day(s) Mechanism of Injury: fall Place: home Loss of Consciousness: no Severity: mild Quality: aching Radiation: none Other Injuries: upper extremity and lower extremity Associated symptoms: denies other symptoms Related Data Home Medications Medication Instructions Recorded Confirmed amitriptyline 25 mg PO QDAY #0 02/24/12 08/31/18 bupropion HCl [Wellbutrin SR] 450 mg PO QDAY #0 02/24/12 08/31/18 cetirizine 10 mg PO Q DAY #0 02/24/12 08/31/18 conjugated estrogens [Premarin] 1.25 mg PO QDAY #0 02/24/12 08/31/18 esomeprazole magnesium [Nexium] 40 mg PO QDAY #0 02/24/12 08/31/18 fluticasone propionate 1 spray INTRANASAL BID #0 02/24/12 04/17/19 montelukast [Singulair] 10 mg PO DAILY #0 02/24/12 04/17/19 acetaminophen 650 mg PO Q8HP PRN #0 04/17/16 08/31/18 lorazepam [Ativan] 1 mg PO BIDP PRN #0 04/17/16 08/31/18 telmisartan-hydrochlorothiazid 1 tab PO QDAY #0 04/17/16 08/31/18 [Micardis HCT] conjugated estrogens 0.625 mg/gram 1 applictn VAG DAILY gram 12/12/17 08/31/18 vaginal cream duloxetine 60 mg capsule,delayed 60 mg PO DAILY 12/12/17 04/17/19 release fluticasone 500 mcg-salmeterol 50 1 inhalation INHALATION BID 12/12/17 08/31/18 mcg/dose blistr powdr for inhalation simvastatin 20 mg tablet 20 mg PO BEDTIME 12/12/17 04/17/19 ResMed AirSense 10 CPAP #1 ea 05/10/18 08/31/18 metoprolol succinate [Toprol XL] 75 mg PO DAILY 04/17/19 04/17/19 omeprazole 40 mg PO BID 04/17/19 04/17/19 quetiapine 200 mg PO DAILY 04/17/19 04/17/19 Previous Rx's Medication Instructions Recorded dextromethorphan polistirex 30 mg PO Q12H 10 Days #0 ml 04/17/16 [Delsym 12 hour] codeine-guaifenesin [Guaifenesin 5 ml PO Q6H PRN #120 ml 06/04/18 AC] prednisone 10 mg PO DAILY #30 tab 06/04/18 Allergies Allergy/AdvReac Type Severity Reaction Status Date / Time iodine [IODINE] Allergy Mild Verified 04/17/19 14:24 Sulfa (Sulfonamide Allergy Mild Verified 04/17/19 14:24 Antibiotics) [SULFA (SULFONAMIDE ANTIBIOTICS)] Iodinated Contrast Media Allergy Unknown Verified 04/17/19 14:24 [IODINATED CONTRAST MEDIA - IV DYE] lisinopril [LISINOPRIL] Allergy Unknown Verified 04/17/19 14:24 Review of Systems Constitutional Constitutional: Denies chills, Denies fatigue, Denies fever(s), Denies frequent falls, Denies lethargy and Denies weakness Eyes Eyes: Denies change in vision, Denies eye discharge, Denies irritation and Denies loss of vision ENT Ears, Nose, Mouth, and Throat: Denies change in voice, Denies dizziness, Denies neck pain, Denies sore throat and Denies throat swelling Cardiovascular Cardiovascular: Denies chest pain, Denies irregular heart rhythm, Denies lightheadedness, Denies palpitations, Denies dyspnea, Denies dyspnea on exertion and Denies orthopnea Respiratory Respiratory: Denies cough, Denies dyspnea, Denies dyspnea on exertion and Denies wheezing Gastrointestinal Gastrointestinal: Denies abdominal pain, Denies change in bowel habits, Denies diarrhea, Denies nausea and Denies vomiting Musculoskeletal Musculoskeletal: Reports abnormal gait, Reports arthralgias, Reports limited range of motion, Denies neck pain and Denies numbness Integumentary/Breasts Skin/Breast: Denies pruritus, Denies erythema, Denies rash and Denies wounds Neurologic Neurologic: Reports abnormal gait, Denies behavioral changes, Denies confusion, Denies dizziness, Denies frequent falls, Denies loss of vision, Denies numbness and Denies weakness Psychiatric Psychiatric: Denies anxiety, Denies behavioral changes, Denies confusion, Denies depression, Denies homicidal ideation and Denies suicidal ideation Endocrine Endocrine: Denies fatigue, Denies flushing and Denies palpitations Hematologic/Lymphatic Hematologic/Lymphatic: Denies easy bruising Allergic/Immunologic Allergic/Immunologic: Denies urticaria, Denies throat swelling and Denies wheezing Patient History Medical History Anxiety (Chronic) Asthma (Acute) 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 Social History marital status: details: bobby Maria, lives in [place] household members: spouse lives independently: Yes caregiver/support person: No housing: house occupational status: disabled Smoking Status: Former smoker quit status: quit date established alcohol intake: former substance use type: does not use Smoking Status: Former smoker alcohol intake frequency: 0-2 drinks per day Substance Use Type: does not use Exam Narrative Exam Narrative: GENERAL: [65] year old patient appears stated age. Well- nourished, well-developed patient, in mild distress. GCS 15 HEAD: Atraumatic. Normocephalic. EYES: Pupils equal round and reactive. Extraocular motions intact. No scleral icterus. No injection or drainage. ENT: Nose without bleeding, purulent drainage. Throat without erythema, tonsillar hypertrophy or exudate. Airway patent. NECK: Trachea midline. Non tender CARDIOVASCULAR: Regular rate and rhythm without murmurs, gallops, or rubs. RESPIRATORY: Clear to auscultation. Breath sounds equal bilaterally. No wheezes, rales, or rhonchi. GASTROINTESTINAL: Abdomen soft, non-tender, nondistended. EXTREMITIES: Pain to R shoulder, R hip, R knee with palpation. Pail to palpation of R calf, no swelling, redness or warmth. BACK: Nontender without deformity or crepitance. No flank tenderness. NEURO: AOx3. SKIN: No rash or erythema of visible areas Initial Vital Signs Initial Vital Signs: Vital Signs Temperature 98.1 F 01/18/20 22:06 Pulse Rate 82 01/18/20 22:06 Respiratory Rate 18 01/18/20 22:06 Blood Pressure 158/81 H 01/18/20 22:06 Pulse Oximetry 99 01/18/20 22:06 Course Orders Ordered: ED Orders 01/18/20 22:29 EKG-12 Lead Stat 01/18/20 22:50 CT cervical spine wo con Stat CT head/brain wo con Stat XR hip w pel if done RT 2V Stat XR knee RT 3V Stat XR shoulder RT min 2V Stat XR tibia fibula RT 2V Stat 01/18/20 23:56 Basic Metabolic Panel Stat Complete Blood Count AUTO DIFF Stat NT-proBNP (BNP-Adult 18+) Stat Troponin & CK Cardiac Panel Stat 01/19/20 02:19 D Dimer Stat Discontinued Medications Diphenhydramine HCl (Benadryl) 25 mg IV NOW ONE Stop: 01/18/20 22:36 Sodium Chloride (Normal Saline 0.9%) 500 mls @ 1,000 mls/hr IV BOLUS ONE Stop: 01/18/20 22:57 Last Admin: 01/18/20 23:59 Dose: 1,000 mls/hr Documented by: CASSI Famotidine (Pepcid) 20 mg in 50 mls @ 200 mls/hr IV NOW ONE Stop: 01/18/20 22:52 Methylprednisolone (Solu-Medrol 125 Mg Vial) 125 mg IV NOW ONE Stop: 01/18/20 22:36 Vital Signs Vital signs: Vital Signs - 8 hr 01/19/20 01:27 Pulse Rate 65 Respiratory Rate 24 Blood Pressure 147/67 H Pulse Oximetry 100 MDM - Head Injury Lab Data Result diagrams: 01/18/20 23:56 01/18/20 23:56 Labs: Lab Results 01/18/20 01/18/20 01/18/20 Range/Units 23:56 23:56 23:56 WBC 7.5 (4.5-11.0) X10^3/uL RBC 4.14 (4.0-5.2) X10^6/uL Hgb 11.7 L (12.0-16.0) g/dL Hct 35.7 L (36-46) % MCV 86.1 (80-100) fL MCH 28.2 (26-34) PG MCHC 32.7 (30-36) % RDW 15.7 H (11.6-14.8) % Plt Count 285 (150-400) X10^3/uL Neut % (Auto) 60.2 (50-75) % Lymph % (Auto) 26.3 (25-40) % [place] % (Auto) 8.2 (3-14) % Eos % (Auto) 4.0 (2-4) % Baso % (Auto) 1.3 (0-2) % Neut # (Auto) 4500 (2630-6901) /uL Lymph # (Auto) 2000 (8241-3565) /uL [place] # (Auto) 600 (0-900) /uL Eos # (Auto) 300 (0-450) /uL Baso # (Auto) 100 (0-100) /uL D-Dimer 540 H (<230) ng/mL Sodium 140 (137-145) mmol/L Potassium 3.9 (3.4-5.1) mmol/L Chloride 106 (98-107) mmol/L Carbon Dioxide 29 (22-32) mmol/L BUN 17 (7-17) mg/dL Creatinine 1.13 H (0.52-1.04) mg/dL Estimated GFR 48.2 L (>60) mL/min BUN/Creatinine Ratio 15.0 (6-22) Glucose 106 (80-110) mg/dL Calcium 9.7 (8.4-10.2) mg/dL Total Creatine Kinase 65 (30-135) U/L CK-MB (CK-2) TNP CK-MB (CK-2) Rel Index TNP Troponin I < 0.012 (0.01-0.034) ng/mL NT-Pro-B Natriuret Pep 134 H (<125) pg/mL Imaging Data Head CT: Radiologist's Impression: No significant abnormality Shoulder Xray: Radiologist's Impression: No significant abnormalities Extremity x-ray #1: Radiologist's Impression: Right knee three view no significant abnormality CT - cervical spine: Radiologist's Impression: No acute process Pelvis and Right Hip: Radiologist's Impression: No significant abnormalities Tib/Fib: Radiologist's Impression: No significant abnormalities MDM Narrative Medical decision making narrative: Patient has mild ?grogginess ?after a ground level fall with head injury. She is very reassuring imaging including head, C- spine and multiple joint images. She is able to ambulate to the department without any significant difficulty. She's been given return precautions, and she has had her questions answered to her apparent satisfaction Discharge Plan Departure Patient Disposition: Home Clinical Impression: Concussion Qualifiers: Encounter type: initial encounter Loss of consciousness presence/duration: without LOC Qualified Code(s): S06.0X0A - Concussion without loss of consciousness, initial encounter Knee sprain Qualifiers: Encounter type: initial encounter Involved ligament of knee: other ligament Laterality: right Qualified Code(s): S83.8X1A - Sprain of other specified parts of right knee, initial encounter Discharge Date/Time: 01/19/20 02:30 Activity Restrictions/Additional Instructions: *You have been diagnosed with [mild concussion after fall. Very reassuring CAT scans and x-rays.] *What to do: *Take medications as directed *Follow up with your primary care provider in 2-3 days, call for an appointment. Let them know you were seen in the Emergency Department and that we ask that you be seen in follow up *Return to ER if you should have any new, worsening or concerning symptoms, such as [ ] Prescriptions: No Action esomeprazole magnesium [Nexium] 40 MG capsule,delayed release(DR/EC) 40 mg PO QDAY Qty: 0 RF: 0 conjugated estrogens [Premarin] 1.25 MG tablet 1.25 mg PO QDAY Qty: 0 RF: 0 amitriptyline 25 MG tablet 25 mg PO QDAY Qty: 0 RF: 0 cetirizine 10 MG tablet 10 mg PO Q DAY Qty: 0 RF: 0 fluticasone propionate 50 mcg/actuation [place],Suspension 1 spray INTRANASAL BID Qty: 0 RF: 0 montelukast [Singulair] 10 MG tablet 10 mg PO DAILY Qty: 0 RF: 0 bupropion HCl [Wellbutrin SR] 150 MG tablet extended release 12 hr 450 mg PO QDAY Qty: 0 RF: 0 lorazepam [Ativan] 1 MG tablet 1 mg PO BIDP PRNQty: 0 RF: 0 telmisartan-hydrochlorothiazid [Micardis HCT] 40 MG/12.5 MG tablet 1 tab PO QDAY Qty: 0 RF: 0 acetaminophen 650 MG tablet extended release 650 mg PO Q8HP PRNQty: 0 RF: 0 dextromethorphan polistirex [Delsym 12 hour] 30 MG/5 ML suspension,extended rel 12 hr 30 mg PO Q12H 10 Days Qty: 0 RF: 0 prednisone 10 mg tablet 10 mg PO DAILY Qty: 30 RF: 0 codeine-guaifenesin [Guaifenesin AC] 10-100 mg/5 mL liquid 5 ml PO Q6H PRN (Reason: cough) Qty: 120 RF: 0 quetiapine 200 mg tablet 200 mg PO DAILY RF: 0 omeprazole 20 mg capsule,delayed release(DR/EC) 40 mg PO BID RF: 0 metoprolol succinate [Toprol XL] 25 mg tablet extended release 24 hr 75 mg PO DAILY RF: 0 simvastatin 20 mg tablet 20 mg PO BEDTIME RF: 0 duloxetine [Cymbalta] 60 mg capsule,delayed release(DR/EC) 60 mg PO DAILY RF: 0 conjugated estrogens [Premarin] 0.625 mg/gram cream 1 applictn VAG DAILY RF: 0 fluticasone propion-salmeterol [Advair Diskus] 500-50 mcg/dose blister with de vice 1 inhalation INHALATION BID RF: 0 (DME) ResMed AirSense 10 CPAP Qty: 1 RF: 0 Referrals: Dennis Melgar [Primary Care Provider] -
[2020-01-18 22:06] VITALS: BP 158/81; PULSE 82; RESP 18; TEMP 36.7; O2SAT 99
--- NOTE | 2020-01-18 22:50 | DI.RAD.S_ITS ---
PROCEDURE: XR HIP W PEL IF DONE RT 2V INDICATIONS: fall with right hip pain TECHNIQUE: AP pelvis with lateral view(s) of the bilateral hip(s). COMPARISON: None. FINDINGS: Bones: No fractures or dislocations. Degenerative changes of the bilateral hip joints. Pelvic ring appears intact. No suspicious bony lesions. Soft tissues: The visualized bowel gas pattern is normal. No suspicious soft tissue calcifications. IMPRESSION: Bilateral hip without acute osseous abnormalities. If there is persistent high clinical concern for occult hip fracture, consider further evaluation with cross-sectional imaging. No significant discrepancy with the substation electrician supervisor radiology preliminary report. Dictated by: Bacilio Rousseau M.D. on 01/19/2020 at 6:54 Approved by: Bacilio Rousseau M.D. on 01/19/2020 at 6:55
--- NOTE | 2020-01-18 22:50 | DI.CT.S_ITS ---
PROCEDURE: CT CERVICAL SPINE WO CON INDICATIONS: fall with neck pain, may be chronic TECHNIQUE: Noncontrast 3 mm thick sections acquired from the skull base to the T4 level. Sagittal and coronal reformats were then constructed. For radiation dose reduction, the following was used: automated exposure control, adjustment of mA and/or kV according to patient size. COMPARISON: None. FINDINGS: Image quality: Excellent. Bones: No acute fractures or dislocations. No acute compression fractures of the vertebral bodies. Craniocervical junction is intact. C1-C2 relationship is preserved. Visualized superior ribs are intact. Straightening of cervical lordosis which may be due to patient positioning and/or concurrent muscle spasms. Multilevel cervical spondylosis most pronounced at C5-6 and C6-7. Soft tissues: Prevertebral soft tissues are normal in thickness. No paravertebral hematomas. No apical pneumothoraces. IMPRESSION: Cervical spine without acute fracture or malalignment. Multilevel cervical spondylosis most pronounced at C5-6 and C6-7 Mild straightening of normal cervical lordosis likely related to positioning and/or concurrent muscle spasms. No significant discrepancy with the hourly shift manager radiology preliminary report. Dictated by: Bacilio Rousseau M.D. on 01/19/2020 at 6:51 Approved by: Bacilio Rousseau M.D. on 01/19/2020 at 6:53
--- NOTE | 2020-01-18 22:50 | DI.RAD.S_ITS ---
PROCEDURE: XR TIBIA FUBULA RT 2V INDICATIONS: fall with niño pain TECHNIQUE: 2 views of the tibia and fibula were acquired. COMPARISON: None. FINDINGS: Bones: No fractures or dislocations. No suspicious bony lesions. Soft tissues: No suspicious soft tissue calcifications or masses. IMPRESSION: Tibia/fibula without acute osseous abnormalities. If there is persistent clinical concern for occult fracture given adequate mechanism of injury, consider repeat imaging in 10-14 days. No significant discrepancy with the assistant shift supervisor radiology preliminary report. Dictated by: Bacilio Rousseau M.D. on 01/19/2020 at 6:58 Approved by: Bacilio Rousseau M.D. on 01/19/2020 at 6:59
--- NOTE | 2020-01-18 22:50 | DI.RAD.S_ITS ---
PROCEDURE: XR KNEE RT 3V INDICATIONS: fall with knee pain TECHNIQUE: 4 views of the knee were acquired. COMPARISON: None. FINDINGS: Bones: No acute fractures or dislocations. No suspicious bony lesions. Superior patellar enthesophyte. Soft tissues: No joint effusion. No suspicious soft tissue calcifications. IMPRESSION: No acute fracture or dislocation. If there is persistent clinical concern for occult fracture given adequate mechanism of injury, consider repeat imaging in 10-14 days. No significant discrepancy with the hooker off radiology preliminary report. Dictated by: Bacilio Rousseau M.D. on 01/19/2020 at 6:55 Approved by: Bacilio Rousseau M.D. on 01/19/2020 at 6:56
--- NOTE | 2020-01-18 22:50 | DI.CT.S_ITS ---
PROCEDURE: CT HEAD/BRAIN WO CON INDICATIONS: fall with head injury TECHNIQUE: Noncontrast 4.5 mm thick angled axial sections acquired from the foramen magnum to the vertex, with coronal and sagittal reformats. For radiation dose reduction, the following was used: automated exposure control, adjustment of mA and/or kV according to patient size. COMPARISON: None. FINDINGS: Image quality: Excellent. CSF spaces: Basal cisterns are patent. No extra-axial fluid collections. The ventricles are symmetric in size and shape. Brain: No intracranial bleeds or masses. There is cerebral volume loss for age, with resultant ventricular and sulcal prominence. There are periventricular and deep white matter chronic small vessel ischemic changes. There is intracranial internal carotid artery atherosclerosis. Skull and face: Calvarium and visualized facial bones appear intact, without suspicious lesions. Sinuses: Visualized sinuses and mastoids are clear. IMPRESSION: 1. CT head without acute intracranial abnormalities or acute calvarial fractures. 2. Age-related senescent changes and sequela of chronic small vessel ischemic disease. No significant discrepancy with the mixer crane operator radiology preliminary report. Dictated by: Bacilio Rousseau M.D. on 01/19/2020 at 6:50 Approved by: Bacilio Rousseau M.D. on 01/19/2020 at 6:51
--- NOTE | 2020-01-18 22:50 | DI.RAD.S_ITS ---
PROCEDURE: XR SHOULDER RT MIN 2V INDICATIONS: fall with shoulder pain TECHNIQUE: 3 views of the shoulder were acquired. COMPARISON: None. FINDINGS: Bones: No acute fractures or dislocations. Degenerative changes of the acromioclavicular joint. Coracoclavicular and acromioclavicular intervals are maintained. No suspicious bony lesions. Visualized ribs appear intact. Soft tissues: No suspicious soft tissue calcifications. IMPRESSION: Right shoulder without acute fracture or dislocation. Degenerative changes of the acromioclavicular joint. No significant discrepancy with the manufacturing shift supervisor radiology preliminary report. Dictated by: Bacilio Rousseau M.D. on 01/19/2020 at 6:57 Approved by: Baiclio Rousseau M.D. on 01/19/2020 at 6:58
[2020-01-18] MEDS: SODIUM CHLORIDE 0.9% 500 ML 1000 ML IV (23:59)
[2020-01-19 00:11] LABS: Add Manual Diff / Slide Review NO; Basophils Absolute Auto 100 /uL (0-100); Basophils Percent Auto 1.3 % (0-2); Eosinophils Absolute Auto 300 /uL (0-450); Hematocrit 35.7 % (36-46); Hemoglobin 11.7 g/dL (12.0-16.0); Lymphocytes Absolute Auto 2000 /uL (1100-4500); Lymphocytes Percent Auto 26.3 % (25-40); Mean Corpuscular HGB Conc 32.7 % (30-36); Mean Corpuscular Hemoglobin 28.2 PG (26-34); Mean Corpuscular Volume 86.1 fL (80-100); Monocytes Absolute Auto 600 /uL (0-900); Monocytes Percent Auto 8.2 % (3-14); Neutrophils Absolute Auto 4500 /uL (1500-7000); Neutrophils Percent Auto 60.2 % (50-75); Platelet Count 285 X10^3/uL (150-400); Red Blood Cell Count 4.14 X10^6/uL (4.0-5.2); Red Cell Distribution Width 15.7 % (11.6-14.8); White Blood Cell Count 7.5 X10^3/uL (4.5-11.0)
[2020-01-19 00:25] LABS: Blood Urea Nitrogen 17 mg/dL (7-17); Calcium 9.7 mg/dL (8.4-10.2); Carbon Dioxide 29 mmol/L (22-32); Chloride 106 mmol/L (98-107); Creatine Kinase 65 U/L (30-135); Estimated Glomerular Filt Rate 48.2 mL/min (>60); Glucose 106 mg/dL (80-110); HEMOLYSIS 16 (0-50); Potassium 3.9 mmol/L (3.4-5.1); Sodium 140 mmol/L (137-145)
[2020-01-19 00:37] LABS: NT-proBNP (BNP-Adult 18+) 134 pg/mL (<125); Troponin I < 0.012 ng/mL (0.01-0.034)
[2020-01-19 01:27] VITALS: BP 147/67; PULSE 65; RESP 24; O2SAT 100
[2020-01-19 02:40] LABS: D Dimer 540 ng/mL (<230)
--- NOTE | 2020-01-19 04:19 | PC.NURSE ---
her iv catheter was d/c'd patent and intact before discharge.site clean and dry.
== END 2020-01-19 02:30 | disposition home or self-care (01) ==
PROVIDERS: Emergency Provider Emergency Medicine; PCP Student in an Organized Health Care Education/Training Program
DX: S06.0X0A Concussion without loss of consciousness, initial encounter (principal); S83.8X1A Sprain of other specified parts of right knee, initial encounter; M79.605 Pain in left leg; W19.XXXA Unspecified fall, initial encounter
CPT/HCPCS: 36415; 70450; 72125; 73030; 73502; 73562; 73590; 80048; 82550; 83880; 84484; 85025; 85379; 99284

== ENCOUNTER → 2020-04-09 11:04 | Outpatient (CLI) | payer MEDICARE, OTHER, SELFPAY ==
--- NOTE | 2020-04-09 11:26 | DI.CT.S_ITS ---
PROCEDURE: CT ABDOMEN PELVIS WO/W CON INDICATIONS: Mixed incontinence TECHNIQUE: Optional 5 mm thick noncontrast images acquired from the diaphragm to the symphysis pubis. After the administration of intravenous contrast, 5 mm thick images acquired from the diaphragm to the symphysis pubis after a 10-minute delay. 2 mm thick coronal and sagittal reformats were then performed of the kidneys and ureters. For radiation dose reduction, the following was used: automated exposure control, adjustment of mA and/or kV according to patient size. COMPARISON: None. FINDINGS: Image quality: Excellent. Lung bases: There is mild scarring in the inferior left lingula. Heart size is normal. Urinary system: The kidneys demonstrate no renal stones or hydronephrosis. There is normal bilateral renal enhancement without a discrete mass. Renal calyces appear normal in morphology when filled with contrast without suspicious filling defects. Opacified portions of both ureters demonstrate normal caliber. Bladder wall thickness is normal. No calcified bladder stones. Other solid organs: Evaluation of the liver demonstrates no focal hepatic lesions. The gallbladder is surgically absent. Biliary system is non-dilated. There is mild fatty atrophy of the pancreas. No peripancreatic fat stranding or fluid collections. No pancreatic duct dilatation. The spleen is normal in size. No adrenal nodules. Peritoneum and bowel: Bowel loops demonstrate normal wall thickness and caliber. No free fluid or air. Nodes and vessels: No retroperitoneal or mesenteric adenopathy by size criteria. Aorta and inferior vena cava are normal in size. Abdominal wall: No ventral hernias. Pelvis: The uterus is surgically absent. No pathologic free pelvic fluid. No inguinal hernias or adenopathy. Bones: No suspicious bony lesions. No vertebral body compression fractures. IMPRESSION: 1. No evidence of nephrolithiasis or suspicious filling defects in the renal collecting systems. 2. No discrete renal mass identified. Dictated by: Daniel Kirk M.D. on 04/09/2020 at 16:07 Approved by: Daniel Kirk M.D. on 04/09/2020 at 16:15
== END ==
PROVIDERS: PCP Student in an Organized Health Care Education/Training Program; Referring Provider Urology; Visit Provider Urology
DX: N39.46 Mixed incontinence (principal)
CPT/HCPCS: 74178; Q9967

== ENCOUNTER 2023-07-28 14:28 | Emergency (ER) | payer MEDICARE, OTHER, SELFPAY ==
[2023-07-28] VITALS (11 sets, daily range): BP systolic 125–158; BP diastolic 67–72; PULSE 69–79; RESP 15–19; TEMP 36.8; O2SAT 95–98; BMI 25.0
--- NOTE | 2023-07-28 14:51 | DI.RAD.S_ITS ---
PROCEDURE: XR CHEST 1V INDICATIONS: chest pain TECHNIQUE: One view of the chest was acquired. COMPARISON: [facility], CR, XR CHEST 1V, 07/08/2018, 13:56. FINDINGS: Surgical changes and devices: None. Lungs and pleura: Mild appearance of increased interstitial prominence. Mediastinum: Mediastinal contours appear normal. Heart size is normal. Bones and chest wall: No suspicious bony lesions. Overlying soft tissues appear unremarkable. IMPRESSION: Mild interstitial prominence which could be related to edema versus potential developing airspace disease such as pneumonia. Dictated by: Krissy Martínez M.D. on 07/28/2023 at 15:22 Approved by: Krissy Martínez M.D. on 07/28/2023 at 15:23
[2023-07-28 15:15] LABS: Add Manual Diff / Slide Review NO; Basophils Absolute Auto 0 /uL (0-100); Basophils Percent Auto 0.8 % (0-2); Eosinophils Absolute Auto 100 /uL (0-450); Eosinophils Percent Auto 0.9 % (2-4); Hematocrit 34.4 % (36-46); Hemoglobin 11.6 g/dL (12.0-16.0); Lymphocytes Absolute Auto 700 /uL (1100-4500); Lymphocytes Percent Auto 12.3 % (25-40); Mean Corpuscular HGB Conc 33.6 % (30-36); Mean Corpuscular Hemoglobin 31.9 PG (26-34); Mean Corpuscular Volume 95.1 fL (80-100); Monocytes Absolute Auto 500 /uL (0-900); Monocytes Percent Auto 8.9 % (3-14); Neutrophils Absolute Auto 4500 /uL (1500-7000); Neutrophils Percent Auto 77.1 % (50-75); Platelet Count 180 X10^3/uL (150-400); Red Blood Cell Count 3.62 X10^6/uL (4.0-5.2); Red Cell Distribution Width 15.6 % (11.6-14.8); White Blood Cell Count 5.9 X10^3/uL (4.5-11.0)
--- NOTE | 2023-07-28 15:17 | DI.CT.S_ITS ---
PROCEDURE: CT CERVICAL SPINE WO CON INDICATIONS: fall with head and neck pain TECHNIQUE: Noncontrast 3 mm thick sections acquired from the skull base to the T4 level. Sagittal and coronal reformats were then constructed. For radiation dose reduction, the following was used: automated exposure control, adjustment of mA and/or kV according to patient size. COMPARISON: [facility], CT, CT CERVICAL SPINE WO CON, 01/18/2020, 22:54. FINDINGS: Image quality: Excellent. Bones: No fractures or dislocations. Visualized superior ribs are intact. Anterior fusion is present at C4-5, C5-6 and C6-7. Soft tissues: Prevertebral soft tissues are normal in thickness. No paravertebral hematomas. No apical pneumothoraces. IMPRESSION: No displaced fracture or traumatic subluxation. Dictated by: Krissy Martínez M.D. on 07/28/2023 at 15:55 Approved by: Krissy Martínez M.D. on 07/28/2023 at 15:58
--- NOTE | 2023-07-28 15:17 | DI.CT.S_ITS ---
PROCEDURE: CT HEAD/BRAIN WO CON INDICATIONS: fall with head and neck pain TECHNIQUE: Noncontrast 4.5 mm thick angled axial sections acquired from the foramen magnum to the vertex, with coronal and sagittal reformats. For radiation dose reduction, the following was used: automated exposure control, adjustment of mA and/or kV according to patient size. COMPARISON: [facility], CT, CT HEAD/BRAIN WO CON, 01/18/2020, 22:54. FINDINGS: Image quality: Diagnostic. CSF spaces: Basal cisterns are patent. No extra-axial fluid collections. Ventricles are normal in size and shape. Brain: No midline shift. No intracranial masses or hemorrhage. Causey-white matter interface is normal. Skull and face: Calvarium and visualized facial bones are intact, without suspicious lesions. Sinuses: Visualized sinuses and mastoids are clear. IMPRESSION: 1. No acute intracranial process. Dictated by: Krissy Martínez M.D. on 07/28/2023 at 16:09 Approved by: Krissy Martínez M.D. on 07/28/2023 at 16:12
[2023-07-28 15:22] LABS: INR 1.1 (0.9-1.3); Prothrombin Time 12.5 SECONDS (9.4-12.5)
[2023-07-28 15:25] LABS: PTT Partial Thromboplastin Tim 37 SECONDS (25.1-36.5)
[2023-07-28] MEDS: MECLIZINE HCL 12.5 MG TABLET 25 MG PO (15:47)
[2023-07-28 16:58] LABS: Alanine Aminotransferase 12 IU/L (<35); Albumin 3.5 g/dL (3.5-5.0); Albumin Globulin Ratio 1.5 (1.0-2.8); Alkaline Phosphatase 63 U/L (38-126); Aspartate Aminotransferase 20 IU/L (14-36); BUN Creatinine Ratio 17.9 (6-22); Bilirubin Total 0.6 mg/dL (0.2-1.3); Blood Urea Nitrogen 14 mg/dL (7-17); Calcium 8.9 mg/dL (8.4-10.2); Carbon Dioxide 26 mmol/L (22-32); Chloride 109 mmol/L (98-107); Creatine Kinase 40 U/L (30-135); Estimated Glomerular Filt Rate > 60 mL/min (>60); Globulin 2.3 g/dL (1.7-4.1); Glucose 95 mg/dL (80-110); HEMOLYSIS 15 (0-50); Lipase 27 U/L (23-300); Magnesium 1.8 mg/dL (1.6-2.3); Potassium 3.6 mmol/L (3.4-5.1); Sodium 137 mmol/L (137-145); Total Protein 5.8 g/dL (6.3-8.2)
[2023-07-28 17:12] LABS: Troponin I < 0.012 ng/mL (0.01-0.034)
--- NOTE | 2023-07-28 17:25 | ED_ITS ---
HPI - Fall General Chief Complaint: Fall Stated Complaint: GLF, Dizzy Time Seen by Provider: 07/28/23 17:06 Source: patient and EMS Mode of arrival: EMS History of Present Illness HPI Narrative: Patient is a 68-year-old female currently being worked up for Meniere's disease presenting today with dizziness and fall. She frequently gets dizzy she needs to walk with a walker and support. She was getting up to go to the restroom the way back she dizzy and fell. She was on the floor for about 45 minutes. Complaining of 9/10 headache. She was given Zofran and morphine by EMS. She hit her head questionable loss of consciousness. She has not on antiplatelet or anticoagulation medication. She was nauseous. Not complaining of significant injury from the fall. She is chronic ongoing back pain her back pain is worse now but denies numbness tingling or weakness in her legs. She got a shingles shot yesterday she was told that she might have flu-like symptoms she has been a little bit weaker since she got the vaccine. Related Data Home Medications Medication Instructions Recorded Confirmed bupropion HCl 150 mg tablet,12 hr 450 mg PO QDAY ##0 02/24/12 08/31/18 sustained-release (Wellbutrin SR) cetirizine 10 mg tablet 10 mg PO Q DAY ##0 02/24/12 08/31/18 conjugated estrogens 1.25 mg 1.25 mg PO QDAY ##0 02/24/12 08/31/18 tablet (Premarin) esomeprazole magnesium 40 mg 40 mg PO QDAY ##0 02/24/12 08/31/18 capsule,delayed release (Nexium) fluticasone propionate 50 1 spray intranasal BID ##0 02/24/12 04/17/19 mcg/actuation nasal spray,suspension montelukast 10 mg tablet 10 mg PO DAILY ##0 02/24/12 04/17/19 (Singulair) acetaminophen 650 mg 650 mg PO Q8HP PRN ##0 04/17/16 08/31/18 tablet,extended release lorazepam 1 mg tablet (Ativan) 1 mg PO BIDP PRN ##0 04/17/16 08/31/18 telmisartan 40 1 tab PO QDAY ##0 04/17/16 08/31/18 mg-hydrochlorothiazide 12.5 mg tablet (Micardis HCT) conjugated estrogens 0.625 mg/gram 1 applictn vaginal DAILY 12/12/17 08/31/18 vaginal cream (Premarin) duloxetine 60 mg capsule,delayed 60 mg PO DAILY 12/12/17 04/17/19 release (Cymbalta) fluticasone 500 mcg-salmeterol 50 1 inhalation inhalation BID 12/12/17 08/31/18 mcg/dose blistr powdr for inhalation (Advair Diskus) simvastatin 20 mg tablet 20 mg PO BEDTIME 12/12/17 04/17/19 ResMed AirSense 10 CPAP #1 ea 05/10/18 08/31/18 metoprolol succinate 25 mg 75 mg PO DAILY 04/17/19 04/17/19 tablet,extended release 24 hr (Toprol XL) omeprazole 20 mg capsule,delayed 40 mg PO BID 04/17/19 04/17/19 release quetiapine 200 mg tablet 200 mg PO DAILY 04/17/19 04/17/19 Previous Rx's Medication Instructions Recorded dextromethorphan polistirex 30 30 mg (5 mL) PO Q12H 10 days #0 mL 04/17/16 mg/5 mL oral susp ext.release 12hr (Delsym 12 hour) codeine 10 mg-guaifenesin 100 mg/5 5 ml PO Q6H PRN cough #120 mL 06/04/18 mL oral liquid (Guaifenesin AC) prednisone 10 mg tablet 10 mg PO DAILY #30 tabs 06/04/18 Allergies Allergy/AdvReac Type Severity Reaction Status Date / Time iodine [IODINE] Allergy Mild Verified 04/17/19 14:24 Sulfa (Sulfonamide Allergy Mild Verified 04/17/19 14:24 Antibiotics) [SULFA (SULFONAMIDE ANTIBIOTICS)] Iodinated Contrast Media Allergy Unknown Verified 04/17/19 14:24 [IODINATED CONTRAST MEDIA - IV DYE] lisinopril [LISINOPRIL] Allergy Unknown Verified 04/17/19 14:24 Patient History Medical History (Updated 07/28/23 @ 18:47 by Kenna Berman DO) Frequent falls Seasonal allergies Asthma Dizziness of unknown etiology Restless leg syndrome Nocturnal hypoxemia Obesity (BMI 30-39.9) GERD (gastroesophageal reflux disease) Anxiety Depression Carrier of fragile X chromosome Hyperlipidemia Hypertension Morbid obesity with BMI of 40.0-44.9, adult Family History Brother Fragile X syndrome in male Mother No problems noted. Social History marital status: details: bobby Maria, lives in [place] household members: spouse lives independently: Yes caregiver/support person: Yes ( acts as her caregiver) housing: house occupational status: disabled Smoking Status: Former smoker quit status: quit date established alcohol intake: former substance use type: does not use Smoking Status: Former smoker alcohol intake frequency: 0-2 drinks per day Substance Use Type: does not use Exam Initial Vital Signs Initial Vital Signs: Vital Signs Pulse Rate 78 07/28/23 14:31 Pulse Oximetry 97 07/28/23 14:31 GENERAL: Alert 68-year-old female HEENT: Head atraumatic,EOMI, pupils reactive, face symmetric, moist mucous membranes NECK: C-collar in place CARDIOVASCULAR: Regular rate and rhythm without murmurs, rubs or gallops. RESPIRATORY: Breath sounds equal bilaterally, no wheezes rales or rhonchi. ABDOMEN: Soft, nontender. Normoactive bowel sounds all 4 quadrants. No guarding or rebound. BACK: No vertebral tenderness some paraspinal lumbar tenderness EXTREMITIES: Normal range of motion, no clubbing or edema. 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 Course Orders Ordered: Discontinued Medications Acetaminophen (Acetaminophen 325 Mg Tablet) 650 mg PO NOW ONE Stop: 07/28/23 17:44 Last Admin: 07/28/23 17:49 Dose: 650 mg Documented By: SHERYL Meclizine HCl (Meclizine Hcl 12.5 Mg Tablet) 25 mg PO NOW ONE Stop: 07/28/23 15:21 Last Admin: 07/28/23 15:47 Dose: 25 mg Documented By: SHERYL Vital Signs Vital signs: Vital Signs - 8 hr 07/28/23 14:37 Temperature 98.3 F Pulse Rate 78 Respiratory Rate 18 Blood Pressure 125/67 Pulse Oximetry 97 Oxygen Delivery Method Room Air MDM - Fall Lab Data 07/28/23 15:05 07/28/23 15:05 Labs: Lab Results 07/28/23 Range/Units 15:05 WBC 5.9 (4.5-11.0) X10^3/uL RBC 3.62 L (4.0-5.2) X10^6/uL Hgb 11.6 L (12.0-16.0) g/dL Hct 34.4 L (36-46) % MCV 95.1 (80-100) fL MCH 31.9 (26-34) PG MCHC 33.6 (30-36) % RDW 15.6 H (11.6-14.8) % Plt Count 180 (150-400) X10^3/uL Neut % (Auto) 77.1 H (50-75) % Lymph % (Auto) 12.3 L (25-40) % [place] % (Auto) 8.9 (3-14) % Eos % (Auto) 0.9 L (2-4) % Baso % (Auto) 0.8 (0-2) % Neut # (Auto) 4500 (3947-8946) /uL Lymph # (Auto) 700 L (9596-3070) /uL [place] # (Auto) 500 (0-900) /uL Eos # (Auto) 100 (0-450) /uL Baso # (Auto) 0 (0-100) /uL PT 12.5 (9.4-12.5) SECONDS INR 1.1 (0.9-1.3) APTT 37 H (25.1-36.5) SECONDS Sodium 137 (137-145) mmol/L Potassium 3.6 (3.4-5.1) mmol/L Chloride 109 H (98-107) mmol/L Carbon Dioxide 26 (22-32) mmol/L BUN 14 (7-17) mg/dL Creatinine 0.78 (0.52-1.04) mg/dL Estimated GFR > 60 (>60) mL/min BUN/Creatinine Ratio 17.9 (6-22) Glucose 95 (80-110) mg/dL Calcium 8.9 (8.4-10.2) mg/dL Magnesium 1.8 (1.6-2.3) mg/dL Total Bilirubin 0.6 (0.2-1.3) mg/dL AST 20 (14-36) IU/L ALT 12 (<35) IU/L Alkaline Phosphatase 63 (38-126) U/L Total Creatine Kinase 40 (30-135) U/L Troponin I < 0.012 (0.01-0.034) ng/mL Total Protein 5.8 L (6.3-8.2) g/dL Albumin 3.5 (3.5-5.0) g/dL Globulin 2.3 (1.7-4.1) g/dL Albumin/Globulin Ratio 1.5 (1.0-2.8) Lipase 27 (23-300) U/L ECG Data Attestation: I personally reviewed and interpreted this ECG as follows: Prior ECG tracings: available for review Interpretation: Sinus rhythm rate 75 OR interval 196 QRS [address] changes no T-wave inversions similar to previous EKGs in 2019 MDM Narrative Medical decision making narrative: Patient is a 59-year-old female who presents today with a ground level fall. She currently has ongoing dizziness be worked up for Meniere's disease. She would up to go the bathroom today when she fell down on the way back. She did hit her head. Imaging has been reviewed CT head, CT cervical spine and chest x-ray do not show any acute abnormalities Blood work has been reviewed she has no evidence of infection CLAIR anemia or electrolyte abnormalities, troponin is negative EKG has been reviewed similar to prior Patient is ambulatory in the ED she does still require a walking device which is normal for her. She has outpatient workup. She was given Tylenol for some pain. She is also complaining of some back pain but has chronic ongoing back pain. She is able to ambulate usually takes Tylenol for it. She is really nontender on her vertebral spine. Unlikely to be acute posterior CVA this has been ongoing for awhile. Discharge Plan Departure Patient Disposition: Home Clinical Impression: Dizziness, Meniere's disease Instructions: How to Prevent Falls Activity Restrictions/Additional Instructions: *You have been diagnosed with dizzy and fall *What to do: At this time I hope that they find something to help your dizziness in your Meniere's disease. Please use a walker. *Continue to take medications as directed Tylenol as needed for pain *Follow up with your primary care provider in 2-3 days or call [phone] *Return to ER if you should have increasing pain falls dizziness vomiting weakness [or] any new, worsening or concerning symptoms Prescriptions: No Action esomeprazole magnesium [Nexium] 40 MG capsule,delayed release(DR/EC) 40 mg PO QDAY Qty: 0 conjugated estrogens [Premarin] 1.25 MG tablet 1.25 mg PO QDAY Qty: 0 cetirizine 10 MG tablet 10 mg PO Q DAY Qty: 0 fluticasone propionate 50 mcg/actuation Dennis,Suspension 1 spray INTRANASAL BID Qty: 0 montelukast [Singulair] 10 MG tablet 10 mg PO DAILY Qty: 0 bupropion HCl [Wellbutrin SR] 150 MG tablet extended release 12 hr 450 mg PO QDAY Qty: 0 lorazepam [Ativan] 1 MG tablet 1 mg PO BIDP PRNQty: 0 telmisartan-hydrochlorothiazid [Micardis HCT] 40 MG/12.5 MG tablet 1 tab PO QDAY Qty: 0 acetaminophen 650 MG tablet extended release 650 mg PO Q8HP PRNQty: 0 dextromethorphan polistirex [Delsym 12 hour] 30 MG/5 ML suspension,extended rel 12 hr 30 mg PO Q12H 10 Days Qty: 0 0RF prednisone 10 mg tablet 10 mg PO DAILY Qty: 30 0RF Rx Instructions: day 1-3: 40 mg once a day day 4-6: 30 mg once a day day 7-9: 20 mg once a day day 10-12: 10 mg once a day codeine-guaifenesin [Guaifenesin AC] 10-100 mg/5 mL liquid 5 ml PO Q6H PRN (Reason: cough) Qty: 120 0RF quetiapine 200 mg tablet 200 mg PO DAILY omeprazole 20 mg capsule,delayed release(DR/EC) 40 mg PO BID metoprolol succinate [Toprol XL] 25 mg tablet extended release 24 hr 75 mg PO DAILY simvastatin 20 mg tablet 20 mg PO BEDTIME duloxetine [Cymbalta] 60 mg capsule,delayed release(DR/EC) 60 mg PO DAILY conjugated estrogens [Premarin] 0.625 mg/gram cream 1 applictn VAG DAILY fluticasone propion-salmeterol [Advair Diskus] 500-50 mcg/dose blister with device 1 inhalation INHALATION BID (DME) ResMed AirSense 10 CPAP Qty: 1 Dose Instruction: As directed Patient Comments: Pressure: 11-15 cmH2O DME: [facility] Rx Instructions: As directed Referrals: Dennis Melgar [Primary Care Provider] - Stand Alone Forms: Patient Portal/API
[2023-07-28] MEDS: ACETAMINOPHEN 325 MG TABLET 650 MG PO (17:49)
== END 2023-07-28 19:01 | disposition home or self-care (01) ==
PROVIDERS: Emergency Provider Emergency Medicine; PCP Student in an Organized Health Care Education/Training Program
DX: R42 Dizziness and giddiness (principal); H81.09 Meniere's disease, unspecified ear; R51.9 Headache, unspecified; W18.30XA Fall on same level, unspecified, initial encounter; R07.9 Chest pain, unspecified
CPT/HCPCS: 36415; 70450; 71045; 72125; 80053; 82550; 83690; 83735; 84484; 85025; 85610; 85730; 93005; 93010; 99283; 99284

== ENCOUNTER 2024-06-20 20:10 | Inpatient (IN) | payer MEDICARE, OTHER, SELFPAY ==
[2024-06-20] VITALS (8 sets, daily range): BP systolic 168–185; BP diastolic 75–80; PULSE 67–71; RESP 16–20; TEMP 37.2–37.9; O2SAT 95–98; BMI 28.1
--- NOTE | 2024-06-20 20:22 | DI.RAD.S_ITS ---
PROCEDURE: XR CHEST 2V INDICATIONS: cough TECHNIQUE: 2 views of the chest were acquired. COMPARISON: [facility], CR, XR CHEST 1V, 07/28/2023, 14:52. FINDINGS: Surgical changes and devices: None. Lungs and pleura: Coarsened appearance bases. Mediastinum: Mediastinal contours are normal. Heart size is normal. Bones and chest wall: No suspicious bony abnormalities. Soft tissues appear unremarkable. IMPRESSION: Mild bibasilar coarsening suggestive of dependent change versus developing pneumonia. Dictated by: Krissy Martínez M.D. on 06/20/2024 at 21:09 Approved by: Krissy Martínez M.D. on 06/20/2024 at 21:09
--- NOTE | 2024-06-20 21:17 | EKG_ITS ---
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
[2024-06-20] MEDS: ACETAMINOPHEN 325 MG TABLET 650 MG PO (21:20)
[2024-06-20 21:21] LABS: Influenza A - CEPHEID Flu A NEGATIVE (NEGATIVE); Influenza B - CEPHEID Flu B NEGATIVE (NEGATIVE); Respiratory Syncytial Virus Negative (Negative)
[2024-06-20] MEDS: ALBUTEROL/IPRATROPIUM 3 ML AMPUL INH (21:21)
[2024-06-20 21:22] LABS: COVID-19 CEPHEID 4-PLEX PCR POSITIVE (Negative)
[2024-06-20 21:58] LABS: Add Manual Diff / Slide Review NO; Basophils Absolute Auto 0 /uL (0-100); Basophils Percent Auto 0.5 % (0-2); Eosinophils Absolute Auto 0 /uL (0-450); Eosinophils Percent Auto 0.2 % (2-4); Hematocrit 35.5 % (36-46); Hemoglobin 12.1 g/dL (12.0-16.0); Lymphocytes Absolute Auto 1200 /uL (1100-4500); Lymphocytes Percent Auto 15.6 % (25-40); Mean Corpuscular HGB Conc 34.2 % (30-36); Mean Corpuscular Hemoglobin 31.8 PG (26-34); Monocytes Absolute Auto 600 /uL (0-900); Monocytes Percent Auto 8.4 % (3-14); Neutrophils Absolute Auto 5600 /uL (1500-7000); Neutrophils Percent Auto 75.3 % (50-75); Platelet Count 214 X10^3/uL (150-400); Red Blood Cell Count 3.82 X10^6/uL (4.0-5.2); Red Cell Distribution Width 14.1 % (11.6-14.8); White Blood Cell Count 7.5 X10^3/uL (4.5-11.0)
[2024-06-20 22:04] LABS: Prothrombin Time 11.5 SECONDS (9.4-12.5)
[2024-06-20 22:07] LABS: PTT Partial Thromboplastin Tim 35 SECONDS (25.1-36.5)
[2024-06-20 22:08] LABS: Alanine Aminotransferase 26 IU/L (<35); Albumin 4.1 g/dL (3.5-5.0); Albumin Globulin Ratio 1.5 (1.0-2.8); Alkaline Phosphatase 86 U/L (38-126); Aspartate Aminotransferase 33 IU/L (14-36); BUN Creatinine Ratio 21.8 (6-22); Bilirubin Total 0.8 mg/dL (0.2-1.3); Blood Urea Nitrogen 17 mg/dL (7-17); Calcium 9.9 mg/dL (8.4-10.2); Carbon Dioxide 30 mmol/L (22-32); Chloride 102 mmol/L (98-107); Creatine Kinase 50 U/L (30-135); Estimated Glomerular Filt Rate > 60 mL/min (>60); Globulin 2.7 g/dL (1.7-4.1); Glucose 105 mg/dL (80-110); HEMOLYSIS < 15 (0-50); Lipase 123 U/L (23-300); Magnesium 1.5 mg/dL (1.6-2.3); Potassium 3.8 mmol/L (3.4-5.1); Sodium 135 mmol/L (137-145); Total Protein 6.8 g/dL (6.3-8.2)
[2024-06-20 22:19] LABS: NT-proBNP (BNP-Adult 18+) 3630 pg/mL (<125)
--- NOTE | 2024-06-20 22:29 | ED.URI ---
HPI - URI/Sore Throat General Chief Complaint: Upper Respiratory Symptoms Stated Complaint: V/D excessive coughing Time Seen by Provider: 06/20/24 22:29 Source: patient Mode of arrival: Wheelchair History of Present Illness HPI Narrative: 69-year-old female with a past medical history hypertension hyperlipidemia comes into the ED from home for evaluation of nausea vomiting diarrhea, also stating been having cough and low pulse ox, according to family patient in the low 90s at home does not require supplemental oxygen at baseline or here. Patient states that she called her primary care doctor and was sent into the ED to rule out pneumonia, states that this all started this morning felt completely fine yesterday. Related Data Home Medications Medication Instructions Recorded Confirmed bupropion HCl 150 mg tablet,12 hr 450 mg PO QDAY ##0 02/24/12 08/06/23 sustained-release (Wellbutrin SR) cetirizine 10 mg tablet 10 mg PO Q DAY ##0 02/24/12 08/06/23 conjugated estrogens 1.25 mg 1.25 mg PO QDAY ##0 02/24/12 08/06/23 tablet (Premarin) esomeprazole magnesium 40 mg 40 mg PO QDAY ##0 02/24/12 08/06/23 capsule,delayed release (Nexium) fluticasone propionate 50 1 spray intranasal BID ##0 02/24/12 08/06/23 mcg/actuation nasal spray,suspension montelukast 10 mg tablet 10 mg PO DAILY ##0 02/24/12 08/06/23 (Singulair) acetaminophen 650 mg 650 mg PO Q8HP PRN ##0 04/17/16 08/06/23 tablet,extended release lorazepam 1 mg tablet (Ativan) 1 mg PO BIDP PRN ##0 04/17/16 08/06/23 telmisartan 40 1 tab PO QDAY ##0 04/17/16 08/06/23 mg-hydrochlorothiazide 12.5 mg tablet (Micardis HCT) conjugated estrogens 0.625 mg/gram 1 applictn vaginal DAILY 12/12/17 08/06/23 vaginal cream (Premarin) duloxetine 60 mg capsule,delayed 60 mg PO DAILY 12/12/17 08/06/23 release (Cymbalta) fluticasone 500 mcg-salmeterol 50 1 inhalation inhalation BID 10/01/18 05/25/24 mcg/dose blistr powdr for inhalation (Advair Diskus) simvastatin 20 mg tablet 20 mg PO BEDTIME 12/12/17 08/06/23 ResMed AirSense 10 CPAP #1 ea 05/10/18 08/06/23 metoprolol succinate 25 mg 75 mg PO DAILY 04/17/19 08/06/23 tablet,extended release 24 hr (Toprol XL) omeprazole 20 mg capsule,delayed 40 mg PO BID 04/17/19 08/06/23 release quetiapine 200 mg tablet 200 mg PO DAILY 04/17/19 08/06/23 Previous Rx's Medication Instructions Recorded dextromethorphan polistirex 30 30 mg (5 mL) PO Q12H 10 days #0 mL 04/17/16 mg/5 mL oral susp ext.release 12hr (Delsym 12 hour) codeine 10 mg-guaifenesin 100 mg/5 5 ml PO Q6H PRN cough #120 mL 06/04/18 mL oral liquid (Guaifenesin AC) prednisone 10 mg tablet 10 mg PO DAILY #30 tabs 06/04/18 Allergies Allergy/AdvReac Type Severity Reaction Status Date / Time iodine [IODINE] Allergy Mild Verified 08/06/23 13:21 Sulfa (Sulfonamide Allergy Mild Verified 08/06/23 13:21 Antibiotics) [SULFA (SULFONAMIDE ANTIBIOTICS)] Iodinated Contrast Media Allergy Unknown Verified 08/06/23 13:21 [IODINATED CONTRAST MEDIA - IV DYE] lisinopril [LISINOPRIL] Allergy Unknown Verified 08/06/23 13:21 Review of Systems Review of Systems Narrative: General: Positive fever, chills, denies weight loss HEENT: Denies headache, eye drainage, eye irritation, head trauma, sore throat, voice change Cardiovascular: Denies any chest pain, palpitations, tachycardia Respiratory: Positive cough denies wheeze stridor GI/: Positive nausea vomiting diarrhea Denies any abdominal pain, bright red blood per rectum, melanotic stools, urinary frequency, urinary retention, dysuria, hematuria MSK: Denies any joint pain, muscle pains, swelling Skin: Denies any rashes, lesions, discoloration Neuro: Denies any headache, lightheadedness, dizziness, fainting, weakness Psych: Denies SI/HI Patient History Medical History Frequent falls Seasonal allergies Asthma Dizziness of unknown etiology Restless leg syndrome Nocturnal hypoxemia Obesity (BMI 30-39.9) GERD (gastroesophageal reflux disease) Anxiety Depression Carrier of fragile X chromosome Hyperlipidemia Hypertension Morbid obesity with BMI of 40.0-44.9, adult Family History Brother Fragile X syndrome in male Mother No problems noted. Social History marital status: details: bobby Maria, lives in [place] household members: spouse lives independently: Yes caregiver/support person: Yes ( acts as her caregiver) housing: house occupational status: disabled Smoking Status: Former smoker quit status: quit date established alcohol intake: former substance use type: does not use Smoking Status: Former smoker alcohol intake frequency: 0-2 drinks per day Exam Initial Vital Signs Initial Vital Signs: Vital Signs Temperature 98.9 F 06/20/24 20:17 Pulse Rate 71 06/20/24 20:17 Respiratory Rate 17 06/20/24 20:17 Blood Pressure 168/75 H 06/20/24 20:17 Pulse Oximetry 96 06/20/24 20:17 Oxygen Delivery Method Room Air 06/20/24 20:17 Course Orders Ordered: ED Orders 06/20/24 20:22 Chest [XR chest 2V] Stat RT Consult Eval and Treat NOW 06/20/24 20:30 Covid-19 + FLU A/B + RSV - PCR Stat 06/20/24 21:17 EKG-12 Lead Stat 06/20/24 21:48 Complete Blood Count AUTO DIFF Stat Comprehensive Metabolic Panel Stat Lipase Stat Magnesium Stat NT-proBNP (BNP-Adult 18+) Stat PTT Partial Thromboplastin Steve Stat Prothrombin Time INR Stat Troponin & CK Cardiac Panel Stat Heparin Sodium/Dextrose (Heparin Drip) 25,000 unit in 500 mls @ 19.595 mls/hr IV CONT CECY; Protocol Discontinued Medications Acetaminophen (Acetaminophen 325 Mg Tablet) 650 mg PO NOW ONE Stop: 06/20/24 21:16 Last Admin: 06/20/24 21:20 Dose: 650 mg Documented By: LADONNA Albuterol/Ipratropium (Albuterol/Ipratropium 3 Ml Ampul) 3 ml INH NOW ONE Stop: 06/20/24 21:15 Last Admin: 06/20/24 21:21 Dose: 3 ml Documented By: VERONIKA Aspirin (Aspirin 81 Mg Chew Tab) 324 mg PO NOW ONE Stop: 06/20/24 21:18 Last Admin: 06/20/24 22:34 Dose: 324 mg Documented By: LADONNA Heparin Sodium (Porcine) (Heparin 5,000 Unit/Ml Vial) 5,000 unit 60 unit/kg (5000 unit) IV NOW ONE Stop: 06/20/24 23:17 Ceftriaxone Sodium 2,000 mg/ (Sodium Chloride) 100 mls @ 200 mls/hr IV NOW ONE Stop: 06/20/24 22:36 Last Admin: 06/20/24 23:05 Dose: 200 mls/hr Documented By: LADONNA Doxycycline Hyclate 100 mg/ (Sodium Chloride) 100 mls @ 100 mls/hr IV NOW ONE Stop: 06/20/24 22:36 Magnesium Sulfate (Magnesium Sulfate) 2 gm in 50 mls @ 150 mls/hr IV NOW ONE Stop: 06/20/24 23:01 Last Infusion: 06/20/24 23:05 Dose: Infused Documented By: LADONNA Co-signed By: KALI Admin: 06/20/24 22:47 Dose: 150 mls/hr Documented By: LADONNA Co-signed By: Ondansetron HCl (Ondansetron 4 Mg/2 Ml Inj) 4 mg IV NOW ONE Stop: 06/20/24 22:29 Last Admin: 06/20/24 22:34 Dose: 4 mg Documented By: LADONNA Vital Signs Vital signs: Vital Signs - 8 hr 06/20/24 20:17 06/20/24 21:24 06/20/24 21:53 Temperature 98.9 F 100.3 F H Pulse Rate 71 71 70 Respiratory Rate 17 18 20 Blood Pressure 168/75 H 185/80 H Pulse Oximetry 96 98 95 Oxygen Delivery Method Room Air Room Air Room Air Fraction of Inspired Oxygen 21 06/20/24 22:00 06/20/24 22:00 06/20/24 22:29 Temperature Pulse Rate 70 68 Respiratory Rate 16 17 Blood Pressure 171/79 H Pulse Oximetry 95 96 Oxygen Delivery Method Room Air Room Air Fraction of Inspired Oxygen 06/20/24 22:30 06/20/24 22:31 06/20/24 22:43 Temperature 100.1 F H Pulse Rate 67 Respiratory Rate 18 Blood Pressure 177/80 H Pulse Oximetry 96 Oxygen Delivery Method Room Air Fraction of Inspired Oxygen MDM - URI/Sore Throat Differential Diagnosis Differential diagnosis: Likely upper respiratory infection, bronchitis and other (COVID, flu, electrolyte abnormality, ACS, pneumonia) Lab Data 06/20/24 21:48 06/20/24 21:48 Labs: Lab Results 06/20/24 06/20/24 Range/Units 20:30 21:48 WBC 7.5 (4.5-11.0) X10^3/uL RBC 3.82 L (4.0-5.2) X10^6/uL Hgb 12.1 (12.0-16.0) g/dL Hct 35.5 L (36-46) % MCV 93.0 (80-100) fL MCH 31.8 (26-34) PG MCHC 34.2 (30-36) % RDW 14.1 (11.6-14.8) % Plt Count 214 (150-400) X10^3/uL Neut % (Auto) 75.3 H (50-75) % Lymph % (Auto) 15.6 L (25-40) % [place] % (Auto) 8.4 (3-14) % Eos % (Auto) 0.2 L (2-4) % Baso % (Auto) 0.5 (0-2) % Neut # (Auto) 5600 (8564-2157) /uL Lymph # (Auto) 1200 (0812-1963) /uL [place] # (Auto) 600 (0-900) /uL Eos # (Auto) 0 (0-450) /uL Baso # (Auto) 0 (0-100) /uL PT 11.5 (9.4-12.5) SECONDS INR 1.0 (0.9-1.3) APTT 35 (25.1-36.5) SECONDS Sodium 135 L (137-145) mmol/L Potassium 3.8 (3.4-5.1) mmol/L Chloride 102 (98-107) mmol/L Carbon Dioxide 30 (22-32) mmol/L BUN 17 (7-17) mg/dL Creatinine 0.78 (0.52-1.04) mg/dL Estimated GFR > 60 (>60) mL/min BUN/Creatinine Ratio 21.8 (6-22) Glucose 105 (80-110) mg/dL Calcium 9.9 (8.4-10.2) mg/dL Magnesium 1.5 L (1.6-2.3) mg/dL Total Bilirubin 0.8 (0.2-1.3) mg/dL AST 33 (14-36) IU/L ALT 26 (<35) IU/L Alkaline Phosphatase 86 (38-126) U/L Total Creatine Kinase 50 (30-135) U/L Troponin I 0.209 H* (0.01-0.034) ng/mL NT-Pro-B Natriuret Pep 3630 H (<125) pg/mL Total Protein 6.8 (6.3-8.2) g/dL Albumin 4.1 (3.5-5.0) g/dL Globulin 2.7 (1.7-4.1) g/dL Albumin/Globulin Ratio 1.5 (1.0-2.8) Lipase 123 (23-300) U/L SARS-CoV-2 (PCR) Positive H (Negative) Influenza A (RT-PCR) Flu a negative (NEGATIVE) Influenza B (RT-PCR) Flu b negative (NEGATIVE) RSV (PCR) Negative (Negative) Imaging Data Chest x-ray: Radiologist's Impression: [address] [address] XRay Report Signed Patient: Michelle Dick MR#: [id number] : 1955 Acct:[id number] Age/Sex: 69 / F Date of Service: 06/20/24 Loc: ED Accession Number: [id number] Procedure: XR chest 2V Ordering Provider: Ramon Shah D.O. PROCEDURE: XR CHEST 2V INDICATIONS: cough TECHNIQUE: 2 views of the chest were acquired. COMPARISON: [facility], , XR CHEST 1V, 07/28/2023, 14:52. FINDINGS: Surgical changes and devices: None. Lungs and pleura: Coarsened appearance bases. Mediastinum: Mediastinal contours are normal. Heart size is normal. Bones and chest wall: No suspicious bony abnormalities. Soft tissues appear unremarkable. IMPRESSION: Mild bibasilar coarsening suggestive of dependent change versus developing pneumonia. ECG Data Interpretation: EKG interpreted ED physician sinus 69 beats per minute QTC [address] changes no STEMI MDM Narrative Medical decision making narrative: 69-year-old female with a past medical history hypertension hyperlipidemia , asthma comes into the ED from home for flu-like symptoms, states he has been having nausea and vomiting diarrhea and cough ongoing persistent since this morning, states that she felt fine yesterday. Patient EKG nonischemic in nature, chest x-ray showing possible developing pneumonia, troponin was elevated at 0.209 with repeat pending, BNP 3630, patient was also found to be COVID positive. Patient states that she does have a history of paroxysmal AFib follows with Dr. Cooney, states that she has not needed rate control or anticoagulation. 2240: Patient was re-evaluated she is stating that she is not sure she is having actual chest pain, she states that she definitely has pressure, she states that she does not know when the chest pain started, she states that the pain does worsen whenever she coughs. Patient was given full-dose aspirin, call placed out to pharmacist apprentice given elevated troponin 2310: Had discussion with pharmacist apprentice Dr. Dawson, believes troponin elevation more likely secondary to COVID/pneumonia, however given COVID being a hypercoagulable state would still recommend anticoagulation with heparin and admission to the hospital, states trending troponin, obtain echo in the morning, states does not need to be transferred for emergent or urgent catheterization at this time. The patient's management plan was discussed Dr. Kauffman, who agrees to admit the patient to their service and assumes care of this patient at this time. Full admission orders will be placed by the primary team. Discharge Plan Departure Patient Disposition: Admitted As Inpatient Clinical Impression: Non-ST elevation [place] (NSTEMI), Pneumonia, COVID
[2024-06-20 22:31] LABS: Troponin I 0.209 ng/mL (0.01-0.034)
[2024-06-20] MEDS: ONDANSETRON 4 MG/2 ML INJ IV (22:34)
[2024-06-20] MEDS: ASPIRIN 81 MG CHEW TAB 324 MG PO (22:34)
[2024-06-20] MEDS: MAGNESIUM SULFATE 2 GM/50 ML PIGGYBACK IV (22:47)
[2024-06-20] MEDS: cefTRIAXone 2,000 MG in SODIUM CHLORIDE 0.9% 100 ML 200 MG IV (23:05)
--- NOTE | 2024-06-20 23:42 | DI.ECHO.S_ITS ---
[place] +---------+ [facility] : : [address] : [address] : : [id number] : : Phone: [phone] Echocardiogram Report + + :Name: EZ MOON Study Date: 06/21/2024 Height: 67 in : :[facility] ReadingLocation: Weight: 180 lb : : Gender: Female BSA: 1.9 m2 : :: 1955 Age: 69 yrs BP: 132/79 mmHg: :Reason For Study: TYPE 2 NSTEMI : :Ordering Physician: JACQUELINE, : :KARINA Irizarry MD Performed By: Cyndi Avila : :Referring: KARINA PHILLIPS MD : + + Interpretation Summary The ejection fraction is estimated to be 55-60%. Diastolic function could not be accurately assessed due to unobtainable data. The left atrium is moderately dilated. The right ventricle is normal in size and function. There is mild mitral regurgitation. There is mild tricuspid regurgitation. Pulmonary artery pressures cannot be estimated because of the lack of a measurable TR jet velocity but the IVC suggests a CVP of around 3 mmHg. Procedure: A two-dimensional transthoracic echocardiogram with color flow and Doppler was performed. The study quality was technically adequate. There is no prior echocardiogram noted for this patient. The patient was in sinus rhythm with heart rates between 60-71 bpm during the exam. Left Ventricle: The left ventricle is normal in size and wall thickness. A false chord is noted (normal variant). The ejection fraction is estimated to be 55-60%. Diastolic function could not be accurately assessed due to unobtainable data. Right Ventricle: The right ventricle is normal in size and function. Atria: The left atrium is moderately dilated. Right atrial size is normal. There is no Doppler evidence for an interatrial shunt. Mitral Valve: The mitral valve leaflets appear mildly thickened, but open well. There is mild mitral regurgitation. Aortic Valve: The aortic valve is trileaflet. The aortic valve opens well. There is no aortic valve stenosis. No aortic regurgitation is present. Tricuspid Valve: The tricuspid valve leaflets are thin and pliable. There is mild tricuspid regurgitation. Pulmonary artery pressures cannot be estimated because of the lack of a measurable TR jet velocity but the IVC suggests a CVP of around 3 mmHg. Pulmonic Valve: The pulmonic valve is not well seen, but is grossly normal. There is trace pulmonic regurgitation. Great Vessels: The aortic root is normal size. The dimensions of the ascending aorta are normal. The IVC is of normal diameter and collapses greater than 50% with a sniff. This suggests a low right atrial pressure of 3 mm Hg. Pericardium/ Pleura There is no pericardial effusion. There is no pleural effusion. MMode/2D Measurements & Calculations LVIDd: 5.4 cm LVOT diam: 2.0 cm LVIDs: 3.5 cm Ao root diam: 3.1 cm FS: 34.4 % asc Aorta Diam: 3.3 cm EPSS: 0.66 cm IVSd: 1.0 cm LVPWd: 0.83 cm LV singletary. diameter/BSA (cm/m^2): 2.8 LV sys. diameter/BSA (cm/m^2): 1.8 LA A2 area: 24.6 cm2 RA long axis: 4.4 cm LA A4 area: 21.4 cm2 RA area: 12.7 cm2 LA length (vol): 5.4 cm RA vol: 31.2 ml LA vol: 82.2 ml RA : 16.1 ml/m2 LA vol index: 42.5 ml/m2 IVC diam: 1.8 cm RVD1 (basal): 2.8 cm RVD2 (mid): 2.7 cm TAPSE: 1.7 cm Doppler Measurements & Calculations Ao V2 max: 144.9 cm/sec LVOT Max Eren: 102.4 cm/sec Ao V2 mean: 108.9 cm/sec LV V1 max P.2 mmHg Ao max P.4 mmHg LV V1 VTI: 18.9 cm Ao mean P.0 mmHg MIRTHA(I,D): 1.8 cm2 Ao V2 VTI: 34.2 cm MIRTHA(V,D): 2.3 cm2 sev ratio: 0.55 MIRTHA indexed to BSA (cm^2/m^2): 0.94 MV E max eren: 88.0 cm/sec PA V2 max: 135.6 cm/sec MV A max eren: 88.9 cm/sec PA V2 mean: 87.4 cm/sec MV E/A: 0.99 PA mean P.5 mmHg Med Peak E' Eren: 7.3 cm/sec PA pr(Accel): 40.5 mmHg E/E' med: 12.0 Lat Peak E' Eren: 9.2 cm/sec E/E' lat: 9.6 E/e' average: 10.8 MV dec time: 0.17 sec SV(LVOT): 62.4 ml Reading Physician:12:04 PM
[2024-06-20] MEDS: DOXYCYCLINE 100 MG in SODIUM CHLORIDE 0.9% 100 ML IV (23:43)
--- NOTE | 2024-06-20 23:46 | PM.HP.1 ---
History of Present Illness History of Present Illness Chief complaint: V/D excessive coughing Narrative: A 69F with PMH of PAF not on anticoagulation, HTN, hyperlipidemia, RLS, asthma without home O2, GERD, anxiety/depression presented to ED with 1 day h/o nausea, vomiting, diarrhea, cough, hypoxia to low 90s at home. She was directed to ED by PCP. She also had chest pressure. On initial ED evaluation, she was found to be positive for COVID-19 but negative for RSV or influenza. CXR showed bibasilar changes c/c pneumonia. Troponin was elevated at 0.209 with BNP 3630. EKG showed no acute changes. ED attending stated that he spoke with cardiology - Dr. Dawson - who stated this was likely Type 2 NSTEMI but still recommended 24 hours of heparin drip (which was started) and echocardiogram. No transfer or cath was necessary at this time. ASA 325 mg was given. She was also in hypertensive urgency at 177/80 but currently is 150s systolic. Tmax was 100.1 F. Chest pressure is worse with coughing. Rocephin, doxycycline were given. She is on RA oxygen. On my exam, she is on RA. C/o some chest discomfort. Also some weakness but not worse than usual. BP 153/80s. [facility] Medical History Frequent falls Seasonal allergies Asthma Dizziness of unknown etiology Restless leg syndrome Nocturnal hypoxemia Obesity (BMI 30-39.9) GERD (gastroesophageal reflux disease) Anxiety Depression Carrier of fragile X chromosome Hyperlipidemia Hypertension Morbid obesity with BMI of 40.0-44.9, adult Family History Brother Fragile X syndrome in male Mother No problems noted. Social History marital status: details: bobby Maria, lives in [place] household members: spouse lives independently: Yes caregiver/support person: Yes ( acts as her caregiver) housing: house occupational status: disabled Smoking Status: Former smoker quit status: quit date established alcohol intake: former substance use type: does not use Meds Home Medications and Allergies Home Medications Medication Instructions Recorded Confirmed Type bupropion HCl 150 mg tablet,12 hr 450 mg PO QDAY ##0 02/24/12 08/06/23 History sustained-release (Wellbutrin SR) cetirizine 10 mg tablet 10 mg PO Q DAY ##0 02/24/12 08/06/23 History conjugated estrogens 1.25 mg 1.25 mg PO QDAY ##0 02/24/12 08/06/23 History tablet (Premarin) esomeprazole magnesium 40 mg 40 mg PO QDAY ##0 02/24/12 08/06/23 History capsule,delayed release (Nexium) fluticasone propionate 50 1 spray intranasal BID ##0 02/24/12 08/06/23 History mcg/actuation nasal spray,suspension montelukast 10 mg tablet 10 mg PO DAILY ##0 02/24/12 08/06/23 History (Singulair) acetaminophen 650 mg 650 mg PO Q8HP PRN ##0 04/17/16 08/06/23 History tablet,extended release dextromethorphan polistirex 30 30 mg (5 mL) PO Q12H 10 days #0 mL 04/17/16 08/06/23 Rx mg/5 mL oral susp ext.release 12hr (Delsym 12 hour) lorazepam 1 mg tablet (Ativan) 1 mg PO BIDP PRN ##0 04/17/16 08/06/23 History telmisartan 40 1 tab PO QDAY ##0 04/17/16 08/06/23 History mg-hydrochlorothiazide 12.5 mg tablet (Micardis HCT) conjugated estrogens 0.625 mg/gram 1 applictn vaginal DAILY 12/12/17 08/06/23 History vaginal cream (Premarin) duloxetine 60 mg capsule,delayed 60 mg PO DAILY 12/12/17 08/06/23 History release (Cymbalta) fluticasone 500 mcg-salmeterol 50 1 inhalation inhalation BID 12/12/17 08/06/23 History mcg/dose blistr powdr for inhalation (Advair Diskus) simvastatin 20 mg tablet 20 mg PO BEDTIME 12/12/17 08/06/23 History ResMed AirSense 10 CPAP #1 ea 05/10/18 08/06/23 History codeine 10 mg-guaifenesin 100 mg/5 5 ml PO Q6H PRN cough #120 mL 06/04/18 08/06/23 Rx mL oral liquid (Guaifenesin AC) prednisone 10 mg tablet 10 mg PO DAILY #30 tabs 06/04/18 08/06/23 Rx metoprolol succinate 25 mg 75 mg PO DAILY 04/17/19 08/06/23 History tablet,extended release 24 hr (Toprol XL) omeprazole 20 mg capsule,delayed 40 mg PO BID 04/17/19 08/06/23 History release quetiapine 200 mg tablet 200 mg PO DAILY 04/17/19 08/06/23 History Allergies Allergy/AdvReac Type Severity Reaction Status Date / Time iodine [IODINE] Allergy Mild Verified 08/06/23 13:21 Sulfa (Sulfonamide Allergy Mild Verified 08/06/23 13:21 Antibiotics) [SULFA (SULFONAMIDE ANTIBIOTICS)] Iodinated Contrast Media Allergy Unknown Verified 08/06/23 13:21 [IODINATED CONTRAST MEDIA - IV DYE] lisinopril [LISINOPRIL] Allergy Unknown Verified 08/06/23 13:21 Review of Systems Review of Systems Narrative: As per HPI. Rest of 10-system review negative. Exam Vital Signs (past 8 hours): - 06/20/24 20:17 06/20/24 21:24 06/20/24 21:53 Temperature 98.9 F 100.3 F H Pulse Rate 71 71 70 Respiratory Rate 17 18 20 Blood Pressure 168/75 H 185/80 H Pulse Oximetry 96 98 95 Oxygen Delivery Method Room Air Room Air Room Air Fraction of Inspired Oxygen 21 06/20/24 22:00 06/20/24 22:00 06/20/24 22:29 Temperature Pulse Rate 70 68 Respiratory Rate 16 17 Blood Pressure 171/79 H Pulse Oximetry 95 96 Oxygen Delivery Method Room Air Room Air Fraction of Inspired Oxygen 06/20/24 22:30 06/20/24 22:31 06/20/24 22:43 Temperature 100.1 F H Pulse Rate 67 Respiratory Rate 18 Blood Pressure 177/80 H Pulse Oximetry 96 Oxygen Delivery Method Room Air Fraction of Inspired Oxygen Fraction of Inspired Oxygen 21 SaO2/FiO2 Ratio 466 Oxygen Delivery Method Room Air Narrative Exam Narrative: telemedicine exam with camera and digital stethoscope with RN assistance. Const Other: AA, NAD. HENMT Other: NC/AT, wearing mask. Eyes Other: anicteric. Makes good eye contact Neck Other: supple Resp Other: decreased breath sounds Lower>upper b/l. Coarse. No wheeze Cardio Other: RRR GI Other: S/NT/ND/+BS Skin Other: No rash evident Neuro Other: Normal speech Extrem Other: no edema Psych Other: normal mood Objective ECG Impression: No acute findings. SR. Qtc 432 Imaging Chest x-ray: Radiologist's impression: Mild bibasilar coarsening suggestive of dependent change versus developing pneumonia. Labs 06/20/24 21:48 06/20/24 21:48 Labs: Laboratory Results - last 24 hr 06/20/24 06/20/24 20:30 21:48 WBC 7.5 RBC 3.82 L Hgb 12.1 Hct 35.5 L MCV 93.0 MCH 31.8 MCHC 34.2 RDW 14.1 Plt Count 214 Neut % (Auto) 75.3 H Lymph % (Auto) 15.6 L [place] % (Auto) 8.4 Eos % (Auto) 0.2 L Baso % (Auto) 0.5 Neut # (Auto) 5600 Lymph # (Auto) 1200 [place] # (Auto) 600 Eos # (Auto) 0 Baso # (Auto) 0 PT 11.5 INR 1.0 APTT 35 Sodium 135 L Potassium 3.8 Chloride 102 Carbon Dioxide 30 BUN 17 Creatinine 0.78 Estimated GFR > 60 BUN/Creatinine Ratio 21.8 Glucose 105 Calcium 9.9 Magnesium 1.5 L Total Bilirubin 0.8 AST 33 ALT 26 Alkaline Phosphatase 86 Total Creatine Kinase 50 Troponin I 0.209 H* NT-Pro-B Natriuret Pep 3630 H Total Protein 6.8 Albumin 4.1 Globulin 2.7 Albumin/Globulin Ratio 1.5 Lipase 123 SARS-CoV-2 (PCR) Positive H Influenza A (RT-PCR) Flu a negative Influenza B (RT-PCR) Flu b negative RSV (PCR) Negative Assessment & Plan Assessment and plan (1) Non-ST elevation HI (NSTEMI): Status: Acute (2) COVID: Status: Acute (3) Pneumonia: Status: Acute Assessment & Plan narrative: 1. Acute COVID-19 infection and bilateral pneumonia, without sepsis, without acute hypoxic respiratory failure, POA 2. Acute Type 2 NSTEMI related to #1, POA 3. HTN urgency, POA 4. PAF 5. HTN, hyperlipidemia 6. RLS 7. Depression 8. Overweight status BMI 28 9. GERD 10. [place] on home CPAP Plan: 1. Admit to SDU/ICU, telemetry, continuous pulse ox, inpatient 2. O2 to SaO2 >91% 3. Duoneb prn 4. s/p antibiotics. Reassess need for antibiotics in AM as no leucocytosis, hypoxia, or sepsis. Bibasilar findings may be viral 5. continue home cardiac meds - ARB, thiazide, statin, BB 6. Heparin drip per protocol to 06/21 evening 7. Echocardiogram 8. t/c formal cardiology consult if abnormal cardiac findings 9. continue wellbutrin to avoid withdrawal. continue duloxetine 10. PPI 11. CMP, CBC, Mg in AM 12. trend troponins 13. Fall precautions 14. airborne/droplet/contact precautions Code: Full Diet: cardiac DVT prophylaxis: UFH gtt Time-Based Coding :: [TOTAL MINUTES] spent with patient and on the chart (including review of chart, obtaining history, exam, reviewing outside data, placing orders, documenting exam and treatment plan, and counseling patient) on [DATE].
[2024-06-21] VITALS (7 sets, daily range): BP systolic 108–154; BP diastolic 64–90; PULSE 61–75; RESP 16–18; TEMP 36.7–37.1; O2SAT 93–97; BMI 28.1
[2024-06-21 00:06] LABS: Troponin I 0.349 ng/mL (0.01-0.034)
[2024-06-21] MEDS: HEPARIN 5,000 UNIT/ML VIAL 5000 UNIT IV (00:06)
[2024-06-21] MEDS: HEPARIN DRIP 25,000 UNIT/500 ML IV.SOLN 19.595 UNIT IV (01:10)
[2024-06-21] MEDS: BENZONATATE 100 MG CAPSULE PO ×2 (03:10→20:53)
[2024-06-21] MEDS: ACETAMINOPHEN 325 MG TABLET 650 MG PO ×3 (03:10→18:36)
[2024-06-21] MEDS: guaiFENesin ER 600 MG TAB PO (03:30)
[2024-06-21 03:34] LABS: Troponin I 0.569 ng/mL (0.01-0.034)
[2024-06-21 08:01] LABS: Add Manual Diff / Slide Review NO; Basophils Absolute Auto 0 /uL (0-100); Basophils Percent Auto 0.3 % (0-2); Eosinophils Absolute Auto 0 /uL (0-450); Eosinophils Percent Auto 0.2 % (2-4); Hematocrit 32.5 % (36-46); Hemoglobin 11.2 g/dL (12.0-16.0); Lymphocytes Absolute Auto 1100 /uL (1100-4500); Mean Corpuscular HGB Conc 34.4 % (30-36); Mean Corpuscular Hemoglobin 31.9 PG (26-34); Mean Corpuscular Volume 92.7 fL (80-100); Monocytes Absolute Auto 800 /uL (0-900); Monocytes Percent Auto 10.6 % (3-14); Neutrophils Absolute Auto 5200 /uL (1500-7000); Neutrophils Percent Auto 73.9 % (50-75); Platelet Count 184 X10^3/uL (150-400); Red Blood Cell Count 3.51 X10^6/uL (4.0-5.2); Red Cell Distribution Width 13.5 % (11.6-14.8); White Blood Cell Count 7.1 X10^3/uL (4.5-11.0)
[2024-06-21 08:09] LABS: INR 1.1 (0.9-1.3); Prothrombin Time 12.2 SECONDS (9.4-12.5)
[2024-06-21 08:16] LABS: PTT Partial Thromboplastin Tim 74 SECONDS (25.1-36.5)
[2024-06-21 08:19] LABS: Alanine Aminotransferase 21 IU/L (<35); Albumin 3.5 g/dL (3.5-5.0); Albumin Globulin Ratio 1.5 (1.0-2.8); Alkaline Phosphatase 84 U/L (38-126); Aspartate Aminotransferase 29 IU/L (14-36); BUN Creatinine Ratio 20.3 (6-22); Bilirubin Total 0.6 mg/dL (0.2-1.3); Blood Urea Nitrogen 15 mg/dL (7-17); Calcium 9.1 mg/dL (8.4-10.2); Carbon Dioxide 29 mmol/L (22-32); Chloride 102 mmol/L (98-107); Estimated Glomerular Filt Rate > 60 mL/min (>60); Globulin 2.3 g/dL (1.7-4.1); Glucose 91 mg/dL (80-110); HEMOLYSIS < 15 (0-50); Potassium 3.6 mmol/L (3.4-5.1); Sodium 135 mmol/L (137-145); Total Protein 5.8 g/dL (6.3-8.2)
[2024-06-21] MEDS: HEPARIN DRIP 25,000 UNIT/500 ML IV.SOLN 17.962 UNIT IV (08:24)
--- NOTE | 2024-06-21 08:40 | PM.PN.1 ---
Subjective Subjective Date Patient Seen: 06/21/24 Interval history: Chief complaint: Non STEMI probably type 2 with chest pain secondary to hypoperfusion caused by COVID with nausea vomiting diarrhea cough and hypoxia History of present illness: A 69F with PMH of PAF not on anticoagulation, HTN, hyperlipidemia, RLS, asthma without home O2, GERD, anxiety/depression presented to ED with 1 day h/o nausea, vomiting, diarrhea, cough, hypoxia to low 90s at home. She was directed to ED by PCP. She also had chest pressure. On initial ED evaluation, she was found to be positive for COVID-19 but negative for RSV or influenza. CXR showed bibasilar changes c/c pneumonia. Troponin was elevated at 0.209 with BNP 3630. EKG showed no acute changes. ED attending stated that he spoke with cardiology - Dr. Dawson - who stated this was likely Type 2 NSTEMI but still recommended 24 hours of heparin drip (which was started) and echocardiogram. No transfer or cath was necessary at this time. ASA 325 mg was given. She was also in hypertensive urgency at 177/80 but currently is 150s systolic. Tmax was 100.1 F. Chest pressure is worse with coughing. Rocephin, doxycycline were given. She is on RA oxygen. On my exam, she is on RA. C/o some chest discomfort. Also some weakness but not worse than usual. BP 153/80s. Hospital course: 06/21: Slight progression of troponin to Review of systems: No loss of consciousness new line no chest pain new line No paresthesia Physical exam: General no acute distress breathing comfortably on room air new line HEENT unremarkable new line Heart rate rhythm regular Lungs with crackles throughout lung padron and shortened respiratory phases Abdomen nontender bowel sounds present new line Extremities no edema Neuro alert and oriented nonfocal Assessment and plan: Acute COVID 19 infection with bilateral pneumonia Loading dose of remdesivir Azithromycin ceftriaxone for possible COVID infection Decadron 6 mg IV daily Prone breathing if tolerated Non STEMI probably type 2 demand perfusion mismatch likely secondary to above. For cardiology no indication for acute Interventional catheterization Dual platelet aspirin Plavix, heparin drip, nitrates for symptoms, supplemental oxygen, serial troponin Echocardiogram Obesity with obstructive sleep apnea on home CPAP Continue CPAP Complicates outcome in COVID pneumonitis Paroxysmal atrial fibrillation rate controlled presently On IV heparin Consider long-term anticoagulation Mood disorder on antidepressant medication Continue antidepressant medication DVT prophylaxis covered with heparin Full code blue 55 minutes were involved in the management of his care discussion with consultants other physicians review of the chart and patient contact Exam Vital Signs (past 8 hours): - 06/21/24 03:01 06/21/24 04:00 Temperature 98.7 F Pulse Rate 61 Respiratory Rate 16 Blood Pressure 132/79 Pulse Oximetry 96 Oxygen Delivery Method Room Air Oxygen Flow Rate 0 Fraction of Inspired Oxygen 21 SaO2/FiO2 Ratio 466 Oxygen Delivery Method Room Air Oxygen Flow Rate 0 Objective Labs 06/21/24 07:14 06/21/24 07:14 Labs: Laboratory Results - last 24 hr 06/20/24 06/20/24 06/20/24 20:30 21:48 23:35 WBC 7.5 RBC 3.82 L Hgb 12.1 Hct 35.5 L MCV 93.0 MCH 31.8 MCHC 34.2 RDW 14.1 Plt Count 214 Neut % (Auto) 75.3 H Lymph % (Auto) 15.6 L [place] % (Auto) 8.4 Eos % (Auto) 0.2 L Baso % (Auto) 0.5 Neut # (Auto) 5600 Lymph # (Auto) 1200 [place] # (Auto) 600 Eos # (Auto) 0 Baso # (Auto) 0 PT 11.5 INR 1.0 APTT 35 Sodium 135 L Potassium 3.8 Chloride 102 Carbon Dioxide 30 BUN 17 Creatinine 0.78 Estimated GFR > 60 BUN/Creatinine Ratio 21.8 Glucose 105 Calcium 9.9 Magnesium 1.5 L Total Bilirubin 0.8 AST 33 ALT 26 Alkaline Phosphatase 86 Total Creatine Kinase 50 Troponin I 0.209 H* 0.349 H* NT-Pro-B Natriuret Pep 3630 H Total Protein 6.8 Albumin 4.1 Globulin 2.7 Albumin/Globulin Ratio 1.5 Lipase 123 SARS-CoV-2 (PCR) Positive H Influenza A (RT-PCR) Flu a negative Influenza B (RT-PCR) Flu b negative RSV (PCR) Negative 06/21/24 06/21/24 02:55 07:14 WBC 7.1 RBC 3.51 L Hgb 11.2 L Hct 32.5 L MCV 92.7 MCH 31.9 MCHC 34.4 RDW 13.5 Plt Count 184 Neut % (Auto) 73.9 Lymph % (Auto) 15.0 L [place] % (Auto) 10.6 Eos % (Auto) 0.2 L Baso % (Auto) 0.3 Neut # (Auto) 5200 Lymph # (Auto) 1100 [place] # (Auto) 800 Eos # (Auto) 0 Baso # (Auto) 0 PT 12.2 INR 1.1 APTT 74 H* D Sodium Potassium Chloride Carbon Dioxide BUN Creatinine Estimated GFR BUN/Creatinine Ratio Glucose Calcium Magnesium Total Bilirubin AST ALT Alkaline Phosphatase Total Creatine Kinase Troponin I 0.569 H* NT-Pro-B Natriuret Pep Total Protein Albumin Globulin Albumin/Globulin Ratio Lipase SARS-CoV-2 (PCR) Influenza A (RT-PCR) Influenza B (RT-PCR) RSV (PCR) [facility] Medical History Frequent falls Seasonal allergies Asthma Dizziness of unknown etiology Restless leg syndrome Nocturnal hypoxemia Obesity (BMI 30-39.9) GERD (gastroesophageal reflux disease) Anxiety Depression Carrier of fragile X chromosome Hyperlipidemia Hypertension Morbid obesity with BMI of 40.0-44.9, adult Family History Brother Fragile X syndrome in male Mother No problems noted. Social History marital status: details: bobby Maria, lives in [place] household members: spouse lives independently: Yes caregiver/support person: Yes ( acts as her caregiver) housing: house occupational status: disabled Smoking Status: Former smoker quit status: quit date established alcohol intake: former substance use type: does not use Assessment & Plan Time-Based Coding :: [TOTAL MINUTES] spent with patient and on the chart (including review of chart, obtaining history, exam, reviewing outside data, placing orders, documenting exam and treatment plan, and counseling patient) on [DATE].
[2024-06-21 09:01] LABS: Troponin I 0.464 ng/mL (0.01-0.034)
--- NOTE | 2024-06-21 09:33 | EKG_ITS ---
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
[2024-06-21] MEDS: MONTELUKAST 10 MG TABLET PO (10:50)
[2024-06-21] MEDS: PANTOPRAZOLE DR 40 MG TABLET PO (10:51)
[2024-06-21] MEDS: buPROPion SR 150 MG TAB 450 MG PO (10:51)
[2024-06-21] MEDS: REMDESIVIR 200 MG in SODIUM CHLORIDE 0.9% 250 ML 250 MG IV (10:56)
[2024-06-21] MEDS: OXYCODONE IR 5 MG TABLET PO (10:58)
[2024-06-21] MEDS: DEXAMETHASONE 10 MG/ML VIAL 6 MG IV (11:02)
[2024-06-21 11:21] LABS: Appearance Urine UA CLEAR; Bilirubin Urine UA NEGATIVE (NEGATIVE); Color Urine UA YELLOW; Glucose Urine UA NEGATIVE (Negative); Ketones Urine UA NEGATIVE (NEGATIVE); Leukocyte Esterase Urine UA NEGATIVE (NEGATIVE); Nitrite Urine UA NEGATIVE (Negative); Occult Blood Urine UA NEGATIVE (Negative); Protein Urine UA NEGATIVE (Negative); Specific Gravity Urine UA 1.025 (1.000-1.035)
[2024-06-21 11:53] LABS: Bacteria Urine None Seen; Culture Indicated Urine Cult Not Indicated; Hyaline Casts Urine 1-5/LPF; RBC Urine 1-5/HPF (0-5/HPF); Squamous Epithelial Cell Urine 1-5 /HPF (0-5/HPF); Urine Volume 10mL (spun); WBC Urine 1-5/HPF (0-5/HPF)
[2024-06-21 15:37] LABS: PTT Partial Thromboplastin Tim 68 SECONDS (25.1-36.5)
[2024-06-21 16:03] LABS: Troponin I 0.301 ng/mL (0.01-0.034)
[2024-06-21] MEDS: cefTRIAXone 1,000 MG in SODIUM CHLORIDE 0.9% 100 ML 200 MG IV (17:15)
[2024-06-21] MEDS: AZITHROMYCIN 250 MG TABLET 500 MG PO (17:15)
[2024-06-21] MEDS: ALBUTEROL/IPRATROPIUM 3 ML AMPUL INH (19:52)
[2024-06-21] MEDS: BUDESONIDE 0.5 MG/2 ML NEB INH (19:52)
[2024-06-21] MEDS: ATORVASTATIN 20 MG TABLET 10 MG PO (20:53)
[2024-06-21] MEDS: FLECAINIDE 100 MG TABLET PO (20:53)
[2024-06-21 22:32] LABS: PTT Partial Thromboplastin Tim 63 SECONDS (25.1-36.5)
[2024-06-21 22:48] LABS: Troponin I 0.185 ng/mL (0.01-0.034)
[2024-06-22] VITALS (9 sets, daily range): BP systolic 107–159; BP diastolic 59–79; PULSE 54–99; RESP 15–24; TEMP 36.5–37.3; O2SAT 95–100
[2024-06-22] MEDS: TRAZODONE 50 MG TABLET 100 MG PO ×2 (02:56→22:25)
[2024-06-22] MEDS: HEPARIN DRIP 25,000 UNIT/500 ML IV.SOLN 17.962 UNIT IV (04:20)
[2024-06-22 05:53] LABS: INR 1.1 (0.9-1.3); Prothrombin Time 12.2 SECONDS (9.4-12.5)
[2024-06-22 05:55] LABS: PTT Partial Thromboplastin Tim 45 SECONDS (25.1-36.5)
[2024-06-22 06:14] LABS: Magnesium 1.7 mg/dL (1.6-2.3)
[2024-06-22 06:36] LABS: Add Manual Diff / Slide Review NO; Basophils Absolute Auto 0 /uL (0-100); Basophils Percent Auto 0.4 % (0-2); Eosinophils Absolute Auto 0 /uL (0-450); Eosinophils Percent Auto 0.1 % (2-4); Hematocrit 30.8 % (36-46); Hemoglobin 10.5 g/dL (12.0-16.0); Lymphocytes Absolute Auto 900 /uL (1100-4500); Lymphocytes Percent Auto 20.1 % (25-40); Mean Corpuscular HGB Conc 34.2 % (30-36); Mean Corpuscular Hemoglobin 31.4 PG (26-34); Monocytes Absolute Auto 600 /uL (0-900); Monocytes Percent Auto 13.9 % (3-14); Neutrophils Absolute Auto 2900 /uL (1500-7000); Neutrophils Percent Auto 65.5 % (50-75); Platelet Count 177 X10^3/uL (150-400); Red Blood Cell Count 3.35 X10^6/uL (4.0-5.2); Red Cell Distribution Width 13.7 % (11.6-14.8); White Blood Cell Count 4.5 X10^3/uL (4.5-11.0)
[2024-06-22 07:05] LABS: BUN Creatinine Ratio 22.4 (6-22); Blood Urea Nitrogen 19 mg/dL (7-17); Calcium 8.8 mg/dL (8.4-10.2); Carbon Dioxide 27 mmol/L (22-32); Chloride 104 mmol/L (98-107); Estimated Glomerular Filt Rate > 60 mL/min (>60); Glucose 93 mg/dL (80-110); HEMOLYSIS < 15 (0-50); Potassium 3.5 mmol/L (3.4-5.1); Sodium 134 mmol/L (137-145)
--- NOTE | 2024-06-22 07:28 | PC.NURSE ---
@ 0214 [address]UN[address] Cosmo Tejada notified this RN that PT had 7 beats of V tach. Upon assessment, pt remains asymptomatic, with no significant change in vital signs. Provider Dr. Mary Kay Pritchard & extension service specialist in charge notified. AM labs drawn early, results WNL. Heparin drip continues to run @ 11 u/kg/hr per protocol (see flowsheet) Care/monitoring ongoing.
--- NOTE | 2024-06-22 07:45 | PM.PN.1 ---
Subjective Subjective Date Patient Seen: 06/22/24 Interval history: Chief complaint: Non STEMI probably type 2 with chest pain secondary to hypoperfusion caused by COVID with nausea vomiting diarrhea cough and hypoxia History of present illness: A 69F with PMH of PAF not on anticoagulation, HTN, hyperlipidemia, RLS, asthma without home O2, GERD, anxiety/depression presented to ED with 1 day h/o nausea, vomiting, diarrhea, cough, hypoxia to low 90s at home. She was directed to ED by PCP. She also had chest pressure. On initial ED evaluation, she was found to be positive for COVID-19 but negative for RSV or influenza. CXR showed bibasilar changes c/c pneumonia. Troponin was elevated at 0.209 with BNP 3630. EKG showed no acute changes. ED attending stated that he spoke with cardiology - Dr. Dawson - who stated this was likely Type 2 NSTEMI but still recommended 24 hours of heparin drip (which was started) and echocardiogram. No transfer or cath was necessary at this time. ASA 325 mg was given. She was also in hypertensive urgency at 177/80 but currently is 150s systolic. Tmax was 100.1 F. Chest pressure is worse with coughing. Rocephin, doxycycline were given. She is on RA oxygen. On my exam, she is on RA. C/o some chest discomfort. Also some weakness but not worse than usual. BP 153/80s. Hospital course: 06/21: Troponin deescalating 06/22: Nonproductive cough but no chest pain no shortness a breath on room air Review of systems: No loss of consciousness No chest pain No fevers or chills No nausea vomiting No paresthesia Echocardiogram: The ejection fraction is estimated to be 55-60%. Diastolic function could not be accurately assessed due to unobtainable data. The left atrium is moderately dilated. The right ventricle is normal in size and function. There is mild mitral regurgitation. There is mild tricuspid regurgitation. Physical exam: General no acute distress breathing comfortably on room air new line HEENT unremarkable new line Heart rate rhythm regular Lungs with crackles throughout lung padron and shortened respiratory phases Abdomen nontender bowel sounds present new line Extremities no edema Neuro alert and oriented nonfocal Assessment and plan: Acute COVID 19 infection with bilateral pneumonia Loading dose of remdesivir and daily doses per protocol Azithromycin ceftriaxone for possible COVID infection Decadron 6 mg IV daily Prone breathing if tolerated Non STEMI probably type 2 demand perfusion mismatch likely secondary to above evolved no indication for acute Interventional catheterization Continue as discontinue heparin drip, nitrates for symptoms, supplemental oxygen, serial troponin completed Echocardiogram unremarkable Obesity with obstructive sleep apnea on home CPAP Continue CPAP Complicates outcome in COVID pneumonitis Paroxysmal atrial fibrillation rate controlled presently chads Vasc score 3 Was On IV heparin Consider long-term anticoagulation switch to Nick Mood disorder on antidepressant medication Continue antidepressant medication DVT prophylaxis covered with Carlosis Full code blue 35 minutes were involved in the management of his Exam Vital Signs (past 8 hours): - 06/22/24 00:00 06/22/24 02:25 Temperature 98.4 F 98.2 F Pulse Rate 68 66 Respiratory Rate 18 18 Blood Pressure 140/74 128/68 Pulse Oximetry 98 96 Oxygen Flow Rate 0 0 Fraction of Inspired Oxygen 21 SaO2/FiO2 Ratio 466 Oxygen Delivery Method Room Air Oxygen Flow Rate 0 Objective Labs 06/22/24 04:30 06/22/24 04:30 Labs: Laboratory Results - last 24 hr 06/21/24 06/21/24 06/21/24 07:14 11:00 15:19 WBC 7.1 RBC 3.51 L Hgb 11.2 L Hct 32.5 L MCV 92.7 MCH 31.9 MCHC 34.4 RDW 13.5 Plt Count 184 Neut % (Auto) 73.9 Lymph % (Auto) 15.0 L [place] % (Auto) 10.6 Eos % (Auto) 0.2 L Baso % (Auto) 0.3 Neut # (Auto) 5200 Lymph # (Auto) 1100 [place] # (Auto) 800 Eos # (Auto) 0 Baso # (Auto) 0 PT 12.2 INR 1.1 APTT 74 H* D 68 H Sodium 135 L Potassium 3.6 Chloride 102 Carbon Dioxide 29 BUN 15 Creatinine 0.74 Estimated GFR > 60 BUN/Creatinine Ratio 20.3 Glucose 91 Calcium 9.1 Magnesium 2.0 Total Bilirubin 0.6 AST 29 ALT 21 Alkaline Phosphatase 84 Troponin I 0.464 H* 0.301 H* Total Protein 5.8 L Albumin 3.5 Globulin 2.3 Albumin/Globulin Ratio 1.5 Urine Color Yellow Urine Appearance Clear Urine pH 6.0 Ur Specific Strawberry 1.025 Urine Protein Negative Urine Glucose (UA) Negative Urine Ketones Negative Urine Occult Blood Negative Urine Nitrate Negative Urine Bilirubin Negative Urine Urobilinogen 2.0 H Ur Leukocyte Esterase Negative Urine RBC 1-5/hpf Urine WBC 1-5/hpf Ur Squamous Epith Cells 1-5 /hpf Urine Bacteria None seen Hyaline Casts 1-5/lpf Ur Culture Indicated? Cult not indicated Vol Urine Centrifuged 10ml (spun) 06/21/24 06/22/24 22:04 04:30 WBC 4.5 RBC 3.35 L Hgb 10.5 L Hct 30.8 L MCV 92.0 MCH 31.4 MCHC 34.2 RDW 13.7 Plt Count 177 Neut % (Auto) 65.5 Lymph % (Auto) 20.1 L [place] % (Auto) 13.9 Eos % (Auto) 0.1 L Baso % (Auto) 0.4 Neut # (Auto) 2900 Lymph # (Auto) 900 L [place] # (Auto) 600 Eos # (Auto) 0 Baso # (Auto) 0 PT 12.2 INR 1.1 APTT 63 H 45 H D Sodium 134 L Potassium 3.5 Chloride 104 Carbon Dioxide 27 BUN 19 H Creatinine 0.85 Estimated GFR > 60 BUN/Creatinine Ratio 22.4 H Glucose 93 Calcium 8.8 Magnesium 1.7 Total Bilirubin AST ALT Alkaline Phosphatase Troponin I 0.185 H* Total Protein Albumin Globulin Albumin/Globulin Ratio Urine Color Urine Appearance Urine pH Ur Specific [place]rawberry Urine Protein Urine Glucose (UA) Urine Ketones Urine Occult Blood Urine Nitrate Urine Bilirubin Urine Urobilinogen Ur Leukocyte Esterase Urine RBC Urine WBC Ur Squamous Epith Cells Urine Bacteria Hyaline Casts Ur Culture Indicated? Vol Urine Centrifuged [facility] Medical History Frequent falls Seasonal allergies Asthma Dizziness of unknown etiology Restless leg syndrome Nocturnal hypoxemia Obesity (BMI 30-39.9) GERD (gastroesophageal reflux disease) Anxiety Depression Carrier of fragile X chromosome Hyperlipidemia Hypertension Morbid obesity with BMI of 40.0-44.9, adult Family History Brother Fragile X syndrome in male Mother No problems noted. Social History marital status: details: bobby Maria, lives in [place] household members: spouse lives independently: Yes caregiver/support person: Yes ( acts as her caregiver) housing: house occupational status: disabled Smoking Status: Former smoker quit status: quit date established alcohol intake: former substance use type: does not use Assessment & Plan Time-Based Coding :: [TOTAL MINUTES] spent with patient and on the chart (including review of chart, obtaining history, exam, reviewing outside data, placing orders, documenting exam and treatment plan, and counseling patient) on [DATE].
[2024-06-22] MEDS: OXYCODONE IR 5 MG TABLET PO ×2 (08:17→16:05)
[2024-06-22] MEDS: ASPIRIN EC 81 MG TABLET PO (08:18)
[2024-06-22] MEDS: AZITHROMYCIN 250 MG TABLET PO (08:18)
[2024-06-22] MEDS: MONTELUKAST 10 MG TABLET PO (08:18)
[2024-06-22] MEDS: FLECAINIDE 100 MG TABLET PO ×2 (08:18→20:25)
[2024-06-22] MEDS: buPROPion XL 150 MG TAB PO (08:18)
[2024-06-22] MEDS: dilTIAZem CD 120 MG CAP PO (08:19)
[2024-06-22] MEDS: DEXAMETHASONE 10 MG/ML VIAL 6 MG IV (08:19)
[2024-06-22] MEDS: PANTOPRAZOLE DR 40 MG TABLET PO (08:19)
[2024-06-22] MEDS: OXYBUTYNIN 5 MG ER TAB PO (08:19)
[2024-06-22] MEDS: ACETAMINOPHEN 325 MG TABLET 650 MG PO ×2 (08:19→16:05)
[2024-06-22] MEDS: LOSARTAN 50 MG TABLET PO (08:20)
[2024-06-22] MEDS: guaiFENesin ER 600 MG TAB PO ×2 (08:36→20:29)
[2024-06-22] MEDS: BUDESONIDE 0.5 MG/2 ML NEB INH ×2 (10:20→19:50)
[2024-06-22] MEDS: ALBUTEROL/IPRATROPIUM 3 ML AMPUL INH ×3 (10:20→19:50)
[2024-06-22] MEDS: REMDESIVIR 100 MG in SODIUM CHLORIDE 0.9% 250 ML 250 MG IV (10:27)
[2024-06-22] MEDS: MAGNESIUM CHLORIDE 64 MG TABLET 128 MG PO (10:27)
[2024-06-22] MEDS: POTASSIUM CHLORIDE 20 MEQ TAB 40 MEQ PO (10:27)
[2024-06-22] MEDS: TRINTELLIX 20MG TAB 1 EACH PO (11:14)
--- NOTE | 2024-06-22 14:48 | DIET.CONS ---
Dietary Consultation Note Admission Date: 06/20/2024 23:31 Assessment: 69 y F admitted for covid/pneumonia. Dietitian screened for low MNA. Pt with covid, called on phone. Reports over last 2 years has lost 140 lb d/t reduced PO intakes. Reports being only able to 50-75% of meals during this time r/t reduced appetite. Notes in the last few months she has regained 30 lb though. Pt would like to lose some of that weight again. Had 1 day of N/V/D and cough before admission with limited PO intakes. Ht: 170.18 cm Wt: 81.5 kg BMI: 28.1 UBW: 70.874 kg on 08/06/23 Last BM: 06/22/24 (06/22/24 12:55) MNA: 9 Wilfredo Score: 20 Diet: 06/21/24 Breakfast Heart Healthy Diet Diet Modifications: Nutrition Percent Meal Consumed 100% 06/21/24 18:00 Percent Meal Consumed 50% 06/21/24 16:00 Percent Meal Consumed 25% 06/21/24 12:00 Labs: RBC 3.35 X10^6/uL (4.0-5.2) L 06/22/24 04:30 Hgb 10.5 g/dL (12.0-16.0) L 06/22/24 04:30 Hct 30.8 % (36-46) L 06/22/24 04:30 Creatinine 0.85 mg/dL (0.52-1.04) 06/22/24 04:30 NT-Pro-B Natriuret Pep 3630 pg/mL (<125) H 06/20/24 21:48 Nutrition Diagnosis: none at this time Monitoring/Evaluations: PO intakes Electronically Signed by: Kandice Hobson 06/22/24 14:48 Clinical Dietitian [address] [id number]
--- NOTE | 2024-06-22 15:10 | CM.DANOTE ---
Initial DCP Assessment Visit Note Reviewed EMR and team rounds for status updates. 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 Pt lives independent at baseline in her own home with spouse in [place]. Her spouse and/or dtr will transport her back home once she's medically stable for home d/c. Payor: Medicare PCP: Dennis Melgar Pt is a 69 year-old F who presented to the ED with c/o N/V and diarrhea, as well as low pulse ox. EKG did show NSTEMI, which is believed to have been secondary to what chest x-ray confirmed to be covid+ pneumonia. Pt did not require O2 supplemention, was started on IV ABO's and Remdesivir. Cardiology was consulted, and recommended that pt receive 24-hours of IV heparin. DCP will continue to monitor for final recommendations/assistance needs for d/c. 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 No History Provided By Medical Record Has Patient been admitted in last 30 No days? Household Members spouse Type of transporation used prior to Drives own vehicle admit Independent with ADL's Yes Is patient alert and oriented? Did not meet with pt f/f due to covid+ Caregiver for Another No Comment No identified home d/c needs at this time. Barriers to Discharge No Transportation Arrangement Family Referrals Initiated None needed Review Status In Process Please Provide Date Initial DC 06/22/24 Assessment Was Performed
[2024-06-22] MEDS: cefTRIAXone 1,000 MG in SODIUM CHLORIDE 0.9% 100 ML 200 MG IV (16:07)
[2024-06-22] MEDS: ATORVASTATIN 20 MG TABLET 10 MG PO (20:25)
[2024-06-22] MEDS: BENZONATATE 100 MG CAPSULE PO (20:29)
[2024-06-23] VITALS (13 sets, daily range): BP systolic 135–156; BP diastolic 58–77; PULSE 57–97; RESP 16–22; TEMP 36.3–37.6; O2SAT 96–99
[2024-06-23 05:49] LABS: Add Manual Diff / Slide Review NO; Basophils Absolute Auto 0 /uL (0-100); Basophils Percent Auto 0.5 % (0-2); Eosinophils Absolute Auto 0 /uL (0-450); Eosinophils Percent Auto 0.1 % (2-4); Hematocrit 33.9 % (36-46); Hemoglobin 11.5 g/dL (12.0-16.0); Lymphocytes Absolute Auto 1400 /uL (1100-4500); Mean Corpuscular Hemoglobin 31.5 PG (26-34); Mean Corpuscular Volume 92.7 fL (80-100); Monocytes Absolute Auto 600 /uL (0-900); Monocytes Percent Auto 13.5 % (3-14); Neutrophils Absolute Auto 2200 /uL (1500-7000); Neutrophils Percent Auto 51.9 % (50-75); Platelet Count 192 X10^3/uL (150-400); Red Blood Cell Count 3.65 X10^6/uL (4.0-5.2); Red Cell Distribution Width 14.1 % (11.6-14.8); White Blood Cell Count 4.2 X10^3/uL (4.5-11.0)
[2024-06-23 05:58] LABS: BUN Creatinine Ratio 22.1 (6-22); Blood Urea Nitrogen 19 mg/dL (7-17); Calcium 9.7 mg/dL (8.4-10.2); Carbon Dioxide 26 mmol/L (22-32); Chloride 108 mmol/L (98-107); Estimated Glomerular Filt Rate > 60 mL/min (>60); Glucose 91 mg/dL (80-110); HEMOLYSIS < 15 (0-50); Potassium 4.2 mmol/L (3.4-5.1); Sodium 139 mmol/L (137-145)
[2024-06-23] MEDS: BUDESONIDE 0.5 MG/2 ML NEB INH ×2 (07:39→19:47)
[2024-06-23] MEDS: ALBUTEROL/IPRATROPIUM 3 ML AMPUL INH ×4 (07:39→19:47)
--- NOTE | 2024-06-23 07:54 | P.PN_ITS ---
Subjective Subjective Date Patient Seen: 06/23/24 Interval history: Chief complaint: Non STEMI probably type 2 with chest pain secondary to hypoperfusion caused by COVID with nausea vomiting diarrhea cough and hypoxia History of present illness: A 69F with PMH of PAF not on anticoagulation, HTN, hyperlipidemia, RLS, asthma without home O2, GERD, anxiety/depression presented to ED with 1 day h/o nausea, vomiting, diarrhea, cough, hypoxia to low 90s at home. She was directed to ED by PCP. She also had chest pressure. On initial ED evaluation, she was found to be positive for COVID-19 but negative for RSV or influenza. CXR showed bibasilar changes c/c pneumonia. Troponin was elevated at 0.209 with BNP 3630. EKG showed no acute changes. ED attending stated that he spoke with cardiology - Dr. Dawson - who stated this was likely Type 2 NSTEMI but still recommended 24 hours of heparin drip (which was started) and echocardiogram. No transfer or cath was necessary at this time. ASA 325 mg was given. She was also in hypertensive urgency at 177/80 but currently is 150s systolic. Tmax was 100.1 F. Chest pressure is worse with coughing. Rocephin, doxycycline were given. She is on RA oxygen. On my exam, she is on RA. C/o some chest discomfort. Also some weakness but not worse than usual. BP 153/80s. Hospital course: 06/21: Troponin deescalating 06/22: Nonproductive cough but no chest pain no shortness a breath on room air 06/23: Continued nonproductive cough no chest pain or shortness a breath no fevers or chills Review of systems: No loss of consciousness No chest pain No fevers or chills No nausea vomiting No paresthesia Echocardiogram: The ejection fraction is estimated to be 55-60%. Diastolic function could not be accurately assessed due to unobtainable data. The left atrium is moderately dilated. The right ventricle is normal in size and function. There is mild mitral regurgitation. There is mild tricuspid regurgitation. Physical exam: General no acute distress breathing comfortably on room air new line HEENT unremarkable new line Heart rate rhythm regular Lungs with crackles throughout lung padron and shortened respiratory phases Abdomen nontender bowel sounds present new line Extremities no edema Neuro alert and oriented nonfocal Assessment and plan: Acute COVID 19 infection with bilateral pneumonia Loading dose of remdesivir and daily doses per protocol Azithromycin ceftriaxone near completion for possible super-infection Decadron 6 mg IV daily Prone breathing if tolerated Non STEMI probably type 2 demand perfusion mismatch likely secondary to above evolved no indication for acute Interventional catheterization Continue all core measures discontinued heparin drip, nitrates for symptoms, serial troponin completed Echocardiogram unremarkable Obesity with obstructive sleep apnea on home CPAP Continue CPAP Complicates outcome in COVID pneumonitis Paroxysmal atrial fibrillation rate controlled presently chads Vasc score 3 Was On IV heparin Consider long-term anticoagulation switch to Eliquis Mood disorder on antidepressant medication Continue antidepressant medication DVT prophylaxis covered with Eliquis Full code blue 35 minutes were involved in the management of this patient Exam Vital Signs (past 8 hours): - 06/23/24 00:00 06/23/24 04:00 06/23/24 07:40 Temperature 98.0 F 97.4 F L Pulse Rate 80 57 L 64 Respiratory Rate 19 16 20 Blood Pressure 140/66 146/73 H Pulse Oximetry 96 99 96 Oxygen Delivery Method Room Air Oxygen Flow Rate 0 Fraction of Inspired Oxygen 21 SaO2/FiO2 Ratio 461 Oxygen Delivery Method Room Air Oxygen Flow Rate 0 Objective Labs 06/23/24 05:00 06/23/24 05:00 Labs: Laboratory Results - last 24 hr 06/23/24 05:00 WBC 4.2 L RBC 3.65 L Hgb 11.5 L Hct 33.9 L MCV 92.7 MCH 31.5 MCHC 34.0 RDW 14.1 Plt Count 192 Neut % (Auto) 51.9 Lymph % (Auto) 34.0 [place] % (Auto) 13.5 Eos % (Auto) 0.1 L Baso % (Auto) 0.5 Neut # (Auto) 2200 Lymph # (Auto) 1400 [place] # (Auto) 600 Eos # (Auto) 0 Baso # (Auto) 0 Sodium 139 Potassium 4.2 Chloride 108 H Carbon Dioxide 26 BUN 19 H Creatinine 0.86 Estimated GFR > 60 BUN/Creatinine Ratio 22.1 H Glucose 91 Calcium 9.7 PFSH Medical History Frequent falls Seasonal allergies Asthma Dizziness of unknown etiology Restless leg syndrome Nocturnal hypoxemia Obesity (BMI 30-39.9) GERD (gastroesophageal reflux disease) Anxiety Depression Carrier of fragile X chromosome Hyperlipidemia Hypertension Morbid obesity with BMI of 40.0-44.9, adult Family History Brother Fragile X syndrome in male Mother No problems noted. Social History marital status: details: bobby Maria, lives in [place] household members: spouse lives independently: Yes caregiver/support person: Yes ( acts as her caregiver) housing: house occupational status: disabled Smoking Status: Former smoker quit status: quit date established alcohol intake: former substance use type: does not use Assessment & Plan Time-Based Coding :: [TOTAL MINUTES] spent with patient and on the chart (including review of chart, obtaining history, exam, reviewing outside data, placing orders, documenting exam and treatment plan, and counseling patient) on [DATE].
[2024-06-23] MEDS: MONTELUKAST 10 MG TABLET PO (09:08)
[2024-06-23] MEDS: BENZONATATE 100 MG CAPSULE PO ×2 (09:09→16:20)
[2024-06-23] MEDS: LOSARTAN 50 MG TABLET PO (09:09)
[2024-06-23] MEDS: buPROPion XL 150 MG TAB PO (09:09)
[2024-06-23] MEDS: FLECAINIDE 100 MG TABLET PO ×2 (09:09→21:33)
[2024-06-23] MEDS: dilTIAZem CD 120 MG CAP PO (09:09)
[2024-06-23] MEDS: ASPIRIN EC 81 MG TABLET PO (09:09)
[2024-06-23] MEDS: OXYCODONE IR 5 MG TABLET PO ×5 (09:09→21:36)
[2024-06-23] MEDS: PANTOPRAZOLE DR 40 MG TABLET PO (09:10)
[2024-06-23] MEDS: ACETAMINOPHEN 325 MG TABLET 650 MG PO ×2 (09:10→16:19)
[2024-06-23] MEDS: OXYBUTYNIN 5 MG ER TAB PO (09:10)
[2024-06-23] MEDS: TRINTELLIX 20MG TAB 1 EACH PO (09:10)
[2024-06-23] MEDS: AZITHROMYCIN 250 MG TABLET PO (09:10)
[2024-06-23] MEDS: guaiFENesin ER 600 MG TAB PO ×2 (09:11→21:33)
[2024-06-23] MEDS: DEXAMETHASONE 10 MG/ML VIAL 6 MG IV (09:11)
[2024-06-23] MEDS: REMDESIVIR 100 MG in SODIUM CHLORIDE 0.9% 250 ML 250 MG IV (09:12)
--- NOTE | 2024-06-23 11:50 | CM.DPC ---
DCP Cont: Per MD, pt remains on RA and no O2 needed but pt's lungs sound course and crackling and to completed COVID tx with Remdesivir before discharge home, no anticipated needs. Per RN, in room SBA with FWW and no PT needs at this time. Plan: SW to follow for plan of home when stable with spouse and Dtr to transport. SW to follow for any further identified discharge planning needs. PRIMITIVO Obrien
--- NOTE | 2024-06-23 13:20 | DI.RAD.S_ITS ---
PROCEDURE: XR CHEST 1V INDICATIONS: Pneumonia TECHNIQUE: One view of the chest was acquired. COMPARISON: [facility], CR, XR CHEST 2V, 06/20/2024, 20:31. FINDINGS: Surgical changes and devices: None. Lungs and pleura: Mild bronchial wall thickening is seen. No focal infiltrate. No pleural effusions or pneumothorax. Mediastinum: Mediastinal contours appear normal. Heart size is normal. Bones and chest wall: No suspicious bony lesions. Overlying soft tissues appear unremarkable. IMPRESSION: Suggestion of mild reactive airway disease such as bronchitis or viral illness. No focal infiltrate, pleural effusion or pneumothorax. Dictated by: Ander Casanova M.D. on 06/23/2024 at 13:50 Approved by: Ander Casanova M.D. on 06/23/2024 at 13:51
[2024-06-23] MEDS: APIXABAN 5 MG TABLET PO ×2 (14:21→21:33)
[2024-06-23] MEDS: cefTRIAXone 1,000 MG in SODIUM CHLORIDE 0.9% 100 ML 200 MG IV (16:16)
[2024-06-23] MEDS: CODEINE/GUAIFENESIN LIQUID 5ML UDC 10 ML PO (18:32)
[2024-06-23] MEDS: ATORVASTATIN 20 MG TABLET 10 MG PO (21:32)
[2024-06-23] MEDS: TRAZODONE 50 MG TABLET 100 MG PO (21:36)
[2024-06-24] VITALS (9 sets, daily range): BP systolic 146–160; BP diastolic 67–82; PULSE 60–84; RESP 16–20; TEMP 36.3–37.1; O2SAT 95–99
[2024-06-24 05:47] LABS: Add Manual Diff / Slide Review NO; Basophils Absolute Auto 0 /uL (0-100); Basophils Percent Auto 0.3 % (0-2); Eosinophils Absolute Auto 0 /uL (0-450); Hematocrit 32.3 % (36-46); Lymphocytes Absolute Auto 1400 /uL (1100-4500); Lymphocytes Percent Auto 30.3 % (25-40); Mean Corpuscular HGB Conc 34.1 % (30-36); Mean Corpuscular Hemoglobin 31.3 PG (26-34); Mean Corpuscular Volume 91.8 fL (80-100); Monocytes Absolute Auto 500 /uL (0-900); Monocytes Percent Auto 10.7 % (3-14); Neutrophils Absolute Auto 2700 /uL (1500-7000); Neutrophils Percent Auto 58.7 % (50-75); Platelet Count 208 X10^3/uL (150-400); Red Blood Cell Count 3.52 X10^6/uL (4.0-5.2); Red Cell Distribution Width 13.8 % (11.6-14.8); White Blood Cell Count 4.6 X10^3/uL (4.5-11.0)
[2024-06-24 06:02] LABS: BUN Creatinine Ratio 24.1 (6-22); Blood Urea Nitrogen 20 mg/dL (7-17); Calcium 9.6 mg/dL (8.4-10.2); Carbon Dioxide 26 mmol/L (22-32); Chloride 108 mmol/L (98-107); Estimated Glomerular Filt Rate > 60 mL/min (>60); Glucose 101 mg/dL (80-110); HEMOLYSIS < 15 (0-50); Potassium 4.3 mmol/L (3.4-5.1); Sodium 138 mmol/L (137-145)
[2024-06-24] MEDS: BUDESONIDE 0.5 MG/2 ML NEB INH ×2 (07:45→19:24)
[2024-06-24] MEDS: ALBUTEROL/IPRATROPIUM 3 ML AMPUL INH ×3 (07:45→19:28)
[2024-06-24] MEDS: dilTIAZem CD 120 MG CAP PO (08:24)
[2024-06-24] MEDS: LOSARTAN 25 MG TABLET PO (08:24)
[2024-06-24] MEDS: FLECAINIDE 100 MG TABLET PO ×2 (08:24→20:33)
[2024-06-24] MEDS: MONTELUKAST 10 MG TABLET PO (08:24)
[2024-06-24] MEDS: APIXABAN 5 MG TABLET PO ×2 (08:24→20:33)
[2024-06-24] MEDS: ASPIRIN EC 81 MG TABLET PO (08:24)
[2024-06-24] MEDS: OXYBUTYNIN 5 MG ER TAB PO (08:25)
[2024-06-24] MEDS: LOSARTAN 50 MG TABLET PO (08:25)
[2024-06-24] MEDS: AZITHROMYCIN 250 MG TABLET PO (08:25)
[2024-06-24] MEDS: buPROPion XL 150 MG TAB PO (08:25)
[2024-06-24] MEDS: PANTOPRAZOLE DR 40 MG TABLET PO (08:25)
[2024-06-24] MEDS: DEXAMETHASONE 10 MG/ML VIAL 6 MG IV (08:26)
[2024-06-24] MEDS: TRINTELLIX 20MG TAB 1 EACH PO (08:26)
[2024-06-24] MEDS: REMDESIVIR 100 MG in SODIUM CHLORIDE 0.9% 250 ML 250 MG IV (08:29)
--- NOTE | 2024-06-24 15:51 | PM.PN.1 ---
Subjective Subjective Date Patient Seen: 06/24/24 Interval history: Chief complaint: Non STEMI probably type 2 with chest pain secondary to hypoperfusion caused by COVID with nausea vomiting diarrhea cough and hypoxia History of present illness: A 69F with PMH of PAF not on anticoagulation, HTN, hyperlipidemia, RLS, asthma without home O2, GERD, anxiety/depression presented to ED with 1 day h/o nausea, vomiting, diarrhea, cough, hypoxia to low 90s at home. She was directed to ED by PCP. She also had chest pressure. On initial ED evaluation, she was found to be positive for COVID-19 but negative for RSV or influenza. CXR showed bibasilar changes c/c pneumonia. Troponin was elevated at 0.209 with BNP 3630. EKG showed no acute changes. ED attending stated that he spoke with cardiology - Dr. Dawson - who stated this was likely Type 2 NSTEMI but still recommended 24 hours of heparin drip (which was started) and echocardiogram. No transfer or cath was necessary at this time. ASA 325 mg was given. She was also in hypertensive urgency at 177/80 but currently is 150s systolic. Tmax was 100.1 F. Chest pressure is worse with coughing. Rocephin, doxycycline were given. She is on RA oxygen. On my exam, she is on RA. C/o some chest discomfort. Also some weakness but not worse than usual. BP 153/80s. Hospital course: 06/21: Troponin deescalating 06/22: Nonproductive cough but no chest pain no shortness a breath on room air 06/23: Continued nonproductive cough no chest pain or shortness a breath no fevers or chills 06/24: Reduced cough patient feeling stronger no shortness a breath no fevers or chills Moving better air less rhonchi and few crackles Should be at the end of treatment of remdesivir IV Decadron and antibiotics Deescalate and discharge home 06/25: Review of systems: No loss of consciousness No chest pain No fevers or chills No nausea vomiting No paresthesia Echocardiogram: The ejection fraction is estimated to be 55-60%. Diastolic function could not be accurately assessed due to unobtainable data. The left atrium is moderately dilated. The right ventricle is normal in size and function. There is mild mitral regurgitation. There is mild tricuspid regurgitation. Physical exam: General no acute distress breathing comfortably on room air new line HEENT unremarkable new line Heart rate rhythm regular Lungs with crackles throughout lung padron and shortened respiratory phases Abdomen nontender bowel sounds present new line Extremities no edema Neuro alert and oriented nonfocal Assessment and plan: Acute COVID 19 infection with bilateral pneumonia Loading dose of remdesivir and daily doses per protocol finish today 06/24 Azithromycin ceftriaxone near completion for possible super-infection finish today 06/24 Decadron 6 mg IV daily finished today 06/24 Discharge home in a.m. 06/25 Non STEMI probably type 2 demand perfusion mismatch likely secondary to above resolved no indication for acute Interventional catheterization Continue all core measures discontinued heparin drip, nitrates for symptoms, serial troponin completed Echocardiogram unremarkable Obesity with obstructive sleep apnea on home CPAP Continue CPAP Complicates outcome in COVID pneumonitis Paroxysmal atrial fibrillation rate controlled presently chads Vasc score 3 Started on Eliquis for CVA prophylaxis Mood disorder on antidepressant medication Continue antidepressant medication DVT prophylaxis covered with Eliquis Full code blue 35 minutes were involved in the management of this patient Exam Vital Signs (past 8 hours): - 06/24/24 07:53 06/24/24 09:00 06/24/24 12:04 Temperature 97.4 F L 97.3 F L Pulse Rate 74 65 61 Respiratory Rate 20 18 16 Blood Pressure 160/79 H 149/67 H Pulse Oximetry 98 99 95 Oxygen Delivery Method Room Air Oxygen Flow Rate 0 0 Fraction of Inspired Oxygen 21 SaO2/FiO2 Ratio 461 Oxygen Delivery Method Room Air Oxygen Flow Rate 0 Objective Labs 06/24/24 05:00 06/24/24 05:00 Labs: Laboratory Results - last 24 hr 06/24/24 05:00 WBC 4.6 RBC 3.52 L Hgb 11.0 L Hct 32.3 L MCV 91.8 MCH 31.3 MCHC 34.1 RDW 13.8 Plt Count 208 Neut % (Auto) 58.7 Lymph % (Auto) 30.3 [place] % (Auto) 10.7 Eos % (Auto) 0.0 L Baso % (Auto) 0.3 Neut # (Auto) 2700 Lymph # (Auto) 1400 [place] # (Auto) 500 Eos # (Auto) 0 Baso # (Auto) 0 Sodium 138 Potassium 4.3 Chloride 108 H Carbon Dioxide 26 BUN 20 H Creatinine 0.83 Estimated GFR > 60 BUN/Creatinine Ratio 24.1 H Glucose 101 Calcium 9.6 [facility] Medical History Frequent falls Seasonal allergies Asthma Dizziness of unknown etiology Restless leg syndrome Nocturnal hypoxemia Obesity (BMI 30-39.9) GERD (gastroesophageal reflux disease) Anxiety Depression Carrier of fragile X chromosome Hyperlipidemia Hypertension Morbid obesity with BMI of 40.0-44.9, adult Family History Brother Fragile X syndrome in male Mother No problems noted. Social History marital status: details: bobby Maria, lives in [place] household members: spouse lives independently: Yes caregiver/support person: Yes ( acts as her caregiver) housing: house occupational status: disabled Smoking Status: Former smoker quit status: quit date established alcohol intake: former substance use type: does not use Assessment & Plan Time-Based Coding :: [TOTAL MINUTES] spent with patient and on the chart (including review of chart, obtaining history, exam, reviewing outside data, placing orders, documenting exam and treatment plan, and counseling patient) on [DATE].
--- NOTE | 2024-06-24 16:08 | CM.DPNOTE ---
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 pt on room air. per provider in morning rounds, anticipate dc tomorrow. per chart/provider, no new CM/DCP needs identified at this time. P: anticipate dc home tomorrow with spouse support/dtr to transport. CM team to follow in case any DCP needs arise. PRIMITIVO Solis
[2024-06-24] MEDS: cefTRIAXone 1,000 MG in SODIUM CHLORIDE 0.9% 100 ML 200 MG IV (17:00)
[2024-06-24] MEDS: guaiFENesin ER 600 MG TAB PO (20:32)
[2024-06-24] MEDS: ATORVASTATIN 20 MG TABLET 10 MG PO (20:33)
[2024-06-24] MEDS: TRAZODONE 50 MG TABLET 100 MG PO (23:05)
[2024-06-25] VITALS (9 sets, daily range): BP systolic 128–166; BP diastolic 61–94; PULSE 54–76; RESP 16–19; TEMP 36.2–36.7; O2SAT 96–99
[2024-06-25] MEDS: AZITHROMYCIN 250 MG TABLET PO (08:11)
[2024-06-25] MEDS: buPROPion XL 150 MG TAB PO (08:11)
[2024-06-25] MEDS: ASPIRIN EC 81 MG TABLET PO (08:11)
[2024-06-25] MEDS: dilTIAZem CD 120 MG CAP PO (08:11)
[2024-06-25] MEDS: MONTELUKAST 10 MG TABLET PO (08:11)
[2024-06-25] MEDS: FLECAINIDE 100 MG TABLET PO ×2 (08:11→21:26)
[2024-06-25] MEDS: DEXAMETHASONE 10 MG/ML VIAL 6 MG IV (08:12)
[2024-06-25] MEDS: LOSARTAN 25 MG TABLET PO (08:12)
[2024-06-25] MEDS: OXYBUTYNIN 5 MG ER TAB PO (08:12)
[2024-06-25] MEDS: APIXABAN 5 MG TABLET PO ×2 (08:12→21:26)
[2024-06-25] MEDS: PANTOPRAZOLE DR 40 MG TABLET PO (08:12)
[2024-06-25] MEDS: ALBUTEROL/IPRATROPIUM 3 ML AMPUL INH ×3 (09:06→19:37)
[2024-06-25] MEDS: BUDESONIDE 0.5 MG/2 ML NEB INH ×2 (09:06→19:23)
[2024-06-25] MEDS: REMDESIVIR 100 MG in SODIUM CHLORIDE 0.9% 250 ML 250 MG IV (09:36)
[2024-06-25] MEDS: TRINTELLIX 20MG TAB 1 EACH PO (09:36)
[2024-06-25] MEDS: BENZONATATE 100 MG CAPSULE PO ×2 (09:53→13:16)
[2024-06-25] MEDS: CODEINE/GUAIFENESIN LIQUID 5ML UDC 10 ML PO (09:53)
--- NOTE | 2024-06-25 10:14 | EKG_ITS ---
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
--- NOTE | 2024-06-25 10:18 | PM.DS.1 ---
History of Present Illness History of Present Illness Date Patient Seen: 06/25/24 Chief complaint: V/D excessive coughing Narrative: A 69F with PMH of PAF not on anticoagulation, HTN, hyperlipidemia, RLS, asthma without home O2, GERD, anxiety/depression presented to ED with 1 day h/o nausea, vomiting, diarrhea, cough, hypoxia to low 90s at home. She was directed to ED by PCP. She also had chest pressure. On initial ED evaluation, she was found to be positive for COVID-19 but negative for RSV or influenza. CXR showed bibasilar changes c/c pneumonia. Troponin was elevated at 0.209 with BNP 3630. EKG showed no acute changes. ED attending stated that he spoke with cardiology - Dr. Dawson - who stated this was likely Type 2 NSTEMI but still recommended 24 hours of heparin drip (which was started) and echocardiogram. No transfer or cath was necessary at this time. ASA 325 mg was given. She was also in hypertensive urgency at 177/80 but currently is 150s systolic. Tmax was 100.1 F. Chest pressure is worse with coughing. Rocephin, doxycycline were given. She is on RA oxygen. On my exam, she is on RA. C/o some chest discomfort. Also some weakness but not worse than usual. BP 153/80s. Discharge Providers Provider Date of admission: 06/20/24 23:31 Discharge Date: 06/25/24 Primary care physician: Dennis Melgar Consults: 06/25/24 07:42 Consult to Physical Therapy Evaluate & Treat Comment: Physician Instructions: Evaluate and Treat Discharge provider: Ramon Ty DO Summary Hospital Course Discharge Diagnosis: A 69F with PMH of PAF not on anticoagulation, HTN, hyperlipidemia, RLS, asthma without home O2, GERD, anxiety/depression presented to ED with 1 day h/o nausea, vomiting, diarrhea, cough, hypoxia to low 90s at home. She was directed to ED by PCP. She also had chest pressure. On initial ED evaluation, she was found to be positive for COVID-19 but negative for RSV or influenza. CXR showed bibasilar changes c/c pneumonia. Troponin was elevated at 0.209 with BNP 3630. EKG showed no acute changes. ED attending stated that he spoke with cardiology - Dr. Dawson - who stated this was likely Type 2 NSTEMI but still recommended 24 hours of heparin drip (which was started) and echocardiogram. No transfer or cath was necessary at this time. ASA 325 mg was given. She was also in hypertensive urgency at 177/80 but currently is 150s systolic. Tmax was 100.1 F. Chest pressure is worse with coughing. Rocephin, doxycycline were given. She is on RA oxygen. On my exam, she is on RA. C/o some chest discomfort. Also some weakness but not worse than usual. BP 153/80s. Hospital course: 06/21: Troponin deescalating 06/22: Nonproductive cough but no chest pain no shortness a breath on room air 06/23: Continued nonproductive cough no chest pain or shortness a breath no fevers or chills 06/24: Reduced cough patient feeling stronger no shortness a breath no fevers or chills Moving better air less rhonchi and few crackles Should be at the end of treatment of remdesivir IV Decadron and antibiotics Deescalate and discharge home 06/25: Review of systems: No loss of consciousness No chest pain No fevers or chills No nausea vomiting No paresthesia Echocardiogram: The ejection fraction is estimated to be 55-60%. Diastolic function could not be accurately assessed due to unobtainable data. The left atrium is moderately dilated. The right ventricle is normal in size and function. There is mild mitral regurgitation. There is mild tricuspid regurgitation. Physical exam: General no acute distress breathing comfortably on room air new line HEENT unremarkable new line Heart rate rhythm regular Lungs with crackles throughout lung padron and shortened respiratory phases Abdomen nontender bowel sounds present new line Extremities no edema Neuro alert and oriented nonfocal Assessment and plan: Acute COVID 19 infection with bilateral pneumonia Loading dose of remdesivir and daily doses per protocol finish today 06/24 Azithromycin ceftriaxone near completion for possible super-infection finish today 06/24 Decadron 6 mg IV daily finished today 06/24 Discharge home in a.m. 06/25 Non STEMI probably type 2 demand perfusion mismatch likely secondary to above resolved no indication for acute Interventional catheterization Continue all core measures discontinued heparin drip, nitrates for symptoms, serial troponin completed Echocardiogram unremarkable Obesity with obstructive sleep apnea on home CPAP Continue CPAP Complicates outcome in COVID pneumonitis Paroxysmal atrial fibrillation rate controlled presently chads Vasc score 3 Started on Eliquis for CVA prophylaxis Mood disorder on antidepressant medication Continue antidepressant medication DVT prophylaxis covered with Eliquis Full code blue 35 minutes were involved in the management of this patient Time Spent with Patient Time spent: Less than 30 minutes Exam Vital Signs (past 8 hours): - 06/25/24 06:30 06/25/24 08:00 Temperature 97.3 F L 97.4 F L Pulse Rate 54 L 62 Respiratory Rate 19 17 Blood Pressure 166/83 H 128/64 Pulse Oximetry 99 97 Oxygen Flow Rate 0 0 Fraction of Inspired Oxygen 21 SaO2/FiO2 Ratio 461 Oxygen Delivery Method Room Air Oxygen Flow Rate 0 Objective Labs 06/24/24 05:00 06/24/24 05:00 [facility] Medical History Frequent falls Seasonal allergies Asthma Dizziness of unknown etiology Restless leg syndrome Nocturnal hypoxemia Obesity (BMI 30-39.9) GERD (gastroesophageal reflux disease) Anxiety Depression Carrier of fragile X chromosome Hyperlipidemia Hypertension Morbid obesity with BMI of 40.0-44.9, adult Family History Brother Fragile X syndrome in male Mother No problems noted. Social History marital status: details: bobby Maria, lives in [place] household members: spouse lives independently: Yes caregiver/support person: Yes ( acts as her caregiver) housing: house occupational status: disabled Smoking Status: Former smoker quit status: quit date established alcohol intake: former substance use type: does not use Discharge Plan Discharge orders & Medications Prescriptions: New Eliquis 5 mg Tablet 5 mg PO BID Qty: 60 1RF benzonatate 100 mg Capsule 100 mg PO TID PRN (Reason: Cough) Qty: 60 0RF codeine-guaifenesin 10-100 mg/5 mL Liquid 10 ml PO Q6H PRN (Reason: Cough) Qty: 120 0RF dexamethasone 6 mg tablet 6 mg PO DAILY Qty: 5 0RF Continued cetirizine 10 MG tablet 10 mg PO Q DAY Qty: 0 fluticasone propionate 50 mcg/actuation [place],Suspension 2 spray INTRANASAL DAILY Qty: 0 montelukast [Singulair] 10 MG tablet 10 mg PO DAILY Qty: 0 bupropion HCl [Wellbutrin SR] 150 MG tablet extended release 12 hr 150 mg PO QDAY Qty: 0 diltiazem HCl 120 mg Capsule,Extended Release 24hr 120 mg PO DAILY fluticasone propion-salmeterol [Advair Diskus] 500-50 mcg/dose Blister With Device 1 inh INHALATION BID albuterol sulfate 2.5 mg /3 mL (0.083 %) Solution For Nebulization 2.5 mg INHALATION Q4-6H PRN (Reason: Shortness Of Breath Or Wheezing) albuterol-budesonide 90-80 mcg/actuation Hfa Aerosol Inhaler 2 inh INHALATION QID PRN (Reason: Shortness Of Breath Or Wheezing) cholecalciferol (vitamin D3) 25 mcg (1,000 unit) Capsule 25 mcg PO DAILY telmisartan [Micardis] 20 mg Tablet 20 mg PO DAILY flecainide 100 mg Tablet 100 mg PO BID ferrous sulfate 325 mg 65 mg PO QMWF Antacid Simethicone 1 tab PO QD-QID PRN (Reason: Gastrointestinal Spasms Or Cramping) Rx Instructions: for gas trazodone 200 mg tablet 100 mg PO BEDTIME Trintellix 20 mg 20 mg PO DAILY polyethylene glycol 3350 17 gram/dose Powder 17 g PO DAILY trospium 20 mg tablet 20 mg PO BID acetaminophen [Tylenol Arthritis Pain] 650 mg Tablet Extended Release 650 mg PO Q4-6H PRN (Reason: Pain (Scale Score 4-6)) conjugated estrogens [Premarin] 0.625 mg/gram cream 1 applictn VAG DAILY fluticasone propion-salmeterol [Advair Diskus] 500-50 mcg/dose blister with device 1 inhalation INHALATION DAILY (DME) ResMed AirSense 10 CPAP Qty: 1 Dose Instruction: As directed Patient Comments: Pressure: 11-15 cmH2O DME: [facility] Rx Instructions: As directed Discontinued Adult Low Dose Aspirin 81 mg Tablet 81 mg PO DAILY Follow up/Referrals: Dennis Melgar [Primary Care Provider] - Visit Report/Discharge Packet Stand Alone Forms: Patient Portal/API, Stroke Signs & Symptoms Discharge Data Primary Care Provider: Dennis Melgar
[2024-06-25] MEDS: guaiFENesin ER 600 MG TAB PO (13:16)
--- NOTE | 2024-06-25 14:05 | CM.DPC ---
DCP Cont: Per MD, pt had last dose of Remdezivir today and likely stable for d/c home but maybe some orthostatics and PT ordered. PT pending. Per RN, pt has continued to be mostly independent in room with ADLs but does have hx of dizziness and GLFs. Plan: SW to follow for PT eval and likely d/c home today with family support. SW to r/o HH at d/c. PRIMITIVO Obrien
--- NOTE | 2024-06-25 14:44 | PM.PN.1 ---
Subjective Subjective Interval history: Chief complaint: Non STEMI probably type 2 with chest pain secondary to hypoperfusion caused by COVID with nausea vomiting diarrhea cough and hypoxia History of present illness: A 69F with PMH of PAF not on anticoagulation, HTN, hyperlipidemia, RLS, asthma without home O2, GERD, anxiety/depression presented to ED with 1 day h/o nausea, vomiting, diarrhea, cough, hypoxia to low 90s at home. She was directed to ED by PCP. She also had chest pressure. On initial ED evaluation, she was found to be positive for COVID-19 but negative for RSV or influenza. CXR showed bibasilar changes c/c pneumonia. Troponin was elevated at 0.209 with BNP 3630. EKG showed no acute changes. ED attending stated that he spoke with cardiology - Dr. Dawson - who stated this was likely Type 2 NSTEMI but still recommended 24 hours of heparin drip (which was started) and echocardiogram. No transfer or cath was necessary at this time. ASA 325 mg was given. She was also in hypertensive urgency at 177/80 but currently is 150s systolic. Tmax was 100.1 F. Chest pressure is worse with coughing. Rocephin, doxycycline were given. She is on RA oxygen. On my exam, she is on RA. C/o some chest discomfort. Also some weakness but not worse than usual. BP 153/80s. Hospital course: 06/21: Troponin deescalating 06/22: Nonproductive cough but no chest pain no shortness a breath on room air 06/23: Continued nonproductive cough no chest pain or shortness a breath no fevers or chills 06/24: Reduced cough patient feeling stronger no shortness a breath no fevers or chills Moving better air less rhonchi and few crackles Should be at the end of treatment of remdesivir IV Decadron and antibiotics 06/25: noted chest pressure, EKG unremarkable, improved, no further evaluation at this time. Reports chronic dizziness and weakness. PT/OT ordered Echocardiogram: The ejection fraction is estimated to be 55-60%. Diastolic function could not be accurately assessed due to unobtainable data. The left atrium is moderately dilated. The right ventricle is normal in size and function. There is mild mitral regurgitation. There is mild tricuspid regurgitati on. Exam Vital Signs (past 8 hours): - 06/25/24 08:00 06/25/24 12:00 Temperature 97.4 F L 98.0 F Pulse Rate 62 67 Respiratory Rate 17 18 Blood Pressure 128/64 150/78 H Pulse Oximetry 97 97 Oxygen Flow Rate 0 0 Fraction of Inspired Oxygen 21 SaO2/FiO2 Ratio 461 Oxygen Delivery Method Room Air Oxygen Flow Rate 0 Narrative Exam Narrative: General no acute distress breathing comfortably on room air new line HEENT unremarkable new line Heart rate rhythm regular Lungs with crackles throughout lung padron and shortened respiratory phases Abdomen nontender bowel sounds present new line Extremities no edema Neuro alert and oriented nonfocal Objective Labs 06/24/24 05:00 06/24/24 05:00 [facility] Medical History Frequent falls Seasonal allergies Asthma Dizziness of unknown etiology Restless leg syndrome Nocturnal hypoxemia Obesity (BMI 30-39.9) GERD (gastroesophageal reflux disease) Anxiety Depression Carrier of fragile X chromosome Hyperlipidemia Hypertension Morbid obesity with BMI of 40.0-44.9, adult Family History Brother Fragile X syndrome in male Mother No problems noted. Social History marital status: details: bobby Maria, lives in [place] household members: spouse lives independently: Yes caregiver/support person: Yes ( acts as her caregiver) housing: house occupational status: disabled Smoking Status: Former smoker quit status: quit date established alcohol intake: former substance use type: does not use Assessment & Plan Assessment & Plan narrative: Acute COVID 19 infection with bilateral pneumonia Completed 5 days of dexamethasone, ceftriaxone, and azithromycin along with remdesevir. PT eval ordered today, she feels weak compared to usual baseline, with chronic dizziness will see how mobility is. Non STEMI probably type 2 demand perfusion mismatch likely secondary to above resolved no indication for acute Interventional catheterization Continue all core measures discontinued heparin drip, patient is on chronic anticoagulation with apixaban. Echocardiogram unremarkable nitrates for symptoms, serial troponin completed Obesity with obstructive sleep apnea on home CPAP Continue CPAP Complicates outcome in COVID pneumonitis Paroxysmal atrial fibrillation rate controlled presently chads Vasc score 3 Started on Eliquis for CVA prophylaxis Mood disorder on antidepressant medication Continue antidepressant medication Code: Full, surrogate is patient's spouse DVT: Lovenox daily I have utilized all available immediate resources to obtain, update, or review the patient's current medications. Dispo: patient admitted under inpatient status. Discharge home vs SNF pending PT eval today. Additional history obtained via discussions with case management and bedside RN. These discussions contributed to the creation of the above assessment and plan. I have reviewed patient's presenting documentation, labs, and imaging personally. Time-Based Coding :: [TOTAL MINUTES] spent with patient and on the chart (including review of chart, obtaining history, exam, reviewing outside data, placing orders, documenting exam and treatment plan, and counseling patient) on [DATE].
[2024-06-25] MEDS: BENZOCAINE/MENTHOL 1 LOZ PKT 1 EACH PO ×3 (15:29→21:26)
--- NOTE | 2024-06-25 17:21 | PT.IIE ---
Current Diagnoses Non-ST elevation (NSTEMI) myocardial infarction (06/20/24) Pneumonia, unspecified organism (06/20/24) COVID-19 (06/20/24) Medical History (Last Reviewed 06/20/24 @ 23:53 by Nadeem Kauffman MD) Anxiety Asthma Carrier of fragile X chromosome Depression Dizziness of unknown etiology Frequent falls GERD (gastroesophageal reflux disease) Hyperlipidemia Hypertension Morbid obesity with BMI of 40.0-44.9, adult Nocturnal hypoxemia Obesity (BMI 30-39.9) Restless leg syndrome Seasonal allergies Physical Therapy Inpatient Evaluation/Re-Eval M1 PT/OT-IP Prior Functional Status Start: 06/25/24 15:46 Freq: NEEDED Status: Active Protocol: Document 06/25/24 13:47 MB (Rec: 06/25/24 17:21 MB Desktop) Medical Review Prior Functional Status Medical History Reviewed Yes Diet/Fluid Consistency Regular Communication WNLs Mobility and Gait Mod I with RW Activities of Daily Living and IADL's I with ADLs, does not drive Social History Household Members spouse Living Arrangements House Number of Floors (Floors) One Floor Number of Stairs To Enter/Railing? 1 step to enter with rail Home Environment Standard Height Toilet,Tub/ Shower Home Equipment Front Wheel Walker,Straight Cane,Shower Seat with Backrest ,Hand Held Shower,Grab Bars Near Toilet,Grab Bars In Shower Additional Social History Comment No working M2 PT-IP Current Condition Start: 06/25/24 15:46 Freq: NEEDED Status: Active Protocol: Document 06/25/24 13:47 MB (Rec: 06/25/24 17:21 MB Desktop) Physical Therapy Current Condition Current Condition Evaluation Date 06/25/24 Treatment Diagnosis V/D, excessive coughing M3 PT-IP Subjective Start: 06/25/24 15:46 Freq: NEEDED Status: Active Protocol: Document 06/25/24 13:47 MB (Rec: 06/25/24 17:21 MB Desktop) Subjective Physical Therapy Visit Type Type Initial Evaluation Visit Start Time 13:47 Visit Stop Time 16:20 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 Therapy Pain Assessment Pain When Pain Assessed At Rest Pain Present Pain Present Pain Reported Location Neck Scale Used Not rated, generalized and chronic M4 PT-IP Mobility and Gait Start: 06/25/24 15:46 Freq: NEEDED Status: Active Protocol: Document 06/25/24 13:47 MB (Rec: 06/25/24 17:21 MB Desktop) PT-Bed Mobility Assessment Rolling Level of Assist Independent Supine to Sit Supine to Sit Independent Scooting Scooting to Edge of Bed Independent PT-Transfer Assessment Sit to and From Stand Sit to and from Stand Minimal Assistance Equipment Transfer Assistive Device Front Wheeled Walker Transfers Transfer Destination Chair Transfer Technique Stepping Transfer Ability Level of Assist Minimal Assistance Comments Mobility Comments Orthostatic assessment with BP and HR in LUE: supine 169/87, 70; standing 117/66, 87; standing 1' 156/75, 75. Pt is very symptomatic with standing Gait Assessment Gait Gait Assistance Required: Minimum Assistance Distance (Feet) 1 Able to Maintain Weight Bearing Status Yes During Gait Assistive Devices Assistive Device None,Front Wheeled Walker Gait Deviations General Gait Pattern Ataxic,Decreased Stride Length ,Decreased Feet Clearance Factors Limiting Gait Function Factors Limiting Gait Function Incoordination,Poor Balance, Poor Safety Awareness Comments Gait Comments Left side stepping with min A from PT after checking orthostatics 1' to the chair with RW and min A PT-Balance Assessment Sitting Balance and Reactions Static Sitting Balance Ability Normal Dynamic Sitting Balance Ability Normal Standing Balance and Reactions Static Standing Balance Ability Poor Dynamic Standing Balance Ability Poor M5 PT-IP Objective Assessments Start: 06/25/24 15:46 Freq: NEEDED Status: Active Protocol: Document 06/25/24 13:47 MB (Rec: 06/25/24 17:21 MB Desktop) Orientation Orientation/Cognition Level of Alertness Alert Language Function Ability No Deficits Noted Safety Awareness Understands Safety Issues Memory Description No Deficits Noted Gross Range of Motion Upper Extremity ROM Assessment Within Functional Limits Lower Extremity ROM Assessment Within Functional Limits Strength Comments Strength Comments B shoulder flexion and abduction 4/5, B hip flexion, knee extension, ankle DF and great toe extension 4/5 Coordination Assessment Assessment Finger to Nose Test Minimal Impairment Pronation/Supination Test Minimal Impairment Other Assessments Other Other Assessments Normal eye ROM on visual tracking test, very limited cervical ROM with extension to 5 deg, flexion to 10 deg and B rotation less than 20 deg M7 PT-IP Assessment and Plan Start: 06/25/24 15:46 Freq: NEEDED Status: Active Protocol: Document 06/25/24 13:47 MB (Rec: 06/25/24 17:21 MB Desktop) PT Summary Assessment and Plan Potential Rehabilitation Potential Fair Status of Condition at Evaluation Unstable Summary Impairments Pain,ROM,Strength,Balance, Coordination,Transfers,Gait, Activity Tolerance Progress Towards Goals Progressing Toward Goals Assessment Summary Pt is a 69 y/o female presenting with long history of dizziness and neck issues after cervical surgery/fusion. She presents with tremors and history of Parkinsonism. She is receiving OPPT for dizziness and was referred to neurology. OPPT has not discussed cervicogenic dizziness as a contributor to her symptoms but she is working on posture and her neck at OPPT. Pt is profoundly orthostatic and imbalanced this afternoon and so PT cannot perform further gait assessment. She uses her RW at home and will have her 's assistance at d/c and he is present during PT assessment. She would like to con't with OPPT. She has coughing during assessment. Goals Bed Mobility Goal Independent Transfer Goal Standby Assistance,Front Wheeled Walker Gait Goal Standby Assistance,Front Wheel Walker Gait Distance 100 Other Goals Pt will ascend and descend step with LRAD or rail with no more than CGA to allow safe home entrance. Days to Meet Goals 5 Frequency of Treatment Frequency Of Treatment Once a Day Treatment Plan Physical Therapy Treatment Plan Transfer Training,Gait Training,Therapeutic Exercise, Balance Retraining,Discharge Planning,Hot or Cold Pack, Neuromuscular Re-ed, Coordination Retraining,Manual Therapy Recommendations To Nursing Amount of Assist Needed 1 Person Assist Discharge Recommendations PT Discharge Recommendations Home with 04/10 Assist Available,Outpatient PT Transportation Needs at Discharge Private Vehicle - PT assist x1
--- NOTE | 2024-06-25 18:26 | PC.NURSE ---
Day shift: Patient reported changed and increased chest pressure this AM. Notifeid MD Ty who ordered EKG. stated EKG looks ok. Gave patient cough medicine, patient has persistent cough today. She stated the cepocol cough drops helped the most. Saw PT for eval today, she became orthostatic. MD Ty discussed options with patient, and patient elected to stay tonight (rather than her planned discharge home) due to continued feeling of dizziness and her orthostatic hypotention. Patient reported chest pressure much improved this afternoon. Will continue to monitor.
[2024-06-25] MEDS: ATORVASTATIN 20 MG TABLET 10 MG PO (21:26)
[2024-06-25] MEDS: SODIUM CHLORIDE 0.9% FLUSH 10 ML IV (22:53)
[2024-06-25] MEDS: TRAZODONE 50 MG TABLET 100 MG PO (23:12)
[2024-06-26] MEDS: BENZOCAINE/MENTHOL 1 LOZ PKT 1 EACH PO (02:14)
[2024-06-26 03:00] VITALS: BP 156/78; PULSE 52; RESP 18; TEMP 36.1; O2SAT 99
[2024-06-26 08:00] VITALS: BP 138/76; PULSE 58; RESP 18; TEMP 36.7; O2SAT 99
[2024-06-26 08:02] VITALS: PULSE 75; RESP 16; O2SAT 98
[2024-06-26] MEDS: BUDESONIDE 0.5 MG/2 ML NEB INH (08:02)
[2024-06-26] MEDS: ALBUTEROL/IPRATROPIUM 3 ML AMPUL INH (08:02)
[2024-06-26 08:40] VITALS: BP 135/76; PULSE 58
[2024-06-26] MEDS: buPROPion XL 150 MG TAB PO (08:40)
[2024-06-26] MEDS: OXYBUTYNIN 5 MG ER TAB PO (08:40)
[2024-06-26] MEDS: LOSARTAN 25 MG TABLET PO (08:40)
[2024-06-26] MEDS: ASPIRIN EC 81 MG TABLET PO (08:40)
[2024-06-26] MEDS: FLECAINIDE 100 MG TABLET PO (08:40)
[2024-06-26] MEDS: MONTELUKAST 10 MG TABLET PO (08:40)
[2024-06-26] MEDS: PANTOPRAZOLE DR 40 MG TABLET PO (08:40)
[2024-06-26] MEDS: APIXABAN 5 MG TABLET PO (08:41)
[2024-06-26] MEDS: TRINTELLIX 20MG TAB 1 EACH PO (08:42)
[2024-06-26] MEDS: SODIUM CHLORIDE 0.9% FLUSH 10 ML IV (08:46)
--- NOTE | 2024-06-26 10:37 | CM.DPNOTE ---
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 per chart, no CM needs previously identified. P: home tody with family support and OP f/u likely recommended. CM team will continue to follow in case any DCP need arise PRIMITIVO Solis
--- NOTE | 2024-06-26 10:38 | P.DS_ITS ---
History of Present Illness History of Present Illness Date Patient Seen: 06/26/24 Time Patient Seen: 10:38 Chief complaint: V/D excessive coughing Narrative: Per admitting provider, A 69F with PMH of PAF not on anticoagulation, HTN, hyperlipidemia, RLS, asthma without home O2, GERD, anxiety/depression presented to ED with 1 day h/o nausea, vomiting, diarrhea, cough, hypoxia to low 90s at home. She was directed to ED by PCP. She also had chest pressure. On initial ED evaluation, she was found to be positive for COVID-19 but negative for RSV or influenza. CXR showed bibasilar changes c/c pneumonia. Troponin was elevated at 0.209 with BNP 3630. EKG showed no acute changes. ED attending stated that he spoke with cardiology - Dr. Dawson - who stated this was likely Type 2 NSTEMI but still recommended 24 hours of heparin drip (which was started) and echocardiogram. No transfer or cath was necessary at this time. ASA 325 mg was given. She was also in hypertensive urgency at 177/80 but currently is 150s systolic. Tmax was 100.1 F. Chest pressure is worse with coughing. Rocephin, doxycycline were given. She is on RA oxygen. On my exam, she is on RA. C/o some chest discomfort. Also some weakness but not worse than usual. BP 153/80s. Discharge Providers Provider Date of admission: 06/20/24 23:31 Discharge Date: 06/26/24 Primary care physician: Dennis Melgar Consults: 06/25/24 07:42 Consult to Physical Therapy Evaluate & Treat Comment: Physician Instructions: Evaluate and Treat Discharge provider: Ramon Ty DO Summary Hospital Course Discharge Diagnosis: Acute COVID 19 infection with bilateral pneumonia Non STEMI probably type 2 demand perfusion mismatch likely secondary to above resolved Obesity with obstructive sleep apnea on home CPAP Paroxysmal atrial fibrillation rate controlled presently chads Vasc score 3 Mood disorder on antidepressant medication Orthostatic hypotension, chronic Hospital Course: This is a 69-year-old female with a past history paroxysmal AFib not on anticoagulation hypertension, hyperlipidemia who was admitted with chest pressure and possible hypoxia, ultimately found to have an acute COVID-19 infection with bilateral pneumonia and an NSTEMI based on her chest pain with elevated troponins. Patient was never hypoxic over the course of her stay. She was initially continued on a heparin drip and initially, but given no immediate interventions with Cardiology she was transitioned to apixaban. Echocardiogram was performed which was unremarkable. Her troponins trended downward. This may have been due to demand from her presenting pneumonia and COVID infection. She had slow improvement in her symptoms. She was treated for her respiratory infections with dexamethasone, ceftriaxone, and azithromycin for 5 days along with remdesivir. She continued to feel weak and short of breath, but was evaluated with physical therapy. She reported chronic dizziness with standing, and her blood pressure was noted to drop almost 40 points when standing. There was no significant change with medications, and she was noted by therapy to have a possible mild tremor. Please consider further evaluation for Parkinson's as an outpatient, but given the chronicity of her symptoms no further evaluation as an inpatient is required for her orthostatic hypotension. She should continue outpatient PT. She was given orthostatic precautions at the time of discharge. Given her hypertension while supine, changes to her home regimen are not recommended at the moment. She was newly started on Eliquis for her paroxysmal AFib, and after risks benefits discussion was not started on aspirin and statin therapy at this time. Recommend continued discussion as an outpatient regarding statin therapy. Patient was discharged home. Time Spent with Patient Time spent: Greater than 30 minutes Exam Vital Signs (past 8 hours): - 06/26/24 03:00 06/26/24 08:00 06/26/24 08:02 Temperature 97 F L 98.0 F Pulse Rate 52 L 58 L 75 Respiratory Rate 18 18 16 Blood Pressure 156/78 H 138/76 Pulse Oximetry 99 99 98 Oxygen Delivery Method Room Air Oxygen Flow Rate 0 0 Fraction of Inspired Oxygen 21 06/26/24 08:40 Temperature Pulse Rate 58 L Respiratory Rate Blood Pressure 135/76 Pulse Oximetry Oxygen Delivery Method Oxygen Flow Rate Fraction of Inspired Oxygen Fraction of Inspired Oxygen 21 SaO2/FiO2 Ratio 466 Oxygen Delivery Method Room Air Oxygen Flow Rate 0 Narrative Exam Narrative: General no acute distress breathing comfortably on room air new line HEENT unremarkable new line Heart rate rhythm regular Lungs with crackles throughout lung padron and shortened respiratory phases Abdomen nontender bowel sounds present new line Extremities no edema Neuro alert and oriented nonfocal Objective Labs 06/24/24 05:00 06/24/24 05:00 [facility] Medical History Frequent falls Seasonal allergies Asthma Dizziness of unknown etiology Restless leg syndrome Nocturnal hypoxemia Obesity (BMI 30-39.9) GERD (gastroesophageal reflux disease) Anxiety Depression Carrier of fragile X chromosome Hyperlipidemia Hypertension Morbid obesity with BMI of 40.0-44.9, adult Family History Brother Fragile X syndrome in male Mother No problems noted. Social History marital status: details: bobby Maria, lives in [place] household members: spouse lives independently: Yes caregiver/support person: Yes ( acts as her caregiver) housing: house occupational status: disabled Smoking Status: Former smoker quit status: quit date established alcohol intake: former substance use type: does not use Discharge Plan Discharge Plan Patient Disposition: Home Provider Discharge Comment: You were admitted to the hospital with COVID, found to have atrial fibrillation. You do not need the dexamethasone previously prescribed, and I have sent the medications previously sent to the [facility] pharmacy. Your dizzyness is due to something called orthostatic hypotension. Please read the enclosed handout for additional instructions. Recommend PCP follow up in 1-2 weeks if possible. Discharge orders & Medications Prescriptions: New Eliquis 5 mg tablet 5 mg PO BID Qty: 60 0RF Continued cetirizine 10 MG tablet 10 mg PO Q DAY Qty: 0 fluticasone propionate 50 mcg/actuation [place],Suspension 2 spray INTRANASAL DAILY Qty: 0 montelukast [Singulair] 10 MG tablet 10 mg PO DAILY Qty: 0 bupropion HCl [Wellbutrin SR] 150 MG tablet extended release 12 hr 150 mg PO QDAY Qty: 0 diltiazem HCl 120 mg Capsule,Extended Release 24hr 120 mg PO DAILY fluticasone propion-salmeterol [Advair Diskus] 500-50 mcg/dose Blister With Device 1 inh INHALATION BID albuterol sulfate 2.5 mg /3 mL (0.083 %) Solution For Nebulization 2.5 mg INHALATION Q4-6H PRN (Reason: Shortness Of Breath Or Wheezing) albuterol-budesonide 90-80 mcg/actuation Hfa Aerosol Inhaler 2 inh INHALATION QID PRN (Reason: Shortness Of Breath Or Wheezing) cholecalciferol (vitamin D3) 25 mcg (1,000 unit) Capsule 25 mcg PO DAILY telmisartan [Micardis] 20 mg Tablet 20 mg PO DAILY flecainide 100 mg Tablet 100 mg PO BID ferrous sulfate 325 mg 65 mg PO QMWF Antacid Simethicone 1 tab PO QD-QID PRN (Reason: Gastrointestinal Spasms Or Cramping) Rx Instructions: for gas trazodone 200 mg tablet 100 mg PO BEDTIME Trintellix 20 mg 20 mg PO DAILY polyethylene glycol 3350 17 gram/dose Powder 17 g PO DAILY trospium 20 mg tablet 20 mg PO BID acetaminophen [Tylenol Arthritis Pain] 650 mg Tablet Extended Release 650 mg PO Q4-6H PRN (Reason: Pain (Scale Score 4-6)) conjugated estrogens [Premarin] 0.625 mg/gram cream 1 applictn VAG DAILY fluticasone propion-salmeterol [Advair Diskus] 500-50 mcg/dose blister with device 1 inhalation INHALATION DAILY (DME) ResMed AirSense 10 CPAP Qty: 1 Dose Instruction: As directed Patient Comments: Pressure: 11-15 cmH2O DME: [facility] Rx Instructions: As directed Discontinued Adult Low Dose Aspirin 81 mg Tablet 81 mg PO DAILY Follow up/Referrals: Dennis Melgar [Primary Care Provider] - 2 Weeks Diet/Activity/Treatments Diet: Diet as Tolerated and Regular Activity: As tolerated, no restrictions Visit Report/Discharge Packet Instructions: DI for Orthostatic Hypotension Stand Alone Forms: Patient Portal/API, Stroke Signs & Symptoms Discharge Data Primary Care Provider: Dennis Melgar
--- NOTE | 2024-06-26 12:34 | PC.NURSE ---
Patient is A&OX4, VSS, afebrile on RA. She is medically cleared for discharge today. MD at bedside evaluating patient and explaining new medications, answering patient and her 's questions. She and verbalize understanding of discharge instructions. they get NF med back from pharmacy, and pack up all of their belongings. After lunch patient is escorted via w/ch to private vehicle with for discharge home at approximately 1230 this afternoon.
== END 2024-06-26 12:30 | disposition home or self-care (01) | DRG 177 ==
LOC: ED 23:16 → AC 23:31
PROVIDERS: Admitting Provider Internal Medicine; Emergency Provider Student in an Organized Health Care Education/Training Program; PCP Student in an Organized Health Care Education/Training Program; Referring Provider Student in an Organized Health Care Education/Training Program; Visit Provider Internal Medicine
DX: U07.1 COVID-19 (principal); I21.A1 Myocardial infarction type 2; J12.82 Pneumonia due to coronavirus disease 2019; J15.9 Unspecified bacterial pneumonia; I16.0 Hypertensive urgency; I48.0 Paroxysmal atrial fibrillation; I10 Essential (primary) hypertension; E78.5 Hyperlipidemia, unspecified; G25.81 Restless legs syndrome; F32.A Depression, unspecified; K21.9 Gastro-esophageal reflux disease without esophagitis; G47.33 Obstructive sleep apnea (adult) (pediatric); E66.9 Obesity, unspecified; I95.1 Orthostatic hypotension; J45.909 Unspecified asthma, uncomplicated; Z87.891 Personal history of nicotine dependence; Z68.28 Body mass index [BMI] 28.0-28.9, adult
CPT/HCPCS: 0241U; 36415; 71045; 71046; 80048; 80053; 81001; 82550; 83690; 83735; 83880; 84484; 85025; 85610; 85730; 93005; 93010; 93306; 94640; 94762; 96365; 96367; 96375; 97162; 99284; 99285; J0696; J1100; J1644; J2405; J3475

== ENCOUNTER 2025-01-06 13:01 | Emergency (ER) | payer MEDICARE, OTHER, SELFPAY ==
[2024-06-21 03:01] VITALS: BMI 28.1
[2025-01-06] VITALS (19 sets, daily range): BP systolic 130–201; BP diastolic 52–86; PULSE 55–68; RESP 18–51; TEMP 36.3; O2SAT 91–100; BMI 30.8
--- NOTE | 2025-01-06 13:22 | DI.RAD.S_ITS ---
PROCEDURE: XR ANKLE LT MIN 3V INDICATIONS: injury TECHNIQUE: 3 views of the ankle were acquired. COMPARISON: None. FINDINGS: Bones: There is faint visualization of a distal fibular fracture, as seen on the lateral view. The talar dome demonstrates no el abnormality. Age-appropriate bony degenerative changes are seen. Plantar and Achilles calcaneal spurs are seen. Soft tissues: No tibiotalar joint effusion. Achilles tendon appears normal. IMPRESSION: Faint visualization of a distal fibular fracture, seen only on the lateral view. Please correlate with focal tenderness. Please consider follow-up CT versus short-term follow-up plain film study. Dictated by: Aureliano Patel M.D. on 01/06/2025 at 13:47 Approved by: Aureliano Patel M.D. on 01/06/2025 at 13:48
--- NOTE | 2025-01-06 14:54 | DI.CT.S_ITS ---
PROCEDURE: CT LE LT W CON INDICATIONS: fracture on xray TECHNIQUE: Noncontrast 1-1.5 mm axial sections acquired from above the tibiotalar joint to the bottom of the calcaneus, with coronal and sagittal reformats. COMPARISON: [facility], CR, XR ANKLE LT MIN 3V, 01/06/2025, 13:38. FINDINGS: Image quality: Excellent. Bones: Acute, nondisplaced, oblique fracture of the distal fibula. Acute avulsion fracture of the anterior lateral tibial plateau at the origin of the anterior inferior tibiofibular ligament. Acute vertical fracture of the posterior lateral tibial plafond and at the origin of the posterior talofibular ligament. No foot fracture. Soft tissues: Intact anterior extensor tendons without high-grade tear. Intact medial flexor tendons, Achilles tendon, and peroneal tendons without high-grade tear. Soft tissue swelling of the ankle. IMPRESSION: Acute, nondisplaced, oblique fracture of the distal fibular metadiaphysis. Acute avulsion fractures at the origins of the anterior syndesmotic and posterior talofibular ligaments. Dictated by: Vaibhav Capellan M.D. on 01/06/2025 at 15:26 Approved by: Vaibhav Capellan M.D. on 01/06/2025 at 15:30
--- NOTE | 2025-01-06 15:06 | ED.LOWEXIN ---
HPI - Extremity Injury (Lower) General Chief Complaint: Extremity Injury, Lower Stated Complaint: fell left leg cant put weight on it Time Seen by Provider: 01/06/25 14:54 Source: patient Mode of arrival: Ambulatory History of Present Illness HPI Narrative: Patient is a 69-year-old female with frequent falls presenting with left lower extremity injury. Patient states that she was stepping into a vehicle when her leg gave out and she struck her knee and ankle. Patient endorsing severe pain in the left ankle and states that she can not bear weight on this extremity. Patient denies otherwise falling, she had no head strike or loss of consciousness. Patient does state that she bruises easily and is on blood thinning medication. She denies any weakness, numbness or tingling in the lower extremity. MD complaint: knee injury and ankle injury Related Data Home Medications ?Medication ?Instructions ?Recorded ?Confirmed bupropion HCl 150 mg tablet,12 hr 150 mg PO QDAY ##0 02/24/12 06/21/24 sustained-release (Wellbutrin SR) cetirizine 10 mg tablet 10 mg PO Q DAY ##0 02/24/12 06/21/24 fluticasone propionate 50 2 spray intranasal DAILY ##0 02/24/12 06/21/24 mcg/actuation nasal spray,suspension montelukast 10 mg tablet 10 mg PO DAILY ##0 02/24/12 06/21/24 (Singulair) conjugated estrogens 0.625 mg/gram 1 applictn vaginal DAILY 12/12/17 06/21/24 vaginal cream (Premarin) fluticasone 500 mcg-salmeterol 50 1 inhalation inhalation DAILY 12/12/17 06/21/24 mcg/dose blistr powdr for inhalation (Advair Diskus) ResMed AirSense 10 CPAP #1 ea 05/10/18 06/22/24 Antacid Simethicone 1 tab PO QD-QID PRN 06/21/24 06/21/24 Gastrointestinal Spasms Or Cramping Trintellix 20 mg PO DAILY 06/21/24 06/21/24 acetaminophen 650 mg 650 mg PO Q4-6H PRN Pain (Scale 06/21/24 06/21/24 tablet,extended release (Tylenol Score 4-6) Arthritis Pain) albuterol 90 mcg-budesonide 80 2 inh inhalation QID PRN Shortness 06/21/24 06/21/24 mcg/actuation HFA aerosol inhaler Of Breath Or Wheezing albuterol sulfate 2.5 mg/3 mL 2.5 mg inhalation Q4-6H PRN 06/21/24 06/21/24 (0.083 %) solution for nebulization Shortness Of Breath Or Wheezing cholecalciferol (vitamin D3) 25 25 mcg PO DAILY 06/21/24 06/21/24 mcg (1,000 unit) capsule diltiazem HCl 120 mg 120 mg PO DAILY 06/21/24 06/21/24 capsule,extended release 24 hr ferrous sulfate 65 mg PO QMWF 06/21/24 06/21/24 flecainide 100 mg tablet 100 mg PO BID 06/21/24 06/21/24 fluticasone 500 mcg-salmeterol 50 1 inh inhalation BID 06/21/24 06/21/24 mcg/dose blistr powdr for inhalation (Advair Diskus) polyethylene glycol 3350 17 17 g PO DAILY constip 06/21/24 06/21/24 gram/dose oral powder telmisartan 20 mg tablet (Micardis) 20 mg PO DAILY 06/21/24 06/21/24 trazodone 100 mg PO BEDTIME insomnia 06/21/24 06/21/24 trospium 20 mg tablet 20 mg PO BID 06/21/24 06/21/24 Previous Rx's ?Medication ?Instructions ?Recorded apixaban 5 mg tablet (Eliquis) 5 mg PO BID #60 tabs 06/26/24 oxycodone 5 mg capsule 5 mg PO Q8H PRN pain #10 caps 01/06/25 Allergies Allergy/AdvReac Type Severity Reaction Status Date / Time iodine (IODINE) Allergy Mild Verified 01/06/25 13:18 Sulfa (Sulfonamide Allergy Mild Verified 01/06/25 13:18 Antibiotics) (SULFA (SULFONAMIDE ANTIBIOTICS)) Iodinated Contrast Media Allergy Unknown Verified 01/06/25 13:18 (IODINATED CONTRAST MEDIA - IV DYE) lisinopril (LISINOPRIL) Allergy Unknown Verified 01/06/25 13:18 Review of Systems Review of Systems ROS Unobtainable: All systems reviewed & are unremarkable except as noted in HPI and below Constitutional Constitutional: Reports frequent falls Musculoskeletal Musculoskeletal: Reports system reviewed and no additional complaints, except as documented Neurologic Neurologic: Reports frequent falls Hematologic/Lymphatic Hematologic/Lymphatic: Reports easy bruising Patient History Medical History Frequent falls Seasonal allergies Asthma Dizziness of unknown etiology Restless leg syndrome Nocturnal hypoxemia Obesity (BMI 30-39.9) GERD (gastroesophageal reflux disease) Anxiety Depression Carrier of fragile X chromosome Hyperlipidemia Hypertension Morbid obesity with BMI of 40.0-44.9, adult Family History Brother Fragile X syndrome in male Mother No problems noted. Social History marital status: details: bobby Maria, lives in [place] household members: spouse lives independently: Yes caregiver/support person: Yes ( acts as her caregiver) housing: house occupational status: disabled Smoking Status: Never smoker quit status: quit date established alcohol intake: former substance use type: does not use Smoking Status: Never smoker alcohol intake frequency: 0-2 drinks per day Exam Narrative Exam Narrative: GENERAL: in no distress, not toxic not dyspneic HEAD: Normocephalic. EYES: Pupils equal round ENT: Mucous membranes moist. NECK: Trachea midline. CARDIOVASCULAR: Regular rate and rhythm RESPIRATORY: Clear to auscultation. Breath sounds equal bilaterally. No wheezes, rales, or rhonchi. GASTROINTESTINAL: Abdomen soft, non-tender EXTREMITIES: Exam with focal tenderness over the lateral left ankle without obvious deformity, CSM is intact, diffuse tenderness over the left knee with range of motion intact. BACK: No flank tenderness. NEURO: AOx4. Clear speech SKIN: Warm and dry PSYCH: Not anxious, is cooperative Initial Vital Signs Initial Vital Signs: Vital Signs Temperature 97.3 F L 01/06/25 13:18 Pulse Rate 68 01/06/25 13:18 Respiratory Rate 18 01/06/25 13:18 Blood Pressure 162/68 H 01/06/25 13:18 Pulse Oximetry 100 01/06/25 13:18 Oxygen Delivery Method Room Air 01/06/25 13:18 Procedures Orthopedic Splinting/Casting Injury #1: Side: left Lower Extremity Injury Location: lower leg and ankle Lower Extremity Immobilizer: posterior splint and stirrup splint Other Orthopedic Equipment: walker Post splinting neuro exam: intact Post splinting vascular exam: intact Placed by: Nursing Additional Comments: Splint placement supervised by provider and re-evaluated following splint placement Course Orders Ordered: ED Orders 01/06/25 13:22 XR ankle LT min 3V Stat 01/06/25 14:54 CT LE LT wo con Stat 01/06/25 15:45 Complete Blood Count AUTO DIFF Stat Comprehensive Metabolic Panel Stat Lipase Stat Magnesium Stat NT-proBNP (BNP-Adult 18+) Stat PTT Partial Thromboplastin Steve Stat Prothrombin Time INR Stat Troponin & CK Cardiac Panel Stat 01/06/25 16:12 XR knee LT 3V Stat 01/06/25 16:45 XR chest 1V Stat Troponin I Stat EKG-12 Lead Stat EKG-12 Lead Stat Discontinued Medications Aspirin (Aspirin 81 Mg Chew Tab) 324 mg PO NOW ONE Stop: 01/06/25 16:46 Last Admin: 01/06/25 16:55 Dose: 324 mg Documented By: LIZZETTE Acetaminophen (Ofirmev) 1,000 mg in 100 mls @ 400 mls/hr IV NOW ONE Stop: 01/06/25 15:21 Last Infusion: 01/06/25 16:14 Dose: Infused Documented By: Admin: 01/06/25 16:06 Dose: 400 mls/hr Documented By: LIZZETTE Morphine Sulfate (Morphine 4 Mg/Ml Inj) 4 mg IV NOW ONE Stop: 01/06/25 15:08 Last Admin: 01/06/25 16:06 Dose: 4 mg Documented By: LIZZETTE Nitroglycerin (Nitroglycerin 0.4 Mg Sl Tab) 0.4 mg SL NOW ONE Stop: 01/06/25 16:51 Last Admin: 01/06/25 16:52 Dose: 0.4 mg Documented By: LIZZETTE Ondansetron HCl (Ondansetron 4 Mg/2 Ml Inj) 4 mg IV NOW ONE Stop: 01/06/25 18:29 Last Admin: 01/06/25 18:36 Dose: 4 mg Documented By: LIZZETTE Vital Signs Vital signs: Vital Signs - 8 hr 01/06/25 13:18 01/06/25 16:20 01/06/25 16:22 Temperature 97.3 F L Pulse Rate 68 61 Respiratory Rate 18 Blood Pressure 162/68 H 201/86 H Pulse Oximetry 100 100 Oxygen Delivery Method Room Air 01/06/25 16:22 01/06/25 16:30 01/06/25 16:44 Temperature Pulse Rate 55 L 58 L Respiratory Rate Blood Pressure 190/81 H Pulse Oximetry 100 100 Oxygen Delivery Method 01/06/25 16:44 01/06/25 16:52 01/06/25 16:55 Temperature Pulse Rate 63 63 Respiratory Rate 36 H Blood Pressure 190/81 H 158/68 H Pulse Oximetry 100 Oxygen Delivery Method 01/06/25 16:55 01/06/25 17:00 01/06/25 17:00 Temperature Pulse Rate 60 60 Respiratory Rate 36 H 26 H Blood Pressure 130/52 L Pulse Oximetry 99 97 Oxygen Delivery Method 01/06/25 17:05 01/06/25 17:05 01/06/25 17:10 Temperature Pulse Rate 59 L 60 Respiratory Rate 26 H 29 H Blood Pressure 154/68 H Pulse Oximetry 94 98 Oxygen Delivery Method 01/06/25 17:15 01/06/25 17:20 01/06/25 17:20 Temperature Pulse Rate 58 L Respiratory Rate 45 H Blood Pressure 159/70 H 165/73 H Pulse Oximetry 93 Oxygen Delivery Method 01/06/25 17:25 01/06/25 17:30 01/06/25 17:30 Temperature Pulse Rate 60 Respiratory Rate 40 H Blood Pressure 158/70 H 149/67 H Pulse Oximetry 91 Oxygen Delivery Method 01/06/25 17:35 01/06/25 17:35 01/06/25 17:40 Temperature Pulse Rate 60 61 Respiratory Rate 47 H 50 H Blood Pressure 149/67 H Pulse Oximetry 92 93 Oxygen Delivery Method 01/06/25 17:40 01/06/25 17:45 01/06/25 17:45 Temperature Pulse Rate 61 Respiratory Rate 51 H Blood Pressure 145/67 H 144/65 H Pulse Oximetry 93 Oxygen Delivery Method 01/06/25 18:00 01/06/25 18:00 01/06/25 18:30 Temperature Pulse Rate 60 65 Respiratory Rate 46 H 47 H Blood Pressure 149/67 H Pulse Oximetry 96 97 Oxygen Delivery Method MDM - Extremity Injury (Lower) Differential Diagnosis Differential diagnosis: Likely ankle sprain and strain, acute internal derangement of knee, fracture of femur and ankle fracture Lab Data Attestation: I reviewed the patient's lab results. 01/06/25 15:45 01/06/25 15:45 Labs: Lab Results 01/06/25 01/06/25 Range/Units 15:45 16:45 WBC 7.3 (4.5-11.0) X10^3/uL RBC 4.00 (4.0-5.2) X10^6/uL Hgb 12.3 (12.0-16.0) g/dL Hct 36.7 (36-46) % MCV 91.7 (80-100) fL MCH 30.7 (26-34) PG MCHC 33.4 (30-36) % RDW 14.0 (11.6-14.8) % Plt Count 223 (150-400) X10^3/uL Neut % (Auto) 70.5 (50-75) % Lymph % (Auto) 20.7 L (25-40) % [place] % (Auto) 5.9 (3-14) % Eos % (Auto) 2.5 (2-4) % Baso % (Auto) 0.4 (0-2) % Neut # (Auto) 5100 (4860-6791) /uL Lymph # (Auto) 1500 (9973-7353) /uL [place] # (Auto) 400 (0-900) /uL Eos # (Auto) 200 (0-450) /uL Baso # (Auto) 0 (0-100) /uL PT 11.6 (9.4-12.5) SECONDS INR 1.0 (0.9-1.3) APTT 30 (25.1-36.5) SECONDS Sodium 137 (137-145) mmol/L Potassium 3.7 (3.4-5.1) mmol/L Chloride 103 (98-107) mmol/L Carbon Dioxide 28 (22-32) mmol/L BUN 17 (7-17) mg/dL Creatinine 0.91 (0.52-1.04) mg/dL Estimated GFR > 60 (>60) mL/min BUN/Creatinine Ratio 18.7 (6-22) Glucose 90 (70-99) mg/dL Calcium 9.6 (8.4-10.2) mg/dL Magnesium 1.8 (1.6-2.3) mg/dL Total Bilirubin 0.5 (0.2-1.3) mg/dL AST 25 (14-36) IU/L ALT 14 (<35) IU/L Alkaline Phosphatase 96 (38-126) U/L Total Creatine Kinase 40 (30-135) U/L Troponin I < 0.012 < 0.012 (0.01-0.034) ng/mL NT-Pro-B Natriuret Pep 144 H (<125) pg/mL Total Protein 7.3 (6.3-8.2) g/dL Albumin 4.4 (3.5-5.0) g/dL Globulin 2.9 (1.7-4.1) g/dL Albumin/Globulin Ratio 1.5 (1.0-2.8) Lipase 41 (23-300) U/L Imaging Data Extremity x-ray #1: Attestation: I personally reviewed and interpreted this imaging study as follows: My Impression: X-ray of the left ankle concerning for distal fibular fracture, given these findings and patient's overall exam, we will plan for CT imaging for further evaluation ECG Data Attestation: I personally reviewed and interpreted this ECG as follows: MDM Narrative Medical decision making narrative: History and exam as above. Patient presenting with left ankle and knee pain following leg giving out and hitting it against a step on her vehicle. Differential for presentation includes fracture, joint dislocation, hematoma formation, ligamentous injury. Patient denies being on any blood thinning medications however does endorse easy bruising. We will plan for x-ray imaging, analgesia. Discharge Plan Departure Patient Disposition: Home Clinical Impression: Left fibular fracture Qualifiers: Encounter type: initial encounter Fibula location: distal Fracture type: closed Fracture morphology: other fracture Qualified Code(s): S82.832A - Other fracture of upper and lower end of left fibula, initial encounter for closed fracture Ankle fracture Qualifiers: Encounter type: initial encounter Fracture type: closed Laterality: left Qualified Code(s): S82.892A - Other fracture of left lower leg, initial encounter for closed fracture Instructions: Fibula Shaft Fracture Activity Restrictions/Additional Instructions: You were seen in the emergency department for your left leg injury. Evaluation here included examination, x-ray and CT imaging, and lab work. Your imaging demonstrated fracture of your distal fibula and concern for injury to the ankle joint itself. You have been placed in a splint for stability and pain management. We recommend continuing to elevate and using Tylenol, oxycodone, ice, and rest for pain management. Please refrain from bearing weight on this extremity. A referral has been placed to Orthopedic surgery, you can also reach out to the orthopedic surgeon of your preference for further evaluation and management in the outpatient setting. If you develop worsening pain, swelling, sensory changes, or other symptoms that are concerning to you, please return to the emergency department for further evaluation. Prescriptions: New oxycodone 5 mg capsule 5 mg PO Q8H PRN (Reason: pain) Qty: 10 0RF No Action cetirizine 10 MG tablet 10 mg PO Q DAY Qty: 0 fluticasone propionate 50 mcg/actuation [place],Suspension 2 spray INTRANASAL DAILY Qty: 0 montelukast [Singulair] 10 MG tablet 10 mg PO DAILY Qty: 0 bupropion HCl [Wellbutrin SR] 150 MG tablet extended release 12 hr 150 mg PO QDAY Qty: 0 diltiazem HCl 120 mg Capsule,Extended Release 24hr 120 mg PO DAILY fluticasone propion-salmeterol [Advair Diskus] 500-50 mcg/dose Blister With Device 1 inh INHALATION BID albuterol sulfate 2.5 mg /3 mL (0.083 %) Solution For Nebulization 2.5 mg INHALATION Q4-6H PRN (Reason: Shortness Of Breath Or Wheezing) albuterol-budesonide 90-80 mcg/actuation Hfa Aerosol Inhaler 2 inh INHALATION QID PRN (Reason: Shortness Of Breath Or Wheezing) cholecalciferol (vitamin D3) 25 mcg (1,000 unit) Capsule 25 mcg PO DAILY telmisartan [Micardis] 20 mg Tablet 20 mg PO DAILY flecainide 100 mg Tablet 100 mg PO BID ferrous sulfate 325 mg 65 mg PO QMWF Antacid Simethicone 1 tab PO QD-QID PRN (Reason: Gastrointestinal Spasms Or Cramping) Rx Instructions: for gas trazodone 200 mg tablet 100 mg PO BEDTIME Trintellix 20 mg 20 mg PO DAILY polyethylene glycol 3350 17 gram/dose Powder 17 g PO DAILY trospium 20 mg tablet 20 mg PO BID acetaminophen [Tylenol Arthritis Pain] 650 mg Tablet Extended Release 650 mg PO Q4-6H PRN (Reason: Pain (Scale Score 4-6)) Eliquis 5 mg tablet 5 mg PO BID Qty: 60 0RF conjugated estrogens [Premarin] 0.625 mg/gram cream 1 applictn VAG DAILY fluticasone propion-salmeterol [Advair Diskus] 500-50 mcg/dose blister with device 1 inhalation INHALATION DAILY (DME) ResMed AirSense 10 CPAP Qty: 1 Dose Instruction: As directed Patient Comments: Pressure: 11-15 cmH2O DME: [facility] Rx Instructions: As directed Referrals: Dennis Melgar [Primary Care Provider, Medical] Stand Alone Forms: Patient Portal/API
[2025-01-06] MEDS: ACETAMINOPHEN IV 1,000 MG/100 ML VIAL 400 MG IV (16:06)
[2025-01-06] MEDS: MORPHINE 4 MG/ML INJ IV (16:06)
--- NOTE | 2025-01-06 16:12 | DI.RAD.S_ITS ---
PROCEDURE: XR KNEE LT 3V INDICATIONS: injury TECHNIQUE: 3 views of the knee were acquired. COMPARISON: [facility], CT, CT LE LT WO CON, 01/06/2025, 15:05. [facility], CR, XR CHEST 1V, 01/06/2025, 16:41. [facility], CR, XR KNEE RT 3V, 01/18/2020, 23:09. FINDINGS: Bones: No fractures or dislocations. No suspicious bony lesions. Mild generalized degenerative changes are seen. Soft tissues: No joint effusion. No suspicious soft tissue calcifications. IMPRESSION: No acute abnormality of the knee is seen. Dictated by: Aureliano Patel M.D. on 01/06/2025 at 15:59 Approved by: Aureliano Patel M.D. on 01/06/2025 at 16:00
--- NOTE | 2025-01-06 16:45 | EKG_ITS ---
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
--- NOTE | 2025-01-06 16:45 | DI.RAD.S_ITS ---
1PROCEDURE: XR CHEST 1V INDICATIONS: Chest Pain TECHNIQUE: One view of the chest was acquired. COMPARISON: [facility], CR, XR CHEST 1V, 06/23/2024, 13:22. [facility], CR, XR CHEST 2V, 06/20/2024, 20:31. FINDINGS: Surgical changes and devices: None. Lungs and pleura: Lungs are clear. No pleural effusions or pneumothorax. Mediastinum: Mediastinal contours appear normal. Heart size is normal. Bones and chest wall: No suspicious bony lesions. Overlying soft tissues appear unremarkable. IMPRESSION: No acute cardiopulmonary abnormality is seen. Dictated by: Vaibhav Capellan M.D. on 01/06/2025 at 16:59 Approved by: Vaibhav Capellan M.D. on 01/06/2025 at 16:59
[2025-01-06] MEDS: NITROGLYCERIN 0.4 MG SL TAB SL (16:52)
[2025-01-06 16:54] LABS: Add Manual Diff / Slide Review NO; Hematocrit 36.7 % (36-46); Hemoglobin 12.3 g/dL (12.0-16.0); Lymphocytes Absolute Auto 1500 /uL (1100-4500); Mean Corpuscular HGB Conc 33.4 % (30-36); Mean Corpuscular Hemoglobin 30.7 PG (26-34); Mean Corpuscular Volume 91.7 fL (80-100); Platelet Count 223 X10^3/uL (150-400)
[2025-01-06 16:55] LABS: INR 1.0 (0.9-1.3); Prothrombin Time 11.6 SECONDS (9.4-12.5)
[2025-01-06] MEDS: ASPIRIN 81 MG CHEW TAB 324 MG PO (16:55)
[2025-01-06 16:58] LABS: PTT Partial Thromboplastin Tim 30 SECONDS (25.1-36.5)
[2025-01-06 16:59] LABS: Alanine Aminotransferase 14 IU/L (<35); Albumin 4.4 g/dL (3.5-5.0); Albumin Globulin Ratio 1.5 (1.0-2.8); Alkaline Phosphatase 96 U/L (38-126); Blood Urea Nitrogen 17 mg/dL (7-17); Calcium 9.6 mg/dL (8.4-10.2); Carbon Dioxide 28 mmol/L (22-32); Chloride 103 mmol/L (98-107); Creatine Kinase 40 U/L (30-135); Estimated Glomerular Filt Rate > 60 mL/min (>60); Globulin 2.9 g/dL (1.7-4.1); Glucose 90 mg/dL (70-99); HEMOLYSIS < 15 (0-50); Lipase 41 U/L (23-300); Magnesium 1.8 mg/dL (1.6-2.3); Potassium 3.7 mmol/L (3.4-5.1); Sodium 137 mmol/L (137-145); Total Protein 7.3 g/dL (6.3-8.2)
[2025-01-06 17:11] LABS: NT-proBNP (BNP-Adult 18+) 144 pg/mL (<125); Troponin I < 0.012 ng/mL (0.01-0.034)
[2025-01-06 17:32] LABS: Troponin I < 0.012 ng/mL (0.01-0.034)
[2025-01-06] MEDS: ONDANSETRON 4 MG/2 ML INJ IV (18:36)
== END 2025-01-06 18:59 | disposition home or self-care (01) ==
PROVIDERS: Emergency Provider Student in an Organized Health Care Education/Training Program; PCP Student in an Organized Health Care Education/Training Program
DX: S82.832A Other fracture of upper and lower end of left fibula, initial encounter for closed fracture (principal); S82.892A Other fracture of left lower leg, initial encounter for closed fracture; W18.30XA Fall on same level, unspecified, initial encounter; Z91.81 History of falling
CPT/HCPCS: 29505; 29515; 36415; 71045; 73562; 73610; 73700; 80053; 82550; 83690; 83735; 83880; 84484; 85025; 85610; 85730; 93005; 96374; 96375; 99284; 99285; J0131; J2272; J2405

== ENCOUNTER → 2025-01-18 09:12 | Outpatient (CLI) | payer MEDICARE, OTHER, SELFPAY ==
[2024-06-21 03:01] VITALS: BMI 28.1
--- NOTE | 2025-01-18 09:15 | DI.MRI.S_ITS ---
PROCEDURE: MR KNEE LT WO CON INDICATIONS: Pain in left knee TECHNIQUE: Noncontrast sagittal PD fast spin echo and T2 fast spin echo with fat saturation, sagittal 3-D FLASH with fat saturation; coronal T1 spin echo and PD fast spin echo with fat saturation, and axial PD fast spin echo with fat saturation through the knee. COMPARISON: [facility], CR, XR KNEE LT 3V, 01/06/2025, 16:33. [facility], MR, KNEE WITHOUT CONTRAST, 01/14/2016, 17:15. FINDINGS: Image quality: Excellent. Menisci: In the medial meniscus, there is horizontal tear of the meniscus body. Moderate extrusion of the medial meniscus body. The lateral meniscus is unremarkable. Cruciate ligaments: The anterior and posterior cruciate ligaments appear intact. Medial structures: Low-grade tear of the proximal MCL (10:18). Lateral structures: The lateral collateral ligament, long and short heads of the biceps femoris tendon appear intact. The popliteus tendon appears normal; the popliteofibular ligament appears intact. The posterosuperior and anteroinferior popliteomeniscal fascicles appear intact. The arcuate and fabellofibular ligaments appear intact, on either side of the lateral inferior geniculate artery. Iliotibial band appears normal. Anterior structures: The quadriceps tendons intact. Mild tendinosis of the proximal patellar tendon. Patellar alignment is normal. No femoral trochlear dysplasia or ventral trochlear prominence. No edema in the infrapatellar fat pad. Bones and cartilage: The cartilage of the medial and lateral compartments are well maintained. There is mild marrow edema at the anterior and posterior aspect of the medial tibial plateau, likely representing marrow contusion. There is marrow edema of the posterior aspect of the medial femoral condyle, raising concern for marrow contusion as well. Mild chondrosis of the patellofemoral compartment with punctate subchondral marrow edema in the median ridge. No acute fracture. Joint space: Small knee effusion. Small popliteal cyst. Popliteal vasculature is unremarkable. No intra-articular body. IMPRESSION: 1. Tear of the medial meniscus with moderate extrusion of the medial meniscus body. 2. Low-grade tear of the proximal MCL. 3. Mild chondrosis of the patellofemoral compartment. 4. Mild marrow contusion of the anterior and posterior aspect of the medial tibial plateau, and of the posterior medial femoral condyle. No acute fracture. Dictated by: Elinor Soliman M.D. on 01/18/2025 at 14:06 Approved by: Elinor Soliman M.D. on 01/18/2025 at 14:17
== END ==
LOC: MRI 09:14
PROVIDERS: PCP Student in an Organized Health Care Education/Training Program; Referring Provider Podiatrist; Visit Provider Podiatrist
DX: S83.242A Other tear of medial meniscus, current injury, left knee, initial encounter (principal); S83.412A Sprain of medial collateral ligament of left knee, initial encounter; M22.42 Chondromalacia patellae, left knee; M25.462 Effusion, left knee; M71.21 Synovial cyst of popliteal space [Baker], right knee; M79.605 Pain in left leg
CPT/HCPCS: 73721